=== PATIENT | male | born 1935 | race Caucasian/White ===

== ENCOUNTER → 2016-05-18 | Outpatient (CLI) | payer MEDICARE ==
[2016-05-18 14:07] LABS: Basophils % (A) 1 %; CH 31.9; Eosinophils # (A) 0.2 k/uL (0-0.7); Eosinophils % (A) 4 %; HCT 37.7 % (39.0-53.0); HDW 2.01; Luc # (Auto) 0.06; Luc % (Auto) 1; Lymphocytes # (A) 1.7 k/uL (1.0-4.8); Lymphocytes % (A) 30 %; MCH 31.9 pg (25.0-35.0); MCHC 31.9 g/dL (31.0-37.0); MCV 100.1 fL (80.0-100.0); Mean Platelet Volume 8.2; Monocytes # (A) 0.2 k/uL (0-1.0); Monocytes % (A) 4 %; Neutrophils # (A) 3.3 k/uL (1.3-7.7); Neutrophils % (A) 60 %; RBC 3.76 m/uL (4.30-5.90); RDW 12.3 % (11.5-15.5); WBC 5.4 k/uL (3.8-10.6); WBC (Perox) 5.92
[2016-05-18 14:25] LABS: Anion Gap 13 mmol/L; Blood Urea Nitrogen 35 mg/dL (9-20); Calcium 9.4 mg/dL (8.4-10.2); Carbon Dioxide 28 mmol/L (22-30); Chloride 102 mmol/L (98-107); Glucose 175 mg/dL (74-99); Iron 125 ug/dL (49-181); Magnesium 1.8 mg/dL (1.6-2.3); Non-African American GFR(MDRD) 53 (>60 ml/min/1.73 sqM); Phosphorous 3.5 mg/dL (2.5-4.5); Potassium 3.9 mmol/L (3.5-5.1); Sodium 143 mmol/L (137-145); Uric Acid 5.8 mg/dL (3.5-8.5)
[2016-05-18 14:33] LABS: % Iron Saturation 41.5 % (20-50); Total Iron Binding Capacity 301 ug/dL (261-462)
== END | disposition home or self-care (01) ==
LOC: LABWHC1 13:16
PROVIDERS: ATTEND Nurse Practitioner Family
DX: N18.3 Chronic kidney disease, stage 3 (moderate) (principal); D64.9 Anemia, unspecified; E21.3 Hyperparathyroidism, unspecified; E55.9 Vitamin D deficiency, unspecified; M10.9 Gout, unspecified; N39.0 Urinary tract infection, site not specified; R80.9 Proteinuria, unspecified
CPT/HCPCS: 36415; 80048; 82306; 82728; 83540; 83550; 83735; 83970; 84100; 84550; 85025

== ENCOUNTER → 2016-06-28 | Outpatient (CLI) | payer MEDICARE ==
[2016-06-28 16:56] LABS: Non-African American GFR(MDRD) 59 (>60 ml/min/1.73 sqM)
--- NOTE | 2016-06-28 19:28 | MR ---
EXAMINATION TYPE: MR lumbar spine wo/w con DATE OF EXAM: 06/28/2016 6:26 PM COMPARISON: NONE HISTORY: Left leg weakness TECHNIQUE: Multiplanar, multisequence images of the lumbar spine were acquired utilizing 18 mL intravenous Multi Alesha gadolinium contrast. T12-L1: Marked compression fracture of T12 with loss of height of the greater than 95%. There is exag gerated kyphosis at this level. There is bony retropulsion noted measuring approximately 8 mm. There is distortion of the ventral thecal sac however no definite cord contact or central stenosis at this level. L1-L2: Mild disc desiccation. Mild circumferential disc bulge. Mild effacement ventral thecal sac. No evidence of herniation or protrusion. No central stenosis. Facet joint arthropathy resulting in bila teral foraminal encroachment. L2-L3: Mild disc desiccation. Mild circumferential disc bulge. Mild effacement ventral thecal sac. No evidence of herniation or protrusion. No central stenosis. Facet joint arthropathy resulting in bila teral foraminal encroachment. L3-L4: Moderate to severe disc desiccation. Circumferential disc bulge with effacement of the ventral thecal sac. No evidence for disc herniation. Hypertrophy of the ligamentum flavum and facet joint ar thropathy resulting in constriction of the thecal sac without overt stenosis. Bilateral foraminal enc roachment seen. L4-L5: Severe disc desiccation identified. Mild posterior disc bulge. Hypertrophy of the ligamentum f lavum as well as facet joint arthropathy contribute to mild central stenosis. Grade 1 anterolisthesis L4 and L5 of 2 mm related to severe facet joint arthropathy. Bilateral foraminal encroachment. L5-S1: Normal disc appearance without desiccation. No herniation, protrusion or disc bulging. No ca nal stenosis is present. Foramina are patent bilaterally. Lumbar segments are intact. No paraspinal masses are identified. Conus medullaris has a normal appe arance. No pathologic enhancement identified. IMPRESSION: 1. Marked chronic compression fracture with bony retropulsion at T12 as discussed above. 2. Multilevel degenerative disc disease. 3. 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
== END ==
LOC: RADMRIMAIN 16:06
PROVIDERS: ATTEND Psychiatry & Neurology Neurology
DX: M48.54XA Collapsed vertebra, not elsewhere classified, thoracic region, initial encounter for fracture (principal); M51.36 Other intervertebral disc degeneration, lumbar region; M48.06 Spinal stenosis, lumbar region; Z13.89 Encounter for screening for other disorder
CPT/HCPCS: 82565; 72158; A9577

== ENCOUNTER → 2016-07-15 | Outpatient (CLI) | payer MEDICARE ==
[2016-07-15 16:38] LABS: CH 32.5; CHCM 31.6; HCT 38.3 % (39.0-53.0); HDW 2.03; HGB 12.2 gm/dL (13.0-17.5); MCH 32.9 pg (25.0-35.0); MCHC 31.9 g/dL (31.0-37.0); MCV 103.2 fL (80.0-100.0); Macrocytosis Slight; Mean Platelet Volume 9.2; RBC 3.71 m/uL (4.30-5.90); RDW 12.7 % (11.5-15.5); WBC 6.4 k/uL (3.8-10.6)
[2016-07-15 16:50] LABS: ALT 18 U/L (21-72); AST 32 U/L (17-59); Alkaline Phosphatase 38 U/L (38-126); Anion Gap 17 mmol/L; Blood Urea Nitrogen 32 mg/dL (9-20); Calcium 9.7 mg/dL (8.4-10.2); Carbon Dioxide 22 mmol/L (22-30); Chloride 100 mmol/L (98-107); Glucose 266 mg/dL (74-99); Non-African American GFR(MDRD) >60 (>60 ml/min/1.73 sqM); Potassium 4.5 mmol/L (3.5-5.1); Sodium 139 mmol/L (137-145); Total Bilirubin 0.7 mg/dL (0.2-1.3); Total Protein 7.7 g/dL (6.3-8.2)
[2016-07-15 17:03] LABS: C Reactive Protein 8.6 mg/L (<10.0)
[2016-07-15 17:06] LABS: Prealbumin 16 mg/dL (18-36)
[2016-07-15 17:50] LABS: Erythrocyte Sedimentation Rate 60 mm/hr (0-15)
[2016-07-15 19:45] LABS: Hemoglobin A1C 5.7 % (4.2-6.1)
== END | disposition home or self-care (01) ==
LOC: LABWHC1 15:45
PROVIDERS: ATTEND Family Medicine
DX: E11.622 Type 2 diabetes mellitus with other skin ulcer (principal)
CPT/HCPCS: 36415; 80053; 83036; 84134; 85027; 85652; 86140

== ENCOUNTER → 2016-08-03 | Outpatient (CLI) | payer MEDICARE ==
--- NOTE | 2016-08-03 15:32 | XR ---
EXAMINATION TYPE: XR tibia fibula bilateral DATE OF EXAM: 08/03/2016 12:28 PM COMPARISON: NONE HISTORY: Type 2 diabetes mellitus-Evaluate calcium deposits TECHNIQUE: AP and lateral views of the bilateral tibia and fibula are submitted. COMPARISON: 03/08/2014 FINDINGS: There is no fracture or dislocation. Again noted are diffuse calcifications identified of t he soft tissues of the bilateral legs possibly related to chronic venous stasis. Vascular calcificati ons are also noted. IMPRESSION: Stable chronic venous stasis disease.
== END ==
LOC: RADXRMAIN 12:01
PROVIDERS: ATTEND Surgery
DX: E11.628 Type 2 diabetes mellitus with other skin complications (principal); I87.8 Other specified disorders of veins

== ENCOUNTER → 2016-11-15 | Outpatient (CLI) | payer MEDICARE ==
[2016-11-15 16:43] LABS: CH 32.3; CHCM 31.9; HCT 33.8 % (39.0-53.0); HDW 1.93; HGB 10.9 gm/dL (13.0-17.5); MCH 32.8 pg (25.0-35.0); MCHC 32.3 g/dL (31.0-37.0); MCV 101.5 fL (80.0-100.0); Mean Platelet Volume 9.2; RBC 3.33 m/uL (4.30-5.90); RDW 12.9 % (11.5-15.5); WBC 5.9 k/uL (3.8-10.6)
[2016-11-15 16:48] LABS: Anion Gap 9 mmol/L; Blood Urea Nitrogen 32 mg/dL (9-20); Calcium 9.2 mg/dL (8.4-10.2); Carbon Dioxide 27 mmol/L (22-30); Chloride 103 mmol/L (98-107); Glucose 132 mg/dL (74-99); Iron 90 ug/dL (49-181); Non-African American GFR(MDRD) >60 (>60 ml/min/1.73 sqM); Phosphorous 3.1 mg/dL (2.5-4.5); Sodium 139 mmol/L (137-145); Uric Acid 4.5 mg/dL (3.5-8.5)
[2016-11-15 16:57] LABS: % Iron Saturation 33.8 % (20-50); Total Iron Binding Capacity 266 ug/dL (261-462)
== END | disposition home or self-care (01) ==
LOC: LABWHC1 16:06
PROVIDERS: ATTEND Nurse Practitioner Family
DX: E55.9 Vitamin D deficiency, unspecified (principal); N18.3 Chronic kidney disease, stage 3 (moderate); D63.1 Anemia in chronic kidney disease; N39.0 Urinary tract infection, site not specified; M10.9 Gout, unspecified; N25.81 Secondary hyperparathyroidism of renal origin
CPT/HCPCS: 36415; 80048; 82306; 82728; 83540; 83550; 83735; 83970; 84100; 84550; 85027

== ENCOUNTER → 2017-01-04 | Outpatient (CLI) | payer MEDICARE ==
--- NOTE | 2017-01-04 15:04 | US ---
EXAMINATION TYPE: US kidneys/renal and bladder DATE OF EXAM: 01/04/2017 COMPARISON: CT November 26, 2015 CLINICAL HISTORY: C64.9 KIDNEY CANCER. Pt states history of renal CA on right/ Pt had mass removed ro botically EXAM MEASUREMENTS: Right Kidney: 9.4 x 4.2 x 4.8 cm Left Kidney: 10.3 x 4.9 x 4.7 cm Difficult pt scan due to large body habitus Right Kidney: Cortical thinning, otherwise appeared wnl Left Kidney: Appeared wnl Bladder: Irregular posterior wall Bilateral Jets seen: Yes Exam suboptimal due to patient's large body habitus per technologist. Some cortical thinning in right kidney is present. Bilateral distal ureter jets are seen. Irregularity along the bladder wall is fel t to reflect debris and/or mild wall thickening which correlates with prior CT. IMPRESSION: No suspicious recurrent solid or cystic renal mass identified on ultrasound images saved.
== END | disposition home or self-care (01) ==
LOC: RADUSWWP 13:52
PROVIDERS: ATTEND Urology
DX: C64.9 Malignant neoplasm of unspecified kidney, except renal pelvis (principal)
CPT/HCPCS: 76770

== ENCOUNTER → 2017-05-27 | Outpatient (CLI) | payer MEDICARE ==
[2017-05-27 15:03] LABS: Basophils % (A) 0 %; Eosinophils # (A) 0.1 k/uL (0-0.7); Eosinophils % (A) 2 %; HCT 39.7 % (39.0-53.0); HGB 12.1 gm/dL (13.0-17.5); Lymphocytes # (A) 1.3 k/uL (1.0-4.8); Lymphocytes % (A) 23 %; MCHC 30.4 g/dL (31.0-37.0); MCV 98.7 fL (80.0-100.0); Mean Platelet Volume 8.3; Monocytes # (A) 0.2 k/uL (0-1.0); Monocytes % (A) 4 %; Neutrophils # (A) 3.9 k/uL (1.3-7.7); Neutrophils % (A) 69 %; Platelet Count 327 k/uL (150-450); RBC 4.02 m/uL (4.30-5.90); RDW 12.6 % (11.5-15.5); WBC 5.6 k/uL (3.8-10.6)
[2017-05-27 15:12] LABS: Anion Gap 14 mmol/L; Blood Urea Nitrogen 29 mg/dL (9-20); Calcium 10.3 mg/dL (8.4-10.2); Carbon Dioxide 28 mmol/L (22-30); Chloride 100 mmol/L (98-107); Glucose 192 mg/dL (74-99); Magnesium 1.7 mg/dL (1.6-2.3); Phosphorus 3.6 mg/dL (2.5-4.5); Sodium 142 mmol/L (137-145)
[2017-05-27 18:40] LABS: Iron Saturation 25.35 (15.00-50.00)
[2017-05-27 18:48] LABS: Vitamin D 25 Hydroxy 56.6 ng/mL (30.0-100.0)
== END | disposition home or self-care (01) ==
LOC: LABWHC1 14:11
PROVIDERS: ATTEND Internal Medicine Nephrology
DX: R80.9 Proteinuria, unspecified (principal); E21.3 Hyperparathyroidism, unspecified; D63.1 Anemia in chronic kidney disease; N18.3 Chronic kidney disease, stage 3 (moderate)
CPT/HCPCS: 36415; 80048; 82306; 82728; 83540; 83550; 83735; 83970; 84100; 84550; 85025

== ENCOUNTER → 2017-06-16 | Outpatient (CLI) | payer MEDICARE ==
[2017-06-16 09:17] LABS: Anion Gap 15 mmol/L; Blood Urea Nitrogen 29 mg/dL (9-20); Calcium 9.8 mg/dL (8.4-10.2); Carbon Dioxide 29 mmol/L (22-30); Chloride 100 mmol/L (98-107); Glucose 145 mg/dL (74-99); Potassium 3.8 mmol/L (3.5-5.1); Sodium 144 mmol/L (137-145)
== END | disposition home or self-care (01) ==
LOC: LABWHC1 08:37
PROVIDERS: ATTEND Nurse Practitioner Family
DX: N18.3 Chronic kidney disease, stage 3 (moderate) (principal)
CPT/HCPCS: 36415; 80048

== ENCOUNTER 2017-07-10 15:38 | Inpatient (IN) | payer MEDICARE ==
[2017-07-10] MEDS ORDERED: SODIUM CHLORIDE 0.9% 1,000 ML IV STA ×2 (16:10)
[2017-07-10] MEDS ORDERED: ACETAMINOPHEN TAB 325 MG TAB PO STA (16:10)
[2017-07-10] MEDS ORDERED: PIPERACILLIN-TAZOBACTAM 3.375 GM in DEXTROSE/WATER 1 50ML.BAG IVPB STA (16:11)
[2017-07-10 16:25] LABS: HCT 33.3 % (39.0-53.0); HGB 11.4 gm/dL (13.0-17.5); MCH 32.2 pg (25.0-35.0); MCHC 34.2 g/dL (31.0-37.0); MCV 94.2 fL (80.0-100.0); Mean Platelet Volume 8.5; Platelet Count 303 k/uL (150-450); RBC 3.53 m/uL (4.30-5.90); RDW 12.6 % (11.5-15.5); WBC 12.3 k/uL (3.8-10.6)
[2017-07-10 16:33] LABS: INR 2.6 (<1.2); Prothrombin Time 23.1 sec (9.0-12.0)
[2017-07-10 16:40] LABS: Albumin 3.5 g/dL (3.5-5.0); Calcium 9.7 mg/dL (8.4-10.2); Potassium 3.6 mmol/L (3.5-5.1); Total Bilirubin 2.7 mg/dL (0.2-1.3); Total Protein 6.6 g/dL (6.3-8.2)
[2017-07-10 16:42] LABS: Nucleated Red Blood Cells 0 /100 WBC (0-0)
[2017-07-10 16:44] LABS: Band Neutrophils % 19 %; Lymphocytes # (M) 0.37 k/uL (1.0-4.8); Monocytes # (M) 0.25 k/uL (0-1.0); Neutrophils % (M) 76 %; Total Cells Counted 200
[2017-07-10 16:55] LABS: Creatine Kinase MB 0.2 ng/mL (0.0-2.4); Troponin I 0.017 ng/mL (0.000-0.034)
--- NOTE | 2017-07-10 16:55 | XR ---
EXAMINATION TYPE: XR chest 2V DATE OF EXAM: 07/10/2017 COMPARISON: 12/18/2014 HISTORY: Weakness. History of atrial fibrillation. TECHNIQUE: Frontal and lateral views of the chest are obtained. FINDINGS: There is no focal air space opacity, pleural effusion, or pneumothorax seen. The cardiac silhouette size is enlarged. Chronic fracture deformity of the eighth posterior right rib is present. Mild multilevel degenerative changes of the thoracic spine are noted. IMPRESSION: No acute cardiopulmonary process.
--- NOTE | 2017-07-10 19:11 | ED ---
General Adult HPI - General Chief complaint: Weakness Stated complaint: WEAKNESS Time Seen by Provider: 07/10/17 16:07 Source: patient Mode of arrival: wheelchair Limitations: no limitations - History of Present Illness Initial comments: 81Years old gentleman came in with a fever of 101.6 his blood pressure was low he said he been feeling quite weak for about a week now and today he slid down the chair he denies any injury from the fall but he was not able to able to get up. Then he was not able to get out of the chair EMS noticed that he was weak and they felt he was confused though on arrival to the ER he answered all the questions appropriately. He denies any headaches no chest pain or shortness of breath no abdominal pain no frequency urgency dysuria he just feels tired - Related Data Home Medications Medication Instructions Recorded Confirmed Ergocalciferol [Vitamin D2 50,000 unit PO WE 02/28/14 07/10/17 (DRISDOL)] Fenofibrate,Micronized 134 mg PO HS 02/28/14 07/10/17 [Fenofibrate] Furosemide [Lasix] 40 mg PO HS 02/28/14 07/10/17 metFORMIN HCL [Glucophage] 500 mg PO BID 02/28/14 07/10/17 ALPRAZolam [Xanax] 0.5 mg PO DAILY PRN 01/05/15 07/10/17 Meclizine [Antivert] 25 mg PO BID 01/05/15 07/10/17 glipiZIDE [Glucotrol] 2.5 mg PO DAILY PRN 06/30/16 07/10/17 Diltiazem HCl [Diltiazem 24Hr ER] 120 mg PO Q24HR 01/27/17 07/10/17 traMADol HCL/ACETAMINOPHEN 1 tab PO BID 05/26/17 07/10/17 [Ultracet 37.5-325] FLUoxetine HCL [PROzac] 40 mg PO DAILY 07/10/17 07/10/17 Warfarin Sodium [Coumadin] 5 mg PO MOTUWETHFRSA 07/10/17 07/10/17 Previous Rx's Medication Instructions Recorded Amoxicillin/Potassium Clav 1 tab PO Q12HR 14 Days #28 tab 07/07/17 [Augmentin 875-125 Tablet] Allergies Allergy/AdvReac Type Severity Reaction Status Date / Time oxycodone [Oxycodone] Allergy Hallucinati Verified 07/10/17 16:46 ons Review of Systems ROS Statement: Those systems with pertinent positive or pertinent negative responses have been documented in the HPI. ROS Other: All systems not noted in ROS Statement are negative. Past Medical History Past Medical History: Atrial Fibrillation, Diabetes Mellitus, Hypertension Additional Past Medical History / Comment(s): RLE VENOUS ULCERS. bilateral CACIUM DEPOSITS of legs: Ching disease. MAC. DEGENERATION. VERTIGO. STAGE 3 RENAL DISEASE History of Any Multi-Drug Resistant Organisms: None Reported Past Surgical History: Tonsillectomy Additional Past Surgical History / Comment(s): BILAT CATARACTS. 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 fluid from eyes r/t glaucoma Past Anesthesia/Blood Transfusion Reactions: Motion Sickness Past Psychological History: Anxiety Smoking Status: Former smoker Past Alcohol Use History: None Reported Past Drug Use History: None Reported - Past Family History Sister(s) Family Medical History: Cancer, Diabetes Mellitus Mother Family Medical History: Myocardial Infarction ([place]), Renal Disease General Exam - General Exam Comments Initial Comments: General: The patient is awake and alert, GCS is 15 Skin: Skin is warm and dry and no rashes or lesions are noted. Noticed a chronic ulcers on the right lower extremity and the left lower extremity Eye: Pupils are equal, round and reactive to light, extra-ocular movements are intact; there is normal conjunctiva bilaterally. Ears, nose, mouth and throat: There are moist mucous membranes and no oral lesions. Neck: The neck is supple, there is no tenderness or JVD. Cardiovascular: There is irregularly irregular Respiratory: To auscultation bilateral, noticed irregularly irregular heartbeat Gastrointestinal: Soft, non-distended, non-tender abdomen without masses or organomegaly noted. There is no rebound or guarding present. Bowel sounds are unremarkable. Back: There is no tenderness to palpation in the midline. There is no obvious deformity. Musculoskeletal: Both legs have a fiance are very chronic LEG seems like they' ve wounds or infected cultures were done, no obvious neurovascular compromise noticed Neurological: CN II-XII intact, Cranial nerves III through XII are intact. There are no obvious motor or sensory deficits. Coordination appears grossly intact. Speech is normal. Psychiatric: Cooperative, appropriate mood & affect, normal judgment. Limitations: no limitations Course Vital Signs 07/10/17 07/10/17 07/10/17 15:40 17:34 18:33 Temperature 101.6 F H 100.6 F H Pulse Rate 81 89 92 Respiratory 18 18 18 Rate Blood Pressure 94/52 118/66 122/66 O2 Sat by Pulse 96 97 95 Oximetry EKG Findings - EKG Comments: EKG Findings:: EKG is atrial fibrillation ventricular rate is 85 QRS duration is 82 QT/QTc is 446/5:30 review of this EKG does not reveal any ST elevation or ST depression Medical Decision Making - Lab Data Result diagrams: 07/10/17 16:05 07/10/17 16:05 Lab Results 07/10/17 07/10/17 07/10/17 Range/Units 16:05 16:05 16:05 WBC 12.3 H (3.8-10.6) k/uL RBC 3.53 L (4.30-5.90) m/uL Hgb 11.4 L (13.0-17.5) gm/dL Hct 33.3 L (39.0-53.0) % MCV 94.2 (80.0-100.0) fL MCH 32.2 (25.0-35.0) pg MCHC 34.2 (31.0-37.0) g/dL RDW 12.6 (11.5-15.5) % Plt Count 303 (150-450) k/uL Neutrophils % (Manual) 76 % Band Neutrophils % 19 % Lymphocytes % (Manual) 3 % Monocytes % (Manual) 2 % Neutrophils # (Manual) 11.60 H (1.3-7.7) k/uL Lymphocytes # (Manual) 0.37 L (1.0-4.8) k/uL Monocytes # (Manual) 0.25 (0-1.0) k/uL Nucleated RBCs 0 (0-0) /100 WBC Manual Slide Review Performed RBC Morphology Normal PT (9.0-12.0) sec INR (<1.2) APTT (22.0-30.0) sec Sodium 139 (137-145) mmol/L Potassium 3.6 (3.5-5.1) mmol/L Chloride 102 (98-107) mmol/L Carbon Dioxide 23 (22-30) mmol/L Anion Gap 14 mmol/L BUN 27 H (9-20) mg/dL Creatinine 1.10 (0.66-1.25) mg/dL Est GFR (CKD-EPI)AfAm 74 (>60 ml/min/1.73 sqM) Est GFR (CKD-EPI)NonAf 64 (>60 ml/min/1.73 sqM) Glucose 169 H (74-99) mg/dL Plasma Lactic Acid Carlos Eduardo (0.7-2.0) mmol/L Calcium 9.7 (8.4-10.2) mg/dL Total Bilirubin 2.7 H (0.2-1.3) mg/dL AST 416 H (17-59) U/L ALT 164 H (21-72) U/L Alkaline Phosphatase 56 (38-126) U/L Total Creatine Kinase 31 L (55-170) U/L CK-MB (CK-2) 0.2 (0.0-2.4) ng/mL CK-MB (CK-2) Rel Index 0.6 Troponin I 0.017 (0.000-0.034) ng/mL Total Protein 6.6 (6.3-8.2) g/dL Albumin 3.5 (3.5-5.0) g/dL Influenza Type A RNA (Not Detectd) Influenza Type B (PCR) (Not Detectd) 07/10/17 07/10/17 07/10/17 Range/Units 16:05 16:05 16:05 WBC (3.8-10.6) k/uL RBC (4.30-5.90) m/uL Hgb (13.0-17.5) gm/dL Hct (39.0-53.0) % MCV (80.0-100.0) fL MCH (25.0-35.0) pg MCHC (31.0-37.0) g/dL RDW (11.5-15.5) % Plt Count (150-450) k/uL Neutrophils % (Manual) % Band Neutrophils % % Lymphocytes % (Manual) % Monocytes % (Manual) % Neutrophils # (Manual) (1.3-7.7) k/uL Lymphocytes # (Manual) (1.0-4.8) k/uL Monocytes # (Manual) (0-1.0) k/uL Nucleated RBCs (0-0) /100 WBC Manual Slide Review RBC Morphology PT 23.1 H (9.0-12.0) sec INR 2.6 H (<1.2) APTT 32.0 H (22.0-30.0) sec Sodium (137-145) mmol/L Potassium (3.5-5.1) mmol/L Chloride (98-107) mmol/L Carbon Dioxide (22-30) mmol/L Anion Gap mmol/L BUN (9-20) mg/dL Creatinine (0.66-1.25) mg/dL Est GFR (CKD-EPI)AfAm (>60 ml/min/1.73 sqM) Est GFR (CKD-EPI)NonAf (>60 ml/min/1.73 sqM) Glucose (74-99) mg/dL Plasma Lactic Acid Carlos Eduardo 3.7 H* (0.7-2.0) mmol/L Calcium (8.4-10.2) mg/dL Total Bilirubin (0.2-1.3) mg/dL AST (17-59) U/L ALT (21-72) U/L Alkaline Phosphatase (38-126) U/L Total Creatine Kinase (55-170) U/L CK-MB (CK-2) (0.0-2.4) ng/mL CK-MB (CK-2) Rel Index Troponin I (0.000-0.034) ng/mL Total Protein (6.3-8.2) g/dL Albumin (3.5-5.0) g/dL Influenza Type A RNA Not Detected (Not Detectd) Influenza Type B (PCR) Not Detected (Not Detectd) Critical Care Time Total Critical Care Time: 30 Critical Care Time: 81 years old gentleman came in with her blood pressure and high fever suspected early sepsis patient was given fluids I, tamsulosin was started then noticed that his lactate is 3.7 white count is 12.3 AST and ALTare elevated though he has no abdominal pain Is negative flu a and B both are negative we can admit him under Dr. Hinton and will consult Dr. George Disposition Clinical Impression: Sepsis Disposition: ADMITTED IP TO THIS HOSP Condition: Good Referrals: Brandie Hinton MD [Primary Care Provider] - 1-2 days
[2017-07-10] MEDS ORDERED: NALOXONE 0.4 MG/ML 1 ML VIAL IV PRN (19:13)
[2017-07-10] MEDS ORDERED: VANCOMYCIN 1,000 MG in SODIUM CHLORIDE 0.9% 250 ML IVPB STA (19:18)
[2017-07-10 19:50] LABS: Appearance,Urine Cloudy (Clear); Bacteria,Urine Rare /hpf; Bilirubin,Urine 1+ (Negative); Blood,Urine Trace (Negative); Color,Urine Yellow; Glucose,Urine (UA) 1+ (Negative); Hyaline Casts,Urine 8 /lpf (0-2); Ketones,Urine Trace (Negative); Leukocyte Esterase,Urine Negative (Negative); Mucus,Urine Occasional /hpf; Nitrite,Urine Negative (Negative); Protein,Urine 1+ (Negative); RBC,Urine 5 /hpf (0-5); Specific Gravity,Urine 1.023 (1.001-1.035); Squamous Epithelial Cell,Urine 1 /hpf (0-4); WBC,Urine 5 /hpf (0-5)
[2017-07-10] MEDS ORDERED: VANCOMYCIN IV PER PHARMACY 1 EACH MISC MISCELLANE ONE (20:00)
[2017-07-10] MEDS ORDERED: VANCOMYCIN 1,750 MG in SODIUM CHLORIDE 0.9% 250 ML IVPB ONE (20:15)
--- NOTE | 2017-07-10 20:22 | XR ---
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 TECHNIQUE: Two views of the bilateral tibia and fibula are obtained. COMPARISON: 08/03/2016 FINDINGS: There is no evidence of acute fracture or dislocation of either tibia or fibula. Mild media l compartment arthropathy is seen of the right knee and moderate to severe the left knee within the m edial and lateral femoral tibial compartment. Extensive skin calcifications of the bilateral lower ex tremities partially obscure visualization and obscure bony detail. Atherosclerosis is also seen of th e small vessels of the lower extremities. Moderate plantar enthesophytes are noted bilaterally. Patch y lucency within the left calcaneus could relate to osteopenia. Ankle joints appear intact without di slocation. Moderate midfoot arthropathy is noted as dorsal midfoot osseous irregularity. Patellar ost eophytes are also noted bilaterally. IMPRESSION: 1. There is no acute fracture or dislocation seen in the either tibia or fibula. 2. Diffuse patchy lucency within the left calcaneus could relate to osteopenia. MR could be performed if there is concern for bone marrow replacing process. 3. Extensive skin calcifications of bilateral lower extremities related to the patient's known diagno sis of calcinosis cutis. 4. Extensive small vessel calcifications which may relate to peripheral arterial disease. 5. Moderate midfoot arthropathy bilaterally and moderate plantar enthesophyte/heel spurs. 6. Mild right and moderate left tricompartmental arthropathy of the knees.
[2017-07-10] MEDS ORDERED: ALPRAZolam 0.5 MG TAB PO PRN (20:50)
[2017-07-10] MEDS: AMOXIC-POT CLAV 875-125MG 1 EACH TAB PO SCH (22:12)
[2017-07-10] MEDS: FUROSEMIDE 40 MG TAB PO SCH (23:27)
[2017-07-10] MEDS: metFORMIN 500 MG TAB PO SCH (23:28)
[2017-07-10] MEDS: FENOFIBRATE 160 MG TAB PO SCH (23:28)
[2017-07-10] MEDS: traMADol-ACETAMINOP 37.5-325MG 1 EACH TAB PO SCH (23:28)
[2017-07-10] MEDS: MECLIZINE 25 MG TAB PO SCH (23:28)
[2017-07-11] MEDS: ACETAMINOPHEN TAB 325 MG TAB PO PRN ×2 (00:12→17:09)
[2017-07-11] MEDS: FENOFIBRATE 160 MG TAB PO SCH (00:12)
[2017-07-11] MEDS: metFORMIN 500 MG TAB PO SCH ×2 (08:03→19:48)
[2017-07-11] MEDS: FLUoxetine HCL 20 MG CAP PO SCH (08:04)
[2017-07-11] MEDS: MECLIZINE 25 MG TAB PO SCH ×2 (08:04→19:57)
[2017-07-11] MEDS: SODIUM CHLORIDE 0.9% 1,000 ML IV SCH ×2 (10:23→20:02)
[2017-07-11 11:17] LABS: Glucose,Whole Blood 180 mg/dL (75-99)
[2017-07-11] MEDS: traMADol-ACETAMINOP 37.5-325MG 1 EACH TAB PO SCH (11:57)
[2017-07-11] MEDS: INSULIN ASPART 100 UNIT/ML 1 ML 10 ML VIAL SQ SCH ×3 (12:00→21:24)
[2017-07-11] MEDS: DILTIAZEM CD 120 MG CAP.ER.24H PO SCH (12:05)
[2017-07-11] MEDS: AMOXIC-POT CLAV 875-125MG 1 EACH TAB PO SCH (12:05)
--- NOTE | 2017-07-11 12:34 | CONS ---
CONSULTATION CHIEF COMPLAINT: Atrial fibrillation. Isidro is a 81-year-old gentleman with history of chronic atrial fibrillation, hypertension, [id number] diabetes, and dyslipidemia who presented to the hospital having slipped and falling from his chair. He did not have chest pain, difficulty in breathing, palpitations, focal neurological deficits, nor did he have loss of consciousness. He had mild temperature and blood pressures were somewhat low, so he was brought in and workup in the ER showed elevated lactic acid due to which he is admitted to hospital. Cardiology had been consulted because of his atrial fibrillation. At the time of my evaluation, patient appears comfortable at rest and is free of significant symptoms. PAST MEDICAL HISTORY: Past medical history is significant for atrial fibrillation, [id number] diabetes, hypertension, dyslipidemia. MEDICATIONS: Medications include Prozac, Drisdol, diltiazem, Augmentin, Xanax. Coumadin Antivert, Lasix, fenofibrate, Glucotrol, Ultracet and Glucophage. ALLERGIES: The patient is allergic to OXYCODONE. FAMILY HISTORY: Family history is negative for premature coronary artery disease. SOCIAL HISTORY: Negative for current smoking, EtOH abuse or drug abuse. REVIEW OF SYSTEMS: HEENT is unremarkable. CARDIAC: As described above. RESPIRATORY: Negative. GI: Negative. GENITOURINARY: Negative. ALLERGY/IMMUNOLOGY: Negative. SKIN: Negative. MUSCULOSKELETAL: Significant for fall. PSYCHOSOCIAL: DERM: Negative. CONSTITUTIONAL: Negative. ONCOLOGICAL: Negative. Rest of the system review is not relevant. PHYSICAL EXAMINATION: On exam, patient is comfortable at rest. Heart rate is 68 beats per minute, irregular. Blood pressure is 116/56, respiratory rate is 18. There is no jugular venous distention. Carotid upstroke is normal. There is no bruit. Chest exam reveals good air entry bilaterally. Heart exam reveals first and second heart sounds. Irregular rhythm. No murmur. Abdomen is soft. Examination of extremities did not reveal any edema. Peripheral pulses are felt. LABS: Labs show an INR of 2.6, hemoglobin is 11.4, platelet count is 303. Lactic acid is 3.7. Creatinine is 1.1. ASSESSMENT: Chronic atrial fibrillation with controlled ventricular rate. PLAN: Patient is doing well from cardiac standpoint. I will obtain a 2D echo on him. The patient will continue on the current medical therapy for possible sepsis. Thank you for allowing us to participate in the care of this pleasant gentleman. MMODL / IJN: [id number] /
[2017-07-11] MEDS: VANCOMYCIN 1,750 MG in SODIUM CHLORIDE 0.9% 250 ML IVPB SCH (14:38)
[2017-07-11] MEDS ORDERED: traMADol 50 MG TAB PO PRN (15:44)
--- NOTE | 2017-07-11 15:59 | P.HPIM ---
History of Present Illness H&P Date: 07/11/17 Chief Complaint: Weakness This is a 81-year-old male with a known history of chronic atrial fibrillation, diabetes mellitus, chronic lower extremity ulcers, chronic kidney disease, hypertension. Patient presents anemia emergency room with complaints of feeling very weak and with evidence of a fever of 101.6. He reports that he went to stand up from his chair and felt very weak and dizzy fluid down the chair onto the floor. He reports that he did not pass out or injure himself. EMS was called and patient was brought into the emergency room. He was slightly confused at that time. However now he is alert and orientated to 3. Patient was found have evidence of sepsis with a temp of 101.6 and lactic acid of 3.7 white count 12.3. Patient has evidence of lower extremity cellulitis around his leg ulcers. He reports that he follows with Dr. Adame at the wound care center for his leg wounds. 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 Patient was started on Augmentin the outpatient setting. However he is still having evidence of cellulitis. Vancomycin has been started and he was also given a dose of IV Zosyn. Infectious disease consulted. Cardiology is also following regards to patient's history of atrial fibrillation. Patient was also found have elevated LFTs and total bilirubin. Denies any abdominal pain. Abdominal ultrasound and hepatic panel has been ordered. Patient denies any chest pain or shortness of breath. Does admit to having some dizziness. Denies any vomiting. The does admit to some nausea intermittently. Denies any bowel movement changes or urinary symptoms. Influenza screen was negative and urinalysis negative. Lactic acid elevated at 3.7 improved with IV fluids down to 1.3 Review of Systems Please refer to HPI otherwise unremarkable Past Medical History Past Medical History: Atrial Fibrillation, Diabetes Mellitus, Hypertension Additional Past Medical History / Comment(s): BLE VENOUS ULCERS, calcenosis of BLE. MAC. DEGENERATION. VERTIGO. 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 History of Any Multi-Drug Resistant Organisms: None Reported Past Surgical History: Tonsillectomy Additional Past Surgical History / Comment(s): BILAT CATARACTS. 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 fluid from eyes r/t glaucoma Past Anesthesia/Blood Transfusion Reactions: Motion Sickness Past Psychological History: Anxiety Smoking Status: Former smoker Past Alcohol Use History: None Reported Additional Past Alcohol Use History / Comment(s): smoked 20 years <1ppd quit 1973 Past Drug Use History: None Reported - Past Family History Sister(s) Family Medical History: Cancer, Diabetes Mellitus Mother Family Medical History: Myocardial Infarction ([place]), Renal Disease Medications and Allergies Home Medications Medication Instructions Recorded Confirmed Type Ergocalciferol [Vitamin D2 50,000 unit PO WE 02/28/14 07/10/17 History (DRISDOL)] Fenofibrate,Micronized 134 mg PO HS 02/28/14 07/10/17 History [Fenofibrate] Furosemide [Lasix] 40 mg PO HS 02/28/14 07/10/17 History metFORMIN HCL [Glucophage] 500 mg PO BID 02/28/14 07/10/17 History ALPRAZolam [Xanax] 0.5 mg PO DAILY PRN 01/05/15 07/10/17 History Meclizine [Antivert] 25 mg PO BID 01/05/15 07/10/17 History glipiZIDE [Glucotrol] 2.5 mg PO DAILY PRN 06/30/16 07/10/17 History Diltiazem HCl [Diltiazem 24Hr ER] 120 mg PO Q24HR 01/27/17 07/10/17 History traMADol HCL/ACETAMINOPHEN 1 tab PO BID 05/26/17 07/10/17 History [Ultracet 37.5-325] Amoxicillin/Potassium Clav 1 tab PO Q12HR 14 Days #28 tab 07/07/17 07/10/17 Rx [Augmentin 875-125 Tablet] FLUoxetine HCL [PROzac] 40 mg PO DAILY 07/10/17 07/10/17 History Warfarin Sodium [Coumadin] 5 mg PO MOTUWETHFRSA 07/10/17 07/10/17 History Allergies Allergy/AdvReac Type Severity Reaction Status Date / Time oxycodone [Oxycodone] Allergy Hallucinati Verified 07/10/17 16:46 ons Physical Exam Vitals: Vital Signs Temp Pulse Pulse Resp BP BP BP 07/11/17 15:12 97.9 F 77 20 134/55 07/11/17 11:54 97.8 F 78 16 135/60 07/11/17 08:00 97.9 F 8 L 20 101/50 07/11/17 04:00 68 16 116/56 07/11/17 00:00 97.9 F 89 16 107/82 07/10/17 21:27 84 18 07/10/17 20:08 99.1 F 89 18 109/78 07/10/17 19:58 99.1 F 84 18 112/59 07/10/17 18:33 100.6 F H 92 18 122/66 07/10/17 17:34 89 18 118/66 Pulse Ox 07/11/17 15:12 97 07/11/17 11:54 98 07/11/17 08:00 99 07/11/17 04:00 95 07/11/17 00:00 96 07/10/17 21:27 07/10/17 20:08 97 07/10/17 19:58 95 07/10/17 18:33 95 07/10/17 17:34 97 Intake and Output 07/11/17 07/11/17 07/11/17 06:59 14:59 22:59 Intake Total 240 Output Total 400 100 Balance -400 140 Intake: Oral 240 Output: Urine 400 100 Other: Voiding Method Urinal Urinal # Voids 1 Weight 89 kg Head normocephalic Neck supple Lungs clear to auscultation bilaterally no wheezing or crackles Heart regular rate and rhythm S1-S2, no rub or gallop Abdomen is soft nontender nondistended positive bowel sounds no hepatosplenomegaly Extremities bilateral tibia calcium calcifications noted along the legs. There are leg ulcers noted along the tibia with drainage and it is bloody. Evidence of cellulitis with erythema along around the leg wounds Neuro alert and orientated 3 Results CBC & Chem 7: 07/10/17 16:05 07/10/17 16:05 Labs: Abnormal Lab Results - Last 24 Hours (Table) 07/10/17 07/10/17 07/10/17 Range/Units 16:05 16:05 16:05 WBC 12.3 H (3.8-10.6) k/uL RBC 3.53 L (4.30-5.90) m/uL Hgb 11.4 L (13.0-17.5) gm/dL Hct 33.3 L (39.0-53.0) % Neutrophils # (Manual) 11.60 H (1.3-7.7) k/uL Lymphocytes # (Manual) 0.37 L (1.0-4.8) k/uL PT (9.0-12.0) sec INR (<1.2) APTT (22.0-30.0) sec BUN 27 H (9-20) mg/dL Glucose 169 H (74-99) mg/dL POC Glucose (mg/dL) (75-99) mg/dL Plasma Lactic Acid Carlos Eduardo (0.7-2.0) mmol/L Total Bilirubin 2.7 H (0.2-1.3) mg/dL AST 416 H (17-59) U/L ALT 164 H (21-72) U/L Total Creatine Kinase 31 L (55-170) U/L Urine Protein (Negative) Urine Glucose (UA) (Negative) Urine Ketones (Negative) Urine Blood (Negative) Urine Bilirubin (Negative) Urine Bacteria (None) /hpf Hyaline Casts (0-2) /lpf Urine Mucus (None) /hpf 07/10/17 07/10/17 07/10/17 Range/Units 16:05 16:05 18:50 WBC (3.8-10.6) k/uL RBC (4.30-5.90) m/uL Hgb (13.0-17.5) gm/dL Hct (39.0-53.0) % Neutrophils # (Manual) (1.3-7.7) k/uL Lymphocytes # (Manual) (1.0-4.8) k/uL PT 23.1 H (9.0-12.0) sec INR 2.6 H (<1.2) APTT 32.0 H (22.0-30.0) sec BUN (9-20) mg/dL Glucose (74-99) mg/dL POC Glucose (mg/dL) (75-99) mg/dL Plasma Lactic Acid Carlos Eduardo 3.7 H* (0.7-2.0) mmol/L Total Bilirubin (0.2-1.3) mg/dL AST (17-59) U/L ALT (21-72) U/L Total Creatine Kinase (55-170) U/L Urine Protein 1+ H (Negative) Urine Glucose (UA) 1+ H (Negative) Urine Ketones Trace H (Negative) Urine Blood Trace H (Negative) Urine Bilirubin 1+ H (Negative) Urine Bacteria Rare H (None) /hpf Hyaline Casts 8 H (0-2) /lpf Urine Mucus Occasional H (None) /hpf 07/11/17 Range/Units 11:15 WBC (3.8-10.6) k/uL RBC (4.30-5.90) m/uL Hgb (13.0-17.5) gm/dL Hct (39.0-53.0) % Neutrophils # (Manual) (1.3-7.7) k/uL Lymphocytes # (Manual) (1.0-4.8) k/uL PT (9.0-12.0) sec INR (<1.2) APTT (22.0-30.0) sec BUN (9-20) mg/dL Glucose (74-99) mg/dL POC Glucose (mg/dL) 180 H (75-99) mg/dL Plasma Lactic Acid Carlos Eduardo (0.7-2.0) mmol/L Total Bilirubin (0.2-1.3) mg/dL AST (17-59) U/L ALT (21-72) U/L Total Creatine Kinase (55-170) U/L Urine Protein (Negative) Urine Glucose (UA) (Negative) Urine Ketones (Negative) Urine Blood (Negative) Urine Bilirubin (Negative) Urine Bacteria (None) /hpf Hyaline Casts (0-2) /lpf Urine Mucus (None) /hpf Microbiology - Last 24 Hours (Table) 07/10/17 17:02 Gram Stain - Preliminary Leg - Right Wound Culture - Preliminary 07/10/17 17:02 Gram Stain - Preliminary Leg - Left Wound Culture - Preliminary 07/10/17 18:50 Urine Culture - Preliminary Urine,Voided Thrombosis Risk Factor Assmnt - Choose All That Apply Each Risk Factor Represents 3 Points: Age 75 years or older Thrombosis Risk Factor Assessment Total Risk Factor Score: 3 Thrombosis Risk Factor Assessment Level: Moderate Risk Assessment and Plan Assessment: 1. Sepsis present on admission possibly related to patient's cellulitis and leg wounds. Cultures have been obtained the leg. Blood cultures pending. Infectious disease consulted. Patient is currently on IV vancomycin. He had been on Augmentin in the outpatient setting. This will be discontinued 2. 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 Continue with current antibiotics. Await infectious disease evaluation 3. History of Kyrle's disease 4. Elevated LFTs and total bilirubin. Check abdominal ultrasound. Check acute hepatitis panel. Discontinue Ultracet due to the Tylenol component. Discontinue fenofibrate 5. History of chronic atrial fibrillation evaluated by cardiology. Continue Coumadin for anticoagulation EKG had shown atrial fibrillation with a heart rate of 85 6. Diabetes mellitus type II. Continue sliding scale coverage 7. Essential hypertension: Lower blood pressures at present on admission now improved 8. Confusion prior to admission likely metabolic encephalopathy due to patient' s sepsis and cellulitis of the lower extremities GI prophylaxis Pepcid and DVT prophylaxis Coumadin Time with Patient: Greater than 30 (Greater than 50% of the total time spent in counseling and coordination of care.I performed an examination of the patient and discussed their management with the physician Irrigator Head. I have reviewed the Physician Irrigator Head's notes and agree with the documented findings and plan of care)
[2017-07-11 16:41] LABS: Glucose,Whole Blood 158 mg/dL (75-99)
[2017-07-11] MEDS ORDERED: WARFARIN 5 MG TAB PO SCH (18:00)
--- NOTE | 2017-07-11 19:41 | ECHOF ---
Referral Reason:afib MEASUREMENTS -------- HEIGHT: 180.3 cm WEIGHT: 88.9 kg BP: 136/86 RVIDd: 3.8 cm (< 3.3) IVSd: 1.2 cm (0.6 - 1.1) LVIDd: 5.8 cm (3.9 - 5.3) LVPWd: 1.3 cm (0.6 - 1.1) IVSs: 1.3 cm LVIDs: 3.9 cm LVPWs: 1.8 cm LA Diam: 5.3 cm (2.7 - 3.8) LAESV Index (A-L): 53.93 ml/m Ao Diam: 3.2 cm (2.0 - 3.7) AV Cusp: 1.4 cm (1.5 - 2.6) MV EXCURSION: 21.020 mm (> 18.000) MV EF SLOPE: 134 mm/s (70 - 150) EPSS: 0.4 cm AV maxP.18 mmHg AV meanP.09 mmHg RAP: 5.00 mmHg RVSP: 37.00 mmHg FINDINGS -------- Atrial fibrillation. This was a technically adequate study. The left ventricular size is normal. There is mild concentric left ventricular hypertrophy. Overa ll left ventricular systolic function is normal with, an EF between 55 - 60 %. The right ventricle is mild to moderately enlarged. LA is severely dilated >40 ml/m2 The right atrium is normal in size. There is mild aortic valve sclerosis. There is mild aortic stenosis present. Peak/mean gradient a cross the Aortic Valve is 15.18mmHg / 8.09mmHg. The mitral valve leaflets are mildly thickened. Mild mitral annular calcification present. Mild m itral regurgitation is present. Mild tricuspid regurgitation present. There is mild pulmonary hypertension. The right ventricular systolic pressure, as measured by Doppler, is 37.00mmHg. The pulmonic valve was not well visualized. The aortic root size is normal. IVC Not well visulized. There is no pericardial effusion. CONCLUSIONS -------- 1. Atrial fibrillation. 2. This was a technically adequate study. 3. The left ventricular size is normal. 4. There is mild concentric left ventricular hypertrophy. 5. The right ventricle is mild to moderately enlarged. 6. LA is severely dilated >40 ml/m2 7. The right atrium is normal in size. 8. There is mild aortic valve sclerosis. 9. There is mild aortic stenosis present. 10. Peak/mean gradient across the Aortic Valve is 15.18mmHg / 8.09mmHg. 11. The mitral valve leaflets are mildly thickened. 12. Mild mitral annular calcification present. 13. Mild mitral regurgitation is present. 14. Mild tricuspid regurgitation present. 15. There is mild pulmonary hypertension. 16. The right ventricular systolic pressure, as measured by Doppler, is 37.00mmHg. 17. The pulmonic valve was not well visualized. 18. The aortic root size is normal. 19. IVC Not well visulized. 20. There is no pericardial effusion. CHRONOMETER REPAIRER: Acacia Presley RDCS
[2017-07-11] MEDS: FUROSEMIDE 40 MG TAB PO SCH (19:57)
[2017-07-11 20:38] LABS: Glucose,Whole Blood 210 mg/dL (75-99)
[2017-07-11 20:42] LABS: Hemoglobin A1C 5.7 % (4.0-6.0)
--- NOTE | 2017-07-11 22:56 | P.CONS ---
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 The patient has had local wound care was recently with medical honey with some improvement of his status. He has had difficulty with localized renal cell carcinoma that has been resected. With gentle relatively well until he suddenly became weak today. He relates that suddenly his legs became weak he couldn't navigate any further he fell into his chair and then slowly ended up on the ground. Was able to bring himself up and consequently EMS was called and he was transported to hospital. He has been found evidence of a fever over 101 as well as significant weakness and leukocytosis. There was also evidence of an elevated lactic acid. Because of sepsis the infectious diseases consultation is been requested. Patient is feeling slightly better today after fluid resuscitation and antibiotic therapy. Review of Systems HEENT:Denies headache or acute visual change. Denies sinus or mouth discomforts. Denies neck stiffness or pain. Denies significant oral cavity pain. Denies difficulty on swallowing. Lungs: Denies significant shortness of breath, cough, sputum production, or hemoptysis. Cardiovascular: Denies significant shortness of breath, chest pain, chest wall pain, orthopnea, dyspnea on exertion, syncope Gastrointestinal:Denies nausea, vomiting, diarrhea, constipation, hematemesis, melena, hematochezia. No no significant change of bowel habit noticed. Musculoskeletal: denies significant myalgias or arthralgias. No new joint swelling. Denies new back pain. Skin: Chronic lower extremity lesions Neuro: Denies headache or visual change. Denies any new onset weakness or difficulty with ambulation. Denies falls or seizures. Psychiatric:Denies anxiety or depression. Endocrine: Significant fatigue but no weight change long-standing history of diabetes Past Medical History Past Medical History: Atrial Fibrillation, Diabetes Mellitus, Hypertension Additional Past Medical History / Comment(s): BLE VENOUS ULCERS, calcenosis of BLE. MAC. DEGENERATION. VERTIGO. 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 fluid from eyes r/t glaucoma Past Anesthesia/Blood Transfusion Reactions: Motion Sickness Past Psychological History: Anxiety Additional Psychological History / Comment(s): . Retired. experience. No international travel. No animal exposures Smoking Status: Former smoker Past Alcohol Use History: None Reported Additional Past Alcohol Use History / Comment(s): smoked 20 years <1ppd quit 1974 Past Drug Use History: None Reported - Past Family History Sister(s) Family Medical History: Cancer, Diabetes Mellitus Mother Family Medical History: Myocardial Infarction ([place]), Renal Disease Medications and Allergies Home Medications and Allergies Comment(s): Current Medications Acetaminophen (Tylenol Tab) 650 mg PO Q6HR PRN PRN Reason: Mild Pain or Fever > 100.5 Last Admin: 07/11/17 17:09 Dose: 650 mg Alprazolam (Xanax) 0.5 mg PO DAILY PRN PRN Reason: Anxiety Last Admin: 07/11/17 00:12 Dose: 0.5 mg Diltiazem HCl (Cardizem Cd) 120 mg PO Q24HR [facility] Last Admin: 07/11/17 12:05 Dose: 120 mg Ergocalciferol (Vitamin D2) 50,000 unit PO WE [facility] Fluoxetine HCl (Prozac) 40 mg PO DAILY [facility] Last Admin: 07/11/17 08:04 Dose: 40 mg Furosemide (Lasix) 40 mg PO HS [facility] Last Admin: 07/11/17 19:57 Dose: 40 mg Vancomycin HCl 1,750 mg/ (Sodium Chloride) 250 mls @ 125 mls/hr IVPB Q16H [facility] Last Admin: 07/11/17 14:38 Dose: 125 mls/hr Sodium Chloride (Saline 0.9%) 1,000 mls @ 100 mls/hr IV .Q10H [facility] Last Admin: 07/11/17 20:02 Dose: 100 mls/hr Insulin Aspart (Novolog) 0 unit SQ ACHS QUOC PRN Reason: Protocol Last Admin: 07/11/17 21:24 Dose: 2 unit Meclizine HCl (Antivert) 25 mg PO BID [facility] Last Admin: 07/11/17 19:57 Dose: 25 mg Naloxone HCl (Narcan) 0.2 mg IV Q2M PRN PRN Reason: Opioid Reversal Tramadol HCl (Ultram) 50 mg PO TID PRN PRN Reason: Pain Warfarin Sodium (Coumadin) 5 mg PO MOTUWETHFRSA [facility] Last Admin: 07/11/17 17:49 Dose: 5 mg Home Medications Medication Instructions Recorded Confirmed Type Ergocalciferol [Vitamin D2 50,000 unit PO WE 02/28/14 07/10/17 History (DRISDOL)] Fenofibrate,Micronized 134 mg PO HS 02/28/14 07/10/17 History [Fenofibrate] Furosemide [Lasix] 40 mg PO HS 02/28/14 07/10/17 History metFORMIN HCL [Glucophage] 500 mg PO BID 02/28/14 07/10/17 History ALPRAZolam [Xanax] 0.5 mg PO DAILY PRN 01/05/15 07/10/17 History Meclizine [Antivert] 25 mg PO BID 01/05/15 07/10/17 History glipiZIDE [Glucotrol] 2.5 mg PO DAILY PRN 06/30/16 07/10/17 History Diltiazem HCl [Diltiazem 24Hr ER] 120 mg PO Q24HR 01/27/17 07/10/17 History traMADol HCL/ACETAMINOPHEN 1 tab PO BID 05/26/17 07/10/17 History [Ultracet 37.5-325] Amoxicillin/Potassium Clav 1 tab PO Q12HR 14 Days #28 tab 07/07/17 07/10/17 Rx [Augmentin 875-125 Tablet] FLUoxetine HCL [PROzac] 40 mg PO DAILY 07/10/17 07/10/17 History Warfarin Sodium [Coumadin] 5 mg PO MOTUWETHFRSA 07/10/17 07/10/17 History Allergies Allergy/AdvReac Type Severity Reaction Status Date / Time oxycodone [Oxycodone] Allergy Hallucinati Verified 07/10/17 16:46 ons Physical Exam Vitals: Vital Signs Temp Pulse Resp BP BP Pulse Ox 07/11/17 20:00 97.7 F 71 17 134/63 98 07/11/17 15:12 97.9 F 77 20 134/55 97 07/11/17 11:54 97.8 F 78 16 135/60 98 07/11/17 08:00 97.9 F 8 L 20 101/50 99 07/11/17 04:00 68 16 116/56 95 07/11/17 00:00 97.9 F 89 16 107/82 96 Intake and Output 07/11/17 07/11/17 07/11/17 06:59 14:59 22:59 Intake Total 480 1230 Output Total 400 100 250 Balance -400 380 980 Intake: IV 1050 Sodium Chloride 0.9% 1, 800 000 ml @ 100 mls/hr IV . Q10H [facility] Rx#:[id number] Vancomycin 1,750 mg In 250 Sodium Chloride 0.9% 250 ml @ 125 mls/hr IVPB ONCE ONE Rx#:[id number] Oral 480 180 Output: Urine 400 100 250 Other: Voiding Method Urinal Urinal Urinal # Voids 1 Weight 89 kg Pleasant 81-year-old gentleman in no acute distress HEENT: Anicteric conjunctiva are pink and moist nasal mucosa grossly intact without significant lesions, there is no thrush. Neck: The neck is supple without significant lymphadenopathy or thyromegaly. Lungs: Good bilateral air entry without significant crackles or wheezing. There is no significant bronchial sounds. There is no egophony or dullness. Heart: Regular rate and rhythm with an audible S1-S2, no S3 no S4. There is no significant murmur click or rub, PMI was nondisplaced. Abdomen: Positive bowel sounds soft and nontender without palpable masses or organomegaly. There was no guarding or rebound. Extremities: The upper extremities have excellent pulses they are symmetric, no significant petechiae or telangiectasia. The lower extremities evidence of the chronic edema which is quite symmetric. The anterior tibial surface bilaterally has evidence of the varicosities, and the chronic ulcerations that are full-thickness with significant calcification of the tissue. The level of tenderness is without change. There is evidence of erythema over the bilateral pretibial areas. There is no expressible purulence. They are tender as usual. Neuro: Awake alert oriented to person place and time. There are no acute new gross focal sensory motor deficits. Results CBC & Chem 7: 07/10/17 16:05 07/10/17 16:05 Labs: Abnormal Lab Results - Last 24 Hours (Table) 03/19/18 03/19/18 03/19/18 Range/Units 11:15 16:39 20:36 POC Glucose (mg/dL) 180 H 158 H 210 H (75-99) mg/dL Microbiology - Last 24 Hours (Table) 07/10/17 17:02 Gram Stain - Preliminary Leg - Right Wound Culture - Preliminary Presumptive Staph aureus 07/10/17 17:02 Gram Stain - Preliminary Leg - Left Wound Culture - Preliminary Presumptive Staph aureus 07/10/17 18:50 Urine Culture - Final Urine,Voided 07/10/17 16:05 Blood Culture - Preliminary Blood No Growth after 24 hours Laboratory Results WBC 12.3 k/uL (3.8-10.6) H 07/10/17 16:05 RBC 3.53 m/uL (4.30-5.90) L 07/10/17 16:05 Hgb 11.4 gm/dL (13.0-17.5) L 07/10/17 16:05 Hct 33.3 % (39.0-53.0) L 07/10/17 16:05 MCV 94.2 fL (80.0-100.0) 07/10/17 16:05 MCH 32.2 pg (25.0-35.0) 07/10/17 16:05 MCHC 34.2 g/dL (31.0-37.0) 07/10/17 16:05 RDW 12.6 % (11.5-15.5) 07/10/17 16:05 Plt Count 303 k/uL (150-450) 07/10/17 16:05 Neutrophils % (Manual) 76 % 07/10/17 16:05 Band Neutrophils % 19 % 07/10/17 16:05 Lymphocytes % (Manual) 3 % 07/10/17 16:05 Monocytes % (Manual) 2 % 07/10/17 16:05 Neutrophils # (Manual) 11.60 k/uL (1.3-7.7) H 07/10/17 16:05 Lymphocytes # (Manual) 0.37 k/uL (1.0-4.8) L 07/10/17 16:05 Monocytes # (Manual) 0.25 k/uL (0-1.0) 07/10/17 16:05 Nucleated RBCs 0 /100 WBC (0-0) 07/10/17 16:05 Manual Slide Review Performed 07/10/17 16:05 RBC Morphology Normal 07/10/17 16:05 PT 23.1 sec (9.0-12.0) H 07/10/17 16:05 INR 2.6 (<1.2) H 07/10/17 16:05 APTT 32.0 sec (22.0-30.0) H 07/10/17 16:05 Sodium 139 mmol/L (137-145) 07/10/17 16:05 Potassium 3.6 mmol/L (3.5-5.1) 07/10/17 16:05 Chloride 102 mmol/L (98-107) 07/10/17 16:05 Carbon Dioxide 23 mmol/L (22-30) 07/10/17 16:05 Anion Gap 14 mmol/L 07/10/17 16:05 BUN 27 mg/dL (9-20) H 07/10/17 16:05 Creatinine 1.10 mg/dL (0.66-1.25) 07/10/17 16:05 Est GFR (CKD-EPI)AfAm 74 (>60 ml/min/1.73 sqM) 07/10/17 16:05 Est GFR (CKD-EPI)NonAf 64 (>60 ml/min/1.73 sqM) 07/10/17 16:05 Glucose 169 mg/dL (74-99) H 07/10/17 16:05 POC Glucose (mg/dL) 210 mg/dL (75-99) H 07/11/17 20:36 POC Glu Director Of Staff Development ID Corrina, Whitney, Radha 07/11/17 20:36 Lactic Ac Sepsis Rflx Y 07/10/17 16:42 Plasma Lactic Acid Carlos Eduardo 1.3 mmol/L (0.7-2.0) 07/10/17 20:27 Calcium 9.7 mg/dL (8.4-10.2) 07/10/17 16:05 Total Bilirubin 2.7 mg/dL (0.2-1.3) H 07/10/17 16:05 AST 416 U/L (17-59) H 07/10/17 16:05 ALT 164 U/L (21-72) H 07/10/17 16:05 Alkaline Phosphatase 56 U/L (38-126) 07/10/17 16:05 Total Creatine Kinase 31 U/L (55-170) L 07/10/17 16:05 CK-MB (CK-2) 0.2 ng/mL (0.0-2.4) 07/10/17 16:05 CK-MB (CK-2) Rel Index 0.6 07/10/17 16:05 Troponin I 0.017 ng/mL (0.000-0.034) 07/10/17 16:05 Total Protein 6.6 g/dL (6.3-8.2) 07/10/17 16:05 Albumin 3.5 g/dL (3.5-5.0) 07/10/17 16:05 Urine Color Yellow 07/10/17 18:50 Urine Appearance Cloudy (Clear) 07/10/17 18:50 Urine pH 6.0 (5.0-8.0) 07/10/17 18:50 Ur Specific [place] 1.023 (1.001-1.035) 07/10/17 18:50 Urine Protein 1+ (Negative) H 07/10/17 18:50 Urine Glucose (UA) 1+ (Negative) H 07/10/17 18:50 Urine Ketones Trace (Negative) H 07/10/17 18:50 Urine Blood Trace (Negative) H 07/10/17 18:50 Urine Nitrite Negative (Negative) 07/10/17 18:50 Urine Bilirubin 1+ (Negative) H 07/10/17 18:50 Urine Urobilinogen 3.0 mg/dL (<2.0) 07/10/17 18:50 Ur Leukocyte Esterase Negative (Negative) 07/10/17 18:50 Urine RBC 5 /hpf (0-5) 07/10/17 18:50 Urine WBC 5 /hpf (0-5) 07/10/17 18:50 Ur Squamous Epith Cells 1 /hpf (0-4) 07/10/17 18:50 Urine Bacteria Rare /hpf (None) H 07/10/17 18:50 Hyaline Casts 8 /lpf (0-2) H 07/10/17 18:50 Urine Mucus Occasional /hpf (None) H 07/10/17 18:50 Influenza Type A RNA Not Detected (Not Detectd) 07/10/17 16:05 Influenza Type B (PCR) Not Detected (Not Detectd) 07/10/17 16:05 Microbiology 07/10/17 17:02 Leg - Right Gram Stain - Preliminary 07/10/17 17:02 Leg - Right Wound Culture - Preliminary Presumptive Staph aureus 07/10/17 17:02 Leg - Left Gram Stain - Preliminary 07/10/17 17:02 Leg - Left Wound Culture - Preliminary Presumptive Staph aureus 07/10/17 18:50 Urine,Voided Urine Culture - Final 07/10/17 16:05 Blood Blood Culture - Preliminary No Growth after 24 hours Assessment and Plan (1) Sepsis Current Visit: Yes Status: Acute Code(s): A41.9 - SEPSIS, UNSPECIFIED ORGANISM SNOMED Code(s): 33121392 (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 There is also elevated lactic acid. Fortunately with fluid resuscitation he has done well and has had a good resolution of the sepsis. Appears to have a significant cellulitis of the bilateral lower extremities as etiology of the sepsis and there some pulmonary data show evidence of staphylococcal infection at this site. Continue vancomycin therapy at this time until we have further culture data. Blood cultures negative so far. Given the patient's very poor tissue quality may require a course of outpatient intravenous antibiotic therapy for the completion of treatment of this extensive infection it is resulted in sepsis. Leukocytosis is record related to the sepsis. In fortunately does not have any evidence of acute renal failure given his history of a partial nephrectomy for his renal cell carcinoma. Local wound care as directed with the therahoney the bilateral lower extremities it is changed every other day. Pain control appears to be adequate. Elevate the limbs as he tolerates. Current Visit: Yes Status: Acute Code(s): E83.59 - OTHER DISORDERS OF CALCIUM METABOLISM; L97.922 - NON-PRS CHR ULC UNSP PRT OF L LOW LEG W FAT LAYER EXPOSED SNOMED Code(s): 99730768 (3) Diabetes mellitus type 2 with complications Current Visit: Yes Status: Acute Code(s): E11.8 - TYPE 2 DIABETES MELLITUS WITH UNSPECIFIED COMPLICATIONS SNOMED Code(s): 82076786
[2017-07-12 02:15] LABS: Hepatitis A Antibody IgM Non-Reactive (Non-Reactive); Hepatitis B Core IgM Non-Reactive (Non-Reactive)
[2017-07-12] MEDS: VANCOMYCIN 1,750 MG in SODIUM CHLORIDE 0.9% 250 ML IVPB SCH ×2 (05:43→17:06)
[2017-07-12] MEDS: SODIUM CHLORIDE 0.9% 1,000 ML IV SCH ×2 (05:44→17:07)
[2017-07-12] MEDS: ACETAMINOPHEN TAB 325 MG TAB PO PRN (06:11)
[2017-07-12 06:22] LABS: Basophils % (A) 0 %; Eosinophils # (A) 0.3 k/uL (0-0.7); Eosinophils % (A) 4 %; HCT 31.4 % (39.0-53.0); HGB 10.3 gm/dL (13.0-17.5); Lymphocytes # (A) 0.5 k/uL (1.0-4.8); Lymphocytes % (A) 6 %; MCH 31.6 pg (25.0-35.0); MCV 95.9 fL (80.0-100.0); Mean Platelet Volume 8.9; Monocytes # (A) 0.2 k/uL (0-1.0); Monocytes % (A) 3 %; Neutrophils # (A) 6.9 k/uL (1.3-7.7); Neutrophils % (A) 86 %; Platelet Count 186 k/uL (150-450); RBC 3.27 m/uL (4.30-5.90); RDW 12.8 % (11.5-15.5)
[2017-07-12 06:29] LABS: Glucose,Whole Blood 110 mg/dL (75-99)
[2017-07-12 06:30] LABS: INR 3.7 (<1.2); Prothrombin Time 33.4 sec (9.0-12.0)
[2017-07-12 06:39] LABS: ALT 92 U/L (21-72); AST 91 U/L (17-59); Albumin 2.8 g/dL (3.5-5.0); Alkaline Phosphatase 70 U/L (38-126); Anion Gap 10 mmol/L; Blood Urea Nitrogen 20 mg/dL (9-20); Calcium 8.9 mg/dL (8.4-10.2); Carbon Dioxide 23 mmol/L (22-30); Chloride 103 mmol/L (98-107); Glucose 116 mg/dL (74-99); Sodium 136 mmol/L (137-145); Total Bilirubin 3.4 mg/dL (0.2-1.3); Total Protein 5.7 g/dL (6.3-8.2)
[2017-07-12 06:40] LABS: Potassium 3.1 mmol/L (3.5-5.1)
[2017-07-12] MEDS: INSULIN ASPART 100 UNIT/ML 1 ML 10 ML VIAL SQ SCH ×4 (06:53→21:34)
[2017-07-12] MEDS ORDERED: POTASSIUM CHLORIDE ER 20 MEQ TAB.ER PO STA (08:16)
--- NOTE | 2017-07-12 08:51 | US ---
EXAMINATION TYPE: US abdomen complete DATE OF EXAM: 07/12/2017 COMPARISON: CT CLINICAL HISTORY: elevated LFTs. Poor historian, elevated LFT's EXAM MEASUREMENTS: Liver Length: 18.5 cm Gallbladder Wall: 0.8 cm CBD: 0.8 cm Right Kidney: 9.7 x 4.6 x 4.5 cm Elderly pt with large body habitus, unable to ambulate Pancreas: Obscured by bowel gas Liver: Difficult to visualize, somewhat heterogenous with poor visualization of the portal triads an d this most commonly relates to hepatic steatosis and limits evaluation for underlying hepatic masses . Gallbladder: Could only visualize supine/ Appeared hydropic with sludge, small gallstones and thicke raul wall Evidence for sonographic Hong's sign: No CBD: wnl for the patient's age Spleen: Unable to visualize due to overlying bowel gas, large pt body habitus and immobile Right Kidney: Hyperechoic scarring with cortical thinning at the mid pole, previous surgery of mass removal Left Kidney: Unable to visualize due to overlying bowel gas, large pt body habitus and immobile Upper IVC: wnl Abd Aorta: Ectatic, no evidence of AAA IMPRESSION: 1. Enlarged hydropic gallbladder containing biliary sludge and small gallstones with gallbladder wall thickening. Common bile duct is within normal limits for the patient's age and there is no sonograph ic Hong sign. Therefore chronic cholecystitis or biliary dyskinesia are suspected and further evalu ation with HIDA scan and CCK is recommended. 2. Slightly hyperechoic hepatic echotexture, most commonly related to hepatic steatosis overall mild in degree. 3. Scarring and cortical thinning of the right renal midpole corresponding the patient's prior partia l nephrectomy. 4. Nonvisualization of the left kidney due to overlying bowel gas. 5. Abdominal aortic ectasia.
[2017-07-12] MEDS: FLUoxetine HCL 20 MG CAP PO SCH (08:54)
[2017-07-12] MEDS: DILTIAZEM CD 120 MG CAP.ER.24H PO SCH (08:54)
[2017-07-12] MEDS: MECLIZINE 25 MG TAB PO SCH ×2 (08:54→20:27)
[2017-07-12 12:19] LABS: Glucose,Whole Blood 149 mg/dL (75-99)
--- NOTE | 2017-07-12 13:37 | P.PN ---
Subjective Progress Note Date: 07/12/17 Principal diagnosis: Atrial fibrillation This is a 81-year-old gentleman with history of chronic persistent atrial fibrillation, hypertension, diabetes, hyperlipidemia, who presented to the hospital after having a fall from his chair. Patient apparently slipped and fell to the ground. He did not have a syncopal episode, denied any chest pain, shortness of breath, or palpitations. Patient was noted to have a mild temperature and his blood pressures on admission were low. Cardiology consultation was requested because of atrial fibrillation. Patient was seen in consultation yesterday by Dr. Reese. An echocardiogram with Doppler study was performed which revealed a normal left ventricular systolic function. Patient did undergo an abdominal ultrasound which is yet pending. Let pressure 132/60, heart rate in the 80s. Objective - Vital Signs Vital signs: Vital Signs Temp 97.4 F L 07/12/17 08:00 Pulse 88 07/12/17 11:18 Resp 16 07/12/17 11:18 BP 133/58 07/12/17 11:18 Pulse Ox 95 07/12/17 11:18 Intake & Output 07/11/17 07/12/17 07/12/17 18:59 06:59 18:59 Intake Total 1710 800 Output Total 350 1175 400 Balance 1360 -375 -400 Weight 87.5 kg Intake: IV 1050 800 Sodium Chloride 0.9% 1, 800 800 000 ml @ 100 mls/hr IV . Q10H [facility] Rx#:[id number] Vancomycin 1,750 mg In 250 Sodium Chloride 0.9% 250 ml @ 125 mls/hr IVPB ONCE ONE Rx#:[id number] Oral 660 Output: Urine 350 1175 400 Other: Voiding Method Urinal Urinal Urinal # Voids 2 # Bowel Movements 0 - Exam PHYSICAL EXAMINATION: HEENT: Head is atraumatic, normocephalic. Pupils equal, round. Neck is supple. There is no elevated jugular venous pressure. HEART EXAMINATION: Heart S1 and S2 irregularly irregular CHEST EXAMINATION: Lungs are clear to auscultation and precussion. No chest wall tenderness is noted on palpation or with deep breathing. ABDOMEN: Soft, nontender. Bowel sounds are heard. No organomegaly noted. EXTREMITIES: 1+ bilateral ulcerations noted on the lower extremities, evidence of cellulitis. NEUROLOGIC patient is awake, alert and oriented -3. . - Labs CBC & Chem 7: 07/12/17 05:50 07/12/17 05:50 Labs: Abnormal Lab Results - Last 24 Hours (Table) 07/11/17 07/11/17 07/12/17 Range/Units 16:39 20:36 05:50 RBC 3.27 L (4.30-5.90) m/uL Hgb 10.3 L (13.0-17.5) gm/dL Hct 31.4 L (39.0-53.0) % Lymphocytes # 0.5 L (1.0-4.8) k/uL PT (9.0-12.0) sec INR (<1.2) Sodium (137-145) mmol/L Potassium (3.5-5.1) mmol/L Glucose (74-99) mg/dL POC Glucose (mg/dL) 158 H 210 H (75-99) mg/dL Total Bilirubin (0.2-1.3) mg/dL AST (17-59) U/L ALT (21-72) U/L Total Protein (6.3-8.2) g/dL Albumin (3.5-5.0) g/dL 07/12/17 07/12/17 07/12/17 Range/Units 05:50 05:50 06:27 RBC (4.30-5.90) m/uL Hgb (13.0-17.5) gm/dL Hct (39.0-53.0) % Lymphocytes # (1.0-4.8) k/uL PT 33.4 H (9.0-12.0) sec INR 3.7 H (<1.2) Sodium 136 L (137-145) mmol/L Potassium 3.1 L (3.5-5.1) mmol/L Glucose 116 H (74-99) mg/dL POC Glucose (mg/dL) 110 H (75-99) mg/dL Total Bilirubin 3.4 H (0.2-1.3) mg/dL AST 91 H (17-59) U/L ALT 92 H (21-72) U/L Total Protein 5.7 L (6.3-8.2) g/dL Albumin 2.8 L (3.5-5.0) g/dL 03/20/18 Range/Units 11:43 RBC (4.30-5.90) m/uL Hgb (13.0-17.5) gm/dL Hct (39.0-53.0) % Lymphocytes # (1.0-4.8) k/uL PT (9.0-12.0) sec INR (<1.2) Sodium (137-145) mmol/L Potassium (3.5-5.1) mmol/L Glucose (74-99) mg/dL POC Glucose (mg/dL) 149 H (75-99) mg/dL Total Bilirubin (0.2-1.3) mg/dL AST (17-59) U/L ALT (21-72) U/L Total Protein (6.3-8.2) g/dL Albumin (3.5-5.0) g/dL Microbiology - Last 24 Hours (Table) 07/10/17 17:02 Gram Stain - Preliminary Leg - Right Wound Culture - Preliminary Presumptive Staph aureus 07/10/17 17:02 Gram Stain - Preliminary Leg - Left Wound Culture - Preliminary Presumptive Staph aureus 07/10/17 18:50 Urine Culture - Final Urine,Voided 07/10/17 16:05 Blood Culture - Preliminary Blood No Growth after 24 hours Assessment and Plan Plan: Assessment and plan #1 fall no clear-cut evidence of syncope. #2 chronic persistent atrial fibrillation, echo with Doppler study was performed which revealed normal left ventricular systolic function. #3 diabetes #4 hypertension #5 sepsis, could be secondary to patient's cellulitis and bilateral leg wounds. Blood cultures negative so far. Plan From cardiology's perspective, we'll recommend to continue the patient on his current medications. We will follow him along with you now on an as-needed basis only, please don't hesitate to call with any questions. DNP note has been reviewed, I agree with a documented findings and plan of care. Patient was seen and examined.
--- NOTE | 2017-07-12 14:57 | P.PN ---
Subjective Progress Note Date: 07/12/17 This is a 81-year-old male with a known history of chronic atrial fibrillation, diabetes mellitus, chronic lower extremity ulcers, chronic kidney disease, hypertension. Patient presents anemia emergency room with complaints of feeling very weak and with evidence of a fever of 101.6. He reports that he went to stand up from his chair and felt very weak and dizzy fluid down the chair onto the floor. He reports that he did not pass out or injure himself. EMS was called and patient was brought into the emergency room. He was slightly confused at that time. However now he is alert and orientated to 3. Patient was found have evidence of sepsis with a temp of 101.6 and lactic acid of 3.7 white count 12.3. Patient has evidence of lower extremity cellulitis around his leg ulcers. He reports that he follows with Dr. Adame at the wound care center for his leg wounds. 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 Patient was started on Augmentin the outpatient setting. However he is still having evidence of cellulitis. Vancomycin has been started and he was also given a dose of IV Zosyn. Infectious disease consulted. Cardiology is also following regards to patient's history of atrial fibrillation. Patient was also found have elevated LFTs and total bilirubin. Denies any abdominal pain. Abdominal ultrasound and hepatic panel has been ordered. Patient denies any chest pain or shortness of breath. Does admit to having some dizziness. Denies any vomiting. The does admit to some nausea intermittently. Denies any bowel movement changes or urinary symptoms. Influenza screen was negative and urinalysis negative. Lactic acid elevated at 3.7 improved with IV fluids down to 1.3 07/12/2017 patient seen by infectious disease. Currently on IV vancomycin. Wound culture growing presumptive staph aureus. Patient denies any nausea or vomiting. Denies any abdominal pain. Denies any chest pain or shortness of breath. Denies any urinary symptoms Objective - Vital Signs Vital signs: Vital Signs Temp 97.4 F L 07/12/17 08:00 Pulse 88 07/12/17 11:18 Resp 16 07/12/17 11:18 BP 133/58 07/12/17 11:18 Pulse Ox 95 07/12/17 11:18 Intake & Output 07/11/17 07/12/17 07/12/17 18:59 06:59 18:59 Intake Total 1710 800 Output Total 350 1175 400 Balance 1360 -375 -400 Weight 87.5 kg Intake: IV 1050 800 Sodium Chloride 0.9% 1, 800 800 000 ml @ 100 mls/hr IV . Q10H [facility] Rx#:[id number] Vancomycin 1,750 mg In 250 Sodium Chloride 0.9% 250 ml @ 125 mls/hr IVPB ONCE ONE Rx#:[id number] Oral 660 Output: Urine 350 1175 400 Other: Voiding Method Urinal Urinal Urinal # Voids 2 # Bowel Movements 0 - Exam Head normocephalic Neck supple Lungs clear to auscultation bilaterally no wheezing or crackles Heart regular rate and rhythm S1-S2, no rub or gallop Abdomen is soft nontender nondistended positive bowel sounds no hepatosplenomegaly Extremities no edema. Legs are wrapped dressing is clean dry and intact Neuro alert and orientated to 3 - Labs CBC & Chem 7: 07/12/17 05:50 07/12/17 05:50 Labs: Abnormal Lab Results - Last 24 Hours (Table) 07/11/17 07/11/17 07/12/17 Range/Units 16:39 20:36 05:50 RBC 3.27 L (4.30-5.90) m/uL Hgb 10.3 L (13.0-17.5) gm/dL Hct 31.4 L (39.0-53.0) % Lymphocytes # 0.5 L (1.0-4.8) k/uL PT (9.0-12.0) sec INR (<1.2) Sodium (137-145) mmol/L Potassium (3.5-5.1) mmol/L Glucose (74-99) mg/dL POC Glucose (mg/dL) 158 H 210 H (75-99) mg/dL Total Bilirubin (0.2-1.3) mg/dL AST (17-59) U/L ALT (21-72) U/L Total Protein (6.3-8.2) g/dL Albumin (3.5-5.0) g/dL 07/12/17 07/12/17 07/12/17 Range/Units 05:50 05:50 06:27 RBC (4.30-5.90) m/uL Hgb (13.0-17.5) gm/dL Hct (39.0-53.0) % Lymphocytes # (1.0-4.8) k/uL PT 33.4 H (9.0-12.0) sec INR 3.7 H (<1.2) Sodium 136 L (137-145) mmol/L Potassium 3.1 L (3.5-5.1) mmol/L Glucose 116 H (74-99) mg/dL POC Glucose (mg/dL) 110 H (75-99) mg/dL Total Bilirubin 3.4 H (0.2-1.3) mg/dL AST 91 H (17-59) U/L ALT 92 H (21-72) U/L Total Protein 5.7 L (6.3-8.2) g/dL Albumin 2.8 L (3.5-5.0) g/dL 07/12/17 Range/Units 11:43 RBC (4.30-5.90) m/uL Hgb (13.0-17.5) gm/dL Hct (39.0-53.0) % Lymphocytes # (1.0-4.8) k/uL PT (9.0-12.0) sec INR (<1.2) Sodium (137-145) mmol/L Potassium (3.5-5.1) mmol/L Glucose (74-99) mg/dL POC Glucose (mg/dL) 149 H (75-99) mg/dL Total Bilirubin (0.2-1.3) mg/dL AST (17-59) U/L ALT (21-72) U/L Total Protein (6.3-8.2) g/dL Albumin (3.5-5.0) g/dL Microbiology - Last 24 Hours (Table) 07/10/17 17:02 Gram Stain - Preliminary Leg - Right Wound Culture - Preliminary Presumptive Staph aureus 07/10/17 17:02 Gram Stain - Preliminary Leg - Left Wound Culture - Preliminary Presumptive Staph aureus 07/10/17 18:50 Urine Culture - Final Urine,Voided 07/10/17 16:05 Blood Culture - Preliminary Blood No Growth after 24 hours Assessment and Plan Assessment: 1. Sepsis present on admission possibly related to patient's cellulitis and leg wounds. Wound cultures growing presumptive staph aureus continue vancomycin. Blood culture negative 2. 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 Continue with current antibiotics. 3. History of Kyrle's disease 4. Elevated LFTs and total bilirubin with abdominal ultrasound revealing enlarged hydropic gallbladder containing biliary sludge and small gallstones with gallbladder wall thickening. With concerns of chronic cholecystitis or biliary dyskinesia. Consults surgical service. Acute hepatitis panel negative. Discontinue Ultracet due to the Tylenol component. Discontinue fenofibrate 5. History of chronic atrial fibrillation evaluated by cardiology. Continue Coumadin for anticoagulation EKG had shown atrial fibrillation with a heart rate of 85. INR 3.7. Hold Coumadin tonight. Repeat PT/INR in a.m. 6. Diabetes mellitus type II. Continue sliding scale coverage 7. Essential hypertension: Lower blood pressures at present on admission now improved 8. Confusion prior to admission likely metabolic encephalopathy due to patient' s sepsis and cellulitis of the lower extremities 9. Hypokalemia: Patient receiving potassium supplement 10. History of renal cancer status post right nephrectomy GI prophylaxis Pepcid and DVT prophylaxis Coumadin I performed an examination of the patient and discussed their management with the physician Hemodialysis Technician. I have reviewed the Physician Hemodialysis Technician's notes and agree with the documented findings and plan of care
[2017-07-12 16:49] LABS: Glucose,Whole Blood 181 mg/dL (75-99)
[2017-07-12] MEDS: FUROSEMIDE 40 MG TAB PO SCH (20:27)
[2017-07-12 21:00] LABS: Glucose,Whole Blood 175 mg/dL (75-99)
--- NOTE | 2017-07-12 21:28 | P.PN ---
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 The patient has had local wound care was recently with medical honey with some improvement of his status. He has had difficulty with localized renal cell carcinoma that has been resected. With gentle relatively well until he suddenly became weak today. He relates that suddenly his legs became weak he couldn't navigate any further he fell into his chair and then slowly ended up on the ground. Was able to bring himself up and consequently EMS was called and he was transported to hospital. He has been found evidence of a fever over 101 as well as significant weakness and leukocytosis. There was also evidence of an elevated lactic acid. Because of sepsis the infectious diseases consultation is been requested. Patient is feeling slightly better today after fluid resuscitation and antibiotic therapy. 07/12/2017 patient relates that he is feeling somewhat better today. He is able to eat a bit of food. He's been having some minimal abdominal pain. He is denying nausea or emesis. His legs feel slightly better since the medical honey dressings were applied. His weakness is improved. He believes his fever has also improved. No chills or rigors. Objective - Vital Signs Vital signs: Vital Signs Temp 97 F L 07/12/17 15:35 Pulse 84 07/12/17 20:00 Resp 16 07/12/17 20:00 BP 154/71 07/12/17 20:00 Pulse Ox 96 07/12/17 20:00 Intake & Output 07/12/17 07/12/17 07/13/17 06:59 18:59 06:59 Intake Total 800 238 Output Total 1175 1100 Balance -375 -862 Weight 87.5 kg Intake: IV 800 Sodium Chloride 0.9% 1, 800 000 ml @ 100 mls/hr IV . Q10H [facility] Rx#:[id number] Oral 238 Output: Urine 1175 1100 Other: Voiding Method Urinal Urinal # Voids 2 # Bowel Movements 1 - Exam Pleasant 81-year-old gentleman in no acute distress, has mild jaundice today HEENT: Mildly icteric, conjunctiva are pink and moist nasal mucosa grossly intact without significant lesions, there is no thrush. Neck: The neck is supple without significant lymphadenopathy or thyromegaly. Lungs: Good bilateral air entry without significant crackles or wheezing. There is no significant bronchial sounds. There is no egophony or dullness. Heart: Regular rate and rhythm with an audible S1-S2, no S3 no S4. There is no significant murmur click or rub, PMI was nondisplaced. Abdomen: Positive bowel sounds soft and nontender without palpable masses or organomegaly. There was no guarding or rebound. Extremities: The upper extremities have excellent pulses they are symmetric, no significant petechiae or telangiectasia. The lower extremities evidence of the chronic edema which is quite symmetric. The anterior tibial surface bilaterally has evidence of the varicosities, and the chronic ulcerations that are full-thickness with significant calcification of the tissue. The level of tenderness is without change. There is evidence of erythema over the bilateral pretibial areas. There is no expressible purulence. They are tender as usual. Neuro: Awake alert oriented to person place and time. There are no acute new gross focal sensory motor deficits. - Labs CBC & Chem 7: 07/12/17 05:50 07/12/17 05:50 Labs: Abnormal Lab Results - Last 24 Hours (Table) 07/12/17 07/12/17 07/12/17 Range/Units 05:50 05:50 05:50 RBC 3.27 L (4.30-5.90) m/uL Hgb 10.3 L (13.0-17.5) gm/dL Hct 31.4 L (39.0-53.0) % Lymphocytes # 0.5 L (1.0-4.8) k/uL PT 33.4 H (9.0-12.0) sec INR 3.7 H (<1.2) Sodium 136 L (137-145) mmol/L Potassium 3.1 L (3.5-5.1) mmol/L Glucose 116 H (74-99) mg/dL POC Glucose (mg/dL) (75-99) mg/dL Total Bilirubin 3.4 H (0.2-1.3) mg/dL AST 91 H (17-59) U/L ALT 92 H (21-72) U/L Total Protein 5.7 L (6.3-8.2) g/dL Albumin 2.8 L (3.5-5.0) g/dL 07/12/17 07/12/17 07/12/17 Range/Units 06:27 11:43 16:39 RBC (4.30-5.90) m/uL Hgb (13.0-17.5) gm/dL Hct (39.0-53.0) % Lymphocytes # (1.0-4.8) k/uL PT (9.0-12.0) sec INR (<1.2) Sodium (137-145) mmol/L Potassium (3.5-5.1) mmol/L Glucose (74-99) mg/dL POC Glucose (mg/dL) 110 H 149 H 181 H (75-99) mg/dL Total Bilirubin (0.2-1.3) mg/dL AST (17-59) U/L ALT (21-72) U/L Total Protein (6.3-8.2) g/dL Albumin (3.5-5.0) g/dL 07/12/17 Range/Units 20:57 RBC (4.30-5.90) m/uL Hgb (13.0-17.5) gm/dL Hct (39.0-53.0) % Lymphocytes # (1.0-4.8) k/uL PT (9.0-12.0) sec INR (<1.2) Sodium (137-145) mmol/L Potassium (3.5-5.1) mmol/L Glucose (74-99) mg/dL POC Glucose (mg/dL) 175 H (75-99) mg/dL Total Bilirubin (0.2-1.3) mg/dL AST (17-59) U/L ALT (21-72) U/L Total Protein (6.3-8.2) g/dL Albumin (3.5-5.0) g/dL Microbiology - Last 24 Hours (Table) 07/10/17 17:02 Gram Stain - Final Leg - Right Wound Culture - Final Staphylococcus aureus 07/10/17 17:02 Gram Stain - Final Leg - Left Wound Culture - Final Staphylococcus aureus 07/10/17 16:05 Blood Culture - Preliminary Blood No Growth after 48 hours 07/10/17 18:50 Urine Culture - Final Urine,Voided Laboratory Results WBC 8.0 k/uL (3.8-10.6) 07/12/17 05:50 RBC 3.27 m/uL (4.30-5.90) L 07/12/17 05:50 Hgb 10.3 gm/dL (13.0-17.5) L 07/12/17 05:50 Hct 31.4 % (39.0-53.0) L 07/12/17 05:50 MCV 95.9 fL (80.0-100.0) 07/12/17 05:50 MCH 31.6 pg (25.0-35.0) 07/12/17 05:50 MCHC 33.0 g/dL (31.0-37.0) 07/12/17 05:50 RDW 12.8 % (11.5-15.5) 07/12/17 05:50 Plt Count 186 k/uL (150-450) 07/12/17 05:50 Neutrophils % 86 % 07/12/17 05:50 Neutrophils % (Manual) 76 % 07/10/17 16:05 Band Neutrophils % 19 % 07/10/17 16:05 Lymphocytes % 6 % 07/12/17 05:50 Lymphocytes % (Manual) 3 % 07/10/17 16:05 Monocytes % 3 % 07/12/17 05:50 Monocytes % (Manual) 2 % 07/10/17 16:05 Eosinophils % 4 % 07/12/17 05:50 Basophils % 0 % 07/12/17 05:50 Neutrophils # 6.9 k/uL (1.3-7.7) 07/12/17 05:50 Neutrophils # (Manual) 11.60 k/uL (1.3-7.7) H 07/10/17 16:05 Lymphocytes # 0.5 k/uL (1.0-4.8) L 07/12/17 05:50 Lymphocytes # (Manual) 0.37 k/uL (1.0-4.8) L 07/10/17 16:05 Monocytes # 0.2 k/uL (0-1.0) 07/12/17 05:50 Monocytes # (Manual) 0.25 k/uL (0-1.0) 07/10/17 16:05 Eosinophils # 0.3 k/uL (0-0.7) 07/12/17 05:50 Basophils # 0.0 k/uL (0-0.2) 07/12/17 05:50 Nucleated RBCs 0 /100 WBC (0-0) 07/10/17 16:05 Manual Slide Review Performed 07/10/17 16:05 RBC Morphology Normal 07/10/17 16:05 PT 33.4 sec (9.0-12.0) H 07/12/17 05:50 INR 3.7 (<1.2) H 07/12/17 05:50 APTT 32.0 sec (22.0-30.0) H 07/10/17 16:05 Sodium 136 mmol/L (137-145) L 07/12/17 05:50 Potassium 3.1 mmol/L (3.5-5.1) L 07/12/17 05:50 Chloride 103 mmol/L (98-107) 07/12/17 05:50 Carbon Dioxide 23 mmol/L (22-30) 07/12/17 05:50 Anion Gap 10 mmol/L 07/12/17 05:50 BUN 20 mg/dL (9-20) 07/12/17 05:50 Creatinine 0.80 mg/dL (0.66-1.25) 07/12/17 05:50 Est GFR (CKD-EPI)AfAm >90 (>60 ml/min/1.73 sqM) 07/12/17 05:50 Est GFR (CKD-EPI)NonAf 85 (>60 ml/min/1.73 sqM) 07/12/17 05:50 Glucose 116 mg/dL (74-99) H 07/12/17 05:50 POC Glucose (mg/dL) 175 mg/dL (75-99) H 07/12/17 20:57 POC Glu Rnp ID Nilda Chung 07/12/17 20:[address] Glu mg/dL 117 07/10/17 16:05 Hemoglobin A1c 5.7 % (4.0-6.0) 07/10/17 16:05 Lactic Ac Sepsis Rflx Y 07/10/17 16:42 Plasma Lactic Acid Carlos Eduardo 1.3 mmol/L (0.7-2.0) 07/10/17 20:27 Calcium 8.9 mg/dL (8.4-10.2) 07/12/17 05:50 Total Bilirubin 3.4 mg/dL (0.2-1.3) H 07/12/17 05:50 AST 91 U/L (17-59) H 07/12/17 05:50 ALT 92 U/L (21-72) H 07/12/17 05:50 Alkaline Phosphatase 70 U/L (38-126) 07/12/17 05:50 Total Creatine Kinase 31 U/L (55-170) L 07/10/17 16:05 CK-MB (CK-2) 0.2 ng/mL (0.0-2.4) 07/10/17 16:05 CK-MB (CK-2) Rel Index 0.6 07/10/17 16:05 Troponin I 0.017 ng/mL (0.000-0.034) 07/10/17 16:05 Total Protein 5.7 g/dL (6.3-8.2) L 07/12/17 05:50 Albumin 2.8 g/dL (3.5-5.0) L 07/12/17 05:50 Urine Color Yellow 07/10/17 18:50 Urine Appearance Cloudy (Clear) 07/10/17 18:50 Urine pH 6.0 (5.0-8.0) 07/10/17 18:50 Ur Specific [place] 1.023 (1.001-1.035) 07/10/17 18:50 Urine Protein 1+ (Negative) H 07/10/17 18:50 Urine Glucose (UA) 1+ (Negative) H 07/10/17 18:50 Urine Ketones Trace (Negative) H 07/10/17 18:50 Urine Blood Trace (Negative) H 07/10/17 18:50 Urine Nitrite Negative (Negative) 07/10/17 18:50 Urine Bilirubin 1+ (Negative) H 07/10/17 18:50 Urine Urobilinogen 3.0 mg/dL (<2.0) 07/10/17 18:50 Ur Leukocyte Esterase Negative (Negative) 07/10/17 18:50 Urine RBC 5 /hpf (0-5) 07/10/17 18:50 Urine WBC 5 /hpf (0-5) 07/10/17 18:50 Ur Squamous Epith Cells 1 /hpf (0-4) 07/10/17 18:50 Urine Bacteria Rare /hpf (None) H 07/10/17 18:50 Hyaline Casts 8 /lpf (0-2) H 07/10/17 18:50 Urine Mucus Occasional /hpf (None) H 07/10/17 18:50 Hepatitis A IgM Ab Non-Reactive (Non-Reactive) 07/10/17 16:05 Hep Bs Antigen Non-Reactive (Non-Reactive) 07/10/17 16:05 Hep B Core IgM Ab Non-Reactive (Non-Reactive) 07/10/17 16:05 Hep C IgG Ab Non-Reactive (Non-Reactive) 07/10/17 16:05 Influenza Type A RNA Not Detected (Not Detectd) 07/10/17 16:05 Influenza Type B (PCR) Not Detected (Not Detectd) 07/10/17 16:05 Microbiology 07/10/17 17:02 Leg - Right Gram Stain - Final 07/10/17 17:02 Leg - Right Wound Culture - Final Staphylococcus aureus 07/10/17 17:02 Leg - Left Gram Stain - Final 07/10/17 17:02 Leg - Left Wound Culture - Final Staphylococcus aureus 07/10/17 16:05 Blood Blood Culture - Preliminary No Growth after 48 hours 07/10/17 18:50 Urine,Voided Urine Culture - Final - Imaging and Cardiology US - abdomen: report reviewed (concers to chronic cholecystitis, hepatic steatosis) Assessment and Plan (1) Sepsis Current Visit: Yes Status: Acute Code(s): A41.9 - SEPSIS, UNSPECIFIED ORGANISM SNOMED Code(s): 46272923 (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 There is also elevated lactic acid. Fortunately with fluid resuscitation he has done well and has had a good resolution of the sepsis. Appears to have a significant cellulitis of the bilateral lower extremities as etiology of the sepsis and there some pulmonary data show evidence of staphylococcal infection at this site. Continue vancomycin therapy at this time until we have further culture data. Blood cultures negative so far. Given the patient's very poor tissue quality may require a course of outpatient intravenous antibiotic therapy for the completion of treatment of this extensive infection it is resulted in sepsis. Leukocytosis is record related to the sepsis. In fortunately does not have any evidence of acute renal failure given his history of a partial nephrectomy for his renal cell carcinoma. Local wound care as directed with the therahoney the bilateral lower extremities it is changed every other day. Pain control appears to be adequate. Elevate the limbs as he tolerates. 07/12/2017 reveals the patient to feel slightly better. His fever has improved. However he is now slightly jaundice. His appetite is poor she's trying to eat some protein in the day. Ultrasounds been performed and there is a concern to chronic cholecystitis. Surgical consult is in process. With the wound culture showing evidence of MSSA antibiotic therapy will be transitioned from vancomycin to Unasyn which will provide coverage for the MSSA isolated from the legs, and provide therapy for cholecystitis. The AST and ALT have improved, total bilirubin has increased, acute hepatitis panel is negative for any evidence of acute infectious colitis. Continue supportive care. The lower extremities without acute change for this chronic condition continue the therahoney as before does believe he feels better. Culture of the wounds from the legs with MSSA blood cultures negative so far. Current Visit: Yes Status: Acute Code(s): E83.59 - OTHER DISORDERS OF CALCIUM METABOLISM; L97.922 - NON-PRS CHR ULC UNSP PRT OF L LOW LEG W FAT LAYER EXPOSED SNOMED Code(s): 18370158 (3) Diabetes mellitus type 2 with complications Current Visit: Yes Status: Acute Code(s): E11.8 - TYPE 2 DIABETES MELLITUS WITH UNSPECIFIED COMPLICATIONS SNOMED Code(s): 90233722
[2017-07-13] MEDS: SODIUM CHLORIDE 0.9% 1,000 ML IV SCH ×2 (04:45→13:51)
[2017-07-13 06:44] LABS: Glucose,Whole Blood 128 mg/dL (75-99)
[2017-07-13 06:45] LABS: Basophils % (A) 0 %; Eosinophils # (A) 0.3 k/uL (0-0.7); Eosinophils % (A) 5 %; HCT 30.4 % (39.0-53.0); HGB 10.2 gm/dL (13.0-17.5); Lymphocytes # (A) 0.5 k/uL (1.0-4.8); Lymphocytes % (A) 7 %; MCHC 33.5 g/dL (31.0-37.0); MCV 95.7 fL (80.0-100.0); Mean Platelet Volume 8.9; Monocytes # (A) 0.3 k/uL (0-1.0); Monocytes % (A) 5 %; Neutrophils # (A) 5.6 k/uL (1.3-7.7); Neutrophils % (A) 81 %; Platelet Count 177 k/uL (150-450); RBC 3.17 m/uL (4.30-5.90); RDW 12.7 % (11.5-15.5); WBC 6.9 k/uL (3.8-10.6)
[2017-07-13] MEDS: VANCOMYCIN 1,750 MG in SODIUM CHLORIDE 0.9% 250 ML IVPB SCH (06:54)
[2017-07-13] MEDS: INSULIN ASPART 100 UNIT/ML 1 ML 10 ML VIAL SQ SCH ×4 (06:54→21:05)
[2017-07-13 06:55] LABS: ALT 66 U/L (21-72); AST 64 U/L (17-59); Albumin 2.6 g/dL (3.5-5.0); Alkaline Phosphatase 111 U/L (38-126); Anion Gap 9 mmol/L; Blood Urea Nitrogen 18 mg/dL (9-20); Calcium 8.5 mg/dL (8.4-10.2); Carbon Dioxide 22 mmol/L (22-30); Chloride 107 mmol/L (98-107); Glucose 134 mg/dL (74-99); Potassium 3.2 mmol/L (3.5-5.1); Sodium 138 mmol/L (137-145); Total Bilirubin 2.9 mg/dL (0.2-1.3); Total Protein 5.5 g/dL (6.3-8.2)
[2017-07-13 06:58] LABS: Prothrombin Time 48.1 sec (9.0-12.0)
[2017-07-13 07:30] LABS: INR 5.3 (<1.2)
[2017-07-13] MEDS ORDERED: Potassium Replacement Protocol 1 EACH MISC MISCELLANE PRN (11:44)
--- NOTE | 2017-07-13 11:44 | NM ---
"EXAMINATION TYPE: NM hepatobiliary wo EF DATE OF EXAM: 07/13/2017 COMPARISON: Complete abdominal ultrasound from yesterday HISTORY: Chronic cholecystitis per order. Symptoms of abdominal pain, heartburn, and reflux as well a s constipation, diarrhea, and elevated liver enzymes. TECHNIQUE: After the intravenous administration of 5.5 mCi Tc 99m Mebrofenin hepatobiliary scintigrap hy is performed. Immediate images post injection. FINDINGS: There is heterogeneous delayed accumulation of tracer by the liver with progressive accumul ation on more delayed images. The gallbladder is not visualized within 60 minutes. The small bowel activity is not noted within 60 minutes. Exam is extended up to 4 hours without definitive visualization of gallbladder or bowel. Radiotracer remains within liver. IMPRESSION: Markedly abnormal study without definitive visualization of bowel or gallbladder. Acute c holecystitis needs to BE considered. Also obstruction of common bile duct near vinh hepatis needs to BE considered. Consider CT correlation to assess the latter. A [place] level critical message alert has been initiated for Frank Huddleston via the [employer] | Critical Results System on 07/13/2017 11:42 AM. This message alert has been sent to Frank cheney the preferences provided by the clinician for the receipt of Radiology Critical Findings. Message I D [id number]."
[2017-07-13 11:51] LABS: Glucose,Whole Blood 117 mg/dL (75-99)
[2017-07-13] MEDS: ERGOCALCIFEROL 50,000 UNIT CAP PO SCH (11:53)
[2017-07-13] MEDS: DILTIAZEM CD 120 MG CAP.ER.24H PO SCH (11:53)
[2017-07-13] MEDS: FLUoxetine HCL 20 MG CAP PO SCH (11:53)
[2017-07-13] MEDS: MECLIZINE 25 MG TAB PO SCH ×2 (11:53→20:10)
[2017-07-13] MEDS: POTASSIUM CHLORIDE ER 20 MEQ TAB.ER PO SCH ×2 (11:57→13:51)
[2017-07-13] MEDS ORDERED: PHYTONADIONE ORAL 5 MG/5 ML ORAL.SYRG PO STA (12:20)
--- NOTE | 2017-07-13 12:46 | CDI ---
Last Revision, March 2017 Documentation Clarification Form Date: 07/13/17 1231 From: Samantha Isaac RN, CCDS Admit Date: 07/10/2017 7:13:00 PM Patient Name: Isidro Recio Visit Number: [id number] ATTENTION: The Clinical Documentation Specialists (CDI) and [facility] Coding Staff appreciate your assistance in clarifying documentation. Please respond to the clarification below the line at the bottom and electronically sign. The CDI & [facility] Coding staff will review the response and follow-up if needed. Please note: Queries are made part of the Legal Health Record. If you have any questions, please contact the author of this message via ITS. Dr. Brandie Hinton History/Risk Factors: Chronic Atrial Fib, DM, chronic lower extremity e ulcers, CKD, HTN Clinical Indicators: H&P and 07/12 Progress Note: "chronic kidney disease." Current BUN: CR: 1.1/.8/.7 GFR: 64/85/ >90 Patients Baseline: BUN/CR/GFR: 22/05. Treatment: IVF: 1L IVF Bolus followed by 100 cc/hr In order to capture the severity of condition, please clarify if the condition signifies: CKD Stage 1 (GFR > 90) CKD Stage 2 (GFR 60-89) CKD Stage 3 (GFR 30-59) CKD Stage 4 (GFR 15-29) CKD Stage 5 (GFR <15) ESRD Other, please specify Unable to determine Please continue to document in your progress notes and discharge summary in order to capture severity of illness and risk of mortality. Include clinical findings that support your diagnosis. History of chronic kidney disease, stage III MTDD
--- NOTE | 2017-07-13 15:06 | P.GSCN ---
History of Present Illness Consult date: 07/13/17 Reason for Consult: Right upper quadrant pain History of present illness: 81-year-old male seen and examined at bedside at the request of the attending for a surgical eval who has been intermittently experiencing right upper quadrant abdominal pain for the last 6 months. Patient relates that over the last several months he has been experiencing episodes of bothersome pain involving the right upper quadrant. States he has been experiencing reflux, heartburn constipation diarrhea "just do not feel well Patient stated that the pain did not seem to be aggravated by "anything. Patient states he has maintained a low fat diet. There is a concern to the patient this morning "I look jaundice". at the bedside states that this is a new finding. Patient did undergo a HIDA scan without EF this morning the ultrasound abdomen report reviewed sludge in the gallbladder noted enlarged hydropic gallbladder with biliary sludge and small gallstones with gallbladder wall thickening common bile duct within normal limits for age on admission the total bilirubin 2.7 this morning 3.9 noted the INR is elevated 5 which is being corrected with vitamin K per cardiology patient has a history of atrial fibrillation on long- term anticoagulation Coumadin Does have a history of renal cancer status post right nephrectomy Patient has been followed at the wound care center by infectious disease. Patient has had local wound care to the bilateral lower extremities with recent medical honey with a noted improvement per infectious disease patient has chronic calcification of the tissue the lower extremities. Initial presentation sepsis with fever generalized weakness and leukocytosis. 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 Currently bilateral wraps to the lower extremities are in place wound culture the bilateral lower extremities positive for MSSA Review of Systems Unremarkable except as mentioned in the present illness Past Medical History Past Medical History: Atrial Fibrillation, Diabetes Mellitus, Hypertension Additional Past Medical History / Comment(s): BLE VENOUS ULCERS, calcenosis of BLE. MAC. DEGENERATION. VERTIGO. 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 fluid from eyes r/t glaucoma Past Anesthesia/Blood Transfusion Reactions: Motion Sickness Past Psychological History: Anxiety Additional Psychological History / Comment(s): . Retired. experience. No international travel. No animal exposures Smoking Status: Former smoker Past Alcohol Use History: None Reported Additional Past Alcohol Use History / Comment(s): smoked 20 years <1ppd quit 1973 Past Drug Use History: None Reported - Past Family History Sister(s) Family Medical History: Cancer, Diabetes Mellitus Mother Family Medical History: Myocardial Infarction ([place]), Renal Disease Medications and Allergies Home Medications Medication Instructions Recorded Confirmed Type Ergocalciferol [Vitamin D2 50,000 unit PO WE 02/28/14 07/10/17 History (DRISDOL)] Fenofibrate,Micronized 134 mg PO HS 02/28/14 07/10/17 History [Fenofibrate] Furosemide [Lasix] 40 mg PO HS 02/28/14 07/10/17 History metFORMIN HCL [Glucophage] 500 mg PO BID 02/28/14 07/10/17 History ALPRAZolam [Xanax] 0.5 mg PO DAILY PRN 01/05/15 07/10/17 History Meclizine [Antivert] 25 mg PO BID 01/05/15 07/10/17 History glipiZIDE [Glucotrol] 2.5 mg PO DAILY PRN 06/30/16 07/10/17 History Diltiazem HCl [Diltiazem 24Hr ER] 120 mg PO Q24HR 01/27/17 07/10/17 History traMADol HCL/ACETAMINOPHEN 1 tab PO BID 05/26/17 07/10/17 History [Ultracet 37.5-325] Amoxicillin/Potassium Clav 1 tab PO Q12HR 14 Days #28 tab 07/07/17 07/10/17 Rx [Augmentin 875-125 Tablet] FLUoxetine HCL [PROzac] 40 mg PO DAILY 07/10/17 07/10/17 History Warfarin Sodium [Coumadin] 5 mg PO MOTUWETHFRSA 07/10/17 07/10/17 History Allergies Allergy/AdvReac Type Severity Reaction Status Date / Time oxycodone [Oxycodone] Allergy Hallucinati Verified 07/10/17 16:46 ons Surgical - Exam Vital Signs Temp Pulse Resp BP Pulse Ox 101.6 F H 81 18 94/52 96 07/10/17 15:40 07/10/17 15:40 07/10/17 15:40 07/10/17 15:40 07/10/17 15:40 GENERAL APPEARANCE: 81-year-old jaundiced appearing male sitting up in bed pleasant talkative alert, oriented, in no acute distress. VITAL SIGNS: Reviewed HEENT: Head is normocephalic and atraumatic. Pupils are equal and reactive. The nares are patent. Oropharynx is clear without lesions. NECK: Supple without lymphadenopathy. Traches midline. HEART: S1, S2. Irregular denying chest pain LUNGS: No crackles or wheezes are heard. Adequate air movement ABDOMEN: Soft, nontender, nondistended with good bowel sounds. No peritoneal signs. No palpable organomegaly or masses. Reports no nausea no vomiting no stool EXTREMITIES: Bilateral lower extremities wrapped dressings dry NEUROLOGICAL: No focal deficits. Strength and sensation are grossly intact. Results - Labs 07/13/17 05:43 07/13/17 05:43 Abnormal Lab Results - Last 24 Hours (Table) 07/12/17 07/12/17 07/13/17 Range/Units 16:39 20:57 05:43 RBC 3.17 L (4.30-5.90) m/uL Hgb 10.2 L (13.0-17.5) gm/dL Hct 30.4 L (39.0-53.0) % Lymphocytes # 0.5 L (1.0-4.8) k/uL PT (9.0-12.0) sec INR (<1.2) Potassium (3.5-5.1) mmol/L Glucose (74-99) mg/dL POC Glucose (mg/dL) 181 H 175 H (75-99) mg/dL Total Bilirubin (0.2-1.3) mg/dL AST (17-59) U/L Total Protein (6.3-8.2) g/dL Albumin (3.5-5.0) g/dL 07/13/17 07/13/17 07/13/17 Range/Units 05:43 05:43 06:42 RBC (4.30-5.90) m/uL Hgb (13.0-17.5) gm/dL Hct (39.0-53.0) % Lymphocytes # (1.0-4.8) k/uL PT 48.1 H (9.0-12.0) sec INR 5.3 H* (<1.2) Potassium 3.2 L (3.5-5.1) mmol/L Glucose 134 H (74-99) mg/dL POC Glucose (mg/dL) 128 H (75-99) mg/dL Total Bilirubin 2.9 H (0.2-1.3) mg/dL AST 64 H (17-59) U/L Total Protein 5.5 L (6.3-8.2) g/dL Albumin 2.6 L (3.5-5.0) g/dL 07/13/17 Range/Units 11:48 RBC (4.30-5.90) m/uL Hgb (13.0-17.5) gm/dL Hct (39.0-53.0) % Lymphocytes # (1.0-4.8) k/uL PT (9.0-12.0) sec INR (<1.2) Potassium (3.5-5.1) mmol/L Glucose (74-99) mg/dL POC Glucose (mg/dL) 117 H (75-99) mg/dL Total Bilirubin (0.2-1.3) mg/dL AST (17-59) U/L Total Protein (6.3-8.2) g/dL Albumin (3.5-5.0) g/dL Microbiology - Last 24 Hours (Table) 07/10/17 17:02 Gram Stain - Final Leg - Right Wound Culture - Final Staphylococcus aureus 07/10/17 17:02 Gram Stain - Final Leg - Left Wound Culture - Final Staphylococcus aureus 07/10/17 16:05 Blood Culture - Preliminary Blood No Growth after 48 hours Diabetes panel 07/13/17 Range/Units 05:43 Sodium 138 (137-145) mmol/L Potassium 3.2 L (3.5-5.1) mmol/L Chloride 107 (98-107) mmol/L Carbon Dioxide 22 (22-30) mmol/L BUN 18 (9-20) mg/dL Creatinine 0.70 (0.66-1.25) mg/dL Glucose 134 H (74-99) mg/dL Calcium 8.5 (8.4-10.2) mg/dL AST 64 H (17-59) U/L ALT 66 (21-72) U/L Alkaline Phosphatase 111 (38-126) U/L Total Protein 5.5 L (6.3-8.2) g/dL Albumin 2.6 L (3.5-5.0) g/dL Calcium panel 07/13/17 Range/Units 05:43 Calcium 8.5 (8.4-10.2) mg/dL Albumin 2.6 L (3.5-5.0) g/dL Pituitary panel 07/13/17 Range/Units 05:43 Sodium 138 (137-145) mmol/L Potassium 3.2 L (3.5-5.1) mmol/L Chloride 107 (98-107) mmol/L Carbon Dioxide 22 (22-30) mmol/L BUN 18 (9-20) mg/dL Creatinine 0.70 (0.66-1.25) mg/dL Glucose 134 H (74-99) mg/dL Calcium 8.5 (8.4-10.2) mg/dL Adrenal panel 07/13/17 Range/Units 05:43 Sodium 138 (137-145) mmol/L Potassium 3.2 L (3.5-5.1) mmol/L Chloride 107 (98-107) mmol/L Carbon Dioxide 22 (22-30) mmol/L BUN 18 (9-20) mg/dL Creatinine 0.70 (0.66-1.25) mg/dL Glucose 134 H (74-99) mg/dL Calcium 8.5 (8.4-10.2) mg/dL Total Bilirubin 2.9 H (0.2-1.3) mg/dL AST 64 H (17-59) U/L ALT 66 (21-72) U/L Alkaline Phosphatase 111 (38-126) U/L Total Protein 5.5 L (6.3-8.2) g/dL Albumin 2.6 L (3.5-5.0) g/dL Assessment and Plan Assessment: Impression Present on admission sepsis suspect due to cellulitis with bilateral lower extremity wounds Wound cultures lower extremities MSSA Elevated liver function studies and total bilirubin with an ultrasound of the gallbladder revealing enlarged hydropic gallbladder with biliary sludge and small gallstones Chronic atrial fibrillation on anticoagulation Coumadin Present on admission hypercoagulopathy suspect Coumadin induced Abdominal pain right upper quadrant suspect due to chronic cholecystitis Plan Await recommendations infectious disease defer to Correct the INR with vitamin K now follow-up on repeat INR Would benefit from a lap cholecystectomy timing to be deferred await INR normalized to be corrected Wound care as ordered Further surgical recommendations pending okay from infectious disease and INR addressed Surgical consultation note dictated for dr mark The above impression and plan of care have been discussed and directed by signing physician. Rosemarie Rivero nurse practitioner acting as scribe for signing physician.
[2017-07-13 16:47] LABS: Glucose,Whole Blood 179 mg/dL (75-99)
--- NOTE | 2017-07-13 17:38 | P.PN ---
Subjective Progress Note Date: 07/13/17 This is a 81-year-old male with a known history of chronic atrial fibrillation, diabetes mellitus, chronic lower extremity ulcers, chronic kidney disease, hypertension. Patient presents anemia emergency room with complaints of feeling very weak and with evidence of a fever of 101.6. He reports that he went to stand up from his chair and felt very weak and dizzy fluid down the chair onto the floor. He reports that he did not pass out or injure himself. EMS was called and patient was brought into the emergency room. He was slightly confused at that time. However now he is alert and orientated to 3. Patient was found have evidence of sepsis with a temp of 101.6 and lactic acid of 3.7 white count 12.3. Patient has evidence of lower extremity cellulitis around his leg ulcers. He reports that he follows with Dr. Adame at the wound care center for his leg wounds. 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 Patient was started on Augmentin the outpatient setting. However he is still having evidence of cellulitis. Vancomycin has been started and he was also given a dose of IV Zosyn. Infectious disease consulted. Cardiology is also following regards to patient's history of atrial fibrillation. Patient was also found have elevated LFTs and total bilirubin. Denies any abdominal pain. Abdominal ultrasound and hepatic panel has been ordered. Patient denies any chest pain or shortness of breath. Does admit to having some dizziness. Denies any vomiting. The does admit to some nausea intermittently. Denies any bowel movement changes or urinary symptoms. Influenza screen was negative and urinalysis negative. Lactic acid elevated at 3.7 improved with IV fluids down to 1.3 07/12/2017 patient seen by infectious disease. Currently on IV vancomycin. Wound culture growing presumptive staph aureus. Patient denies any nausea or vomiting. Denies any abdominal pain. Denies any chest pain or shortness of breath. Denies any urinary symptoms On 07/13/2017 patient is alert and oriented 3 in no apparent distress results of hepatobiliary scan was reviewed in details, surgery following, INR is elevated patient was given vitamin K 2.5 mg by mouth today, patient otherwise is feeling well he denies any fever or chills no headache no dizziness no chest pain or shortness of breath no cough no nausea or vomiting no abdominal pain and no urinary symptoms. Objective - Vital Signs Vital signs: Vital Signs Temp 97.8 F 07/13/17 15:49 Pulse 81 07/13/17 16:00 Resp 16 07/13/17 15:49 BP 115/55 07/13/17 15:49 Pulse Ox 97 07/13/17 15:49 Intake & Output 07/12/17 07/13/17 07/13/17 18:59 06:59 18:59 Intake Total 238 120 Output Total 1100 Balance -862 120 Weight 93.5 kg Intake: Oral 238 120 Output: Urine 1100 Other: Voiding Method Urinal Urinal # Voids 1 1 # Bowel Movements 1 1 - Exam Head normocephalic and atraumatic there is a hint of mild jaundice Neck supple no JVD no goiter no lymphadenopathy Lungs clear to auscultation bilaterally no wheezing or crackles Heart regular rate and rhythm S1-S2, no rub or gallop Abdomen is soft nontender nondistended positive bowel sounds no hepatosplenomegaly Extremities no edema. Legs are wrapped dressing is clean dry and intact Neuro alert and orientated to 3 - Labs CBC & Chem 7: 07/13/17 05:43 07/13/17 05:43 Labs: Abnormal Lab Results - Last 24 Hours (Table) 07/12/17 07/13/17 07/13/17 Range/Units 20:57 05:43 05:43 RBC 3.17 L (4.30-5.90) m/uL Hgb 10.2 L (13.0-17.5) gm/dL Hct 30.4 L (39.0-53.0) % Lymphocytes # 0.5 L (1.0-4.8) k/uL PT (9.0-12.0) sec INR (<1.2) Potassium 3.2 L (3.5-5.1) mmol/L Glucose 134 H (74-99) mg/dL POC Glucose (mg/dL) 175 H (75-99) mg/dL Total Bilirubin 2.9 H (0.2-1.3) mg/dL AST 64 H (17-59) U/L Total Protein 5.5 L (6.3-8.2) g/dL Albumin 2.6 L (3.5-5.0) g/dL 07/13/17 07/13/17 07/13/17 Range/Units 05:43 06:42 11:48 RBC (4.30-5.90) m/uL Hgb (13.0-17.5) gm/dL Hct (39.0-53.0) % Lymphocytes # (1.0-4.8) k/uL PT 48.1 H (9.0-12.0) sec INR 5.3 H* (<1.2) Potassium (3.5-5.1) mmol/L Glucose (74-99) mg/dL POC Glucose (mg/dL) 128 H 117 H (75-99) mg/dL Total Bilirubin (0.2-1.3) mg/dL AST (17-59) U/L Total Protein (6.3-8.2) g/dL Albumin (3.5-5.0) g/dL 07/13/17 Range/Units 16:33 RBC (4.30-5.90) m/uL Hgb (13.0-17.5) gm/dL Hct (39.0-53.0) % Lymphocytes # (1.0-4.8) k/uL PT (9.0-12.0) sec INR (<1.2) Potassium (3.5-5.1) mmol/L Glucose (74-99) mg/dL POC Glucose (mg/dL) 179 H (75-99) mg/dL Total Bilirubin (0.2-1.3) mg/dL AST (17-59) U/L Total Protein (6.3-8.2) g/dL Albumin (3.5-5.0) g/dL Microbiology - Last 24 Hours (Table) 07/10/17 17:02 Gram Stain - Final Leg - Right Wound Culture - Final Staphylococcus aureus 07/10/17 17:02 Gram Stain - Final Leg - Left Wound Culture - Final Staphylococcus aureus 07/10/17 16:05 Blood Culture - Preliminary Blood No Growth after 48 hours Assessment and Plan Plan: 1. Sepsis present on admission possibly related to patient's cellulitis and leg wounds. Wound cultures growing presumptive staph aureus continue vancomycin. Blood culture negative 2. 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 Continue with current antibiotics. 3. History of Kyrle's disease 4. Elevated LFTs and total bilirubin with abdominal ultrasound revealing enlarged hydropic gallbladder containing biliary sludge and small gallstones with gallbladder wall thickening. With concerns of chronic cholecystitis or biliary dyskinesia. Consults surgical service. Acute hepatitis panel negative. Will consult gastroenterology 5. History of chronic atrial fibrillation evaluated by cardiology. Continue Coumadin for anticoagulation EKG had shown atrial fibrillation with a heart rate of 85. INR 5.1. Hold Coumadin tonight. Given vitamin K 2.5 mg by mouth today Repeat PT/INR in a.m. 6. Diabetes mellitus type II. Continue sliding scale coverage 7. Essential hypertension: Lower blood pressures at present on admission now improved 8. Confusion prior to admission likely metabolic encephalopathy due to patient' s sepsis and cellulitis of the lower extremities 9. Hypokalemia: Patient receiving potassium supplement 10. History of renal cancer status post right nephrectomy GI prophylaxis Pepcid and DVT prophylaxis Coumadin
[2017-07-13] MEDS: AMPICILLIN-SULBACTAM 3 GM in SODIUM CHLORIDE 0.9% 100 ML IVPB SCH (17:46)
[2017-07-13] MEDS: FUROSEMIDE 40 MG TAB PO SCH (20:10)
[2017-07-13 20:37] LABS: Glucose,Whole Blood 168 mg/dL (75-99)
[2017-07-14] MEDS: SODIUM CHLORIDE 0.9% 1,000 ML IV SCH ×3 (00:01→20:41)
[2017-07-14] MEDS: AMPICILLIN-SULBACTAM 3 GM in SODIUM CHLORIDE 0.9% 100 ML IVPB SCH ×4 (00:20→17:02)
[2017-07-14] MEDS ORDERED: VANCOMYCIN TROUGH DUE 1 EACH MISC MISCELLANE ONE (05:00)
[2017-07-14 05:50] LABS: Glucose,Whole Blood 145 mg/dL (75-99)
[2017-07-14] MEDS: INSULIN ASPART 100 UNIT/ML 1 ML 10 ML VIAL SQ SCH ×4 (05:53→21:27)
[2017-07-14 05:56] LABS: Basophils % (A) 0 %; Eosinophils # (A) 0.4 k/uL (0-0.7); Eosinophils % (A) 5 %; HCT 30.7 % (39.0-53.0); HGB 9.9 gm/dL (13.0-17.5); Lymphocytes # (A) 0.6 k/uL (1.0-4.8); Lymphocytes % (A) 10 %; MCH 31.3 pg (25.0-35.0); MCHC 32.1 g/dL (31.0-37.0); MCV 97.6 fL (80.0-100.0); Mean Platelet Volume 9.3; Monocytes # (A) 0.5 k/uL (0-1.0); Monocytes % (A) 7 %; Neutrophils # (A) 5.1 k/uL (1.3-7.7); Neutrophils % (A) 75 %; Platelet Count 216 k/uL (150-450); RBC 3.15 m/uL (4.30-5.90); WBC 6.7 k/uL (3.8-10.6)
[2017-07-14 06:23] LABS: ALT 66 U/L (21-72); AST 76 U/L (17-59); Albumin 2.7 g/dL (3.5-5.0); Alkaline Phosphatase 164 U/L (38-126); Anion Gap 9 mmol/L; Blood Urea Nitrogen 17 mg/dL (9-20); Calcium 8.6 mg/dL (8.4-10.2); Carbon Dioxide 25 mmol/L (22-30); Chloride 106 mmol/L (98-107); Glucose 154 mg/dL (74-99); Potassium 3.1 mmol/L (3.5-5.1); Sodium 140 mmol/L (137-145); Total Bilirubin 4.2 mg/dL (0.2-1.3); Total Protein 5.7 g/dL (6.3-8.2)
[2017-07-14 07:22] LABS: INR 1.8 (<1.2); Prothrombin Time 16.6 sec (9.0-12.0)
[2017-07-14] MEDS: POTASSIUM CHLORIDE ER 20 MEQ TAB.ER PO SCH ×2 (08:16→09:22)
[2017-07-14] MEDS: DILTIAZEM CD 120 MG CAP.ER.24H PO SCH (08:17)
[2017-07-14] MEDS: MECLIZINE 25 MG TAB PO SCH ×2 (08:17→20:41)
[2017-07-14] MEDS: FLUoxetine HCL 20 MG CAP PO SCH (08:17)
[2017-07-14] MEDS ORDERED: POTASSIUM CHLORIDE ER 20 MEQ TAB.ER PO STA (08:33)
--- NOTE | 2017-07-14 09:54 | P.CONS ---
History of Present Illness - Reason for Consult Consult date: 07/14/17 elevated liver enzymes Requesting physician: Brandie Hinton - History of Present Illness 81-year-old male with a history chronic atrial fibrillation maintained on warfarin, chronic lower extremity ulcers/Kerle's disease, chronic kidney disease , diabetes, morbid obesity, and hypertension. Patient admitted with 2 month history of progressive weakness and lethargy decreased appetite and unintentional 15-20 pound weight loss over the last 6 months. Patient used to weigh 500 pounds but has lost a fair amount of weight through diet over the last 4 years. Upon admission he was somewhat confused afebrile with a T-max of 101.6. Wound cultures Staphylococcus aureus. Blood culture no growth after 72 hours. No recurrent fevers. Consult requested for elevated liver enzymes. Hepatitis and influenza screen negative. White count 6.7-12.3. Hemoglobin 9.9-11.4. Platelet 216. INR 1.8. Total bilirubin 2.7-4.2. AST 64-416. ALT 66-164. Alkaline phosphatase 56-164. Patient denies upper abdominal pain. No history of hepatitis or known liver disorders. Denies changes in the color of his urine or stool. Abdominal ultrasound enlarged hydropic gallbladder containing biliary sludge and small stones with thickened wall. CBD 0.8 cm. Gallbladder wall 0.8 cm. HIDA scan markedly abnormal without definitive visualization of bowel or gallbladder. Obstruction of CBD near vinh hepatitis cannot be excluded. Acute cholecystitis considered. CT abdomen and pelvis November 2015 reported a normal appearing gallbladder liver spleen with atrophic pancreas. Review of Systems Constitutional: Denies fever, chills, sweats, weight gain, or loss. HEENT: Negative for migraines, blurred vision or loss, earaches, drainage, tinnitus, oral mucosal lesions, dysphagia, or odynophagia. Cardiac: Atrial fibrillation. Hypertension. Negative for chest pain, arrhythmias, or palpitation. Respiratory: Negative for shortness of breath, hemoptysis, cough, or sputum production. Gastrointestinal: See HPI for pertinent findings. Genitourinary: Negative for hematuria, urgency, frequency, polyuria, dysuria, or penile discharge. Musculoskeletal: Negative for muscle aches, swelling, arthritis, and arthralgias. Neurologic: Negative for stroke or TIA. Endocrine: Diabetes mellitus. Negative for thyroid problems. Nephrology: Chronic kidney disease. Skin: Chronic lower extremity wounds Kerle's disease. Negative for rash or itching. Psychiatric: Negative history for depression and anxiety Past Medical History Past Medical History: Atrial Fibrillation, Diabetes Mellitus, Hypertension Additional Past Medical History / Comment(s): BLE VENOUS ULCERS, calcenosis of BLE. MAC. DEGENERATION. VERTIGO. 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 fluid from eyes r/t glaucoma Past Anesthesia/Blood Transfusion Reactions: Motion Sickness Past Psychological History: Anxiety Additional Psychological History / Comment(s): . Retired. experience. No international travel. No animal exposures Smoking Status: Former smoker Past Alcohol Use History: None Reported Additional Past Alcohol Use History / Comment(s): smoked 20 years <1ppd quit 1973 Past Drug Use History: None Reported - Past Family History Sister(s) Family Medical History: Cancer, Diabetes Mellitus Mother Family Medical History: Myocardial Infarction (NM), Renal Disease Medications and Allergies Home Medications Medication Instructions Recorded Confirmed Type Ergocalciferol [Vitamin D2 50,000 unit PO WE 02/28/14 07/10/17 History (DRISDOL)] Fenofibrate,Micronized 134 mg PO HS 02/28/14 07/10/17 History [Fenofibrate] Furosemide [Lasix] 40 mg PO HS 02/28/14 07/10/17 History metFORMIN HCL [Glucophage] 500 mg PO BID 02/28/14 07/10/17 History ALPRAZolam [Xanax] 0.5 mg PO DAILY PRN 01/05/15 07/10/17 History Meclizine [Antivert] 25 mg PO BID 01/05/15 07/10/17 History glipiZIDE [Glucotrol] 2.5 mg PO DAILY PRN 06/30/16 07/10/17 History Diltiazem HCl [Diltiazem 24Hr ER] 120 mg PO Q24HR 01/27/17 07/10/17 History traMADol HCL/ACETAMINOPHEN 1 tab PO BID 05/26/17 07/10/17 History [Ultracet 37.5-325] Amoxicillin/Potassium Clav 1 tab PO Q12HR 14 Days #28 tab 07/07/17 07/10/17 Rx [Augmentin 875-125 Tablet] FLUoxetine HCL [PROzac] 40 mg PO DAILY 07/10/17 07/10/17 History Warfarin Sodium [Coumadin] 5 mg PO MOTUWETHFRSA 07/10/17 07/10/17 History Allergies Allergy/AdvReac Type Severity Reaction Status Date / Time oxycodone [Oxycodone] Allergy Hallucinati Verified 07/10/17 16:46 ons Physical Exam Vitals: Vital Signs Temp Pulse Resp BP BP Pulse Ox 07/14/17 07:41 82 14 07/14/17 07:32 98.1 F 82 14 139/63 98 07/14/17 04:00 98 F 73 16 158/72 98 07/14/17 00:00 16 07/13/17 23:59 97.6 F 80 16 147/71 96 07/13/17 20:00 98.2 F 73 16 134/65 98 07/13/17 16:00 81 07/13/17 15:49 97.8 F 81 16 115/55 97 07/13/17 11:59 64 07/13/17 11:50 97.8 F 64 16 152/76 98 Intake and Output 07/13/17 07/14/17 07/14/17 22:59 06:59 14:59 Intake Total 240 1100 Output Total 1150 200 Balance 240 -50 -200 Intake: Intake, IV Titration 900 Amount Ampicillin-Sulbactam 3 gm 100 In Sodium Chloride 0.9% 100 ml @ 100 mls/hr IVPB Q6HR [facility] Rx#:[id number] Sodium Chloride 0.9% 1, 800 000 ml @ 100 mls/hr IV . Q10H [facility] Rx#:[id number] Oral 240 200 Output: Urine 1150 200 Other: Voiding Method Urinal Urinal # Voids 1 # Bowel Movements 1 Weight 88.5 kg General appearance: The patient is alert, oriented, in no acute distress. HET: Head is normocephalic and atraumatic. Pupils are equal and reactive. Sclerae dull slightly icteric. Oropharynx is clear without lesions. Neck: Supple without lymphadenopathy. Trachea midline. Heart: S1 S2. Regular rate and rhythm. Lungs: No crackles or wheezes are heard. Abdomen: Soft, nontender, nondistended with bowel sounds. No peritoneal signs. No palpable organomegaly or masses. Extremities: Bilateral lower extremity edema with Phillip wraps. Neurological: No focal deficits. Strength and sensation are grossly intact. Results CBC & Chem 7: 07/14/17 04:55 07/14/17 04:55 Labs: Abnormal Lab Results - Last 24 Hours (Table) 07/13/17 07/13/17 07/13/17 Range/Units 11:48 16:33 20:35 RBC (4.30-5.90) m/uL Hgb (13.0-17.5) gm/dL Hct (39.0-53.0) % Lymphocytes # (1.0-4.8) k/uL PT (9.0-12.0) sec INR (<1.2) Potassium (3.5-5.1) mmol/L Glucose (74-99) mg/dL POC Glucose (mg/dL) 117 H 179 H 168 H (75-99) mg/dL Total Bilirubin (0.2-1.3) mg/dL AST (17-59) U/L Alkaline Phosphatase (38-126) U/L Total Protein (6.3-8.2) g/dL Albumin (3.5-5.0) g/dL 07/14/17 07/14/17 07/14/17 Range/Units 04:55 04:55 04:55 RBC 3.15 L (4.30-5.90) m/uL Hgb 9.9 L (13.0-17.5) gm/dL Hct 30.7 L (39.0-53.0) % Lymphocytes # 0.6 L (1.0-4.8) k/uL PT 16.6 H (9.0-12.0) sec INR 1.8 H (<1.2) Potassium 3.1 L (3.5-5.1) mmol/L Glucose 154 H (74-99) mg/dL POC Glucose (mg/dL) (75-99) mg/dL Total Bilirubin 4.2 H (0.2-1.3) mg/dL AST 76 H (17-59) U/L Alkaline Phosphatase 164 H (38-126) U/L Total Protein 5.7 L (6.3-8.2) g/dL Albumin 2.7 L (3.5-5.0) g/dL 07/14/17 Range/Units 05:47 RBC (4.30-5.90) m/uL Hgb (13.0-17.5) gm/dL Hct (39.0-53.0) % Lymphocytes # (1.0-4.8) k/uL PT (9.0-12.0) sec INR (<1.2) Potassium (3.5-5.1) mmol/L Glucose (74-99) mg/dL POC Glucose (mg/dL) 145 H (75-99) mg/dL Total Bilirubin (0.2-1.3) mg/dL AST (17-59) U/L Alkaline Phosphatase (38-126) U/L Total Protein (6.3-8.2) g/dL Albumin (3.5-5.0) g/dL Microbiology - Last 24 Hours (Table) 07/10/17 16:05 Blood Culture - Preliminary Blood No Growth after 72 hours Comments: HIDA scan report reviewed by Dr. Leiva US - abdomen: report reviewed (Dr. Leiva) Assessment and Plan (1) Elevated liver enzymes Narrative/Plan: 81-year-old male admitted with elevated liver enzymes fever or mental status changes possible sepsis with chronic lower extremity wounds atrial fibrillation maintained on Coumadin with radiographic imaging suggestive of cholelithiasis hydropic gallbladder and nonvisualization per HIDA scan possible acute cholecystitis possible common bile duct calculus obstruction. Current Visit: Yes Status: Acute Code(s): R74.8 - ABNORMAL LEVELS OF OTHER SERUM ENZYMES SNOMED Code(s): 007580518 (2) Warfarin-induced coagulopathy Current Visit: Yes Status: Acute Code(s): D68.32 - HEMORRHAGIC DISORD D/T EXTRINSIC CIRCULATING ANTICOAGULANTS; T45.515A - ADVERSE EFFECT OF ANTICOAGULANTS, INITIAL ENCOUNTER SNOMED Code(s): 84995742 Plan: 1. MRCP today; patient ate full breakfast possible ERCP pending MRI findings. NPO after midnight. 2. Daily CMP and INR. 3. Continue to hold Coumadin. Thank you for this kind referral and the opportunity to participate in the care of your patient. This consultation was discussed with Dr. Leiva. The impression and plan of care have been directed as dictated.
--- NOTE | 2017-07-14 11:08 | P.PN ---
Subjective Progress Note Date: 07/14/17 81-year-old male seen and examined sitting up in the bed patient's currently denying any dizziness lightheadedness or chest pain. more awake and alert jaundiced persist Patient has been seen by GI service this morning and currently is scheduled for an MRCP today. Coumadin is on hold. INR 1.8 today total bilirubin up to 4.2 this morning Imaging radiographic suggestive of cholelithiasis possible acute cholecystitis with common bile duct obstruction Objective - Vital Signs Vital signs: Vital Signs Temp 98.1 F 07/14/17 07:32 Pulse 82 07/14/17 07:41 Resp 14 07/14/17 07:41 BP 139/63 07/14/17 07:32 Pulse Ox 98 07/14/17 07:32 Intake & Output 07/13/17 07/14/17 07/14/17 18:59 06:59 18:59 Intake Total 360 1100 Output Total 1150 200 Balance 360 -50 -200 Weight 88.5 kg Intake: Intake, IV Titration 900 Amount Ampicillin-Sulbactam 3 gm 100 In Sodium Chloride 0.9% 100 ml @ 100 mls/hr IVPB Q6HR [facility] Rx#:[id number] Sodium Chloride 0.9% 1, 800 000 ml @ 100 mls/hr IV . Q10H [facility] Rx#:[id number] Oral 360 200 Output: Urine 1150 200 Other: Voiding Method Urinal # Voids 1 # Bowel Movements 1 - Exam Exam 81-year-old male sitting up in bed oriented to person and place and event remains jaundice currently denying dizziness lightheadedness chest pain or shortness of breath Lungs adequate air movement bilaterally no cough noted Heart S1-S2 audible irregular Abdomen no facial grimacing with palpitation to the abdominal wall nontender nondistended bowel tones active states no stooling Extremities currently has bilateral wraps to the lower extremities decrease edema - Labs CBC & Chem 7: 07/14/17 04:55 07/14/17 04:55 Labs: Abnormal Lab Results - Last 24 Hours (Table) 07/13/17 07/13/17 07/13/17 Range/Units 11:48 16:33 20:35 RBC (4.30-5.90) m/uL Hgb (13.0-17.5) gm/dL Hct (39.0-53.0) % Lymphocytes # (1.0-4.8) k/uL PT (9.0-12.0) sec INR (<1.2) Potassium (3.5-5.1) mmol/L Glucose (74-99) mg/dL POC Glucose (mg/dL) 117 H 179 H 168 H (75-99) mg/dL Total Bilirubin (0.2-1.3) mg/dL AST (17-59) U/L Alkaline Phosphatase (38-126) U/L Total Protein (6.3-8.2) g/dL Albumin (3.5-5.0) g/dL 07/14/17 07/14/17 07/14/17 Range/Units 04:55 04:55 04:55 RBC 3.15 L (4.30-5.90) m/uL Hgb 9.9 L (13.0-17.5) gm/dL Hct 30.7 L (39.0-53.0) % Lymphocytes # 0.6 L (1.0-4.8) k/uL PT 16.6 H (9.0-12.0) sec INR 1.8 H (<1.2) Potassium 3.1 L (3.5-5.1) mmol/L Glucose 154 H (74-99) mg/dL POC Glucose (mg/dL) (75-99) mg/dL Total Bilirubin 4.2 H (0.2-1.3) mg/dL AST 76 H (17-59) U/L Alkaline Phosphatase 164 H (38-126) U/L Total Protein 5.7 L (6.3-8.2) g/dL Albumin 2.7 L (3.5-5.0) g/dL 07/14/17 Range/Units 05:47 RBC (4.30-5.90) m/uL Hgb (13.0-17.5) gm/dL Hct (39.0-53.0) % Lymphocytes # (1.0-4.8) k/uL PT (9.0-12.0) sec INR (<1.2) Potassium (3.5-5.1) mmol/L Glucose (74-99) mg/dL POC Glucose (mg/dL) 145 H (75-99) mg/dL Total Bilirubin (0.2-1.3) mg/dL AST (17-59) U/L Alkaline Phosphatase (38-126) U/L Total Protein (6.3-8.2) g/dL Albumin (3.5-5.0) g/dL Microbiology - Last 24 Hours (Table) 07/10/17 16:05 Blood Culture - Preliminary Blood No Growth after 72 hours Assessment and Plan Assessment: Impression Present on admission sepsis suspect due to cellulitis with bilateral lower extremity wounds Wound cultures lower extremities MSSA Elevated liver function studies and total bilirubin with an ultrasound of the gallbladder revealing enlarged hydropic gallbladder with biliary sludge and small gallstones Chronic atrial fibrillation on anticoagulation Coumadin Present on admission hypercoagulopathy suspect Coumadin induced Abdominal pain right upper quadrant suspect due to chronic cholecystitis Plan await MRCP findings Await recommendations infectious disease defer to Would benefit from a lap cholecystectomy timing to be deferred await INR normalized to be corrected Wound care as ordered Further surgical recommendations pending note dictated for dr mark The above impression and plan of care have been discussed and directed by signing physician. Rosemarie Rivero nurse practitioner acting as scribe for signing physician.
--- NOTE | 2017-07-14 11:17 | P.PN ---
Subjective Progress Note Date: 07/14/17 This is a 81-year-old male with a known history of chronic atrial fibrillation, diabetes mellitus, chronic lower extremity ulcers, chronic kidney disease, hypertension. Patient presents anemia emergency room with complaints of feeling very weak and with evidence of a fever of 101.6. He reports that he went to stand up from his chair and felt very weak and dizzy fluid down the chair onto the floor. He reports that he did not pass out or injure himself. EMS was called and patient was brought into the emergency room. He was slightly confused at that time. However now he is alert and orientated to 3. Patient was found have evidence of sepsis with a temp of 101.6 and lactic acid of 3.7 white count 12.3. Patient has evidence of lower extremity cellulitis around his leg ulcers. He reports that he follows with Dr. Adame at the wound care center for his leg wounds. 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 Patient was started on Augmentin the outpatient setting. However he is still having evidence of cellulitis. Vancomycin has been started and he was also given a dose of IV Zosyn. Infectious disease consulted. Cardiology is also following regards to patient's history of atrial fibrillation. Patient was also found have elevated LFTs and total bilirubin. Denies any abdominal pain. Abdominal ultrasound and hepatic panel has been ordered. Patient denies any chest pain or shortness of breath. Does admit to having some dizziness. Denies any vomiting. The does admit to some nausea intermittently. Denies any bowel movement changes or urinary symptoms. Influenza screen was negative and urinalysis negative. Lactic acid elevated at 3.7 improved with IV fluids down to 1.3 07/12/2017 patient seen by infectious disease. Currently on IV vancomycin. Wound culture growing presumptive staph aureus. Patient denies any nausea or vomiting. Denies any abdominal pain. Denies any chest pain or shortness of breath. Denies any urinary symptoms 07/14/2017 patient lying in bed comfortably. No pain. No evidence of distress. Total bilirubin is up to 4.2. AST 76 ALT 66 and alk phos 164. Hemoglobin 9.9 and INR is 1.18.. Patient had HIDA scan completed yesterday which was markedly abnormal without definitive visualization of the bowel or gallbladder. Acute cholecystitis needs to be considered. Also obstruction of common bile duct reported. GI service consulted. They're planning to proceed with MRCP today. Patient's potassium is low at 3.1 and magnesium is 1.8. He is receiving supplement. He denies any nausea or vomiting. Denies any abdominal pain. Denies any chest pain or shortness breath. Denies any burning with urination. Objective - Vital Signs Vital signs: Vital Signs Temp 98.1 F 07/14/17 07:32 Pulse 82 07/14/17 07:41 Resp 14 07/14/17 07:41 BP 139/63 07/14/17 07:32 Pulse Ox 98 07/14/17 07:32 Intake & Output 07/13/17 07/14/17 07/14/17 18:59 06:59 18:59 Intake Total 360 1100 Output Total 1150 200 Balance 360 -50 -200 Weight 88.5 kg Intake: Intake, IV Titration 900 Amount Ampicillin-Sulbactam 3 gm 100 In Sodium Chloride 0.9% 100 ml @ 100 mls/hr IVPB Q6HR [facility] Rx#:[id number] Sodium Chloride 0.9% 1, 800 000 ml @ 100 mls/hr IV . Q10H [facility] Rx#:[id number] Oral 360 200 Output: Urine 1150 200 Other: Voiding Method Urinal # Voids 1 # Bowel Movements 1 - Exam Head normocephalic Neck supple Lungs clear to auscultation bilaterally no wheezing or crackles Heart regular rate and rhythm S1-S2, no rub or gallop Abdomen is soft nontender nondistended positive bowel sounds no hepatosplenomegaly Extremities no edema. Legs are wrapped dressing is clean dry and intact Neuro alert and orientated to 3 - Labs CBC & Chem 7: 07/14/17 04:55 07/14/17 04:55 Labs: Abnormal Lab Results - Last 24 Hours (Table) 07/13/17 07/13/17 07/13/17 Range/Units 11:48 16:33 20:35 RBC (4.30-5.90) m/uL Hgb (13.0-17.5) gm/dL Hct (39.0-53.0) % Lymphocytes # (1.0-4.8) k/uL PT (9.0-12.0) sec INR (<1.2) Potassium (3.5-5.1) mmol/L Glucose (74-99) mg/dL POC Glucose (mg/dL) 117 H 179 H 168 H (75-99) mg/dL Total Bilirubin (0.2-1.3) mg/dL AST (17-59) U/L Alkaline Phosphatase (38-126) U/L Total Protein (6.3-8.2) g/dL Albumin (3.5-5.0) g/dL 07/14/17 07/14/17 07/14/17 Range/Units 04:55 04:55 04:55 RBC 3.15 L (4.30-5.90) m/uL Hgb 9.9 L (13.0-17.5) gm/dL Hct 30.7 L (39.0-53.0) % Lymphocytes # 0.6 L (1.0-4.8) k/uL PT 16.6 H (9.0-12.0) sec INR 1.8 H (<1.2) Potassium 3.1 L (3.5-5.1) mmol/L Glucose 154 H (74-99) mg/dL POC Glucose (mg/dL) (75-99) mg/dL Total Bilirubin 4.2 H (0.2-1.3) mg/dL AST 76 H (17-59) U/L Alkaline Phosphatase 164 H (38-126) U/L Total Protein 5.7 L (6.3-8.2) g/dL Albumin 2.7 L (3.5-5.0) g/dL 07/14/17 Range/Units 05:47 RBC (4.30-5.90) m/uL Hgb (13.0-17.5) gm/dL Hct (39.0-53.0) % Lymphocytes # (1.0-4.8) k/uL PT (9.0-12.0) sec INR (<1.2) Potassium (3.5-5.1) mmol/L Glucose (74-99) mg/dL POC Glucose (mg/dL) 145 H (75-99) mg/dL Total Bilirubin (0.2-1.3) mg/dL AST (17-59) U/L Alkaline Phosphatase (38-126) U/L Total Protein (6.3-8.2) g/dL Albumin (3.5-5.0) g/dL Microbiology - Last 24 Hours (Table) 07/10/17 16:05 Blood Culture - Preliminary Blood No Growth after 72 hours Assessment and Plan Assessment: 1. Sepsis present on admission possibly related to patient's cellulitis and leg wounds. Wound culture growing MSSA. Infectious disease following antibiotics were adjusted. Patient started on Unasyn and vancomycin discontinued 2. 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 Continue with current antibiotics. 3. History of Kyrle's disease 4. Elevated LFTs and total bilirubin : With abnormal abdominal ultrasound and HIDA scan. Concerns for come bile duct obstruction. Patient scheduled for MRCP today. GI and surgical service following. 5. History of chronic atrial fibrillation evaluated by cardiology. Continue Coumadin for anticoagulation EKG had shown atrial fibrillation with a heart rate of 85. INR 1.8 after receiving vitamin K. Continue to hold Coumadin for procedure 6. Diabetes mellitus type II. Continue sliding scale coverage 7. Essential hypertension: Lower blood pressures at present on admission now improved 8. Confusion prior to admission likely metabolic encephalopathy due to patient' s sepsis and cellulitis of the lower extremities 9. Hypokalemia: Patient receiving potassium supplement. Potassium 3.1 10. History of renal cancer status post right nephrectomy 11. Hypomagnesemia: Magnesium 1.8 we'll give 1 g magnesium sulfate. Repeat magnesium level in a.m. GI prophylaxis Pepcid and DVT prophylaxis Coumadin on hold for procedure PT consulted I performed an examination of the patient and discussed their management with the physician Traffic Supervisor. I have reviewed the Physician Traffic Supervisor's notes and agree with the documented findings and plan of care
[2017-07-14 11:22] LABS: Glucose,Whole Blood 209 mg/dL (75-99)
[2017-07-14] MEDS ORDERED: MAGNESIUM SULFATE-D5W PMX 1 GM in DEXTROSE/WATER 1 100ML.BAG IVPB ONE (11:30)
--- NOTE | 2017-07-14 15:21 | MR ---
EXAMINATION TYPE: MR MRCP DATE OF EXAM: 07/14/2017 COMPARISON: Abdominal ultrasound dated 07/12/2017 and nuclear medicine hepatobiliary scan dated 018 HISTORY: Elevated liver enzymes, hx renal ca Standard multiplanar, multisequence MRI departmental protocol utilizing [id number] images for MRC P protocol without contrast. FINDINGS: Motion artifact slightly degrades the images. There is redemonstration of diffuse enlargement of the gallbladder as it measures up to 9.2 cm. Addit ionally there is circumferential gallbladder wall thickening/edema measuring up to 7 mm. Biliary slud ge and multiple calculi layering dependently within the gallbladder body and neck. On thin slab image s a partially obstructing calculus is seen in the distal common bile duct just proximal to the ampull a of Vater measuring 5 mm. The common bile duct just proximal to this measures 6 mm. This is present on image 42. This corresponds to a filling defect seen on T2 coronal nonfat sat on image 19 and on T2 fat sat axial image 21. Focal cortical defect within the right kidney was better visualized on renal ultrasound due to patien t motion but appears to be within the medial aspect of the mid pole. The left kidney is grossly unrem arkable. There is no bowel dilatation. Abdominal aorta cannot BE accurately measured in size within t he patient motion. There is mild intrahepatic biliary ductal dilatation and cystic duct prominence. C ommon hepatic duct is within normal limits measuring 4 mm. Pancreatic duct is also within normal limi ts. Evaluation for adenopathy is grossly limited given motion. Scoliotic curvature of the thoracolumb ar spine is dextroconvex of the upper lumbar spine. Possible trace right pleural effusion. IMPRESSION: Partially obstructing calculus within the distal common bile duct just proximal to the ampulla of Vat er with MR findings of acute cholecystitis including gallbladder enlargement and gallbladder wall thi ckening/edema. This corresponds with the positive nuclear medicine hepatobiliary scan dated 07/12/2017 . A [place] level critical message alert has been initiated for Brandie Hinton MD via the [employer] Critical Results System on 07/14/2017 3:18 PM. This message alert has been sent to Brandie Hinton MD via the preferences provided by the clinician for the receipt of Radiology Critical Findings. Message ID [id number].
[2017-07-14 15:32] LABS: Glucose,Whole Blood 134 mg/dL (75-99)
[2017-07-14] MEDS: FUROSEMIDE 40 MG TAB PO SCH (20:41)
[2017-07-14 21:16] LABS: Glucose,Whole Blood 180 mg/dL (75-99)
--- NOTE | 2017-07-14 23:00 | P.PN ---
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 The patient has had local wound care was recently with medical honey with some improvement of his status. He has had difficulty with localized renal cell carcinoma that has been resected. With gentle relatively well until he suddenly became weak today. He relates that suddenly his legs became weak he couldn't navigate any further he fell into his chair and then slowly ended up on the ground. Was able to bring himself up and consequently EMS was called and he was transported to hospital. He has been found evidence of a fever over 101 as well as significant weakness and leukocytosis. There was also evidence of an elevated lactic acid. Because of sepsis the infectious diseases consultation is been requested. Patient is feeling slightly better today after fluid resuscitation and antibiotic therapy. 07/12/2017 patient relates that he is feeling somewhat better today. He is able to eat a bit of food. He's been having some minimal abdominal pain. He is denying nausea or emesis. His legs feel slightly better since the medical honey dressings were applied. His weakness is improved. He believes his fever has also improved. No chills or rigors. 07/14/2017 the patient remains jaundiced feeling somewhat poorly, he is due for an ERCP and then likely a cholecystectomy. He is tolerating antibiotic therapy well for the MSSA that has been isolate up from his chronic leg ulcerations. Objective - Vital Signs Vital signs: Vital Signs Temp 97.6 F 07/14/17 20:00 Pulse 77 07/14/17 20:00 Resp 19 07/14/17 20:00 BP 139/86 07/14/17 20:00 Pulse Ox 99 07/14/17 20:00 Intake & Output 07/14/17 07/14/17 07/15/17 06:59 18:59 06:59 Intake Total 1100 120 Output Total 1150 1000 Balance -50 -880 Weight 88.5 kg Intake: Intake, IV Titration 900 Amount Ampicillin-Sulbactam 3 gm 100 In Sodium Chloride 0.9% 100 ml @ 100 mls/hr IVPB Q6HR [facility] Rx#:[id number] Sodium Chloride 0.9% 1, 800 000 ml @ 100 mls/hr IV . Q10H [facility] Rx#:[id number] Oral 200 120 Output: Urine 1150 1000 Other: Voiding Method Urinal Urinal - Exam Pleasant 81-year-old gentleman in no acute distress, has increased jaundice today HEENT: Obviously icteric, conjunctiva are pink and moist nasal mucosa grossly intact without significant lesions, there is no thrush. Neck: The neck is supple without significant lymphadenopathy or thyromegaly. Lungs: Good bilateral air entry without significant crackles or wheezing. There is no significant bronchial sounds. There is no egophony or dullness. Heart: Regular rate and rhythm with an audible S1-S2, no S3 no S4. There is no significant murmur click or rub, PMI was nondisplaced. Abdomen: Positive bowel sounds soft and nontender without palpable masses or organomegaly. There was no guarding or rebound. Extremities: The upper extremities have excellent pulses they are symmetric, no significant petechiae or telangiectasia. The lower extremities evidence of the chronic edema which is quite symmetric. The anterior tibial surface bilaterally has evidence of the varicosities, and the chronic ulcerations that are full-thickness with significant calcification of the tissue. The level of tenderness is without change. There is evidence of erythema over the bilateral pretibial areas. There is no expressible purulence. They are tender as usual. Neuro: Awake alert oriented to person place and time. There are no acute new gross focal sensory motor deficits. - Labs CBC & Chem 7: 07/14/17 04:55 07/14/17 04:55 Labs: Abnormal Lab Results - Last 24 Hours (Table) 07/14/17 07/14/17 07/14/17 Range/Units 04:55 04:55 04:55 RBC 3.15 L (4.30-5.90) m/uL Hgb 9.9 L (13.0-17.5) gm/dL Hct 30.7 L (39.0-53.0) % Lymphocytes # 0.6 L (1.0-4.8) k/uL PT 16.6 H (9.0-12.0) sec INR 1.8 H (<1.2) Potassium 3.1 L (3.5-5.1) mmol/L Glucose 154 H (74-99) mg/dL POC Glucose (mg/dL) (75-99) mg/dL Total Bilirubin 4.2 H (0.2-1.3) mg/dL AST 76 H (17-59) U/L Alkaline Phosphatase 164 H (38-126) U/L Total Protein 5.7 L (6.3-8.2) g/dL Albumin 2.7 L (3.5-5.0) g/dL 07/14/17 07/14/17 07/14/17 Range/Units 05:47 11:20 15:29 RBC (4.30-5.90) m/uL Hgb (13.0-17.5) gm/dL Hct (39.0-53.0) % Lymphocytes # (1.0-4.8) k/uL PT (9.0-12.0) sec INR (<1.2) Potassium (3.5-5.1) mmol/L Glucose (74-99) mg/dL POC Glucose (mg/dL) 145 H 209 H 134 H (75-99) mg/dL Total Bilirubin (0.2-1.3) mg/dL AST (17-59) U/L Alkaline Phosphatase (38-126) U/L Total Protein (6.3-8.2) g/dL Albumin (3.5-5.0) g/dL 07/14/17 Range/Units 21:15 RBC (4.30-5.90) m/uL Hgb (13.0-17.5) gm/dL Hct (39.0-53.0) % Lymphocytes # (1.0-4.8) k/uL PT (9.0-12.0) sec INR (<1.2) Potassium (3.5-5.1) mmol/L Glucose (74-99) mg/dL POC Glucose (mg/dL) 180 H (75-99) mg/dL Total Bilirubin (0.2-1.3) mg/dL AST (17-59) U/L Alkaline Phosphatase (38-126) U/L Total Protein (6.3-8.2) g/dL Albumin (3.5-5.0) g/dL Microbiology - Last 24 Hours (Table) 07/10/17 16:05 Blood Culture - Preliminary Blood No Growth after 96 hours Laboratory Results WBC 6.7 k/uL (3.8-10.6) 07/14/17 04:55 RBC 3.15 m/uL (4.30-5.90) L 07/14/17 04:55 Hgb 9.9 gm/dL (13.0-17.5) L 07/14/17 04:55 Hct 30.7 % (39.0-53.0) L 07/14/17 04:55 MCV 97.6 fL (80.0-100.0) 07/14/17 04:55 MCH 31.3 pg (25.0-35.0) 07/14/17 04:55 MCHC 32.1 g/dL (31.0-37.0) 07/14/17 04:55 RDW 13.0 % (11.5-15.5) 07/14/17 04:55 Plt Count 216 k/uL (150-450) 07/14/17 04:55 Neutrophils % 75 % 07/14/17 04:55 Neutrophils % (Manual) 76 % 07/10/17 16:05 Band Neutrophils % 19 % 07/10/17 16:05 Lymphocytes % 10 % 07/14/17 04:55 Lymphocytes % (Manual) 3 % 07/10/17 16:05 Monocytes % 7 % 07/14/17 04:55 Monocytes % (Manual) 2 % 07/10/17 16:05 Eosinophils % 5 % 07/14/17 04:55 Basophils % 0 % 07/14/17 04:55 Neutrophils # 5.1 k/uL (1.3-7.7) 07/14/17 04:55 Neutrophils # (Manual) 11.60 k/uL (1.3-7.7) H 07/10/17 16:05 Lymphocytes # 0.6 k/uL (1.0-4.8) L 07/14/17 04:55 Lymphocytes # (Manual) 0.37 k/uL (1.0-4.8) L 07/10/17 16:05 Monocytes # 0.5 k/uL (0-1.0) 07/14/17 04:55 Monocytes # (Manual) 0.25 k/uL (0-1.0) 07/10/17 16:05 Eosinophils # 0.4 k/uL (0-0.7) 07/14/17 04:55 Basophils # 0.0 k/uL (0-0.2) 07/14/17 04:55 Nucleated RBCs 0 /100 WBC (0-0) 07/10/17 16:05 Manual Slide Review Performed 07/10/17 16:05 RBC Morphology Normal 07/10/17 16:05 PT 16.6 sec (9.0-12.0) H 07/14/17 04:55 INR 1.8 (<1.2) H 07/14/17 04:55 APTT 32.0 sec (22.0-30.0) H 07/10/17 16:05 Sodium 140 mmol/L (137-145) 07/14/17 04:55 Potassium 3.1 mmol/L (3.5-5.1) L 07/14/17 04:55 Chloride 106 mmol/L (98-107) 07/14/17 04:55 Carbon Dioxide 25 mmol/L (22-30) 07/14/17 04:55 Anion Gap 9 mmol/L 07/14/17 04:55 BUN 17 mg/dL (9-20) 07/14/17 04:55 Creatinine 0.70 mg/dL (0.66-1.25) 07/14/17 04:55 Est GFR (CKD-EPI)AfAm >90 (>60 ml/min/1.73 sqM) 07/14/17 04:55 Est GFR (CKD-EPI)NonAf >90 (>60 ml/min/1.73 sqM) 07/14/17 04:55 Glucose 154 mg/dL (74-99) H 07/14/17 04:55 POC Glucose (mg/dL) 180 mg/dL (75-99) H 07/14/17 21:15 POC Glu Housekeeping Laundry Worker ID Yennifer Gambino 07/14/17 21:[address] Glu mg/dL 117 07/10/17 16:05 Hemoglobin A1c 5.7 % (4.0-6.0) 07/10/17 16:05 Lactic Ac Sepsis Rflx Y 07/10/17 16:42 Plasma Lactic Acid Carlos Eduardo 1.3 mmol/L (0.7-2.0) 07/10/17 20:27 Calcium 8.6 mg/dL (8.4-10.2) 07/14/17 04:55 Magnesium 1.8 mg/dL (1.6-2.3) 07/14/17 04:55 Total Bilirubin 4.2 mg/dL (0.2-1.3) H 07/14/17 04:55 AST 76 U/L (17-59) H 07/14/17 04:55 ALT 66 U/L (21-72) 07/14/17 04:55 Alkaline Phosphatase 164 U/L (38-126) H 07/14/17 04:55 Total Creatine Kinase 31 U/L (55-170) L 07/10/17 16:05 CK-MB (CK-2) 0.2 ng/mL (0.0-2.4) 07/10/17 16:05 CK-MB (CK-2) Rel Index 0.6 07/10/17 16:05 Troponin I 0.017 ng/mL (0.000-0.034) 07/10/17 16:05 Total Protein 5.7 g/dL (6.3-8.2) L 07/14/17 04:55 Albumin 2.7 g/dL (3.5-5.0) L 07/14/17 04:55 Urine Color Yellow 07/10/17 18:50 Urine Appearance Cloudy (Clear) 07/10/17 18:50 Urine pH 6.0 (5.0-8.0) 07/10/17 18:50 Ur Specific [place] 1.023 (1.001-1.035) 07/10/17 18:50 Urine Protein 1+ (Negative) H 07/10/17 18:50 Urine Glucose (UA) 1+ (Negative) H 07/10/17 18:50 Urine Ketones Trace (Negative) H 07/10/17 18:50 Urine Blood Trace (Negative) H 07/10/17 18:50 Urine Nitrite Negative (Negative) 07/10/17 18:50 Urine Bilirubin 1+ (Negative) H 07/10/17 18:50 Urine Urobilinogen 3.0 mg/dL (<2.0) 07/10/17 18:50 Ur Leukocyte Esterase Negative (Negative) 07/10/17 18:50 Urine RBC 5 /hpf (0-5) 07/10/17 18:50 Urine WBC 5 /hpf (0-5) 07/10/17 18:50 Ur Squamous Epith Cells 1 /hpf (0-4) 07/10/17 18:50 Urine Bacteria Rare /hpf (None) H 07/10/17 18:50 Hyaline Casts 8 /lpf (0-2) H 07/10/17 18:50 Urine Mucus Occasional /hpf (None) H 07/10/17 18:50 Vancomycin Trough 19.4 ug/mL 07/14/17 04:55 Hepatitis A IgM Ab Non-Reactive (Non-Reactive) 07/10/17 16:05 Hep Bs Antigen Non-Reactive (Non-Reactive) 07/10/17 16:05 Hep B Core IgM Ab Non-Reactive (Non-Reactive) 07/10/17 16:05 Hep C IgG Ab Non-Reactive (Non-Reactive) 07/10/17 16:05 Influenza Type A RNA Not Detected (Not Detectd) 07/10/17 16:05 Influenza Type B (PCR) Not Detected (Not Detectd) 07/10/17 16:05 Microbiology 07/10/17 16:05 Blood Blood Culture - Preliminary No Growth after 96 hours 07/10/17 17:02 Leg - Right Gram Stain - Final 07/10/17 17:02 Leg - Right Wound Culture - Final Staphylococcus aureus 07/10/17 17:02 Leg - Left Gram Stain - Final 07/10/17 17:02 Leg - Left Wound Culture - Final Staphylococcus aureus 07/10/17 18:50 Urine,Voided Urine Culture - Final Assessment and Plan (1) Sepsis Current Visit: Yes Status: Acute Code(s): A41.9 - SEPSIS, UNSPECIFIED ORGANISM SNOMED Code(s): 43632152 (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 There is also elevated lactic acid. Fortunately with fluid resuscitation he has done well and has had a good resolution of the sepsis. Appears to have a significant cellulitis of the bilateral lower extremities as etiology of the sepsis and there some pulmonary data show evidence of staphylococcal infection at this site. Continue vancomycin therapy at this time until we have further culture data. Blood cultures negative so far. Given the patient's very poor tissue quality may require a course of outpatient intravenous antibiotic therapy for the completion of treatment of this extensive infection it is resulted in sepsis. Leukocytosis is record related to the sepsis. In fortunately does not have any evidence of acute renal failure given his history of a partial nephrectomy for his renal cell carcinoma. Local wound care as directed with the therahoney the bilateral lower extremities it is changed every other day. Pain control appears to be adequate. Elevate the limbs as he tolerates. 07/12/2017 reveals the patient to feel slightly better. His fever has improved. However he is now slightly jaundice. His appetite is poor she's trying to eat some protein in the day. Ultrasounds been performed and there is a concern to chronic cholecystitis. Surgical consult is in process. With the wound culture showing evidence of MSSA antibiotic therapy will be transitioned from vancomycin to Unasyn which will provide coverage for the MSSA isolated from the legs, and provide therapy for cholecystitis. The AST and ALT have improved, total bilirubin has increased, acute hepatitis panel is negative for any evidence of acute infectious colitis. Continue supportive care. The lower extremities without acute change for this chronic condition continue the therahoney as before does believe he feels better. Culture of the wounds from the legs with MSSA blood cultures negative so far. 07/14/2017 reveals the patient to be more jaundiced. The MRI of the biliary tract reveals evidence of an obstructive stone. He has been evaluated by gastroenterology likely will have an ERCP and then subsequently a cholecystectomy will be performed. The patient does feel slightly poorly and that with the jaundice he has some nausea and malaise. He however is denying high-grade fevers. He is receiving Unasyn for the MSSA isolated from the legs would also give coverage for the biliary tract. Blood cultures remain negative. Continue the therahoney dressings to the legs. Bilirubin has increased to 4.2. Current Visit: Yes Status: Acute Code(s): E83.59 - OTHER DISORDERS OF CALCIUM METABOLISM; L97.922 - NON-PRS CHR ULC UNSP PRT OF L LOW LEG W FAT LAYER EXPOSED SNOMED Code(s): 65288174 (3) Diabetes mellitus type 2 with complications Current Visit: Yes Status: Acute Code(s): E11.8 - TYPE 2 DIABETES MELLITUS WITH UNSPECIFIED COMPLICATIONS SNOMED Code(s): 66706963
[2017-07-15] MEDS: AMPICILLIN-SULBACTAM 3 GM in SODIUM CHLORIDE 0.9% 100 ML IVPB SCH ×5 (00:06→23:12)
[2017-07-15] MEDS: SODIUM CHLORIDE 0.9% 1,000 ML IV SCH ×4 (05:07→17:30)
[2017-07-15 05:58] LABS: Glucose,Whole Blood 156 mg/dL (75-99)
--- NOTE | 2017-07-15 06:20 | P.PN ---
Subjective Progress Note Date: 07/15/17 Principal diagnosis: elevated liver enzymes Morning chemistries pending. Denies abdominal pain. Afebrile. MRCP reported partially obstructing calculus within the distal common bile duct just proximal to the ampulla of Vater. Objective - Vital Signs Vital signs: Vital Signs Temp 97.9 F 07/15/17 04:00 Pulse 79 07/15/17 04:00 Resp 18 07/15/17 04:00 BP 140/76 07/15/17 04:00 Pulse Ox 98 07/15/17 04:00 Intake & Output 07/14/17 07/14/17 07/15/17 06:59 18:59 06:59 Intake Total 1100 120 900 Output Total 1150 1000 Balance -50 -880 900 Weight 88.5 kg 95.5 kg Intake: Intake, IV Titration 900 900 Amount Ampicillin-Sulbactam 3 gm 100 100 In Sodium Chloride 0.9% 100 ml @ 100 mls/hr IVPB Q6HR [facility] Rx#:[id number] Sodium Chloride 0.9% 1, 800 800 000 ml @ 100 mls/hr IV . Q10H [facility] Rx#:[id number] Oral 200 120 Output: Urine 1150 1000 Other: Voiding Method Urinal Urinal - Exam General appearance: The patient is alert, oriented, in no acute distress. HET: Head is normocephalic and atraumatic. Pupils are equal and reactive. Oropharynx is clear without lesions. Neck: Supple without lymphadenopathy. Trachea midline. Heart: S1 S2. Regular rate and rhythm. Lungs: No crackles or wheezes are heard. Abdomen: Soft, nontender, nondistended with bowel sounds. No peritoneal signs. No palpable organomegaly or masses. Extremities: Lower extremity edema with bilateral Phillip wrap's. Neurological: No focal deficits. Strength and sensation are grossly intact. - Labs CBC & Chem 7: 07/15/17 05:46 07/15/17 05:46 Labs: Abnormal Lab Results - Last 24 Hours (Table) 07/14/17 07/14/17 07/14/17 Range/Units 04:55 04:55 04:55 RBC 3.15 L (4.30-5.90) m/uL Hgb 9.9 L (13.0-17.5) gm/dL Hct 30.7 L (39.0-53.0) % Lymphocytes # 0.6 L (1.0-4.8) k/uL PT 16.6 H (9.0-12.0) sec INR 1.8 H (<1.2) Potassium 3.1 L (3.5-5.1) mmol/L Glucose 154 H (74-99) mg/dL POC Glucose (mg/dL) (75-99) mg/dL Total Bilirubin 4.2 H (0.2-1.3) mg/dL AST 76 H (17-59) U/L Alkaline Phosphatase 164 H (38-126) U/L Total Protein 5.7 L (6.3-8.2) g/dL Albumin 2.7 L (3.5-5.0) g/dL 07/14/17 07/14/17 07/14/17 Range/Units 11:20 15:29 21:15 RBC (4.30-5.90) m/uL Hgb (13.0-17.5) gm/dL Hct (39.0-53.0) % Lymphocytes # (1.0-4.8) k/uL PT (9.0-12.0) sec INR (<1.2) Potassium (3.5-5.1) mmol/L Glucose (74-99) mg/dL POC Glucose (mg/dL) 209 H 134 H 180 H (75-99) mg/dL Total Bilirubin (0.2-1.3) mg/dL AST (17-59) U/L Alkaline Phosphatase (38-126) U/L Total Protein (6.3-8.2) g/dL Albumin (3.5-5.0) g/dL 07/15/17 Range/Units 05:56 RBC (4.30-5.90) m/uL Hgb (13.0-17.5) gm/dL Hct (39.0-53.0) % Lymphocytes # (1.0-4.8) k/uL PT (9.0-12.0) sec INR (<1.2) Potassium (3.5-5.1) mmol/L Glucose (74-99) mg/dL POC Glucose (mg/dL) 156 H (75-99) mg/dL Total Bilirubin (0.2-1.3) mg/dL AST (17-59) U/L Alkaline Phosphatase (38-126) U/L Total Protein (6.3-8.2) g/dL Albumin (3.5-5.0) g/dL Microbiology - Last 24 Hours (Table) 07/10/17 16:05 Blood Culture - Preliminary Blood No Growth after 96 hours Assessment and Plan (1) Elevated liver enzymes Narrative/Plan: MRCP reported partially obstructing calculus within the distal common bile duct Current Visit: Yes Status: Acute Code(s): R74.8 - ABNORMAL LEVELS OF OTHER SERUM ENZYMES SNOMED Code(s): 468129403 (2) Warfarin-induced coagulopathy Current Visit: Yes Status: Acute Code(s): D68.32 - HEMORRHAGIC DISORD D/T EXTRINSIC CIRCULATING ANTICOAGULANTS; T45.515A - ADVERSE EFFECT OF ANTICOAGULANTS, INITIAL ENCOUNTER SNOMED Code(s): 49417917 Plan: 1. ERCP. Assessment and plan a care discussed with Dr. Reese
[2017-07-15 06:23] LABS: Basophils % (A) 0 %; Eosinophils # (A) 0.3 k/uL (0-0.7); Eosinophils % (A) 6 %; HCT 29.5 % (39.0-53.0); HGB 9.2 gm/dL (13.0-17.5); Lymphocytes # (A) 0.9 k/uL (1.0-4.8); Lymphocytes % (A) 16 %; MCH 30.1 pg (25.0-35.0); MCHC 31.2 g/dL (31.0-37.0); MCV 96.5 fL (80.0-100.0); Mean Platelet Volume 9.5; Monocytes # (A) 0.4 k/uL (0-1.0); Monocytes % (A) 7 %; Neutrophils # (A) 3.6 k/uL (1.3-7.7); Neutrophils % (A) 68 %; Platelet Count 220 k/uL (150-450); RBC 3.06 m/uL (4.30-5.90); RDW 13.2 % (11.5-15.5); WBC 5.3 k/uL (3.8-10.6)
[2017-07-15 06:25] LABS: INR 1.3 (<1.2); Prothrombin Time 12.2 sec (9.0-12.0)
[2017-07-15] MEDS: INSULIN ASPART 100 UNIT/ML 1 ML 10 ML VIAL SQ SCH ×4 (06:25→20:57)
[2017-07-15 06:36] LABS: ALT 76 U/L (21-72); AST 105 U/L (17-59); Albumin 2.6 g/dL (3.5-5.0); Alkaline Phosphatase 164 U/L (38-126); Anion Gap 9 mmol/L; Blood Urea Nitrogen 13 mg/dL (9-20); Calcium 8.4 mg/dL (8.4-10.2); Carbon Dioxide 26 mmol/L (22-30); Chloride 105 mmol/L (98-107); Glucose 166 mg/dL (74-99); Magnesium 1.9 mg/dL (1.6-2.3); Potassium 3.2 mmol/L (3.5-5.1); Sodium 140 mmol/L (137-145); Total Bilirubin 4.1 mg/dL (0.2-1.3); Total Protein 5.4 g/dL (6.3-8.2)
[2017-07-15] MEDS: FLUoxetine HCL 20 MG CAP PO SCH (08:06)
[2017-07-15] MEDS: MECLIZINE 25 MG TAB PO SCH ×2 (08:06→21:16)
[2017-07-15] MEDS: DILTIAZEM CD 120 MG CAP.ER.24H PO SCH (08:07)
[2017-07-15] MEDS ORDERED: INDOMETHACIN 50MG SUPPOSITORY RECTAL ONE (12:00)
[2017-07-15 12:35] LABS: Glucose,Whole Blood 168 mg/dL (75-99)
[2017-07-15 13:35] VITALS: BMI 29.3
--- NOTE | 2017-07-15 14:05 | P.PN ---
Subjective Progress Note Date: 07/15/17 This is a 81-year-old male with a known history of chronic atrial fibrillation, diabetes mellitus, chronic lower extremity ulcers, chronic kidney disease, hypertension. Patient presents anemia emergency room with complaints of feeling very weak and with evidence of a fever of 101.6. He reports that he went to stand up from his chair and felt very weak and dizzy fluid down the chair onto the floor. He reports that he did not pass out or injure himself. EMS was called and patient was brought into the emergency room. He was slightly confused at that time. However now he is alert and orientated to 3. Patient was found have evidence of sepsis with a temp of 101.6 and lactic acid of 3.7 white count 12.3. Patient has evidence of lower extremity cellulitis around his leg ulcers. He reports that he follows with Dr. Adame at the wound care center for his leg wounds. 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 Patient was started on Augmentin the outpatient setting. However he is still having evidence of cellulitis. Vancomycin has been started and he was also given a dose of IV Zosyn. Infectious disease consulted. Cardiology is also following regards to patient's history of atrial fibrillation. Patient was also found have elevated LFTs and total bilirubin. Denies any abdominal pain. Abdominal ultrasound and hepatic panel has been ordered. Patient denies any chest pain or shortness of breath. Does admit to having some dizziness. Denies any vomiting. The does admit to some nausea intermittently. Denies any bowel movement changes or urinary symptoms. Influenza screen was negative and urinalysis negative. Lactic acid elevated at 3.7 improved with IV fluids down to 1.3 07/12/2017 patient seen by infectious disease. Currently on IV vancomycin. Wound culture growing presumptive staph aureus. Patient denies any nausea or vomiting. Denies any abdominal pain. Denies any chest pain or shortness of breath. Denies any urinary symptoms On 07/13/2017 patient is alert and oriented 3 in no apparent distress results of hepatobiliary scan was reviewed in details, surgery following, INR is elevated patient was given vitamin K 2.5 mg by mouth today, patient otherwise is feeling well he denies any fever or chills no headache no dizziness no chest pain or shortness of breath no cough no nausea or vomiting no abdominal pain and no urinary symptoms. 07/14/2017 patient lying in bed comfortably. No pain. No evidence of distress. Total bilirubin is up to 4.2. AST 76 ALT 66 and alk phos 164. Hemoglobin 9.9 and INR is 1.18.. Patient had HIDA scan completed yesterday which was markedly abnormal without definitive visualization of the bowel or gallbladder. Acute cholecystitis needs to be considered. Also obstruction of common bile duct reported. GI service consulted. Patient had MRCP yesterday. Plan for ERCP today, Possible chlecystectomy on tuesday. He denies any nausea or vomiting. Denies any abdominal pain. Denies any chest pain or shortness breath. Denies any burning with urination. Objective - Vital Signs Vital signs: Vital Signs Temp 97.9 F 07/15/17 12:04 Pulse 67 07/15/17 12:04 Resp 18 07/15/17 12:04 BP 166/77 07/15/17 12:04 Pulse Ox 96 07/15/17 12:04 Intake & Output 07/14/17 07/15/17 07/15/17 18:59 06:59 18:59 Intake Total 120 900 0 Output Total 1000 400 975 Balance -880 500 -975 Weight 95.5 kg 95.5 kg Intake: Intake, IV Titration 900 Amount Ampicillin-Sulbactam 3 gm 100 In Sodium Chloride 0.9% 100 ml @ 100 mls/hr IVPB Q6HR [facility] Rx#:[id number] Sodium Chloride 0.9% 1, 800 000 ml @ 100 mls/hr IV . Q10H [facility] Rx#:[id number] Oral 120 0 Output: Urine 1000 400 975 Other: Voiding Method Urinal # Voids 1 - Exam Head normocephalic and atraumatic there is a hint of mild jaundice Neck supple no JVD no goiter no lymphadenopathy Lungs clear to auscultation bilaterally no wheezing or crackles Heart regular rate and rhythm S1-S2, no rub or gallop Abdomen is soft nontender nondistended positive bowel sounds no hepatosplenomegaly Extremities no edema. Legs are wrapped dressing is clean dry and intact Neuro alert and orientated to 3 - Labs CBC & Chem 7: 07/15/17 05:46 07/15/17 05:46 Labs: Abnormal Lab Results - Last 24 Hours (Table) 03/07/14/17 07/15/17 Range/Units 15:29 21:15 05:46 RBC 3.06 L (4.30-5.90) m/uL Hgb 9.2 L (13.0-17.5) gm/dL Hct 29.5 L (39.0-53.0) % Lymphocytes # 0.9 L (1.0-4.8) k/uL PT (9.0-12.0) sec INR (<1.2) Potassium (3.5-5.1) mmol/L Glucose (74-99) mg/dL POC Glucose (mg/dL) 134 H 180 H (75-99) mg/dL Total Bilirubin (0.2-1.3) mg/dL AST (17-59) U/L ALT (21-72) U/L Alkaline Phosphatase (38-126) U/L Total Protein (6.3-8.2) g/dL Albumin (3.5-5.0) g/dL 07/15/17 07/15/17 07/15/17 Range/Units 05:46 05:46 05:56 RBC (4.30-5.90) m/uL Hgb (13.0-17.5) gm/dL Hct (39.0-53.0) % Lymphocytes # (1.0-4.8) k/uL PT 12.2 H (9.0-12.0) sec INR 1.3 H (<1.2) Potassium 3.2 L (3.5-5.1) mmol/L Glucose 166 H (74-99) mg/dL POC Glucose (mg/dL) 156 H (75-99) mg/dL Total Bilirubin 4.1 H (0.2-1.3) mg/dL AST 105 H (17-59) U/L ALT 76 H (21-72) U/L Alkaline Phosphatase 164 H (38-126) U/L Total Protein 5.4 L (6.3-8.2) g/dL Albumin 2.6 L (3.5-5.0) g/dL 07/15/17 Range/Units 11:34 RBC (4.30-5.90) m/uL Hgb (13.0-17.5) gm/dL Hct (39.0-53.0) % Lymphocytes # (1.0-4.8) k/uL PT (9.0-12.0) sec INR (<1.2) Potassium (3.5-5.1) mmol/L Glucose (74-99) mg/dL POC Glucose (mg/dL) 168 H (75-99) mg/dL Total Bilirubin (0.2-1.3) mg/dL AST (17-59) U/L ALT (21-72) U/L Alkaline Phosphatase (38-126) U/L Total Protein (6.3-8.2) g/dL Albumin (3.5-5.0) g/dL Microbiology - Last 24 Hours (Table) 07/10/17 16:05 Blood Culture - Preliminary Blood No Growth after 96 hours Assessment and Plan Plan: 1. Sepsis present on admission possibly related to patient's cellulitis and leg wounds. Wound cultures growing presumptive staph aureus continue vancomycin. Blood culture negative 2. 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 Continue with current antibiotics. 3. History of Kyrle's disease 4. Elevated LFTs and total bilirubin with abdominal ultrasound revealing enlarged hydropic gallbladder containing biliary sludge and small gallstones with gallbladder wall thickening. With concerns of chronic cholecystitis or biliary dyskinesia. Consults surgical service. Acute hepatitis panel negative. Will consult gastroenterology 5. History of chronic atrial fibrillation evaluated by cardiology. Continue Coumadin for anticoagulation EKG had shown atrial fibrillation with a heart rate of 85. INR 5.1. Hold Coumadin tonight. Given vitamin K 2.5 mg by mouth today Repeat PT/INR in a.m. INR 1.3 today 6. Diabetes mellitus type II. Continue sliding scale coverage 7. Essential hypertension: Lower blood pressures at present on admission now improved 8. Confusion prior to admission likely metabolic encephalopathy due to patient' s sepsis and cellulitis of the lower extremities 9. Hypokalemia: Patient receiving potassium supplement 10. History of renal cancer status post right nephrectomy GI prophylaxis Pepcid and DVT prophylaxis Coumadin
[2017-07-15] MEDS ORDERED: IV FLUID CONTINUATION 600 ML IV ONE (14:20)
--- NOTE | 2017-07-15 14:21 | P.PN ---
Subjective Progress Note Date: 07/15/17 81-year-old male seen and examined this morning bedside family at bedside patient is scheduled today to undergo an ERCP per GI service. Possible cholecystectomy on Tuesday pending ERCP studies. Patient continues to report having the same abdominal discomfort no change. States he does not feel nauseated no vomiting. Labs reviewed hemoglobin 9.9 INR 1.8. Patient did have a HIDA scan done on the abnormal without definitive visualization of the bowel or the gallbladder acute cholecystitis is being considered MRCP report reviewed partially obstructive calculus within the distal common bile duct just proximal to the ampulla. of vater Objective - Vital Signs Vital signs: Vital Signs Temp 97.9 F 07/15/17 12:04 Pulse 67 07/15/17 12:04 Resp 18 07/15/17 12:04 BP 166/77 07/15/17 12:04 Pulse Ox 96 07/15/17 12:04 Intake & Output 07/14/17 07/15/17 07/15/17 18:59 06:59 18:59 Intake Total 120 900 0 Output Total 1000 400 975 Balance -880 500 -975 Weight 95.5 kg 95.5 kg Intake: Intake, IV Titration 900 Amount Ampicillin-Sulbactam 3 gm 100 In Sodium Chloride 0.9% 100 ml @ 100 mls/hr IVPB Q6HR QUOC Rx#:[id number] Sodium Chloride 0.9% 1, 800 000 ml @ 100 mls/hr IV . Q10H QUOC Rx#:[id number] Oral 120 0 Output: Urine 1000 400 975 Other: Voiding Method Urinal # Voids 1 - Exam Exam 81-year-old male sitting up in bed remains jaundice appears in no acute distress Lungs adequate air movement bilaterally no cough noted Heart S1-S2 audible irregular Abdomen no facial grimacing with palpitation to the abdominal wall nontender nondistended bowel tones active states no stooling patient states that he has intermittent episodes of discomfort in the right upper quadrant comes in waves" Extremities currently has bilateral wraps to the lower extremities decrease edema - Labs CBC & Chem 7: 07/15/17 05:46 07/15/17 05:46 Labs: Abnormal Lab Results - Last 24 Hours (Table) 07/14/17 07/14/17 07/15/17 Range/Units 15:29 21:15 05:46 RBC 3.06 L (4.30-5.90) m/uL Hgb 9.2 L (13.0-17.5) gm/dL Hct 29.5 L (39.0-53.0) % Lymphocytes # 0.9 L (1.0-4.8) k/uL PT (9.0-12.0) sec INR (<1.2) Potassium (3.5-5.1) mmol/L Glucose (74-99) mg/dL POC Glucose (mg/dL) 134 H 180 H (75-99) mg/dL Total Bilirubin (0.2-1.3) mg/dL AST (17-59) U/L ALT (21-72) U/L Alkaline Phosphatase (38-126) U/L Total Protein (6.3-8.2) g/dL Albumin (3.5-5.0) g/dL 07/15/17 07/15/17 07/15/17 Range/Units 05:46 05:46 05:56 RBC (4.30-5.90) m/uL Hgb (13.0-17.5) gm/dL Hct (39.0-53.0) % Lymphocytes # (1.0-4.8) k/uL PT 12.2 H (9.0-12.0) sec INR 1.3 H (<1.2) Potassium 3.2 L (3.5-5.1) mmol/L Glucose 166 H (74-99) mg/dL POC Glucose (mg/dL) 156 H (75-99) mg/dL Total Bilirubin 4.1 H (0.2-1.3) mg/dL AST 105 H (17-59) U/L ALT 76 H (21-72) U/L Alkaline Phosphatase 164 H (38-126) U/L Total Protein 5.4 L (6.3-8.2) g/dL Albumin 2.6 L (3.5-5.0) g/dL 07/15/17 Range/Units 11:34 RBC (4.30-5.90) m/uL Hgb (13.0-17.5) gm/dL Hct (39.0-53.0) % Lymphocytes # (1.0-4.8) k/uL PT (9.0-12.0) sec INR (<1.2) Potassium (3.5-5.1) mmol/L Glucose (74-99) mg/dL POC Glucose (mg/dL) 168 H (75-99) mg/dL Total Bilirubin (0.2-1.3) mg/dL AST (17-59) U/L ALT (21-72) U/L Alkaline Phosphatase (38-126) U/L Total Protein (6.3-8.2) g/dL Albumin (3.5-5.0) g/dL Microbiology - Last 24 Hours (Table) 07/10/17 16:05 Blood Culture - Preliminary Blood No Growth after 96 hours Assessment and Plan Assessment: Impression Present on admission sepsis suspect due to cellulitis with bilateral lower extremity wounds Wound cultures lower extremities MSSA Elevated liver function studies and total bilirubin with an ultrasound of the gallbladder revealing enlarged hydropic gallbladder with biliary sludge and small gallstones Chronic atrial fibrillation on anticoagulation Coumadin Present on admission hypercoagulopathy suspect Coumadin induced Abdominal pain right upper quadrant suspect due to chronic cholecystitis MRCP done on the 22 shows partially obstructing calculus within the distal common bile duct Plan Await findings from ERCP Would benefit from a lap cholecystectomy timing to be deferred await INR normalized to be corrected Wound care as ordered Further surgical recommendations pending note dictated for dr mark The above impression and plan of care have been discussed and directed by signing physician. Rosemarie Rivero nurse practitioner acting as scribe for signing physician.
[2017-07-15] MEDS ORDERED: LIDOCAINE 1% INJ 10MG/ML (20 ML MDV) ONE (14:30)
[2017-07-15] MEDS ORDERED: PROPOFOL 10 MG/ML 20 ML VIAL IV ONE (14:30)
[2017-07-15] MEDS ORDERED: IOHEXOL 350 MG/ML 50ML BOTTLE MISCELLANE ONE (14:42)
--- NOTE | 2017-07-15 15:03 | P.PCN ---
Date of Procedure: 07/15/17 Procedure(s) Performed: Brief history: Patient is a 81 year-old pleasant white male, scheduled for an ERCP as part of evaluation of fever, nausea vomiting, abdominal pain and elevated serum transaminases, jaundice for the last 2 days' duration. He was noted to have mild elevation of serum transaminases and bilirubin up to 4.1 g/ dL. MRCP done yesterday showed evidence of CBD stone. Procedure performed: ERCP with biliary sphincterotomy and balloon stone extraction Preoperative diagnoses: Elevated LFTs, fever, MRCP showing CBD stone IV sedation per anesthesia: Procedure: After informed consent was obtained from the patient and after the risks benefits and complications including bleeding perforation and pancreatitis explained in detail the patient was brought into the endoscopy unit. The patient was placed in prone position and IV conscious sedation was administered by anesthesia under continuous monitoring. The Olympus side-viewing duodenoscope was then inserted into the mouth and esophagus intubated without any difficulty. The scope was gradually advanced into the stomach and duodenum. The major papilla was identified without any difficulty. There was a periampullary diverticulum noted. Initial cannulation resulted in opacification of the common bile duct that appeared slightly dilated measuring 7 mm in diameter with a small filling defect. There was no intrahepatic biliary ductal dilation seen. At this time the catheter was exchanged over a guidewire with a biliary sphincterotome and a biliary sphincterotomy was performed at 12 o'clock position and was extended to 1 cm. Following this a 9 mm balloon was passed over the guidewire into the proximal CBD and gently inflated and withdrawn and there was a 5 mm stone was seen exiting the ampulla. This maneuver was repeated 2 more times and no other stones were seen exiting the ampulla. Occlusion cholangiogram was performed which appeared normal and the patient tolerated the procedure well. The pancreatic duct was intentionally not cannulated during the entire procedure. Impression: 1. Slightly dilated common bile duct measuring with a 5 mm small filling defect status post biliary sphincterotomy and balloon stone extraction as described above 2. Pancreatic duct intentionally not cannulated. Recommendations: The findings of this examination were discussed with the patient as well as a family. He'll be continued on breast rectum and antibiotics. Clear liquid diet today. Labs will be repeated in the morning.
--- NOTE | 2017-07-15 15:15 | P.PN ---
Progress Note - Text Progress Note Date: 07/15/17 The patient underwent ERCP with stone extraction today. We will tentatively plan for laparoscopic cholecystectomy on Tuesday.
--- NOTE | 2017-07-15 15:34 | FL ---
Fluoroscopy History: ERCP ERCP. DR RYAN. 1 MIN 14 SEC FLUORO TIME. 3 OR FILMS.
[2017-07-15 17:04] LABS: Glucose,Whole Blood 175 mg/dL (75-99)
[2017-07-15 20:59] LABS: Glucose,Whole Blood 178 mg/dL (75-99)
[2017-07-15] MEDS: FUROSEMIDE 40 MG TAB PO SCH (21:16)
--- NOTE | 2017-07-15 22:49 | P.PN ---
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 The patient has had local wound care was recently with medical honey with some improvement of his status. He has had difficulty with localized renal cell carcinoma that has been resected. With gentle relatively well until he suddenly became weak today. He relates that suddenly his legs became weak he couldn't navigate any further he fell into his chair and then slowly ended up on the ground. Was able to bring himself up and consequently EMS was called and he was transported to hospital. He has been found evidence of a fever over 101 as well as significant weakness and leukocytosis. There was also evidence of an elevated lactic acid. Because of sepsis the infectious diseases consultation is been requested. Patient is feeling slightly better today after fluid resuscitation and antibiotic therapy. 07/12/2017 patient relates that he is feeling somewhat better today. He is able to eat a bit of food. He's been having some minimal abdominal pain. He is denying nausea or emesis. His legs feel slightly better since the medical honey dressings were applied. His weakness is improved. He believes his fever has also improved. No chills or rigors. 07/14/2017 the patient remains jaundiced feeling somewhat poorly, he is due for an ERCP and then likely a cholecystectomy. He is tolerating antibiotic therapy well for the MSSA that has been isolate up from his chronic leg ulcerations. 07/15/2017 patient feels better after the ERCP in that he is hungry and looks forward to increasing diet. The jaundice is slighlty better, abdominal pain improved, no new problems today. Objective - Vital Signs Vital signs: Vital Signs Temp 96.9 F L 07/15/17 16:49 Pulse 57 L 07/15/17 16:49 Resp 18 07/15/17 16:49 BP 189/77 07/15/17 16:49 Pulse Ox 98 07/15/17 16:49 Intake & Output 07/15/17 07/15/17 07/16/17 06:59 18:59 06:59 Intake Total 900 920 Output Total 400 975 Balance 500 -55 Weight 95.5 kg 95.5 kg Intake: IV 400 Intake, IV Titration 900 Amount Ampicillin-Sulbactam 3 gm 100 In Sodium Chloride 0.9% 100 ml @ 100 mls/hr IVPB Q6HR QUOC Rx#:[id number] Sodium Chloride 0.9% 1, 800 000 ml @ 100 mls/hr IV . Q10H [facility] Rx#:[id number] Oral 520 Output: Urine 400 975 Other: Voiding Method Urinal # Voids 1 - Exam Pleasant 81-year-old gentleman in no acute distress,remains jaundice today HEENT: Obviously icteric, conjunctiva are pink and moist nasal mucosa grossly intact without significant lesions, there is no thrush. Neck: The neck is supple without significant lymphadenopathy or thyromegaly. Lungs: Good bilateral air entry without significant crackles or wheezing. There is no significant bronchial sounds. There is no egophony or dullness. Heart: Regular rate and rhythm with an audible S1-S2, no S3 no S4. There is no significant murmur click or rub, PMI was nondisplaced. Abdomen: Positive bowel sounds soft and nontender without palpable masses or organomegaly. There was no guarding or rebound. Extremities: The upper extremities have excellent pulses they are symmetric, no significant petechiae or telangiectasia. The lower extremities evidence of the chronic edema which is quite symmetric. The anterior tibial surface bilaterally has evidence of the varicosities, and the chronic ulcerations that are full-thickness with significant calcification of the tissue. The level of tenderness is without change. There is evidence of erythema over the bilateral pretibial areas. There is no expressible purulence. They are tender as usual. Neuro: Awake alert oriented to person place and time. There are no acute new gross focal sensory motor deficits. - Labs CBC & Chem 7: 07/15/17 05:46 07/15/17 05:46 Labs: Abnormal Lab Results - Last 24 Hours (Table) 07/15/17 07/15/17 07/15/17 Range/Units 05:46 05:46 05:46 RBC 3.06 L (4.30-5.90) m/uL Hgb 9.2 L (13.0-17.5) gm/dL Hct 29.5 L (39.0-53.0) % Lymphocytes # 0.9 L (1.0-4.8) k/uL PT 12.2 H (9.0-12.0) sec INR 1.3 H (<1.2) Potassium 3.2 L (3.5-5.1) mmol/L Glucose 166 H (74-99) mg/dL POC Glucose (mg/dL) (75-99) mg/dL Total Bilirubin 4.1 H (0.2-1.3) mg/dL AST 105 H (17-59) U/L ALT 76 H (21-72) U/L Alkaline Phosphatase 164 H (38-126) U/L Total Protein 5.4 L (6.3-8.2) g/dL Albumin 2.6 L (3.5-5.0) g/dL 07/15/17 07/15/17 07/15/17 Range/Units 05:56 11:34 16:50 RBC (4.30-5.90) m/uL Hgb (13.0-17.5) gm/dL Hct (39.0-53.0) % Lymphocytes # (1.0-4.8) k/uL PT (9.0-12.0) sec INR (<1.2) Potassium (3.5-5.1) mmol/L Glucose (74-99) mg/dL POC Glucose (mg/dL) 156 H 168 H 175 H (75-99) mg/dL Total Bilirubin (0.2-1.3) mg/dL AST (17-59) U/L ALT (21-72) U/L Alkaline Phosphatase (38-126) U/L Total Protein (6.3-8.2) g/dL Albumin (3.5-5.0) g/dL 07/15/17 Range/Units 20:50 RBC (4.30-5.90) m/uL Hgb (13.0-17.5) gm/dL Hct (39.0-53.0) % Lymphocytes # (1.0-4.8) k/uL PT (9.0-12.0) sec INR (<1.2) Potassium (3.5-5.1) mmol/L Glucose (74-99) mg/dL POC Glucose (mg/dL) 178 H (75-99) mg/dL Total Bilirubin (0.2-1.3) mg/dL AST (17-59) U/L ALT (21-72) U/L Alkaline Phosphatase (38-126) U/L Total Protein (6.3-8.2) g/dL Albumin (3.5-5.0) g/dL Microbiology - Last 24 Hours (Table) 07/10/17 16:05 Blood Culture - Preliminary Blood No Growth after 120 hours Laboratory Results WBC 5.3 k/uL (3.8-10.6) 07/15/17 05:46 RBC 3.06 m/uL (4.30-5.90) L 07/15/17 05:46 Hgb 9.2 gm/dL (13.0-17.5) L 07/15/17 05:46 Hct 29.5 % (39.0-53.0) L 07/15/17 05:46 MCV 96.5 fL (80.0-100.0) 07/15/17 05:46 MCH 30.1 pg (25.0-35.0) 07/15/17 05:46 MCHC 31.2 g/dL (31.0-37.0) 07/15/17 05:46 RDW 13.2 % (11.5-15.5) 07/15/17 05:46 Plt Count 220 k/uL (150-450) 07/15/17 05:46 Neutrophils % 68 % 07/15/17 05:46 Neutrophils % (Manual) 76 % 07/10/17 16:05 Band Neutrophils % 19 % 07/10/17 16:05 Lymphocytes % 16 % 07/15/17 05:46 Lymphocytes % (Manual) 3 % 07/10/17 16:05 Monocytes % 7 % 07/15/17 05:46 Monocytes % (Manual) 2 % 07/10/17 16:05 Eosinophils % 6 % 07/15/17 05:46 Basophils % 0 % 07/15/17 05:46 Neutrophils # 3.6 k/uL (1.3-7.7) 07/15/17 05:46 Neutrophils # (Manual) 11.60 k/uL (1.3-7.7) H 07/10/17 16:05 Lymphocytes # 0.9 k/uL (1.0-4.8) L 07/15/17 05:46 Lymphocytes # (Manual) 0.37 k/uL (1.0-4.8) L 07/10/17 16:05 Monocytes # 0.4 k/uL (0-1.0) 07/15/17 05:46 Monocytes # (Manual) 0.25 k/uL (0-1.0) 07/10/17 16:05 Eosinophils # 0.3 k/uL (0-0.7) 07/15/17 05:46 Basophils # 0.0 k/uL (0-0.2) 07/15/17 05:46 Nucleated RBCs 0 /100 WBC (0-0) 07/10/17 16:05 Manual Slide Review Performed 07/10/17 16:05 RBC Morphology Normal 07/10/17 16:05 PT 12.2 sec (9.0-12.0) H 07/15/17 05:46 INR 1.3 (<1.2) H 07/15/17 05:46 APTT 32.0 sec (22.0-30.0) H 07/10/17 16:05 Sodium 140 mmol/L (137-145) 07/15/17 05:46 Potassium 3.2 mmol/L (3.5-5.1) L 07/15/17 05:46 Chloride 105 mmol/L (98-107) 07/15/17 05:46 Carbon Dioxide 26 mmol/L (22-30) 07/15/17 05:46 Anion Gap 9 mmol/L 07/15/17 05:46 BUN 13 mg/dL (9-20) 07/15/17 05:46 Creatinine 0.70 mg/dL (0.66-1.25) 07/15/17 05:46 Est GFR (CKD-EPI)AfAm >90 (>60 ml/min/1.73 sqM) 07/15/17 05:46 Est GFR (CKD-EPI)NonAf >90 (>60 ml/min/1.73 sqM) 07/15/17 05:46 Glucose 166 mg/dL (74-99) H 07/15/17 05:46 POC Glucose (mg/dL) 178 mg/dL (75-99) H 07/15/17 20:50 POC Glu Client Services Associate ID June Rosenberg 07/15/17 20:[address] Glu mg/dL 117 07/10/17 16:05 Hemoglobin A1c 5.7 % (4.0-6.0) 07/10/17 16:05 Lactic Ac Sepsis Rflx Y 07/10/17 16:42 Plasma Lactic Acid Carlos Eduardo 1.3 mmol/L (0.7-2.0) 07/10/17 20:27 Calcium 8.4 mg/dL (8.4-10.2) 07/15/17 05:46 Magnesium 1.9 mg/dL (1.6-2.3) 07/15/17 05:46 Total Bilirubin 4.1 mg/dL (0.2-1.3) H 07/15/17 05:46 AST 105 U/L (17-59) H 07/15/17 05:46 ALT 76 U/L (21-72) H 07/15/17 05:46 Alkaline Phosphatase 164 U/L (38-126) H 07/15/17 05:46 Total Creatine Kinase 31 U/L (55-170) L 07/10/17 16:05 CK-MB (CK-2) 0.2 ng/mL (0.0-2.4) 07/10/17 16:05 CK-MB (CK-2) Rel Index 0.6 07/10/17 16:05 Troponin I 0.017 ng/mL (0.000-0.034) 07/10/17 16:05 Total Protein 5.4 g/dL (6.3-8.2) L 07/15/17 05:46 Albumin 2.6 g/dL (3.5-5.0) L 07/15/17 05:46 Urine Color Yellow 07/10/17 18:50 Urine Appearance Cloudy (Clear) 07/10/17 18:50 Urine pH 6.0 (5.0-8.0) 07/10/17 18:50 Ur Specific [place] 1.023 (1.001-1.035) 07/10/17 18:50 Urine Protein 1+ (Negative) H 07/10/17 18:50 Urine Glucose (UA) 1+ (Negative) H 07/10/17 18:50 Urine Ketones Trace (Negative) H 07/10/17 18:50 Urine Blood Trace (Negative) H 07/10/17 18:50 Urine Nitrite Negative (Negative) 07/10/17 18:50 Urine Bilirubin 1+ (Negative) H 07/10/17 18:50 Urine Urobilinogen 3.0 mg/dL (<2.0) 07/10/17 18:50 Ur Leukocyte Esterase Negative (Negative) 07/10/17 18:50 Urine RBC 5 /hpf (0-5) 07/10/17 18:50 Urine WBC 5 /hpf (0-5) 07/10/17 18:50 Ur Squamous Epith Cells 1 /hpf (0-4) 07/10/17 18:50 Urine Bacteria Rare /hpf (None) H 07/10/17 18:50 Hyaline Casts 8 /lpf (0-2) H 07/10/17 18:50 Urine Mucus Occasional /hpf (None) H 07/10/17 18:50 Vancomycin Trough 19.4 ug/mL 07/14/17 04:55 Hepatitis A IgM Ab Non-Reactive (Non-Reactive) 07/10/17 16:05 Hep Bs Antigen Non-Reactive (Non-Reactive) 07/10/17 16:05 Hep B Core IgM Ab Non-Reactive (Non-Reactive) 07/10/17 16:05 Hep C IgG Ab Non-Reactive (Non-Reactive) 07/10/17 16:05 Influenza Type A RNA Not Detected (Not Detectd) 07/10/17 16:05 Influenza Type B (PCR) Not Detected (Not Detectd) 07/10/17 16:05 Microbiology 07/10/17 16:05 Blood Blood Culture - Preliminary No Growth after 120 hours 07/10/17 17:02 Leg - Right Gram Stain - Final 07/10/17 17:02 Leg - Right Wound Culture - Final Staphylococcus aureus 07/10/17 17:02 Leg - Left Gram Stain - Final 07/10/17 17:02 Leg - Left Wound Culture - Final Staphylococcus aureus 07/10/17 18:50 Urine,Voided Urine Culture - Final Assessment and Plan (1) Sepsis Current Visit: Yes Status: Acute Code(s): A41.9 - SEPSIS, UNSPECIFIED ORGANISM SNOMED Code(s): 38907727 (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 There is also elevated lactic acid. Fortunately with fluid resuscitation he has done well and has had a good resolution of the sepsis. Appears to have a significant cellulitis of the bilateral lower extremities as etiology of the sepsis and there some pulmonary data show evidence of staphylococcal infection at this site. Continue vancomycin therapy at this time until we have further culture data. Blood cultures negative so far. Given the patient's very poor tissue quality may require a course of outpatient intravenous antibiotic therapy for the completion of treatment of this extensive infection it is resulted in sepsis. Leukocytosis is record related to the sepsis. In fortunately does not have any evidence of acute renal failure given his history of a partial nephrectomy for his renal cell carcinoma. Local wound care as directed with the therahoney the bilateral lower extremities it is changed every other day. Pain control appears to be adequate. Elevate the limbs as he tolerates. 07/12/2017 reveals the patient to feel slightly better. His fever has improved. However he is now slightly jaundice. His appetite is poor she's trying to eat some protein in the day. Ultrasounds been performed and there is a concern to chronic cholecystitis. Surgical consult is in process. With the wound culture showing evidence of MSSA antibiotic therapy will be transitioned from vancomycin to Unasyn which will provide coverage for the MSSA isolated from the legs, and provide therapy for cholecystitis. The AST and ALT have improved, total bilirubin has increased, acute hepatitis panel is negative for any evidence of acute infectious colitis. Continue supportive care. The lower extremities without acute change for this chronic condition continue the therahoney as before does believe he feels better. Culture of the wounds from the legs with MSSA blood cultures negative so far. 07/14/2017 reveals the patient to be more jaundiced. The MRI of the biliary tract reveals evidence of an obstructive stone. He has been evaluated by gastroenterology likely will have an ERCP and then subsequently a cholecystectomy will be performed. The patient does feel slightly poorly and that with the jaundice he has some nausea and malaise. He however is denying high-grade fevers. He is receiving Unasyn for the MSSA isolated from the legs would also give coverage for the biliary tract. Blood cultures remain negative. Continue the therahoney dressings to the legs. Bilirubin has increased to 4.2. 07/15/2017 patient is improved after the ERCP, and is awaiting decision as to cholecystectomy. Continue current antibiotics of Unasyn given the significant clinical improvement and we'll also give ongoing treatment to the MSSA isolate her from the legs that had cellulitis component admission that improved at this time. Current Visit: Yes Status: Acute Code(s): E83.59 - OTHER DISORDERS OF CALCIUM METABOLISM; L97.922 - NON-PRS CHR ULC UNSP PRT OF L LOW LEG W FAT LAYER EXPOSED SNOMED Code(s): 74490631 (3) Diabetes mellitus type 2 with complications Current Visit: Yes Status: Acute Code(s): E11.8 - TYPE 2 DIABETES MELLITUS WITH UNSPECIFIED COMPLICATIONS SNOMED Code(s): 87189945
[2017-07-16] MEDS: AMPICILLIN-SULBACTAM 3 GM in SODIUM CHLORIDE 0.9% 100 ML IVPB SCH ×3 (05:22→17:54)
[2017-07-16] MEDS: INSULIN ASPART 100 UNIT/ML 1 ML 10 ML VIAL SQ SCH ×4 (07:42→21:28)
[2017-07-16] MEDS: MECLIZINE 25 MG TAB PO SCH ×2 (07:47→20:07)
[2017-07-16] MEDS: FLUoxetine HCL 20 MG CAP PO SCH (07:47)
[2017-07-16] MEDS: DILTIAZEM CD 120 MG CAP.ER.24H PO SCH (07:47)
[2017-07-16 07:49] LABS: Glucose,Whole Blood 129 mg/dL (75-99)
[2017-07-16 09:26] LABS: INR 1.3 (<1.2); Prothrombin Time 12.7 sec (9.0-12.0)
[2017-07-16 09:40] LABS: ALT 75 U/L (21-72); AST 84 U/L (17-59); Albumin 2.4 g/dL (3.5-5.0); Alkaline Phosphatase 152 U/L (38-126); Anion Gap 10 mmol/L; Basophils % (A) 0 %; Blood Urea Nitrogen 11 mg/dL (9-20); Calcium 8.1 mg/dL (8.4-10.2); Carbon Dioxide 27 mmol/L (22-30); Chloride 105 mmol/L (98-107); Eosinophils # (A) 0.4 k/uL (0-0.7); Eosinophils % (A) 6 %; Glucose 187 mg/dL (74-99); HCT 28.1 % (39.0-53.0); HGB 8.8 gm/dL (13.0-17.5); Lymphocytes # (A) 0.9 k/uL (1.0-4.8); Lymphocytes % (A) 15 %; MCH 30.4 pg (25.0-35.0); MCHC 31.3 g/dL (31.0-37.0); MCV 97.1 fL (80.0-100.0); Mean Platelet Volume 9.5; Monocytes # (A) 0.4 k/uL (0-1.0); Monocytes % (A) 6 %; Neutrophils # (A) 4.1 k/uL (1.3-7.7); Neutrophils % (A) 70 %; Platelet Count 234 k/uL (150-450); RBC 2.89 m/uL (4.30-5.90); RDW 13.4 % (11.5-15.5); Sodium 142 mmol/L (137-145); Total Bilirubin 3.8 mg/dL (0.2-1.3); Total Protein 5.1 g/dL (6.3-8.2); WBC 5.9 k/uL (3.8-10.6)
[2017-07-16 09:50] LABS: Potassium 2.8 mmol/L (3.5-5.1)
[2017-07-16] MEDS ORDERED: Potassium Replacement Protocol 1 EACH MISC MISCELLANE PRN (10:43)
--- NOTE | 2017-07-16 10:51 | PN ---
PROGRESS NOTE DATE OF SERVICE: 07/16/2017 Patient is a 81-year-old pleasant white male admitted to the hospital with abdominal pain, nausea, vomiting, not feeling well for the last few days. He was noted to have elevated LFTs. Further workup revealed CBD stone on an MRCP. He underwent an ERCP yesterday with CBD stone extraction. Patient this morning states he is feeling better. He denies any abdominal symptoms. No nausea, vomiting. No fever, chills, night sweats. PHYSICAL EXAMINATION: He appears comfortable, in no apparent distress. Vital signs are stable. Blood pressure is 189/77, pulse rate 57, temperature 96. HEENT examination unremarkable. Conjunctivae are pink, sclerae nonicteric, oral cavity no lesions. NECK: No JVD or lymph node enlargement. Chest was clear to auscultation. HEART: Regular rate and rhythm. ABDOMEN: Soft, nontender, nondistended. Liver and spleen are not palpable. Bowel sounds are positive. No organomegaly. EXTREMITIES: No pedal edema. SKIN: No rashes. NEURO: Alert and oriented x3. No focal deficits. LABS: T-bili is down to 3.8. AST is 84, ALT is 76, and alk phos is 152. WBC 5.9, hemoglobin 8.8. Potassium is 2.8. IMPRESSION: This is a patient who was admitted to hospital with nausea, vomiting,, not feeling well, elevated LFTs, status post ERCP with CBD stone extraction yesterday. Presently on broad-spectrum antibiotics, doing well. Serum transaminases have improved. RECOMMENDATIONS: 1. Advance diet as tolerated. 2. Continue with antibiotics. 3. Repeat labs in the morning and will follow him closely during his hospital stay. Thank you for this consultation. MMODL / IJN: [id number] /
--- NOTE | 2017-07-16 11:28 | P.PN ---
Subjective Progress Note Date: 07/16/17 Principal diagnosis: Choledocholithiasis Patient feels well today. Denies pain. Liver enzymes only slightly improved. He is tolerating his liquid diet. Objective - Vital Signs Vital signs: Vital Signs Temp 98.6 F 07/16/17 06:33 Pulse 76 07/16/17 06:33 Resp 18 07/16/17 06:33 BP 152/80 07/16/17 06:33 Pulse Ox 97 07/16/17 06:33 Intake & Output 07/15/17 07/16/17 07/16/17 18:59 06:59 18:59 Intake Total 920 600 Output Total 975 1500 Balance -55 -900 Weight 95.5 kg Intake: IV 400 Oral 520 600 Output: Urine 975 1500 - Exam Abdomen: Soft, nontender, nondistended - Labs CBC & Chem 7: 07/16/17 08:43 07/16/17 08:43 Labs: Abnormal Lab Results - Last 24 Hours (Table) 07/15/17 07/15/17 07/15/17 Range/Units 11:34 16:50 20:50 RBC (4.30-5.90) m/uL Hgb (13.0-17.5) gm/dL Hct (39.0-53.0) % Lymphocytes # (1.0-4.8) k/uL PT (9.0-12.0) sec INR (<1.2) Potassium (3.5-5.1) mmol/L Glucose (74-99) mg/dL POC Glucose (mg/dL) 168 H 175 H 178 H (75-99) mg/dL Calcium (8.4-10.2) mg/dL Total Bilirubin (0.2-1.3) mg/dL AST (17-59) U/L ALT (21-72) U/L Alkaline Phosphatase (38-126) U/L Total Protein (6.3-8.2) g/dL Albumin (3.5-5.0) g/dL 07/16/17 07/16/17 07/16/17 Range/Units 07:21 08:43 08:43 RBC 2.89 L (4.30-5.90) m/uL Hgb 8.8 L (13.0-17.5) gm/dL Hct 28.1 L (39.0-53.0) % Lymphocytes # 0.9 L (1.0-4.8) k/uL PT 12.7 H (9.0-12.0) sec INR 1.3 H (<1.2) Potassium (3.5-5.1) mmol/L Glucose (74-99) mg/dL POC Glucose (mg/dL) 129 H (75-99) mg/dL Calcium (8.4-10.2) mg/dL Total Bilirubin (0.2-1.3) mg/dL AST (17-59) U/L ALT (21-72) U/L Alkaline Phosphatase (38-126) U/L Total Protein (6.3-8.2) g/dL Albumin (3.5-5.0) g/dL 07/16/17 Range/Units 08:43 RBC (4.30-5.90) m/uL Hgb (13.0-17.5) gm/dL Hct (39.0-53.0) % Lymphocytes # (1.0-4.8) k/uL PT (9.0-12.0) sec INR (<1.2) Potassium 2.8 L* (3.5-5.1) mmol/L Glucose 187 H (74-99) mg/dL POC Glucose (mg/dL) (75-99) mg/dL Calcium 8.1 L (8.4-10.2) mg/dL Total Bilirubin 3.8 H (0.2-1.3) mg/dL AST 84 H (17-59) U/L ALT 75 H (21-72) U/L Alkaline Phosphatase 152 H (38-126) U/L Total Protein 5.1 L (6.3-8.2) g/dL Albumin 2.4 L (3.5-5.0) g/dL Microbiology - Last 24 Hours (Table) 07/10/17 16:05 Blood Culture - Preliminary Blood No Growth after 120 hours Assessment and Plan (1) Elevated liver enzymes Narrative/Plan: Will advance diet at this time. Repeat labs tomorrow. Lap odessa by Dr. Huddleston on Tuesday. Current Visit: Yes Status: Acute Code(s): R74.8 - ABNORMAL LEVELS OF OTHER SERUM ENZYMES SNOMED Code(s): 349324703
[2017-07-16 12:17] LABS: Glucose,Whole Blood 178 mg/dL (75-99)
[2017-07-16] MEDS: POTASSIUM CHLORIDE ER 20 MEQ TAB.ER PO SCH ×3 (12:57→17:16)
--- NOTE | 2017-07-16 16:24 | P.PN ---
Subjective Progress Note Date: 07/16/17 This is a 81-year-old male with a known history of chronic atrial fibrillation, diabetes mellitus, chronic lower extremity ulcers, chronic kidney disease, hypertension. Patient presents anemia emergency room with complaints of feeling very weak and with evidence of a fever of 101.6. He reports that he went to stand up from his chair and felt very weak and dizzy fluid down the chair onto the floor. He reports that he did not pass out or injure himself. EMS was called and patient was brought into the emergency room. He was slightly confused at that time. However now he is alert and orientated to 3. Patient was found have evidence of sepsis with a temp of 101.6 and lactic acid of 3.7 white count 12.3. Patient has evidence of lower extremity cellulitis around his leg ulcers. He reports that he follows with Dr. Adame at the wound care center for his leg wounds. 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 Patient was started on Augmentin the outpatient setting. However he is still having evidence of cellulitis. Vancomycin has been started and he was also given a dose of IV Zosyn. Infectious disease consulted. Cardiology is also following regards to patient's history of atrial fibrillation. Patient was also found have elevated LFTs and total bilirubin. Denies any abdominal pain. Abdominal ultrasound and hepatic panel has been ordered. Patient denies any chest pain or shortness of breath. Does admit to having some dizziness. Denies any vomiting. The does admit to some nausea intermittently. Denies any bowel movement changes or urinary symptoms. Influenza screen was negative and urinalysis negative. Lactic acid elevated at 3.7 improved with IV fluids down to 1.3 07/12/2017 patient seen by infectious disease. Currently on IV vancomycin. Wound culture growing presumptive staph aureus. Patient denies any nausea or vomiting. Denies any abdominal pain. Denies any chest pain or shortness of breath. Denies any urinary symptoms On 07/13/2017 patient is alert and oriented 3 in no apparent distress results of hepatobiliary scan was reviewed in details, surgery following, INR is elevated patient was given vitamin K 2.5 mg by mouth today, patient otherwise is feeling well he denies any fever or chills no headache no dizziness no chest pain or shortness of breath no cough no nausea or vomiting no abdominal pain and no urinary symptoms. 07/14/2017 patient lying in bed comfortably. No pain. No evidence of distress. Total bilirubin is up to 4.2. AST 76 ALT 66 and alk phos 164. Hemoglobin 9.9 and INR is 1.18.. Patient had HIDA scan completed yesterday which was markedly abnormal without definitive visualization of the bowel or gallbladder. Acute cholecystitis needs to be considered. Also obstruction of common bile duct reported. GI service consulted. Patient had MRCP yesterday. Plan for ERCP today, Possible chlecystectomy on tuesday. He denies any nausea or vomiting. Denies any abdominal pain. Denies any chest pain or shortness breath. Denies any burning with urination. Objective - Vital Signs Vital signs: Vital Signs Temp 98.7 F 07/16/17 15:00 Pulse 89 07/16/17 15:00 Resp 16 07/16/17 15:00 BP 116/46 07/16/17 15:00 Pulse Ox 95 07/16/17 15:00 Intake & Output 07/15/17 07/16/17 07/16/17 18:59 06:59 18:59 Intake Total 920 600 240 Output Total 975 1500 Balance -55 -900 240 Weight 95.5 kg Intake: IV 400 Oral 520 600 240 Output: Urine 975 1500 Other: # Voids 5 # Bowel Movements 0 - Exam Head normocephalic and atraumatic there is a hint of mild jaundice Neck supple no JVD no goiter no lymphadenopathy Lungs clear to auscultation bilaterally no wheezing or crackles Heart regular rate and rhythm S1-S2, no rub or gallop Abdomen is soft nontender nondistended positive bowel sounds no hepatosplenomegaly Extremities no edema. Legs are wrapped dressing is clean dry and intact Neuro alert and orientated to 3 - Labs CBC & Chem 7: 07/16/17 08:43 07/16/17 08:43 Labs: Abnormal Lab Results - Last 24 Hours (Table) 07/15/17 07/15/17 07/16/17 Range/Units 16:50 20:50 07:21 RBC (4.30-5.90) m/uL Hgb (13.0-17.5) gm/dL Hct (39.0-53.0) % Lymphocytes # (1.0-4.8) k/uL PT (9.0-12.0) sec INR (<1.2) Potassium (3.5-5.1) mmol/L Glucose (74-99) mg/dL POC Glucose (mg/dL) 175 H 178 H 129 H (75-99) mg/dL Calcium (8.4-10.2) mg/dL Total Bilirubin (0.2-1.3) mg/dL AST (17-59) U/L ALT (21-72) U/L Alkaline Phosphatase (38-126) U/L Total Protein (6.3-8.2) g/dL Albumin (3.5-5.0) g/dL 07/16/17 07/16/17 07/16/17 Range/Units 08:43 08:43 08:43 RBC 2.89 L (4.30-5.90) m/uL Hgb 8.8 L (13.0-17.5) gm/dL Hct 28.1 L (39.0-53.0) % Lymphocytes # 0.9 L (1.0-4.8) k/uL PT 12.7 H (9.0-12.0) sec INR 1.3 H (<1.2) Potassium 2.8 L* (3.5-5.1) mmol/L Glucose 187 H (74-99) mg/dL POC Glucose (mg/dL) (75-99) mg/dL Calcium 8.1 L (8.4-10.2) mg/dL Total Bilirubin 3.8 H (0.2-1.3) mg/dL AST 84 H (17-59) U/L ALT 75 H (21-72) U/L Alkaline Phosphatase 152 H (38-126) U/L Total Protein 5.1 L (6.3-8.2) g/dL Albumin 2.4 L (3.5-5.0) g/dL 07/16/17 Range/Units 12:02 RBC (4.30-5.90) m/uL Hgb (13.0-17.5) gm/dL Hct (39.0-53.0) % Lymphocytes # (1.0-4.8) k/uL PT (9.0-12.0) sec INR (<1.2) Potassium (3.5-5.1) mmol/L Glucose (74-99) mg/dL POC Glucose (mg/dL) 178 H (75-99) mg/dL Calcium (8.4-10.2) mg/dL Total Bilirubin (0.2-1.3) mg/dL AST (17-59) U/L ALT (21-72) U/L Alkaline Phosphatase (38-126) U/L Total Protein (6.3-8.2) g/dL Albumin (3.5-5.0) g/dL Microbiology - Last 24 Hours (Table) 07/10/17 16:05 Blood Culture - Preliminary Blood No Growth after 120 hours Assessment and Plan Plan: 1. Sepsis present on admission possibly related to patient's cellulitis and leg wounds. Wound cultures growing presumptive staph aureus continue vancomycin. Blood culture negative 2. 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 Continue with current antibiotics. 3. History of Kyrle's disease 4. Elevated LFTs and total bilirubin with abdominal ultrasound revealing enlarged hydropic gallbladder containing biliary sludge and small gallstones with gallbladder wall thickening. With concerns of chronic cholecystitis or biliary dyskinesia. Consults surgical service. Acute hepatitis panel negative. gastroenterology following ERCP done with extraction of stone from the common bile duct plan for cholecystectomy on Tuesday 5. History of chronic atrial fibrillation evaluated by cardiology. Continue Coumadin for anticoagulation EKG had shown atrial fibrillation with a heart rate of 85. INR 5.1. Hold Coumadin tonight. Given vitamin K 2.5 mg by mouth today Repeat PT/INR in a.m. INR 1.3 today 6. Diabetes mellitus type II. Continue sliding scale coverage 7. Essential hypertension: Lower blood pressures at present on admission now improved 8. Confusion prior to admission likely metabolic encephalopathy due to patient' s sepsis and cellulitis of the lower extremities 9. Hypokalemia: Patient receiving potassium supplement 10. History of renal cancer status post right nephrectomy GI prophylaxis Pepcid and DVT prophylaxis Coumadin
[2017-07-16 16:57] LABS: Glucose,Whole Blood 248 mg/dL (75-99)
[2017-07-16] MEDS: FUROSEMIDE 40 MG TAB PO SCH (20:07)
[2017-07-16] MEDS: ENOXAPARIN 60 MG/0.6 ML SYRINGE SQ SCH (20:08)
[2017-07-16] MEDS: SODIUM CHLORIDE 0.9% 1,000 ML IV SCH (20:13)
[2017-07-16 21:27] LABS: Glucose,Whole Blood 183 mg/dL (75-99)
--- NOTE | 2017-07-16 22:51 | P.PN ---
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 The patient has had local wound care was recently with medical honey with some improvement of his status. He has had difficulty with localized renal cell carcinoma that has been resected. With gentle relatively well until he suddenly became weak today. He relates that suddenly his legs became weak he couldn't navigate any further he fell into his chair and then slowly ended up on the ground. Was able to bring himself up and consequently EMS was called and he was transported to hospital. He has been found evidence of a fever over 101 as well as significant weakness and leukocytosis. There was also evidence of an elevated lactic acid. Because of sepsis the infectious diseases consultation is been requested. Patient is feeling slightly better today after fluid resuscitation and antibiotic therapy. 07/12/2017 patient relates that he is feeling somewhat better today. He is able to eat a bit of food. He's been having some minimal abdominal pain. He is denying nausea or emesis. His legs feel slightly better since the medical honey dressings were applied. His weakness is improved. He believes his fever has also improved. No chills or rigors. 07/14/2017 the patient remains jaundiced feeling somewhat poorly, he is due for an ERCP and then likely a cholecystectomy. He is tolerating antibiotic therapy well for the MSSA that has been isolate up from his chronic leg ulcerations. 07/15/2017 patient feels better after the ERCP in that he is hungry and looks forward to increasing diet. The jaundice is slightly better, abdominal pain improved, no new problems today. 07/16/2017 the patient has had further improvement status post ERCP and stone retrieval. Jaundice is further improved. He is feeling somewhat better today. Enjoying that he has some ability for dietary intake. Denies fevers or chills. Looks forward to his cholecystectomy on Tuesday. The legs are without acute change. Objective - Vital Signs Vital signs: Vital Signs Temp 98.7 F 07/16/17 15:00 Pulse 89 07/16/17 15:00 Resp 16 07/16/17 15:00 BP 116/46 07/16/17 15:00 Pulse Ox 95 07/16/17 15:00 Intake & Output 07/16/17 07/16/17 07/17/17 06:59 18:59 06:59 Intake Total 600 480 Output Total 1500 Balance -900 480 Intake: Oral 600 480 Output: Urine 1500 Other: # Voids 5 # Bowel Movements 0 - Exam Pleasant 81-year-old gentleman in no acute distress,remains jaundice today HEENT: Obviously icteric, conjunctiva are pink and moist nasal mucosa grossly intact without significant lesions, there is no thrush. Neck: The neck is supple without significant lymphadenopathy or thyromegaly. Lungs: Good bilateral air entry without significant crackles or wheezing. There is no significant bronchial sounds. There is no egophony or dullness. Heart: Regular rate and rhythm with an audible S1-S2, no S3 no S4. There is no significant murmur click or rub, PMI was nondisplaced. Abdomen: Positive bowel sounds soft and nontender without palpable masses or organomegaly. There was no guarding or rebound. Extremities: The upper extremities have excellent pulses they are symmetric, no significant petechiae or telangiectasia. The lower extremities evidence of the chronic edema which is quite symmetric. The anterior tibial surface bilaterally has evidence of the varicosities, and the chronic ulcerations that are full-thickness with significant calcification of the tissue. The level of tenderness is without change. There is evidence of erythema over the bilateral pretibial areas. There is no expressible purulence. They are tender as usual. Neuro: Awake alert oriented to person place and time. There are no acute new gross focal sensory motor deficits. - Labs CBC & Chem 7: 07/16/17 08:43 07/16/17 20:43 Labs: Abnormal Lab Results - Last 24 Hours (Table) 07/16/17 07/16/17 07/16/17 Range/Units 07:21 08:43 08:43 RBC 2.89 L (4.30-5.90) m/uL Hgb 8.8 L (13.0-17.5) gm/dL Hct 28.1 L (39.0-53.0) % Lymphocytes # 0.9 L (1.0-4.8) k/uL PT 12.7 H (9.0-12.0) sec INR 1.3 H (<1.2) Potassium (3.5-5.1) mmol/L Glucose (74-99) mg/dL POC Glucose (mg/dL) 129 H (75-99) mg/dL Calcium (8.4-10.2) mg/dL Total Bilirubin (0.2-1.3) mg/dL AST (17-59) U/L ALT (21-72) U/L Alkaline Phosphatase (38-126) U/L Total Protein (6.3-8.2) g/dL Albumin (3.5-5.0) g/dL 07/16/17 07/16/17 07/16/17 Range/Units 08:43 12:02 16:53 RBC (4.30-5.90) m/uL Hgb (13.0-17.5) gm/dL Hct (39.0-53.0) % Lymphocytes # (1.0-4.8) k/uL PT (9.0-12.0) sec INR (<1.2) Potassium 2.8 L* (3.5-5.1) mmol/L Glucose 187 H (74-99) mg/dL POC Glucose (mg/dL) 178 H 248 H (75-99) mg/dL Calcium 8.1 L (8.4-10.2) mg/dL Total Bilirubin 3.8 H (0.2-1.3) mg/dL AST 84 H (17-59) U/L ALT 75 H (21-72) U/L Alkaline Phosphatase 152 H (38-126) U/L Total Protein 5.1 L (6.3-8.2) g/dL Albumin 2.4 L (3.5-5.0) g/dL 07/16/17 Range/Units 21:25 RBC (4.30-5.90) m/uL Hgb (13.0-17.5) gm/dL Hct (39.0-53.0) % Lymphocytes # (1.0-4.8) k/uL PT (9.0-12.0) sec INR (<1.2) Potassium (3.5-5.1) mmol/L Glucose (74-99) mg/dL POC Glucose (mg/dL) 183 H (75-99) mg/dL Calcium (8.4-10.2) mg/dL Total Bilirubin (0.2-1.3) mg/dL AST (17-59) U/L ALT (21-72) U/L Alkaline Phosphatase (38-126) U/L Total Protein (6.3-8.2) g/dL Albumin (3.5-5.0) g/dL Microbiology - Last 24 Hours (Table) 07/10/17 16:05 Blood Culture - Final Blood No Growth after 144 hours Laboratory Results WBC 5.9 k/uL (3.8-10.6) 07/16/17 08:43 RBC 2.89 m/uL (4.30-5.90) L 07/16/17 08:43 Hgb 8.8 gm/dL (13.0-17.5) L 07/16/17 08:43 Hct 28.1 % (39.0-53.0) L 07/16/17 08:43 MCV 97.1 fL (80.0-100.0) 07/16/17 08:43 MCH 30.4 pg (25.0-35.0) 07/16/17 08:43 MCHC 31.3 g/dL (31.0-37.0) 07/16/17 08:43 RDW 13.4 % (11.5-15.5) 07/16/17 08:43 Plt Count 234 k/uL (150-450) 07/16/17 08:43 Neutrophils % 70 % 07/16/17 08:43 Neutrophils % (Manual) 76 % 07/10/17 16:05 Band Neutrophils % 19 % 07/10/17 16:05 Lymphocytes % 15 % 07/16/17 08:43 Lymphocytes % (Manual) 3 % 07/10/17 16:05 Monocytes % 6 % 07/16/17 08:43 Monocytes % (Manual) 2 % 07/10/17 16:05 Eosinophils % 6 % 07/16/17 08:43 Basophils % 0 % 07/16/17 08:43 Neutrophils # 4.1 k/uL (1.3-7.7) 07/16/17 08:43 Neutrophils # (Manual) 11.60 k/uL (1.3-7.7) H 07/10/17 16:05 Lymphocytes # 0.9 k/uL (1.0-4.8) L 07/16/17 08:43 Lymphocytes # (Manual) 0.37 k/uL (1.0-4.8) L 07/10/17 16:05 Monocytes # 0.4 k/uL (0-1.0) 07/16/17 08:43 Monocytes # (Manual) 0.25 k/uL (0-1.0) 07/10/17 16:05 Eosinophils # 0.4 k/uL (0-0.7) 07/16/17 08:43 Basophils # 0.0 k/uL (0-0.2) 07/16/17 08:43 Nucleated RBCs 0 /100 WBC (0-0) 07/10/17 16:05 Manual Slide Review Performed 07/10/17 16:05 RBC Morphology Normal 07/10/17 16:05 PT 12.7 sec (9.0-12.0) H 07/16/17 08:43 INR 1.3 (<1.2) H 07/16/17 08:43 APTT 32.0 sec (22.0-30.0) H 07/10/17 16:05 Sodium 142 mmol/L (137-145) 07/16/17 08:43 Potassium 3.6 mmol/L (3.5-5.1) 07/16/17 20:43 Chloride 105 mmol/L (98-107) 07/16/17 08:43 Carbon Dioxide 27 mmol/L (22-30) 07/16/17 08:43 Anion Gap 10 mmol/L 07/16/17 08:43 BUN 11 mg/dL (9-20) 07/16/17 08:43 Creatinine 0.75 mg/dL (0.66-1.25) 07/16/17 08:43 Est GFR (CKD-EPI)AfAm >90 (>60 ml/min/1.73 sqM) 07/16/17 08:43 Est GFR (CKD-EPI)NonAf 87 (>60 ml/min/1.73 sqM) 07/16/17 08:43 Glucose 187 mg/dL (74-99) H 07/16/17 08:43 POC Glucose (mg/dL) 183 mg/dL (75-99) H 07/16/17 21:25 POC Glu Min[employer] Economist EM Esther Galdamez 07/16/17 21:[address] Glu mg/dL 117 07/10/17 16:05 Hemoglobin A1c 5.7 % (4.0-6.0) 07/10/17 16:05 Lactic Ac Sepsis Rflx Y 07/10/17 16:42 Plasma Lactic Acid Carlos Eduardo 1.3 mmol/L (0.7-2.0) 07/10/17 20:27 Calcium 8.1 mg/dL (8.4-10.2) L 07/16/17 08:43 Magnesium 1.7 mg/dL (1.6-2.3) 07/16/17 08:43 Total Bilirubin 3.8 mg/dL (0.2-1.3) H 07/16/17 08:43 AST 84 U/L (17-59) H 07/16/17 08:43 ALT 75 U/L (21-72) H 07/16/17 08:43 Alkaline Phosphatase 152 U/L (38-126) H 07/16/17 08:43 Total Creatine Kinase 31 U/L (55-170) L 07/10/17 16:05 CK-MB (CK-2) 0.2 ng/mL (0.0-2.4) 07/10/17 16:05 CK-MB (CK-2) Rel Index 0.6 07/10/17 16:05 Troponin I 0.017 ng/mL (0.000-0.034) 07/10/17 16:05 Total Protein 5.1 g/dL (6.3-8.2) L 07/16/17 08:43 Albumin 2.4 g/dL (3.5-5.0) L 07/16/17 08:43 Urine Color Yellow 07/10/17 18:50 Urine Appearance Cloudy (Clear) 07/10/17 18:50 Urine pH 6.0 (5.0-8.0) 07/10/17 18:50 Ur Specific Jed[place] 1.023 (1.001-1.035) 07/10/17 18:50 Urine Protein 1+ (Negative) H 07/10/17 18:50 Urine Glucose (UA) 1+ (Negative) H 07/10/17 18:50 Urine Ketones Trace (Negative) H 07/10/17 18:50 Urine Blood Trace (Negative) H 07/10/17 18:50 Urine Nitrite Negative (Negative) 07/10/17 18:50 Urine Bilirubin 1+ (Negative) H 07/10/17 18:50 Urine Urobilinogen 3.0 mg/dL (<2.0) 03 18:50 Ur Leukocyte Esterase Negative (Negative) 07/10/17 18:50 Urine RBC 5 /hpf (0-5) 03 18:50 Urine WBC 5 /hpf (0-5) 07/10/17 18:50 Ur Squamous Epith Cells 1 /hpf (0-4) 07/10/17 18:50 Urine Bacteria Rare /hpf (None) H 07/10/17 18:50 Hyaline Casts 8 /lpf (0-2) H 07/10/17 18:50 Urine Mucus Occasional /hpf (None) H 07/10/17 18:50 Vancomycin Trough 19.4 ug/mL 07/14/17 04:55 Hepatitis A IgM Ab Non-Reactive (Non-Reactive) 07/10/17 16:05 Hep Bs Antigen Non-Reactive (Non-Reactive) 07/10/17 16:05 Hep B Core IgM Ab Non-Reactive (Non-Reactive) 07/10/17 16:05 Hep C IgG Ab Non-Reactive (Non-Reactive) 07/10/17 16:05 Influenza Type A RNA Not Detected (Not Detectd) 07/10/17 16:05 Influenza Type B (PCR) Not Detected (Not Detectd) 07/10/17 16:05 Microbiology 07/10/17 16:05 Blood Blood Culture - Final No Growth after 144 hours 07/10/17 17:02 Leg - Right Gram Stain - Final 07/10/17 17:02 Leg - Right Wound Culture - Final Staphylococcus aureus 07/10/17 17:02 Leg - Left Gram Stain - Final 07/10/17 17:02 Leg - Left Wound Culture - Final Staphylococcus aureus 07/10/17 18:50 Urine,Voided Urine Culture - Final Assessment and Plan (1) Sepsis Current Visit: Yes Status: Acute Code(s): A41.9 - SEPSIS, UNSPECIFIED ORGANISM SNOMED Code(s): 15375634 (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 There is also elevated lactic acid. Fortunately with fluid resuscitation he has done well and has had a good resolution of the sepsis. Appears to have a significant cellulitis of the bilateral lower extremities as etiology of the sepsis and there some pulmonary data show evidence of staphylococcal infection at this site. Continue vancomycin therapy at this time until we have further culture data. Blood cultures negative so far. Given the patient's very poor tissue quality may require a course of outpatient intravenous antibiotic therapy for the completion of treatment of this extensive infection it is resulted in sepsis. Leukocytosis is record related to the sepsis. In fortunately does not have any evidence of acute renal failure given his history of a partial nephrectomy for his renal cell carcinoma. Local wound care as directed with the therahoney the bilateral lower extremities it is changed every other day. Pain control appears to be adequate. Elevate the limbs as he tolerates. 07/12/2017 reveals the patient to feel slightly better. His fever has improved. However he is now slightly jaundice. His appetite is poor she's trying to eat some protein in the day. Ultrasounds been performed and there is a concern to chronic cholecystitis. Surgical consult is in process. With the wound culture showing evidence of MSSA antibiotic therapy will be transitioned from vancomycin to Unasyn which will provide coverage for the MSSA isolated from the legs, and provide therapy for cholecystitis. The AST and ALT have improved, total bilirubin has increased, acute hepatitis panel is negative for any evidence of acute infectious colitis. Continue supportive care. The lower extremities without acute change for this chronic condition continue the therahoney as before does believe he feels better. Culture of the wounds from the legs with MSSA blood cultures negative so far. 07/14/2017 reveals the patient to be more jaundiced. The MRI of the biliary tract reveals evidence of an obstructive stone. He has been evaluated by gastroenterology likely will have an ERCP and then subsequently a cholecystectomy will be performed. The patient does feel slightly poorly and that with the jaundice he has some nausea and malaise. He however is denying high-grade fevers. He is receiving Unasyn for the MSSA isolated from the legs would also give coverage for the biliary tract. Blood cultures remain negative. Continue the therahoney dressings to the legs. Bilirubin has increased to 4.2. 07/15/2017 patient is improved after the ERCP, and is awaiting decision as to cholecystectomy. Continue current antibiotics of Unasyn given the significant clinical improvement and we'll also give ongoing treatment to the MSSA isolate her from the legs that had cellulitis component admission that improved at this time. 07/16/2017 reveals the patient have further improvement status post ERCP. Likely will have his cholecystectomy on Tuesday which further improve his status. Continue Unasyn at this time for treatment of both the acute cholecystitis as well as MSSA of his bilateral legs with a bit of cellulitis that was present that is improving due to his chronic calciphylaxis of his limb. Elevate the limbs at rest. Pain control is adequate. Jaundice is improved after his stone retrieval at the time of the ERCP. Current Visit: Yes Status: Acute Code(s): E83.59 - OTHER DISORDERS OF CALCIUM METABOLISM; L97.922 - NON-PRS CHR ULC UNSP PRT OF L LOW LEG W FAT LAYER EXPOSED SNOMED Code(s): 77144530 (3) Diabetes mellitus type 2 with complications Current Visit: Yes Status: Acute Code(s): E11.8 - TYPE 2 DIABETES MELLITUS WITH UNSPECIFIED COMPLICATIONS SNOMED Code(s): 26917279
[2017-07-17] MEDS: AMPICILLIN-SULBACTAM 3 GM in SODIUM CHLORIDE 0.9% 100 ML IVPB SCH ×4 (00:43→18:07)
[2017-07-17] MEDS: SODIUM CHLORIDE 0.9% 1,000 ML IV SCH ×2 (05:41→16:16)
[2017-07-17 07:32] LABS: Glucose,Whole Blood 132 mg/dL (75-99)
[2017-07-17] MEDS: INSULIN ASPART 100 UNIT/ML 1 ML 10 ML VIAL SQ SCH ×4 (08:03→21:24)
[2017-07-17] MEDS: ENOXAPARIN 60 MG/0.6 ML SYRINGE SQ SCH (08:03)
[2017-07-17] MEDS: DILTIAZEM CD 120 MG CAP.ER.24H PO SCH (08:04)
[2017-07-17] MEDS: MECLIZINE 25 MG TAB PO SCH ×2 (08:04→20:31)
[2017-07-17] MEDS: FLUoxetine HCL 20 MG CAP PO SCH (08:04)
[2017-07-17 09:05] LABS: Basophils % (A) 0 %; Eosinophils # (A) 0.4 k/uL (0-0.7); Eosinophils % (A) 6 %; HCT 26.8 % (39.0-53.0); Lymphocytes # (A) 1.2 k/uL (1.0-4.8); Lymphocytes % (A) 17 %; MCH 32.1 pg (25.0-35.0); MCHC 33.7 g/dL (31.0-37.0); MCV 95.4 fL (80.0-100.0); Mean Platelet Volume 8.7; Monocytes # (A) 0.3 k/uL (0-1.0); Monocytes % (A) 4 %; Neutrophils % (A) 70 %; Platelet Count 264 k/uL (150-450); RBC 2.81 m/uL (4.30-5.90); RDW 13.6 % (11.5-15.5); WBC 7.1 k/uL (3.8-10.6)
[2017-07-17 09:09] LABS: INR 1.3 (<1.2); Prothrombin Time 12.3 sec (9.0-12.0)
[2017-07-17 09:19] LABS: ALT 76 U/L (21-72); AST 86 U/L (17-59); Albumin 2.5 g/dL (3.5-5.0); Alkaline Phosphatase 163 U/L (38-126); Anion Gap 10 mmol/L; Blood Urea Nitrogen 11 mg/dL (9-20); Calcium 8.3 mg/dL (8.4-10.2); Carbon Dioxide 25 mmol/L (22-30); Chloride 107 mmol/L (98-107); Glucose 169 mg/dL (74-99); Potassium 3.2 mmol/L (3.5-5.1); Sodium 142 mmol/L (137-145); Total Bilirubin 3.1 mg/dL (0.2-1.3); Total Protein 5.4 g/dL (6.3-8.2)
[2017-07-17] MEDS: POTASSIUM CHLORIDE ER 20 MEQ TAB.ER PO SCH ×2 (10:41→12:47)
--- NOTE | 2017-07-17 10:41 | P.PN ---
Subjective Progress Note Date: 07/17/17 This is a 81-year-old male with a known history of chronic atrial fibrillation, diabetes mellitus, chronic lower extremity ulcers, chronic kidney disease, hypertension. Patient presents [facility] emergency room with complaints of feeling very weak and with evidence of a fever of 101.6. He reports that he went to stand up from his chair and felt very weak and dizzy fluid down the chair onto the floor. He reports that he did not pass out or injure himself. EMS was called and patient was brought into the emergency room. He was slightly confused at that time. However now he is alert and orientated to 3. Patient was found have evidence of sepsis with a temp of 101.6 and lactic acid of 3.7 white count 12.3. Patient has evidence of lower extremity cellulitis around his leg ulcers. He reports that he follows with Dr. Adame at the wound care center for his leg wounds. 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 Patient was started on Augmentin the outpatient setting. However he is still having evidence of cellulitis. Vancomycin has been started and he was also given a dose of IV Zosyn. Infectious disease consulted. Cardiology is also following regards to patient's history of atrial fibrillation. Patient was also found have elevated LFTs and total bilirubin. Denies any abdominal pain. Abdominal ultrasound and hepatic panel has been ordered. Patient denies any chest pain or shortness of breath. Does admit to having some dizziness. Denies any vomiting. The does admit to some nausea intermittently. Denies any bowel movement changes or urinary symptoms. Influenza screen was negative and urinalysis negative. Lactic acid elevated at 3.7 improved with IV fluids down to 1.3 07/12/2017 patient seen by infectious disease. Currently on IV vancomycin. Wound culture growing presumptive staph aureus. Patient denies any nausea or vomiting. Denies any abdominal pain. Denies any chest pain or shortness of breath. Denies any urinary symptoms On 07/13/2017 patient is alert and oriented 3 in no apparent distress results of hepatobiliary scan was reviewed in details, surgery following, INR is elevated patient was given vitamin K 2.5 mg by mouth today, patient otherwise is feeling well he denies any fever or chills no headache no dizziness no chest pain or shortness of breath no cough no nausea or vomiting no abdominal pain and no urinary symptoms. 07/14/2017 patient lying in bed comfortably. No pain. No evidence of distress. Total bilirubin is up to 4.2. AST 76 ALT 66 and alk phos 164. Hemoglobin 9.9 and INR is 1.18.. Patient had HIDA scan completed yesterday which was markedly abnormal without definitive visualization of the bowel or gallbladder. Acute cholecystitis needs to be considered. Also obstruction of common bile duct reported. GI service consulted. Patient had MRCP yesterday. Plan for ERCP today, Possible chlecystectomy on tuesday. He denies any nausea or vomiting. Denies any abdominal pain. Denies any chest pain or shortness breath. Denies any burning with urination. Objective - Vital Signs Vital signs: Vital Signs Temp 97.2 F L 07/17/17 07:00 Pulse 96 07/17/17 07:00 Resp 20 07/17/17 07:00 BP 139/63 07/17/17 07:00 Pulse Ox 95 07/17/17 07:00 Intake & Output 07/16/17 07/17/17 07/17/17 18:59 06:59 18:59 Intake Total 480 500 Balance 480 500 Intake: Oral 480 500 Other: Voiding Method Urinal # Voids 5 2 1 # Bowel Movements 0 - Exam Head normocephalic and atraumatic there is a hint of mild jaundice Neck supple no JVD no goiter no lymphadenopathy Lungs clear to auscultation bilaterally no wheezing or crackles Heart regular rate and rhythm S1-S2, no rub or gallop Abdomen is soft nontender nondistended positive bowel sounds no hepatosplenomegaly Extremities no edema. Legs are wrapped dressing is clean dry and intact Neuro alert and orientated to 3 - Labs CBC & Chem 7: 07/17/17 08:24 07/17/17 08:24 Labs: Abnormal Lab Results - Last 24 Hours (Table) 07/16/17 07/16/17 07/16/17 Range/Units 12:02 16:53 21:25 RBC (4.30-5.90) m/uL Hgb (13.0-17.5) gm/dL Hct (39.0-53.0) % PT (9.0-12.0) sec INR (<1.2) Potassium (3.5-5.1) mmol/L Glucose (74-99) mg/dL POC Glucose (mg/dL) 178 H 248 H 183 H (75-99) mg/dL Calcium (8.4-10.2) mg/dL Total Bilirubin (0.2-1.3) mg/dL AST (17-59) U/L ALT (21-72) U/L Alkaline Phosphatase (38-126) U/L Total Protein (6.3-8.2) g/dL Albumin (3.5-5.0) g/dL 07/17/17 07/17/17 07/17/17 Range/Units 07:30 08:24 08:24 RBC 2.81 L (4.30-5.90) m/uL Hgb 9.0 L (13.0-17.5) gm/dL Hct 26.8 L (39.0-53.0) % PT 12.3 H (9.0-12.0) sec INR 1.3 H (<1.2) Potassium (3.5-5.1) mmol/L Glucose (74-99) mg/dL POC Glucose (mg/dL) 132 H (75-99) mg/dL Calcium (8.4-10.2) mg/dL Total Bilirubin (0.2-1.3) mg/dL AST (17-59) U/L ALT (21-72) U/L Alkaline Phosphatase (38-126) U/L Total Protein (6.3-8.2) g/dL Albumin (3.5-5.0) g/dL 07/17/17 Range/Units 08:24 RBC (4.30-5.90) m/uL Hgb (13.0-17.5) gm/dL Hct (39.0-53.0) % PT (9.0-12.0) sec INR (<1.2) Potassium 3.2 L (3.5-5.1) mmol/L Glucose 169 H (74-99) mg/dL POC Glucose (mg/dL) (75-99) mg/dL Calcium 8.3 L (8.4-10.2) mg/dL Total Bilirubin 3.1 H (0.2-1.3) mg/dL AST 86 H (17-59) U/L ALT 76 H (21-72) U/L Alkaline Phosphatase 163 H (38-126) U/L Total Protein 5.4 L (6.3-8.2) g/dL Albumin 2.5 L (3.5-5.0) g/dL Microbiology - Last 24 Hours (Table) 07/10/17 16:05 Blood Culture - Final Blood No Growth after 144 hours Assessment and Plan Plan: 1. Sepsis present on admission possibly related to patient's cellulitis and leg wounds. Wound cultures growing presumptive staph aureus continue vancomycin. Blood culture negative 2. 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 Continue with current antibiotics. 3. History of Kyrle's disease 4. Elevated LFTs and total bilirubin with abdominal ultrasound revealing enlarged hydropic gallbladder containing biliary sludge and small gallstones with gallbladder wall thickening. With concerns of chronic cholecystitis or biliary dyskinesia. Consults surgical service. Acute hepatitis panel negative. gastroenterology following ERCP done with extraction of stone from the common bile duct plan for cholecystectomy on Tuesday 5. History of chronic atrial fibrillation evaluated by cardiology. Continue Coumadin for anticoagulation EKG had shown atrial fibrillation with a heart rate of 85. INR 5.1. Hold Coumadin tonight. Given vitamin K 2.5 mg by mouth today Repeat PT/INR in a.m. INR 1.3 today 6. Diabetes mellitus type II. Continue sliding scale coverage 7. Essential hypertension: Lower blood pressures at present on admission now improved 8. Confusion prior to admission likely metabolic encephalopathy due to patient' s sepsis and cellulitis of the lower extremities 9. Hypokalemia: Patient receiving potassium supplement 10. History of renal cancer status post right nephrectomy GI prophylaxis Pepcid and DVT prophylaxis on Lovenox Will discontinue Lovenox at this time in anticipation of surgery tomorrow Patient will be restarted on Coumadin after surgery
[2017-07-17 12:19] LABS: Glucose,Whole Blood 185 mg/dL (75-99)
--- NOTE | 2017-07-17 12:45 | P.PN ---
Subjective Progress Note Date: 07/17/17 Principal diagnosis: Choledocholithiasis Patient denies pain. Bilirubin remains elevated. No nausea or vomiting. Objective - Vital Signs Vital signs: Vital Signs Temp 97.2 F L 07/17/17 07:00 Pulse 96 07/17/17 07:00 Resp 20 07/17/17 07:00 BP 139/63 07/17/17 07:00 Pulse Ox 95 07/17/17 07:00 Intake & Output 07/16/17 07/17/17 07/17/17 18:59 06:59 18:59 Intake Total 480 500 Balance 480 500 Intake: Oral 480 500 Other: Voiding Method Urinal # Voids 5 2 1 # Bowel Movements 0 - Exam Abdomen: Soft, nontender, nondistended - Labs CBC & Chem 7: 07/17/17 08:24 07/17/17 08:24 Labs: Abnormal Lab Results - Last 24 Hours (Table) 07/16/17 07/16/17 07/17/17 Range/Units 16:53 21:25 07:30 RBC (4.30-5.90) m/uL Hgb (13.0-17.5) gm/dL Hct (39.0-53.0) % PT (9.0-12.0) sec INR (<1.2) Potassium (3.5-5.1) mmol/L Glucose (74-99) mg/dL POC Glucose (mg/dL) 248 H 183 H 132 H (75-99) mg/dL Calcium (8.4-10.2) mg/dL Total Bilirubin (0.2-1.3) mg/dL AST (17-59) U/L ALT (21-72) U/L Alkaline Phosphatase (38-126) U/L Total Protein (6.3-8.2) g/dL Albumin (3.5-5.0) g/dL 07/17/17 07/17/17 07/17/17 Range/Units 08:24 08:24 08:24 RBC 2.81 L (4.30-5.90) m/uL Hgb 9.0 L (13.0-17.5) gm/dL Hct 26.8 L (39.0-53.0) % PT 12.3 H (9.0-12.0) sec INR 1.3 H (<1.2) Potassium 3.2 L (3.5-5.1) mmol/L Glucose 169 H (74-99) mg/dL POC Glucose (mg/dL) (75-99) mg/dL Calcium 8.3 L (8.4-10.2) mg/dL Total Bilirubin 3.1 H (0.2-1.3) mg/dL AST 86 H (17-59) U/L ALT 76 H (21-72) U/L Alkaline Phosphatase 163 H (38-126) U/L Total Protein 5.4 L (6.3-8.2) g/dL Albumin 2.5 L (3.5-5.0) g/dL 07/17/17 Range/Units 11:49 RBC (4.30-5.90) m/uL Hgb (13.0-17.5) gm/dL Hct (39.0-53.0) % PT (9.0-12.0) sec INR (<1.2) Potassium (3.5-5.1) mmol/L Glucose (74-99) mg/dL POC Glucose (mg/dL) 185 H (75-99) mg/dL Calcium (8.4-10.2) mg/dL Total Bilirubin (0.2-1.3) mg/dL AST (17-59) U/L ALT (21-72) U/L Alkaline Phosphatase (38-126) U/L Total Protein (6.3-8.2) g/dL Albumin (3.5-5.0) g/dL Microbiology - Last 24 Hours (Table) 07/10/17 16:05 Blood Culture - Final Blood No Growth after 144 hours Assessment and Plan (1) Elevated liver enzymes Narrative/Plan: Check labs again tomorrow morning but tentatively schedule laparoscopic cholecystectomy by Dr. Huddleston tomorrow. Current Visit: Yes Status: Acute Code(s): R74.8 - ABNORMAL LEVELS OF OTHER SERUM ENZYMES SNOMED Code(s): 335761445
[2017-07-17 17:28] LABS: Glucose,Whole Blood 202 mg/dL (75-99)
[2017-07-17] MEDS: FUROSEMIDE 40 MG TAB PO SCH (20:31)
[2017-07-17 21:01] LABS: Glucose,Whole Blood 199 mg/dL (75-99)
[2017-07-17] MEDS ORDERED: MORPHINE SULFATE 4 MG/ML SYRINGE IV PRN (22:28)
[2017-07-17] MEDS ORDERED: ONDANSETRON 4 MG/2 ML VIAL IVP PRN (22:28)
[2017-07-17] MEDS ORDERED: HYDROmorphone 0.5 MG/0.5 ML SYRINGE IVP PRN (22:28)
[2017-07-17] MEDS ORDERED: LACTATED RINGERS 1,000 ML IV SCH (22:30)
[2017-07-18] MEDS: AMPICILLIN-SULBACTAM 3 GM in SODIUM CHLORIDE 0.9% 100 ML IVPB SCH ×5 (00:08→23:05)
[2017-07-18] MEDS: SODIUM CHLORIDE 0.9% 1,000 ML IV SCH ×3 (06:14→23:06)
[2017-07-18 07:02] LABS: Glucose,Whole Blood 129 mg/dL (75-99)
[2017-07-18] MEDS: INSULIN ASPART 100 UNIT/ML 1 ML 10 ML VIAL SQ SCH ×4 (07:46→20:37)
[2017-07-18] MEDS: DILTIAZEM CD 120 MG CAP.ER.24H PO SCH (08:11)
[2017-07-18] MEDS: MECLIZINE 25 MG TAB PO SCH ×2 (08:21→20:28)
[2017-07-18] MEDS: FLUoxetine HCL 20 MG CAP PO SCH (08:21)
[2017-07-18 09:06] LABS: INR 1.2 (<1.2); Prothrombin Time 11.2 sec (9.0-12.0)
[2017-07-18 09:08] LABS: ALT 71 U/L (21-72); AST 81 U/L (17-59); Albumin 2.6 g/dL (3.5-5.0); Alkaline Phosphatase 175 U/L (38-126); Anion Gap 11 mmol/L; Blood Urea Nitrogen 9 mg/dL (9-20); Calcium 8.4 mg/dL (8.4-10.2); Carbon Dioxide 28 mmol/L (22-30); Chloride 103 mmol/L (98-107); Glucose 131 mg/dL (74-99); Potassium 3.5 mmol/L (3.5-5.1); Sodium 142 mmol/L (137-145); Total Bilirubin 2.9 mg/dL (0.2-1.3); Total Protein 5.4 g/dL (6.3-8.2)
[2017-07-18 09:32] LABS: Basophils % (A) 1 %; Eosinophils # (A) 0.4 k/uL (0-0.7); Eosinophils % (A) 5 %; HCT 27.4 % (39.0-53.0); HGB 9.1 gm/dL (13.0-17.5); Lymphocytes # (A) 1.4 k/uL (1.0-4.8); Lymphocytes % (A) 18 %; MCH 31.9 pg (25.0-35.0); MCHC 33.3 g/dL (31.0-37.0); MCV 95.7 fL (80.0-100.0); Mean Platelet Volume 8.9; Monocytes # (A) 0.4 k/uL (0-1.0); Monocytes % (A) 5 %; Neutrophils # (A) 5.4 k/uL (1.3-7.7); Neutrophils % (A) 69 %; Platelet Count 281 k/uL (150-450); RBC 2.86 m/uL (4.30-5.90); RDW 13.7 % (11.5-15.5); WBC 7.7 k/uL (3.8-10.6)
[2017-07-18] MEDS ORDERED: IV FLUID CONTINUATION 900 ML IV ONE (11:58)
[2017-07-18 12:17] LABS: Glucose,Whole Blood 119 mg/dL (75-99)
[2017-07-18] MEDS ORDERED: HEPARIN SODIUM,PORCINE 5,000 UNIT/ML 1 ML VIAL SQ ONE (12:42)
--- NOTE | 2017-07-18 12:43 | P.PN ---
Subjective Progress Note Date: 07/18/17 This is a 81-year-old male with a known history of chronic atrial fibrillation, diabetes mellitus, chronic lower extremity ulcers, chronic kidney disease, hypertension. Patient presents anemia emergency room with complaints of feeling very weak and with evidence of a fever of 101.6. He reports that he went to stand up from his chair and felt very weak and dizzy fluid down the chair onto the floor. He reports that he did not pass out or injure himself. EMS was called and patient was brought into the emergency room. He was slightly confused at that time. However now he is alert and orientated to 3. Patient was found have evidence of sepsis with a temp of 101.6 and lactic acid of 3.7 white count 12.3. Patient has evidence of lower extremity cellulitis around his leg ulcers. He reports that he follows with Dr. Adame at the wound care center for his leg wounds. 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 Patient was started on Augmentin the outpatient setting. However he is still having evidence of cellulitis. Vancomycin has been started and he was also given a dose of IV Zosyn. Infectious disease consulted. Cardiology is also following regards to patient's history of atrial fibrillation. Patient was also found have elevated LFTs and total bilirubin. Denies any abdominal pain. Abdominal ultrasound and hepatic panel has been ordered. Patient denies any chest pain or shortness of breath. Does admit to having some dizziness. Denies any vomiting. The does admit to some nausea intermittently. Denies any bowel movement changes or urinary symptoms. Influenza screen was negative and urinalysis negative. Lactic acid elevated at 3.7 improved with IV fluids down to 1.3 07/12/2017 patient seen by infectious disease. Currently on IV vancomycin. Wound culture growing presumptive staph aureus. Patient denies any nausea or vomiting. Denies any abdominal pain. Denies any chest pain or shortness of breath. Denies any urinary symptoms 07/14/2017 patient lying in bed comfortably. No pain. No evidence of distress. Total bilirubin is up to 4.2. AST 76 ALT 66 and alk phos 164. Hemoglobin 9.9 and INR is 1.18.. Patient had HIDA scan completed yesterday which was markedly abnormal without definitive visualization of the bowel or gallbladder. Acute cholecystitis needs to be considered. Also obstruction of common bile duct reported. GI service consulted. They're planning to proceed with MRCP today. Patient's potassium is low at 3.1 and magnesium is 1.8. He is receiving supplement. He denies any nausea or vomiting. Denies any abdominal pain. Denies any chest pain or shortness breath. Denies any burning with urination. 07/18/2017 patient is scheduled for laparoscopic cholecystectomy today. No abdominal discomfort. Total bilirubin has come down to 2.9. LFTs are trending down. Denies any chest pain or shortness breath. Denies any burning with urination. Denies any bowel movement changes. Objective - Vital Signs Vital signs: Vital Signs Temp 98.7 F 07/18/17 11:53 Pulse 78 07/18/17 11:53 Resp 16 07/18/17 11:53 BP 169/82 07/18/17 11:53 Pulse Ox 95 07/18/17 11:53 Intake & Output 07/17/17 07/18/17 07/18/17 18:59 06:59 18:59 Intake Total 400 Output Total 2100 450 Balance -2100 -50 Weight 95.5 kg Intake: IV 300 Sodium Chloride 0.9% 1, 300 000 ml @ 100 mls/hr IV . Q10H [facility] Rx#:[id number] Intake, IV Titration 100 Amount Ampicillin-Sulbactam 3 gm 100 In Sodium Chloride 0.9% 100 ml @ 100 mls/hr IVPB Q6HR [facility] Rx#:[id number] Output: Urine 2100 450 Other: Voiding Method Urinal # Voids 3 # Bowel Movements 0 - Exam Head normocephalic Neck supple Lungs clear to auscultation bilaterally no wheezing or crackles Heart regular rate and rhythm S1-S2, no rub or gallop Abdomen is soft nontender nondistended positive bowel sounds no hepatosplenomegaly Extremities no edema. Legs are wrapped dressing is clean dry and intact Neuro alert and orientated to 3 - Labs CBC & Chem 7: 07/18/17 08:37 07/18/17 08:37 Labs: Abnormal Lab Results - Last 24 Hours (Table) 07/17/17 07/17/17 07/18/17 Range/Units 17:26 20:59 07:01 RBC (4.30-5.90) m/uL Hgb (13.0-17.5) gm/dL Hct (39.0-53.0) % INR (<1.2) Glucose (74-99) mg/dL POC Glucose (mg/dL) 202 H 199 H 129 H (75-99) mg/dL Total Bilirubin (0.2-1.3) mg/dL AST (17-59) U/L Alkaline Phosphatase (38-126) U/L Total Protein (6.3-8.2) g/dL Albumin (3.5-5.0) g/dL 07/18/17 07/18/17 07/18/17 Range/Units 08:37 08:37 08:37 RBC 2.86 L (4.30-5.90) m/uL Hgb 9.1 L (13.0-17.5) gm/dL Hct 27.4 L (39.0-53.0) % INR 1.2 H (<1.2) Glucose 131 H (74-99) mg/dL POC Glucose (mg/dL) (75-99) mg/dL Total Bilirubin 2.9 H (0.2-1.3) mg/dL AST 81 H (17-59) U/L Alkaline Phosphatase 175 H (38-126) U/L Total Protein 5.4 L (6.3-8.2) g/dL Albumin 2.6 L (3.5-5.0) g/dL 07/18/17 Range/Units 12:09 RBC (4.30-5.90) m/uL Hgb (13.0-17.5) gm/dL Hct (39.0-53.0) % INR (<1.2) Glucose (74-99) mg/dL POC Glucose (mg/dL) 119 H (75-99) mg/dL Total Bilirubin (0.2-1.3) mg/dL AST (17-59) U/L Alkaline Phosphatase (38-126) U/L Total Protein (6.3-8.2) g/dL Albumin (3.5-5.0) g/dL Assessment and Plan Assessment: 1. Sepsis present on admission possibly related to patient's cellulitis and leg wounds. Wound culture growing MSSA. Infectious disease is following. Patient currently on Unasyn 2. 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 Continue with current antibiotics. 3. History of Kyrle's disease 4. Choledocholithiasis status post ERCP and stone extraction. Chronic cholecystitis or biliary dyskinesia patient scheduled for laparoscopic cholecystectomy today. LFTs and total bilirubin are trending down 5. History of chronic atrial fibrillation evaluated by cardiology. Continue Coumadin for anticoagulation EKG had shown atrial fibrillation with a heart rate of 85. INR 1.8 after receiving vitamin K. Continue to hold Coumadin for procedure 6. Diabetes mellitus type II. Continue sliding scale coverage 7. Essential hypertension: Lower blood pressures at present on admission now improved 8. Confusion prior to admission likely metabolic encephalopathy due to patient' s sepsis and cellulitis of the lower extremities 9. Hypokalemia: Resolved 10. History of renal cancer status post right nephrectomy 11. Hypomagnesemia: Repeat magnesium level in a.m. GI prophylaxis Pepcid and DVT prophylaxis Coumadin and Lovenox on hold for procedure I performed an examination of the patient and discussed their management with the physician Scaffold Worker. I have reviewed the Physician Scaffold Worker's notes and agree with the documented findings and plan of care
[2017-07-18] MEDS ORDERED: BUPIVACAINE (PF) 0.25% 30 ML VIAL SQ ONE ×2 (12:47→13:21)
[2017-07-18] MEDS ORDERED: ePHEDrine SULFATE/0.9% NACL/PF 50 MG/5 ML SYRINGE IV ONE (12:51)
[2017-07-18] MEDS ORDERED: NEOSTIGMINE 1 MG/ML 10 ML VIAL ONE (12:51)
[2017-07-18] MEDS ORDERED: SUCCINYLCHOLINE CHLORIDE 100 MG/5 ML SYR IV ONE (12:51)
[2017-07-18] MEDS ORDERED: PHENYLEPHRINE-0.9% NACL SYG 1 MG/10 ML SYRINGE ONE (12:51)
[2017-07-18] MEDS ORDERED: GLYCOPYRROLATE 0.2 MG/ML 2 ML VIAL ONE (12:51)
[2017-07-18] MEDS ORDERED: DEXAMETHASONE SOD PHOS (MDV) 100 MG/10 ML VIAL ONE (12:51)
[2017-07-18] MEDS ORDERED: ONDANSETRON 4 MG/2 ML VIAL ONE (12:51)
[2017-07-18] MEDS ORDERED: LIDOCAINE 1% INJ 10MG/ML (20 ML MDV) ONE (12:51)
[2017-07-18] MEDS ORDERED: ROCURONIUM BROMIDE 10 MG/ML 10 ML VIAL IV ONE (12:51)
[2017-07-18] MEDS ORDERED: MIDAZOLAM 2 MG/2 ML VIAL ONE (12:51)
[2017-07-18] MEDS ORDERED: fentaNYL (PF) 50 MCG/ML 2 ML AMP ONE (12:51)
[2017-07-18 14:22] LABS: Glucose,Whole Blood 152 mg/dL (75-99)
[2017-07-18] MEDS ORDERED: MORPHINE SULFATE/PF 10MG/10ML VL IVP PRN (16:05)
[2017-07-18] MEDS ORDERED: ONDANSETRON 4 MG/2 ML VIAL IVP PRN (16:06)
[2017-07-18 18:02] LABS: Glucose,Whole Blood 208 mg/dL (75-99)
[2017-07-18] MEDS: FUROSEMIDE 40 MG TAB PO SCH (20:28)
[2017-07-18 20:39] LABS: Glucose,Whole Blood 298 mg/dL (75-99)
--- NOTE | 2017-07-18 23:34 | P.PN ---
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 The patient has had local wound care was recently with medical honey with some improvement of his status. He has had difficulty with localized renal cell carcinoma that has been resected. With gentle relatively well until he suddenly became weak today. He relates that suddenly his legs became weak he couldn't navigate any further he fell into his chair and then slowly ended up on the ground. Was able to bring himself up and consequently EMS was called and he was transported to hospital. He has been found evidence of a fever over 101 as well as significant weakness and leukocytosis. There was also evidence of an elevated lactic acid. Because of sepsis the infectious diseases consultation is been requested. Patient is feeling slightly better today after fluid resuscitation and antibiotic therapy. 07/12/2017 patient relates that he is feeling somewhat better today. He is able to eat a bit of food. He's been having some minimal abdominal pain. He is denying nausea or emesis. His legs feel slightly better since the medical honey dressings were applied. His weakness is improved. He believes his fever has also improved. No chills or rigors. 07/14/2017 the patient remains jaundiced feeling somewhat poorly, he is due for an ERCP and then likely a cholecystectomy. He is tolerating antibiotic therapy well for the MSSA that has been isolate up from his chronic leg ulcerations. 07/15/2017 patient feels better after the ERCP in that he is hungry and looks forward to increasing diet. The jaundice is slightly better, abdominal pain improved, no new problems today. 07/16/2017 the patient has had further improvement status post ERCP and stone retrieval. Jaundice is further improved. He is feeling somewhat better today. Enjoying that he has some ability for dietary intake. Denies fevers or chills. Looks forward to his cholecystectomy on Tuesday. The legs are without acute change. 07/18/2017 further improvement is noted today. The patient had his cholecystectomy and he really is very comfortable after the procedure. Pain is minimal. Looks forward to increasing his diet. His jaundice is definitely improved. Objective - Vital Signs Vital signs: Vital Signs Temp 97.0 F L 07/18/17 23:00 Pulse 87 07/18/17 23:00 Resp 16 07/18/17 23:00 BP 144/69 07/18/17 23:00 Pulse Ox 93 L 07/18/17 16:30 Intake & Output 07/18/17 07/18/17 07/19/17 06:59 18:59 06:59 Intake Total 1150 Output Total 2100 1385 200 Balance -2100 -235 -200 Weight 95.5 kg Intake: IV 950 Sodium Chloride 0.9% 1, 300 000 ml @ 100 mls/hr IV . Q10H QUOC Rx#:[id number] Intake, IV Titration 200 Amount Ampicillin-Sulbactam 3 gm 200 In Sodium Chloride 0.9% 100 ml @ 100 mls/hr IVPB Q6HR QUOC Rx#:[id number] Output: Urine 2100 1370 200 Estimated Blood Loss 15 Other: Voiding Method Urinal # Voids 3 # Bowel Movements 0 0 - Exam Pleasant 81-year-old gentleman in no acute distress, improvement of jaundiced HEENT: Less icteric, conjunctiva are pink and moist nasal mucosa grossly intact without significant lesions, there is no thrush. Neck: The neck is supple without significant lymphadenopathy or thyromegaly. Lungs: Good bilateral air entry without significant crackles or wheezing. There is no significant bronchial sounds. There is no egophony or dullness. Heart: Regular rate and rhythm with an audible S1-S2, no S3 no S4. There is no significant murmur click or rub, PMI was nondisplaced. Abdomen: Positive bowel sounds soft and nontender without palpable masses or organomegaly. There was no guarding or rebound. Extremities: The upper extremities have excellent pulses they are symmetric, no significant petechiae or telangiectasia. The lower extremities evidence of the chronic edema which is quite symmetric. The anterior tibial surface bilaterally has evidence of the varicosities, and the chronic ulcerations that are full-thickness with significant calcification of the tissue. The level of tenderness is without change. There is evidence of erythema over the bilateral pretibial areas. There is no expressible purulence. They are tender as usual. Neuro: Awake alert oriented to person place and time. There are no acute new gross focal sensory motor deficits. - Labs CBC & Chem 7: 07/18/17 08:37 07/18/17 08:37 Labs: Abnormal Lab Results - Last 24 Hours (Table) 07/18/17 07/18/17 07/18/17 Range/Units 07:01 08:37 08:37 RBC 2.86 L (4.30-5.90) m/uL Hgb 9.1 L (13.0-17.5) gm/dL Hct 27.4 L (39.0-53.0) % INR 1.2 H (<1.2) Glucose (74-99) mg/dL POC Glucose (mg/dL) 129 H (75-99) mg/dL Total Bilirubin (0.2-1.3) mg/dL AST (17-59) U/L Alkaline Phosphatase (38-126) U/L Total Protein (6.3-8.2) g/dL Albumin (3.5-5.0) g/dL 07/18/17 07/18/17 07/18/17 Range/Units 08:37 12:09 14:20 RBC (4.30-5.90) m/uL Hgb (13.0-17.5) gm/dL Hct (39.0-53.0) % INR (<1.2) Glucose 131 H (74-99) mg/dL POC Glucose (mg/dL) 119 H 152 H (75-99) mg/dL Total Bilirubin 2.9 H (0.2-1.3) mg/dL AST 81 H (17-59) U/L Alkaline Phosphatase 175 H (38-126) U/L Total Protein 5.4 L (6.3-8.2) g/dL Albumin 2.6 L (3.5-5.0) g/dL 07/18/17 07/18/17 Range/Units 17:42 20:35 RBC (4.30-5.90) m/uL Hgb (13.0-17.5) gm/dL Hct (39.0-53.0) % INR (<1.2) Glucose (74-99) mg/dL POC Glucose (mg/dL) 208 H 298 H (75-99) mg/dL Total Bilirubin (0.2-1.3) mg/dL AST (17-59) U/L Alkaline Phosphatase (38-126) U/L Total Protein (6.3-8.2) g/dL Albumin (3.5-5.0) g/dL Laboratory Results WBC 7.7 k/uL (3.8-10.6) 07/18/17 08:37 RBC 2.86 m/uL (4.30-5.90) L 07/18/17 08:37 Hgb 9.1 gm/dL (13.0-17.5) L 07/18/17 08:37 Hct 27.4 % (39.0-53.0) L 07/18/17 08:37 MCV 95.7 fL (80.0-100.0) 07/18/17 08:37 MCH 31.9 pg (25.0-35.0) 07/18/17 08:37 MCHC 33.3 g/dL (31.0-37.0) 07/18/17 08:37 RDW 13.7 % (11.5-15.5) 07/18/17 08:37 Plt Count 281 k/uL (150-450) 07/18/17 08:37 Neutrophils % 69 % 07/18/17 08:37 Neutrophils % (Manual) 76 % 07/10/17 16:05 Band Neutrophils % 19 % 07/10/17 16:05 Lymphocytes % 18 % 07/18/17 08:37 Lymphocytes % (Manual) 3 % 07/10/17 16:05 Monocytes % 5 % 07/18/17 08:37 Monocytes % (Manual) 2 % 07/10/17 16:05 Eosinophils % 5 % 07/18/17 08:37 Basophils % 1 % 07/18/17 08:37 Neutrophils # 5.4 k/uL (1.3-7.7) 07/18/17 08:37 Neutrophils # (Manual) 11.60 k/uL (1.3-7.7) H 07/10/17 16:05 Lymphocytes # 1.4 k/uL (1.0-4.8) 07/18/17 08:37 Lymphocytes # (Manual) 0.37 k/uL (1.0-4.8) L 07/10/17 16:05 Monocytes # 0.4 k/uL (0-1.0) 07/18/17 08:37 Monocytes # (Manual) 0.25 k/uL (0-1.0) 07/10/17 16:05 Eosinophils # 0.4 k/uL (0-0.7) 07/18/17 08:37 Basophils # 0.0 k/uL (0-0.2) 07/18/17 08:37 Nucleated RBCs 0 /100 WBC (0-0) 07/10/17 16:05 Manual Slide Review Performed 07/10/17 16:05 RBC Morphology Normal 07/10/17 16:05 PT 11.2 sec (9.0-12.0) 07/18/17 08:37 INR 1.2 (<1.2) H 07/18/17 08:37 APTT 32.0 sec (22.0-30.0) H 07/10/17 16:05 Sodium 142 mmol/L (137-145) 07/18/17 08:37 Potassium 3.5 mmol/L (3.5-5.1) 07/18/17 08:37 Chloride 103 mmol/L (98-107) 07/18/17 08:37 Carbon Dioxide 28 mmol/L (22-30) 07/18/17 08:37 Anion Gap 11 mmol/L 07/18/17 08:37 BUN 9 mg/dL (9-20) 07/18/17 08:37 Creatinine 0.71 mg/dL (0.66-1.25) 07/18/17 08:37 Est GFR (CKD-EPI)AfAm >90 (>60 ml/min/1.73 sqM) 07/18/17 08:37 Est GFR (CKD-EPI)NonAf 90 (>60 ml/min/1.73 sqM) 07/18/17 08:37 Glucose 131 mg/dL (74-99) H 07/18/17 08:37 POC Glucose (mg/dL) 298 mg/dL (75-99) H 07/18/17 20:35 POC Glu Records Management Clerk Eva Albert 07/18/17 20:[address] Glu mg/dL 117 07/10/17 16:05 Hemoglobin A1c 5.7 % (4.0-6.0) 07/10/17 16:05 Lactic Ac Sepsis Rflx Y 07/10/17 16:42 Plasma Lactic Acid Carlos Eduardo 1.3 mmol/L (0.7-2.0) 07/10/17 20:27 Calcium 8.4 mg/dL (8.4-10.2) 07/18/17 08:37 Magnesium 1.7 mg/dL (1.6-2.3) 07/16/17 08:43 Total Bilirubin 2.9 mg/dL (0.2-1.3) H 07/18/17 08:37 AST 81 U/L (17-59) H 07/18/17 08:37 ALT 71 U/L (21-72) 07/18/17 08:37 Alkaline Phosphatase 175 U/L (38-126) H 07/18/17 08:37 Total Creatine Kinase 31 U/L (55-170) L 07/10/17 16:05 CK-MB (CK-2) 0.2 ng/mL (0.0-2.4) 07/10/17 16:05 CK-MB (CK-2) Rel Index 0.6 07/10/17 16:05 Troponin I 0.017 ng/mL (0.000-0.034) 07/10/17 16:05 Total Protein 5.4 g/dL (6.3-8.2) L 07/18/17 08:37 Albumin 2.6 g/dL (3.5-5.0) L 07/18/17 08:37 Urine Color Yellow 07/10/17 18:50 Urine Appearance Cloudy (Clear) 07/10/17 18:50 Urine pH 6.0 (5.0-8.0) 07/10/17 18:50 Ur Specific Muddy 1.023 (1.001-1.035) 07/10/17 18:50 Urine Protein 1+ (Negative) H 07/10/17 18:50 Urine Glucose (UA) 1+ (Negative) H 07/10/17 18:50 Urine Ketones Trace (Negative) H 07/10/17 18:50 Urine Blood Trace (Negative) H 07/10/17 18:50 Urine Nitrite Negative (Negative) 07/10/17 18:50 Urine Bilirubin 1+ (Negative) H 07/10/17 18:50 Urine Urobilinogen 3.0 mg/dL (<2.0) 07/10/17 18:50 Ur Leukocyte Esterase Negative (Negative) 07/10/17 18:50 Urine RBC 5 /hpf (0-5) 07/10/17 18:50 Urine WBC 5 /hpf (0-5) 07/10/17 18:50 Ur Squamous Epith Cells 1 /hpf (0-4) 07/10/17 18:50 Urine Bacteria Rare /hpf (None) H 07/10/17 18:50 Hyaline Casts 8 /lpf (0-2) H 07/10/17 18:50 Urine Mucus Occasional /hpf (None) H 07/10/17 18:50 Vancomycin Trough 19.4 ug/mL 07/14/17 04:55 Hepatitis A IgM Ab Non-Reactive (Non-Reactive) 07/10/17 16:05 Hep Bs Antigen Non-Reactive (Non-Reactive) 07/10/17 16:05 Hep B Core IgM Ab Non-Reactive (Non-Reactive) 07/10/17 16:05 Hep C IgG Ab Non-Reactive (Non-Reactive) 07/10/17 16:05 Influenza Type A RNA Not Detected (Not Detectd) 07/10/17 16:05 Influenza Type B (PCR) Not Detected (Not Detectd) 07/10/17 16:05 Assessment and Plan (1) Sepsis Current Visit: Yes Status: Acute Code(s): A41.9 - SEPSIS, UNSPECIFIED ORGANISM SNOMED Code(s): 88320525 (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 There is also elevated lactic acid. Fortunately with fluid resuscitation he has done well and has had a good resolution of the sepsis. Appears to have a significant cellulitis of the bilateral lower extremities as etiology of the sepsis and there some pulmonary data show evidence of staphylococcal infection at this site. Continue vancomycin therapy at this time until we have further culture data. Blood cultures negative so far. Given the patient's very poor tissue quality may require a course of outpatient intravenous antibiotic therapy for the completion of treatment of this extensive infection it is resulted in sepsis. Leukocytosis is record related to the sepsis. In fortunately does not have any evidence of acute renal failure given his history of a partial nephrectomy for his renal cell carcinoma. Local wound care as directed with the therahoney the bilateral lower extremities it is changed every other day. Pain control appears to be adequate. Elevate the limbs as he tolerates. 07/12/2017 reveals the patient to feel slightly better. His fever has improved. However he is now slightly jaundice. His appetite is poor she's trying to eat some protein in the day. Ultrasounds been performed and there is a concern to chronic cholecystitis. Surgical consult is in process. With the wound culture showing evidence of MSSA antibiotic therapy will be transitioned from vancomycin to Unasyn which will provide coverage for the MSSA isolated from the legs, and provide therapy for cholecystitis. The AST and ALT have improved, total bilirubin has increased, acute hepatitis panel is negative for any evidence of acute infectious colitis. Continue supportive care. The lower extremities without acute change for this chronic condition continue the therahoney as before does believe he feels better. Culture of the wounds from the legs with MSSA blood cultures negative so far. 07/14/2017 reveals the patient to be more jaundiced. The MRI of the biliary tract reveals evidence of an obstructive stone. He has been evaluated by gastroenterology likely will have an ERCP and then subsequently a cholecystectomy will be performed. The patient does feel slightly poorly and that with the jaundice he has some nausea and malaise. He however is denying high-grade fevers. He is receiving Unasyn for the MSSA isolated from the legs would also give coverage for the biliary tract. Blood cultures remain negative. Continue the therahoney dressings to the legs. Bilirubin has increased to 4.2. 07/15/2017 patient is improved after the ERCP, and is awaiting decision as to cholecystectomy. Continue current antibiotics of Unasyn given the significant clinical improvement and we'll also give ongoing treatment to the MSSA isolate her from the legs that had cellulitis component admission that improved at this time. 07/16/2017 reveals the patient have further improvement status post ERCP. Likely will have his cholecystectomy on Tuesday which further improve his status. Continue Unasyn at this time for treatment of both the acute cholecystitis as well as MSSA of his bilateral legs with a bit of cellulitis that was present that is improving due to his chronic calciphylaxis of his limb. Elevate the limbs at rest. Pain control is adequate. Jaundice is improved after his stone retrieval at the time of the ERCP. 07/18/2017 the patient is showing further improvement status post his cholecystectomy. He is having some advancing diet. His jaundice is further improved. Biochemically improving. No fevers or chills. We'll likely be ready to transition to oral antibiotic therapy in the next day or 2 if she continues recovering from his cholecystectomy. Continue local wound care which is medical any to the leg ulcerations that are chronic from the calciphylaxis. Current Visit: Yes Status: Acute Code(s): E83.59 - OTHER DISORDERS OF CALCIUM METABOLISM; L97.922 - NON-PRS CHR ULC UNSP PRT OF L LOW LEG W FAT LAYER EXPOSED SNOMED Code(s): 76080638 (3) Diabetes mellitus type 2 with complications Current Visit: Yes Status: Acute Code(s): E11.8 - TYPE 2 DIABETES MELLITUS WITH UNSPECIFIED COMPLICATIONS SNOMED Code(s): 74336538
[2017-07-19] MEDS: AMPICILLIN-SULBACTAM 3 GM in SODIUM CHLORIDE 0.9% 100 ML IVPB SCH ×3 (05:25→18:49)
[2017-07-19 07:44] LABS: Glucose,Whole Blood 243 mg/dL (75-99)
[2017-07-19] MEDS: INSULIN ASPART 100 UNIT/ML 1 ML 10 ML VIAL SQ SCH ×4 (08:09→22:25)
[2017-07-19] MEDS: SODIUM CHLORIDE 0.9% 1,000 ML IV SCH ×2 (08:10→17:59)
[2017-07-19] MEDS: FLUoxetine HCL 20 MG CAP PO SCH (08:10)
[2017-07-19] MEDS: DILTIAZEM CD 120 MG CAP.ER.24H PO SCH (08:10)
[2017-07-19] MEDS: MECLIZINE 25 MG TAB PO SCH ×2 (08:10→20:50)
[2017-07-19 09:25] LABS: ALT 68 U/L (21-72); AST 69 U/L (17-59); Albumin 2.5 g/dL (3.5-5.0); Alkaline Phosphatase 155 U/L (38-126); Anion Gap 10 mmol/L; Blood Urea Nitrogen 13 mg/dL (9-20); Calcium 8.4 mg/dL (8.4-10.2); Carbon Dioxide 25 mmol/L (22-30); Chloride 100 mmol/L (98-107); Glucose 260 mg/dL (74-99); Potassium 4.2 mmol/L (3.5-5.1); Sodium 135 mmol/L (137-145); Total Protein 5.5 g/dL (6.3-8.2)
[2017-07-19 10:29] LABS: Basophils % (A) 0 %; Eosinophils % (A) 0 %; HCT 28.2 % (39.0-53.0); Lymphocytes # (A) 0.9 k/uL (1.0-4.8); Lymphocytes % (A) 8 %; MCH 30.7 pg (25.0-35.0); MCV 95.9 fL (80.0-100.0); Mean Platelet Volume 10.2; Monocytes # (A) 0.5 k/uL (0-1.0); Monocytes % (A) 5 %; Neutrophils # (A) 9.7 k/uL (1.3-7.7); Neutrophils % (A) 86 %; Platelet Count 314 k/uL (150-450); RBC 2.94 m/uL (4.30-5.90); RDW 14.2 % (11.5-15.5); WBC 11.2 k/uL (3.8-10.6)
[2017-07-19 11:54] LABS: Glucose,Whole Blood 264 mg/dL (75-99)
--- NOTE | 2017-07-19 12:08 | P.PN ---
Subjective Progress Note Date: 07/19/17 81-year-old male seen at bedside patient is status post a 18 of July laparoscopic cholecystectomy. Surgical incision sites dry abdomen soft nondistended currently resting in bed reports tolerating a diet no nausea no vomiting and total bili are trending down Postop July 18 labs copy cholecystectomy Objective - Vital Signs Vital signs: Vital Signs Temp 98.3 F 07/19/17 07:00 Pulse 73 07/19/17 07:00 Resp 20 07/19/17 07:00 BP 148/66 07/19/17 07:00 Pulse Ox 95 07/19/17 07:00 Intake & Output 07/18/17 07/19/17 07/19/17 18:59 06:59 18:59 Intake Total 1150 Output Total 1385 200 Balance -235 -200 Weight 95.5 kg Intake: IV 950 Sodium Chloride 0.9% 1, 300 000 ml @ 100 mls/hr IV . Q10H QUOC Rx#:[id number] Intake, IV Titration 200 Amount Ampicillin-Sulbactam 3 gm 200 In Sodium Chloride 0.9% 100 ml @ 100 mls/hr IVPB Q6HR QUOC Rx#:[id number] Output: Urine 1370 200 Estimated Blood Loss 15 Other: Voiding Method Urinal Urinal Urinal # Voids 3 2 # Bowel Movements 0 - Exam Physical exam 81-year-old male sitting up in bed taking a diet no nausea no vomiting oriented 3 less jaundiced Lungs adequate air movement bilaterally no shortness of breath Heart S1-S2 audible irregular Abdomen obese soft surgical incision site dressings dry active bowel tones no difficulty in urinating reports passing gas no bowel movements Extremities no edema noted - Labs CBC & Chem 7: 07/19/17 08:27 07/19/17 08:27 Labs: Abnormal Lab Results - Last 24 Hours (Table) 07/18/17 07/18/17 07/18/17 Range/Units 12:09 14:20 17:42 WBC (3.8-10.6) k/uL RBC (4.30-5.90) m/uL Hgb (13.0-17.5) gm/dL Hct (39.0-53.0) % Neutrophils # (1.3-7.7) k/uL Lymphocytes # (1.0-4.8) k/uL Sodium (137-145) mmol/L Glucose (74-99) mg/dL POC Glucose (mg/dL) 119 H 152 H 208 H (75-99) mg/dL Total Bilirubin (0.2-1.3) mg/dL AST (17-59) U/L Alkaline Phosphatase (38-126) U/L Total Protein (6.3-8.2) g/dL Albumin (3.5-5.0) g/dL 07/18/17 07/19/17 07/19/17 Range/Units 20:35 07:36 08:27 WBC 11.2 H (3.8-10.6) k/uL RBC 2.94 L (4.30-5.90) m/uL Hgb 9.0 L (13.0-17.5) gm/dL Hct 28.2 L (39.0-53.0) % Neutrophils # 9.7 H (1.3-7.7) k/uL Lymphocytes # 0.9 L (1.0-4.8) k/uL Sodium (137-145) mmol/L Glucose (74-99) mg/dL POC Glucose (mg/dL) 298 H 243 H (75-99) mg/dL Total Bilirubin (0.2-1.3) mg/dL AST (17-59) U/L Alkaline Phosphatase (38-126) U/L Total Protein (6.3-8.2) g/dL Albumin (3.5-5.0) g/dL 07/19/17 07/19/17 Range/Units 08:27 11:46 WBC (3.8-10.6) k/uL RBC (4.30-5.90) m/uL Hgb (13.0-17.5) gm/dL Hct (39.0-53.0) % Neutrophils # (1.3-7.7) k/uL Lymphocytes # (1.0-4.8) k/uL Sodium 135 L (137-145) mmol/L Glucose 260 H (74-99) mg/dL POC Glucose (mg/dL) 264 H (75-99) mg/dL Total Bilirubin 2.0 H (0.2-1.3) mg/dL AST 69 H (17-59) U/L Alkaline Phosphatase 155 H (38-126) U/L Total Protein 5.5 L (6.3-8.2) g/dL Albumin 2.5 L (3.5-5.0) g/dL Assessment and Plan Assessment: Impression Present on admission sepsis suspect due to cellulitis with bilateral lower extremity wounds Wound cultures lower extremities MSSA Elevated liver function studies and total bilirubin with an ultrasound of the gallbladder revealing enlarged hydropic gallbladder with biliary sludge and small gallstones Chronic atrial fibrillation on anticoagulation Coumadin Present on admission hypercoagulopathy suspect Coumadin induced Abdominal pain right upper quadrant suspect due to chronic cholecystitis MRCP done on the shows partially obstructing calculus within the distal common bile duct Postop July 18 laparoscopic cholecystectomy Plan Continue postop surgical care From a surgical perspective patient is felt to be clinically stable appropriate to proceed with a discharge defer to the timing of the discharge to the attending Wound care as ordered Further surgical recommendations pending note dictated for dr mark The above impression and plan of care have been discussed and directed by signing physician. Rosemarie Rivero nurse practitioner acting as scribe for signing physician.
--- NOTE | 2017-07-19 15:05 | P.PN ---
Subjective Progress Note Date: 07/19/17 This is a 81-year-old male with a known history of chronic atrial fibrillation, diabetes mellitus, chronic lower extremity ulcers, chronic kidney disease, hypertension. Patient presents anemia emergency room with complaints of feeling very weak and with evidence of a fever of 101.6. He reports that he went to stand up from his chair and felt very weak and dizzy fluid down the chair onto the floor. He reports that he did not pass out or injure himself. EMS was called and patient was brought into the emergency room. He was slightly confused at that time. However now he is alert and orientated to 3. Patient was found have evidence of sepsis with a temp of 101.6 and lactic acid of 3.7 white count 12.3. Patient has evidence of lower extremity cellulitis around his leg ulcers. He reports that he follows with Dr. Adame at the wound care center for his leg wounds. 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 Patient was started on Augmentin the outpatient setting. However he is still having evidence of cellulitis. Vancomycin has been started and he was also given a dose of IV Zosyn. Infectious disease consulted. Cardiology is also following regards to patient's history of atrial fibrillation. Patient was also found have elevated LFTs and total bilirubin. Denies any abdominal pain. Abdominal ultrasound and hepatic panel has been ordered. Patient denies any chest pain or shortness of breath. Does admit to having some dizziness. Denies any vomiting. The does admit to some nausea intermittently. Denies any bowel movement changes or urinary symptoms. Influenza screen was negative and urinalysis negative. Lactic acid elevated at 3.7 improved with IV fluids down to 1.3 07/12/2017 patient seen by infectious disease. Currently on IV vancomycin. Wound culture growing presumptive staph aureus. Patient denies any nausea or vomiting. Denies any abdominal pain. Denies any chest pain or shortness of breath. Denies any urinary symptoms 07/14/2017 patient lying in bed comfortably. No pain. No evidence of distress. Total bilirubin is up to 4.2. AST 76 ALT 66 and alk phos 164. Hemoglobin 9.9 and INR is 1.18.. Patient had HIDA scan completed yesterday which was markedly abnormal without definitive visualization of the bowel or gallbladder. Acute cholecystitis needs to be considered. Also obstruction of common bile duct reported. GI service consulted. They're planning to proceed with MRCP today. Patient's potassium is low at 3.1 and magnesium is 1.8. He is receiving supplement. He denies any nausea or vomiting. Denies any abdominal pain. Denies any chest pain or shortness breath. Denies any burning with urination. 07/18/2017 patient is scheduled for laparoscopic cholecystectomy today. No abdominal discomfort. Total bilirubin has come down to 2.9. LFTs are trending down. Denies any chest pain or shortness breath. Denies any burning with urination. Denies any bowel movement changes. 07/19/2017 patient is status post laparoscopic cholecystectomy. He is tolerating diet. He has been cleared by surgical service for discharge. White count today has jumped up to 11.2. Blood sugars have also been elevated. Denies any abdominal pain or nausea or vomiting. Objective - Vital Signs Vital signs: Vital Signs Temp 98.3 F 07/19/17 07:00 Pulse 73 07/19/17 07:00 Resp 20 07/19/17 07:00 BP 148/66 07/19/17 07:00 Pulse Ox 95 07/19/17 07:00 Intake & Output 07/18/17 07/19/17 07/19/17 18:59 06:59 18:59 Intake Total 1150 Output Total 1385 200 320 Balance -235 -200 -320 Weight 95.5 kg Intake: IV 950 Sodium Chloride 0.9% 1, 300 000 ml @ 100 mls/hr IV . Q10H QUOC Rx#:[id number] Intake, IV Titration 200 Amount Ampicillin-Sulbactam 3 gm 200 In Sodium Chloride 0.9% 100 ml @ 100 mls/hr IVPB Q6HR QUOC Rx#:[id number] Output: Urine 1370 200 320 Estimated Blood Loss 15 Other: Voiding Method Urinal Urinal Urinal # Voids 3 2 # Bowel Movements 0 - Exam Head normocephalic Neck supple Lungs clear to auscultation bilaterally no wheezing or crackles Heart regular rate and rhythm S1-S2, no rub or gallop Abdomen is soft nontender nondistended positive bowel sounds no hepatosplenomegaly Extremities no edema. Legs are wrapped dressing is clean dry and intact Neuro alert and orientated to 3 - Labs CBC & Chem 7: 07/19/17 08:27 07/19/17 08:27 Labs: Abnormal Lab Results - Last 24 Hours (Table) 07/18/17 07/18/17 07/19/17 Range/Units 17:42 20:35 07:36 WBC (3.8-10.6) k/uL RBC (4.30-5.90) m/uL Hgb (13.0-17.5) gm/dL Hct (39.0-53.0) % Neutrophils # (1.3-7.7) k/uL Lymphocytes # (1.0-4.8) k/uL Sodium (137-145) mmol/L Glucose (74-99) mg/dL POC Glucose (mg/dL) 208 H 298 H 243 H (75-99) mg/dL Total Bilirubin (0.2-1.3) mg/dL AST (17-59) U/L Alkaline Phosphatase (38-126) U/L Total Protein (6.3-8.2) g/dL Albumin (3.5-5.0) g/dL 07/19/17 07/19/17 07/19/17 Range/Units 08:27 08:27 11:46 WBC 11.2 H (3.8-10.6) k/uL RBC 2.94 L (4.30-5.90) m/uL Hgb 9.0 L (13.0-17.5) gm/dL Hct 28.2 L (39.0-53.0) % Neutrophils # 9.7 H (1.3-7.7) k/uL Lymphocytes # 0.9 L (1.0-4.8) k/uL Sodium 135 L (137-145) mmol/L Glucose 260 H (74-99) mg/dL POC Glucose (mg/dL) 264 H (75-99) mg/dL Total Bilirubin 2.0 H (0.2-1.3) mg/dL AST 69 H (17-59) U/L Alkaline Phosphatase 155 H (38-126) U/L Total Protein 5.5 L (6.3-8.2) g/dL Albumin 2.5 L (3.5-5.0) g/dL Assessment and Plan Assessment: 1. Sepsis present on admission possibly related to patient's cellulitis and leg wounds. Wound culture growing MSSA. Infectious disease is following. Patient currently on Unasyn 2. 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 Continue with current antibiotics. 3. History of Kyrle's disease 4. Choledocholithiasis status post ERCP and stone extraction. LFTs continued to trend down 5. History of chronic atrial fibrillation evaluated by cardiology. Continue Coumadin for anticoagulation EKG had shown atrial fibrillation with a heart rate of 85. Resume patient's Coumadin 6. Diabetes mellitus type II. Continue sliding scale coverage. Blood sugars are elevated. Resume patient's metformin and monitor 7. Essential hypertension: Lower blood pressures at present on admission now improved 8. Confusion prior to admission likely metabolic encephalopathy due to patient' s sepsis and cellulitis of the lower extremities 9. Hypokalemia: Resolved 10. History of renal cancer status post right nephrectomy 11. Hypomagnesemia: Repeat magnesium level in a.m. 12. Chronic cholecystitis status post laparoscopic cholecystectomy GI prophylaxis Pepcid and DVT prophylaxis Coumadin and Lovenox until INR is therapeutic I performed an examination of the patient and discussed their management with the physician [employer]. I have reviewed the Physician [employer]ager's notes and agree with the documented findings and plan of care
[2017-07-19 17:50] LABS: Glucose,Whole Blood 223 mg/dL (75-99)
[2017-07-19] MEDS: metFORMIN 500 MG TAB PO SCH (17:59)
[2017-07-19] MEDS: FUROSEMIDE 40 MG TAB PO SCH (20:50)
[2017-07-19] MEDS: ENOXAPARIN 60 MG/0.6 ML SYRINGE SQ SCH (20:50)
[2017-07-19 20:56] LABS: Glucose,Whole Blood 195 mg/dL (75-99)
--- NOTE | 2017-07-20 00:34 | P.PN ---
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 The patient has had local wound care was recently with medical honey with some improvement of his status. He has had difficulty with localized renal cell carcinoma that has been resected. With gentle relatively well until he suddenly became weak today. He relates that suddenly his legs became weak he couldn't navigate any further he fell into his chair and then slowly ended up on the ground. Was able to bring himself up and consequently EMS was called and he was transported to hospital. He has been found evidence of a fever over 101 as well as significant weakness and leukocytosis. There was also evidence of an elevated lactic acid. Because of sepsis the infectious diseases consultation is been requested. Patient is feeling slightly better today after fluid resuscitation and antibiotic therapy. 07/12/2017 patient relates that he is feeling somewhat better today. He is able to eat a bit of food. He's been having some minimal abdominal pain. He is denying nausea or emesis. His legs feel slightly better since the medical honey dressings were applied. His weakness is improved. He believes his fever has also improved. No chills or rigors. 07/14/2017 the patient remains jaundiced feeling somewhat poorly, he is due for an ERCP and then likely a cholecystectomy. He is tolerating antibiotic therapy well for the MSSA that has been isolate up from his chronic leg ulcerations. 07/15/2017 patient feels better after the ERCP in that he is hungry and looks forward to increasing diet. The jaundice is slightly better, abdominal pain improved, no new problems today. 07/16/2017 the patient has had further improvement status post ERCP and stone retrieval. Jaundice is further improved. He is feeling somewhat better today. Enjoying that he has some ability for dietary intake. Denies fevers or chills. Looks forward to his cholecystectomy on Tuesday. The legs are without acute change. 07/18/2017 further improvement is noted today. The patient had his cholecystectomy and he really is very comfortable after the procedure. Pain is minimal. Looks forward to increasing his diet. His jaundice is definitely improved. 07/19/2017 reveals the patient to have further improvement status post his laparoscopic cholecystectomy. Pain is improving. In denying any acute no difficulties. Appetite is recovering but is still very weak. Objective - Vital Signs Vital signs: Vital Signs Temp 98.0 F 07/19/17 15:00 Pulse 69 07/19/17 19:28 Resp 18 07/19/17 19:28 BP 126/65 07/19/17 15:00 Pulse Ox 95 07/19/17 07:00 Intake & Output 07/19/17 07/19/17 07/20/17 06:59 18:59 06:59 Intake Total 400 Output Total 200 320 500 Balance -200 -320 -100 Intake: Intake, IV Titration 400 Amount Ampicillin-Sulbactam 3 gm 100 In Sodium Chloride 0.9% 100 ml @ 100 mls/hr IVPB Q6HR QUOC Rx#:[id number] Sodium Chloride 0.9% 1, 300 000 ml @ 100 mls/hr IV . Q10H QUOC Rx#:[id number] Output: Urine 200 320 500 Other: Voiding Method Urinal Urinal # Voids 2 2 - Exam Pleasant 81-year-old gentleman in no acute distress, improvement of jaundiced HEENT: Less icteric, conjunctiva are pink and moist nasal mucosa grossly intact without significant lesions, there is no thrush. Neck: The neck is supple without significant lymphadenopathy or thyromegaly. Lungs: Good bilateral air entry without significant crackles or wheezing. There is no significant bronchial sounds. There is no egophony or dullness. Heart: Regular rate and rhythm with an audible S1-S2, no S3 no S4. There is no significant murmur click or rub, PMI was nondisplaced. Abdomen: Positive bowel sounds soft and nontender without palpable masses or organomegaly. There was no guarding or rebound. Extremities: The upper extremities have excellent pulses they are symmetric, no significant petechiae or telangiectasia. The lower extremities evidence of the chronic edema which is quite symmetric. The anterior tibial surface bilaterally has evidence of the varicosities, and the chronic ulcerations that are full-thickness with significant calcification of the tissue. The level of tenderness is without change. There is evidence of erythema over the bilateral pretibial areas. There is no expressible purulence. They are tender as usual. Neuro: Awake alert oriented to person place and time. There are no acute new gross focal sensory motor deficits. - Labs CBC & Chem 7: 07/19/17 08:27 07/19/17 08:27 Labs: Abnormal Lab Results - Last 24 Hours (Table) 07/19/17 07/19/17 07/19/17 Range/Units 07:36 08:27 08:27 WBC 11.2 H (3.8-10.6) k/uL RBC 2.94 L (4.30-5.90) m/uL Hgb 9.0 L (13.0-17.5) gm/dL Hct 28.2 L (39.0-53.0) % Neutrophils # 9.7 H (1.3-7.7) k/uL Lymphocytes # 0.9 L (1.0-4.8) k/uL Sodium 135 L (137-145) mmol/L Glucose 260 H (74-99) mg/dL POC Glucose (mg/dL) 243 H (75-99) mg/dL Total Bilirubin 2.0 H (0.2-1.3) mg/dL AST 69 H (17-59) U/L Alkaline Phosphatase 155 H (38-126) U/L Total Protein 5.5 L (6.3-8.2) g/dL Albumin 2.5 L (3.5-5.0) g/dL 07/19/17 07/19/17 07/19/17 Range/Units 11:46 17:07 20:53 WBC (3.8-10.6) k/uL RBC (4.30-5.90) m/uL Hgb (13.0-17.5) gm/dL Hct (39.0-53.0) % Neutrophils # (1.3-7.7) k/uL Lymphocytes # (1.0-4.8) k/uL Sodium (137-145) mmol/L Glucose (74-99) mg/dL POC Glucose (mg/dL) 264 H 223 H 195 H (75-99) mg/dL Total Bilirubin (0.2-1.3) mg/dL AST (17-59) U/L Alkaline Phosphatase (38-126) U/L Total Protein (6.3-8.2) g/dL Albumin (3.5-5.0) g/dL Laboratory Results WBC 11.2 k/uL (3.8-10.6) H 07/19/17 08:27 RBC 2.94 m/uL (4.30-5.90) L 07/19/17 08:27 Hgb 9.0 gm/dL (13.0-17.5) L 07/19/17 08: Hct 28.2 % (39.0-53.0) L 07/19/17 08: MCV 95.9 fL (80.0-100.0) 07/19/17 08: MCH 30.7 pg (25.0-35.0) 07/19/17 08: MCHC 32.0 g/dL (31.0-37.0) 07/19/17 08: RDW 14.2 % (11.5-15.5) 07/19/17 08: Plt Count 314 k/uL (150-450) 07/19/17 08: Neutrophils % 86 % 07/19/17 08: Neutrophils % (Manual) 76 % 07/10/17 16:05 Band Neutrophils % 19 % 07/10/17 16:05 Lymphocytes % 8 % 07/19/17 08:27 Lymphocytes % (Manual) 3 % 07/10/17 16:05 Monocytes % 5 % 07/19/17 08: Monocytes % (Manual) 2 % 07/10/17 16:05 Eosinophils % 0 % 07/19/17 08: Basophils % 0 % 07/19/17 08:27 Neutrophils # 9.7 k/uL (1.3-7.7) H 07/19/17 08: Neutrophils # (Manual) 11.60 k/uL (1.3-7.7) H 07/10/17 16:05 Lymphocytes # 0.9 k/uL (1.0-4.8) L 07/19/17 08: Lymphocytes # (Manual) 0.37 k/uL (1.0-4.8) L 07/10/17 16:05 Monocytes # 0.5 k/uL (0-1.0) 07/19/17 08: Monocytes # (Manual) 0.25 k/uL (0-1.0) 07/10/17 16:05 Eosinophils # 0.0 k/uL (0-0.7) 07/19/17 08: Basophils # 0.0 k/uL (0-0.2) 07/19/17 08:27 Nucleated RBCs 0 /100 WBC (0-0) 07/10/17 16:05 Manual Slide Review Performed 07/10/17 16:05 RBC Morphology Normal 07/10/17 16:05 PT 11.2 sec (9.0-12.0) 07/18/17 08:37 INR 1.2 (<1.2) H 07/18/17 08:37 APTT 32.0 sec (22.0-30.0) H 07/10/17 16:05 Sodium 135 mmol/L (137-145) L 07/19/17 08:27 Potassium 4.2 mmol/L (3.5-5.1) 07/19/17 08:27 Chloride 100 mmol/L (98-107) 07/19/17 08:27 Carbon Dioxide 25 mmol/L (22-30) 07/19/17 08:27 Anion Gap 10 mmol/L 07/19/17 08:27 BUN 13 mg/dL (9-20) 07/19/17 08:27 Creatinine 0.74 mg/dL (0.66-1.25) 07/19/17 08:27 Est GFR (CKD-EPI)AfAm >90 (>60 ml/min/1.73 sqM) 07/19/17 08:27 Est GFR (CKD-EPI)NonAf 88 (>60 ml/min/1.73 sqM) 07/19/17 08:27 Glucose 260 mg/dL (74-99) H 07/19/17 08:27 POC Glucose (mg/dL) 195 mg/dL (75-99) H 07/19/17 20:53 POC Glu Project Inspector ID [email or web address] Lassiter 07/19/17 20:[address] Glu mg/dL 117 07/10/17 16:05 Hemoglobin A1c 5.7 % (4.0-6.0) 07/10/17 16:05 Lactic Ac Sepsis Rflx Y 07/10/17 16:42 Plasma Lactic Acid Carlos Eduardo 1.3 mmol/L (0.7-2.0) 07/10/17 20:27 Calcium 8.4 mg/dL (8.4-10.2) 07/19/17 08:27 Magnesium 1.7 mg/dL (1.6-2.3) 07/16/17 08:43 Total Bilirubin 2.0 mg/dL (0.2-1.3) H 07/19/17 08:27 AST 69 U/L (17-59) H 07/19/17 08:27 ALT 68 U/L (21-72) 07/19/17 08:27 Alkaline Phosphatase 155 U/L (38-126) H 07/19/17 08:27 Total Creatine Kinase 31 U/L (55-170) L 07/10/17 16:05 CK-MB (CK-2) 0.2 ng/mL (0.0-2.4) 07/10/17 16:05 CK-MB (CK-2) Rel Index 0.6 07/10/17 16:05 Troponin I 0.017 ng/mL (0.000-0.034) 07/10/17 16:05 Total Protein 5.5 g/dL (6.3-8.2) L 07/19/17 08:27 Albumin 2.5 g/dL (3.5-5.0) L 07/19/17 08:27 Urine Color Yellow 07/10/17 18:50 Urine Appearance Cloudy (Clear) 07/10/17 18:50 Urine pH 6.0 (5.0-8.0) 07/10/17 18:50 Ur Specific [place] 1.023 (1.001-1.035) 07/10/17 18:50 Urine Protein 1+ (Negative) H 07/10/17 18:50 Urine Glucose (UA) 1+ (Negative) H 07/10/17 18:50 Urine Ketones Trace (Negative) H 07/10/17 18:50 Urine Blood Trace (Negative) H 07/10/17 18:50 Urine Nitrite Negative (Negative) 07/10/17 18:50 Urine Bilirubin 1+ (Negative) H 07/10/17 18:50 Urine Urobilinogen 3.0 mg/dL (<2.0) 07/10/17 18:50 Ur Leukocyte Esterase Negative (Negative) 07/10/17 18:50 Urine RBC 5 /hpf (0-5) 07/10/17 18:50 Urine WBC 5 /hpf (0-5) 07/10/17 18:50 Ur Squamous Epith Cells 1 /hpf (0-4) 07/10/17 18:50 Urine Bacteria Rare /hpf (None) H 07/10/17 18:50 Hyaline Casts 8 /lpf (0-2) H 07/10/17 18:50 Urine Mucus Occasional /hpf (None) H 07/10/17 18:50 Vancomycin Trough 19.4 ug/mL 07/14/17 04:55 Hepatitis A IgM Ab Non-Reactive (Non-Reactive) 07/10/17 16:05 Hep Bs Antigen Non-Reactive (Non-Reactive) 07/10/17 16:05 Hep B Core IgM Ab Non-Reactive (Non-Reactive) 07/10/17 16:05 Hep C IgG Ab Non-Reactive (Non-Reactive) 07/10/17 16:05 Influenza Type A RNA Not Detected (Not Detectd) 07/10/17 16:05 Influenza Type B (PCR) Not Detected (Not Detectd) 07/10/17 16:05 Microbiology 07/10/17 16:05 Blood Blood Culture - Final No Growth after 144 hours 07/10/17 17:02 Leg - Right Gram Stain - Final 07/10/17 17:02 Leg - Right Wound Culture - Final Staphylococcus aureus 07/10/17 17:02 Leg - Left Gram Stain - Final 07/10/17 17:02 Leg - Left Wound Culture - Final Staphylococcus aureus 07/10/17 18:50 Urine,Voided Urine Culture - Final Assessment and Plan (1) Sepsis Current Visit: Yes Status: Acute Code(s): A41.9 - SEPSIS, UNSPECIFIED ORGANISM SNOMED Code(s): 45410694 (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 There is also elevated lactic acid. Fortunately with fluid resuscitation he has done well and has had a good resolution of the sepsis. Appears to have a significant cellulitis of the bilateral lower extremities as etiology of the sepsis and there some pulmonary data show evidence of staphylococcal infection at this site. Continue vancomycin therapy at this time until we have further culture data. Blood cultures negative so far. Given the patient's very poor tissue quality may require a course of outpatient intravenous antibiotic therapy for the completion of treatment of this extensive infection it is resulted in sepsis. Leukocytosis is record related to the sepsis. In fortunately does not have any evidence of acute renal failure given his history of a partial nephrectomy for his renal cell carcinoma. Local wound care as directed with the therahoney the bilateral lower extremities it is changed every other day. Pain control appears to be adequate. Elevate the limbs as he tolerates. 07/12/2017 reveals the patient to feel slightly better. His fever has improved. However he is now slightly jaundice. His appetite is poor she's trying to eat some protein in the day. Ultrasounds been performed and there is a concern to chronic cholecystitis. Surgical consult is in process. With the wound culture showing evidence of MSSA antibiotic therapy will be transitioned from vancomycin to Unasyn which will provide coverage for the MSSA isolated from the legs, and provide therapy for cholecystitis. The AST and ALT have improved, total bilirubin has increased, acute hepatitis panel is negative for any evidence of acute infectious colitis. Continue supportive care. The lower extremities without acute change for this chronic condition continue the therahoney as before does believe he feels better. Culture of the wounds from the legs with MSSA blood cultures negative so far. 07/14/2017 reveals the patient to be more jaundiced. The MRI of the biliary tract reveals evidence of an obstructive stone. He has been evaluated by gastroenterology likely will have an ERCP and then subsequently a cholecystectomy will be performed. The patient does feel slightly poorly and that with the jaundice he has some nausea and malaise. He however is denying high-grade fevers. He is receiving Unasyn for the MSSA isolated from the legs would also give coverage for the biliary tract. Blood cultures remain negative. Continue the therahoney dressings to the legs. Bilirubin has increased to 4.2. 07/15/2017 patient is improved after the ERCP, and is awaiting decision as to cholecystectomy. Continue current antibiotics of Unasyn given the significant clinical improvement and we'll also give ongoing treatment to the MSSA isolate her from the legs that had cellulitis component admission that improved at this time. 07/16/2017 reveals the patient have further improvement status post ERCP. Likely will have his cholecystectomy on Tuesday which further improve his status. Continue Unasyn at this time for treatment of both the acute cholecystitis as well as MSSA of his bilateral legs with a bit of cellulitis that was present that is improving due to his chronic calciphylaxis of his limb. Elevate the limbs at rest. Pain control is adequate. Jaundice is improved after his stone retrieval at the time of the ERCP. 07/18/2017 the patient is showing further improvement status post his cholecystectomy. He is having some advancing diet. His jaundice is further improved. Biochemically improving. No fevers or chills. We'll likely be ready to transition to oral antibiotic therapy in the next day or 2 if she continues recovering from his cholecystectomy. Continue local wound care which is medical any to the leg ulcerations that are chronic from the calciphylaxis. 07/19/2017 reveals a patient with further improvement after his cholecystectomy. Tolerating his diet. Jaundice is improving. The abnormal liver function tests continue to improve. He does have the calciphylaxis in the chronic changes to the lower extremities they're doing well with the local care with medical honey and local care with elevation. Transitioning to oral Augmentin can be advised to finish the course of therapy for the cholecystitis and staphylococcal infections of the lower extremities Current Visit: Yes Status: Acute Code(s): E83.59 - OTHER DISORDERS OF CALCIUM METABOLISM; L97.922 - NON-PRS CHR ULC UNSP PRT OF L LOW LEG W FAT LAYER EXPOSED SNOMED Code(s): 56668304 (3) Diabetes mellitus type 2 with complications Current Visit: Yes Status: Acute Code(s): E11.8 - TYPE 2 DIABETES MELLITUS WITH UNSPECIFIED COMPLICATIONS SNOMED Code(s): 93048324
[2017-07-20] MEDS: AMPICILLIN-SULBACTAM 3 GM in SODIUM CHLORIDE 0.9% 100 ML IVPB SCH ×4 (05:30→12:09)
[2017-07-20] MEDS: SODIUM CHLORIDE 0.9% 1,000 ML IV SCH (05:30)
[2017-07-20 07:44] LABS: Glucose,Whole Blood 126 mg/dL (75-99)
[2017-07-20] MEDS: INSULIN ASPART 100 UNIT/ML 1 ML 10 ML VIAL SQ SCH ×2 (07:48→13:31)
[2017-07-20 08:08] VITALS: BP 142/74; PULSE 86; RESP 18; TEMP 97.7
[2017-07-20] MEDS: ENOXAPARIN 60 MG/0.6 ML SYRINGE SQ SCH (10:11)
[2017-07-20 10:12] LABS: Basophils % (A) 0 %; Eosinophils # (A) 0.3 k/uL (0-0.7); Eosinophils % (A) 3 %; HGB 8.3 gm/dL (13.0-17.5); Lymphocytes # (A) 1.2 k/uL (1.0-4.8); Lymphocytes % (A) 13 %; MCHC 30.7 g/dL (31.0-37.0); MCV 97.9 fL (80.0-100.0); Mean Platelet Volume 9.4; Monocytes # (A) 0.4 k/uL (0-1.0); Monocytes % (A) 4 %; Neutrophils # (A) 7.5 k/uL (1.3-7.7); Neutrophils % (A) 79 %; Platelet Count 328 k/uL (150-450); RBC 2.76 m/uL (4.30-5.90); RDW 14.7 % (11.5-15.5); WBC 9.5 k/uL (3.8-10.6)
[2017-07-20] MEDS: metFORMIN 500 MG TAB PO SCH (10:12)
[2017-07-20] MEDS: DILTIAZEM CD 120 MG CAP.ER.24H PO SCH (10:12)
[2017-07-20] MEDS: MECLIZINE 25 MG TAB PO SCH (10:12)
[2017-07-20] MEDS: FLUoxetine HCL 20 MG CAP PO SCH (10:12)
[2017-07-20] MEDS: ERGOCALCIFEROL 50,000 UNIT CAP PO SCH (10:13)
[2017-07-20 10:17] LABS: ALT 66 U/L (21-72); AST 52 U/L (17-59); Albumin 2.5 g/dL (3.5-5.0); Alkaline Phosphatase 151 U/L (38-126); Anion Gap 11 mmol/L; Blood Urea Nitrogen 13 mg/dL (9-20); Calcium 8.4 mg/dL (8.4-10.2); Carbon Dioxide 28 mmol/L (22-30); Chloride 99 mmol/L (98-107); Glucose 161 mg/dL (74-99); Magnesium 1.7 mg/dL (1.6-2.3); Potassium 3.6 mmol/L (3.5-5.1); Sodium 138 mmol/L (137-145); Total Protein 5.5 g/dL (6.3-8.2)
[2017-07-20 10:20] LABS: INR 1.2 (<1.2); Prothrombin Time 11.5 sec (9.0-12.0)
--- NOTE | 2017-07-20 11:30 | P.DS ---
Providers Date of admission: 07/10/17 19:13 Expected date of discharge: 07/20/17 Attending physician: Brandie Hinton Consults: 07/10/17 19:13 Consult Physician Stat Consulting Provider: Nitesh George Consult Reason/Comments: sepsis, chronic leg wounds Do you want consulting provider notified?: Yes 07/12/17 14:54 Consult Physician Routine Consulting Provider: Frank Huddleston Consult Reason/Comments: Possible chronic cholecystitis or biliary dyskinesia Do you want consulting provider notified?: Yes Primary care physician: Brandie [facility] Course: Diagnoses on discharge: 1. Sepsis present on admission possibly related to patient's cellulitis and leg wounds. Wound culture growing MSSA. Infectious disease is following. Patient currently on Unasyn 2. 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 Continue with current antibiotics. 3. History of Kyrle's disease 4. Choledocholithiasis status post ERCP and stone extraction. LFTs continued to trend down 5. Chronic cholecystitis status post laparoscopic cholecystectomy during this admission 6. Diabetes mellitus type II. Continue sliding scale coverage. Blood sugars are elevated. Resume patient's metformin and monitor 7. Essential hypertension: Lower blood pressures at present on admission now improved 8. Confusion prior to admission likely metabolic encephalopathy due to patient' s sepsis and cellulitis of the lower extremities 9. Hypokalemia: Resolved 10. History of renal cancer status post right nephrectomy 11. Hypomagnesemia: Repeat magnesium level in a.m. 12. History of chronic atrial fibrillation evaluated by cardiology. Continue Coumadin for anticoagulation EKG had shown atrial fibrillation with a heart rate of 85. Resume patient's Coumadin Hospital course: This is a 81-year-old male with a known history of chronic atrial fibrillation, diabetes mellitus, chronic lower extremity ulcers, chronic kidney disease, hypertension. Patient presents anemia emergency room with complaints of feeling very weak and with evidence of a fever of 101.6. He reports that he went to stand up from his chair and felt very weak and dizzy fluid down the chair onto the floor. He reports that he did not pass out or injure himself. EMS was called and patient was brought into the emergency room. He was slightly confused at that time. However now he is alert and orientated to 3. Patient was found have evidence of sepsis with a temp of 101.6 and lactic acid of 3.7 white count 12.3. Patient has evidence of lower extremity cellulitis around his leg ulcers. He reports that he follows with Dr. Adame at the wound care center for his leg wounds. 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 Patient was started on Augmentin the outpatient setting. However he is still having evidence of cellulitis. Vancomycin has been started and he was also given a dose of IV Zosyn. Infectious disease consulted. Cardiology is also following regards to patient's history of atrial fibrillation. Patient was also found have elevated LFTs and total bilirubin. Denies any abdominal pain. Abdominal ultrasound and hepatic panel has been ordered. Patient denies any chest pain or shortness of breath. Does admit to having some dizziness. Denies any vomiting. The does admit to some nausea intermittently. Denies any bowel movement changes or urinary symptoms. Influenza screen was negative and urinalysis negative. Lactic acid elevated at 3.7 improved with IV fluids down to 1.3 07/12/2017 patient seen by infectious disease. Currently on IV vancomycin. Wound culture growing presumptive staph aureus. Patient denies any nausea or vomiting. Denies any abdominal pain. Denies any chest pain or shortness of breath. Denies any urinary symptoms 07/14/2017 patient lying in bed comfortably. No pain. No evidence of distress. Total bilirubin is up to 4.2. AST 76 ALT 66 and alk phos 164. Hemoglobin 9.9 and INR is 1.18.. Patient had HIDA scan completed yesterday which was markedly abnormal without definitive visualization of the bowel or gallbladder. Acute cholecystitis needs to be considered. Also obstruction of common bile duct reported. GI service consulted. They're planning to proceed with MRCP today. Patient's potassium is low at 3.1 and magnesium is 1.8. He is receiving supplement. He denies any nausea or vomiting. Denies any abdominal pain. Denies any chest pain or shortness breath. Denies any burning with urination. 07/18/2017 patient is scheduled for laparoscopic cholecystectomy today. No abdominal discomfort. Total bilirubin has come down to 2.9. LFTs are trending down. Denies any chest pain or shortness breath. Denies any burning with urination. Denies any bowel movement changes. 07/19/2017 patient is status post laparoscopic cholecystectomy. He is tolerating diet. He has been cleared by surgical service for discharge. White count today has jumped up to 11.2. Blood sugars have also been elevated. Denies any abdominal pain or nausea or vomiting. Patient Condition at Discharge: Good Plan - Discharge Summary Discharge Rx Participant: Yes New Discharge Prescriptions: New Amoxic-Pot Clav 875-125Mg [Augmentin 875-125] 1 tab PO Q12HR #20 tablet No Action Furosemide [Lasix] 40 mg PO HS metFORMIN HCL [Glucophage] 500 mg PO BID Fenofibrate,Micronized [Fenofibrate] 134 mg PO HS Ergocalciferol [Vitamin D2 (DRISDOL)] 50,000 unit PO WE ALPRAZolam [Xanax] 0.5 mg PO DAILY PRN PRN Reason: Anxiety Meclizine [Antivert] 25 mg PO BID glipiZIDE [Glucotrol] 2.5 mg PO DAILY PRN PRN Reason: Blood Sugar - High Diltiazem HCl [Diltiazem 24Hr ER] 120 mg PO Q24HR traMADol HCL/ACETAMINOPHEN [Ultracet 37.5-325] 1 tab PO BID Amoxicillin/Potassium Clav [Augmentin 875-125 Tablet] 1 tab PO Q12HR 14 Days #28 tab FLUoxetine HCL [PROzac] 40 mg PO DAILY Warfarin Sodium [Coumadin] 5 mg PO MOTUWETHFRSA Discharge Medication List Ergocalciferol [Vitamin D2 (DRISDOL)] 50,000 unit PO WE 02/28/14 [History] Fenofibrate,Micronized [Fenofibrate] 134 mg PO HS 02/28/14 [History] Furosemide [Lasix] 40 mg PO HS 02/28/14 [History] metFORMIN HCL [Glucophage] 500 mg PO BID 02/28/14 [History] ALPRAZolam [Xanax] 0.5 mg PO DAILY PRN 01/05/15 [History] Meclizine [Antivert] 25 mg PO BID 01/05/15 [History] glipiZIDE [Glucotrol] 2.5 mg PO DAILY PRN 06/30/16 [History] Diltiazem HCl [Diltiazem 24Hr ER] 120 mg PO Q24HR 01/27/17 [History] traMADol HCL/ACETAMINOPHEN [Ultracet 37.5-325] 1 tab PO BID 05/26/17 [History] Amoxicillin/Potassium Clav [Augmentin 875-125 Tablet] 1 tab PO Q12HR 14 Days # 28 tab 07/07/17 [Rx] FLUoxetine HCL [PROzac] 40 mg PO DAILY 07/10/17 [History] Warfarin Sodium [Coumadin] 5 mg PO MOTUWETHFRSA 07/10/17 [History] Amoxic-Pot Clav 875-125Mg [Augmentin 875-125] 1 tab PO Q12HR #20 tablet [Rx] Follow up Appointment(s)/Referral(s): Brandie Hinton MD [Primary Care Provider] - 1-2 days Frank Huddleston MD [STAFF PHYSICIAN] - 1 Week Patient Instructions/Handouts: Type 2 Diabetes in Adults (DC), ERCP ( Endoscopic Retrograde Cholangiopancreatography) (DC) Activity/Diet/Wound Care/Special Instructions: No tub bath for six weeks. Shower daily. No lifting over 10 pounds for the next 6 weeks.. May use ice packs to surgical site. No driving while taking narcotic for pain. Avoid constipation may use [id number] stool softeners if needed
[2017-07-20 12:09] LABS: Glucose,Whole Blood 176 mg/dL (75-99)
--- NOTE | 2017-08-05 08:04 | P.OP ---
Date of Procedure: 08/05/17 Preoperative Diagnosis: Cholecystitis Cholelithiasis Postoperative Diagnosis: Cholecystitis Cholelithiasis Procedure(s) Performed: laparoscopic cholecystectomy Anesthesia: GÉNESIS Surgeon: Frank Huddleston IV fluids (ml): 5 Pathology: other (Gallbladder) Condition: stable Disposition: PACU Description of Procedure: The patient was placed on the operating table. The patient received a general endotracheal tube anesthesia. The patients abdomen was prepped and draped in the usual sterile fashion. Through an infraumbilical stab incision, the fascia of the anterior abdominal wall was grasped with a pair of Kochers and then the Veress needle was placed in the peritoneal cavity. Position of the Veress needle was confirmed with positive drop test. The abdomen was then insufflated. After adequate insufflation, the 10 mm trocar was placed in the peritoneal cavity. Following this the laparoscope was placed in the peritoneal cavity. The patient was placed in the head-up, right side up position and then a 5 mm trocar was placed in the right lateral and right subcostal position under direct visualization. A 8 mm trocar was placed in the epigastric position. The gallbladder was grasped in the fundus and infundibulum. Traction on the gallbladder was placed in the lateral and the cephalad positions. The triangle of Calot was visualized.. The cystic duct was bluntly dissected until the union of the cystic duct and common bile duct was seen. The cystic duct was then divided and sealed with the Harmonic scissors. A PDS Endoloop was then placed throughout the cystic duct stump. The cystic artery divided and sealed with the Harmonic scissors. The gallbladder was then removed from the liver bed using Harmonic scissors. The gallbladder was then extracted through the epigastric port site. Operative field was checked for any bleeding spots and Harmonic scissors was used to coagulate the liver bed. The abdomen was irrigated. The trocars were removed. The skin was closed using interrupted 3-0 Vicryl suture. Dermabond dressing were applied. The patient tolerated the procedure well.
--- NOTE | 2017-08-09 11:46 | CDI ---
Last Revision, March 2017 Documentation Clarification Form Date: 08/09/17 From: Abbey Lott Phone: If you have a question regarding this query, please contact Coleen Hidalgo at [phone] between 8am and 5pm Admit Date: 07/10/2017 7:13:00 PM Patient Name: Isidro Recio Visit Number: [id number] Discharge Date: 07/20 ATTENTION: The Clinical Documentation Specialists (CDI) and [facility] Coding Staff appreciate your assistance in clarifying documentation. Please respond to the clarification below the line at the bottom and electronically sign. The CDI & [facility] Coding staff will review the response and follow-up if needed. Please note: Queries are made part of the Legal Health Record. If you have any questions, please contact the author of this message via ITS. Dr. Brandie Hinton The patient has diabetes, as indicated througout the chart. There is documentation of venous insufficiency and the bilateral tib/fib x-ray shows extensive small vessel calcifications which may relate to peripheral artery disease. Also the patient has ulcers of the legs with surrounding cellulitis. Clinical Indicators: Cellulitis and erythema around leg wounds Treatment: IV ampicillin, IV zosyn, IV vancomycin, medial honey to wounds and leg elevation Please document any body system complications or specific manifestations related to the diabetes: Diabetic Nephropathy Diabetic Autonomic Neuropathy Diabetic Peripheral Vascular Disease Diabetic ulcers, specify location Diabetes with cellulitis Other condition Unable to determine MTDD
--- NOTE | 2017-08-17 11:53 | CDI ---
Last Revision, March 2017 Documentation Clarification Form Date: 08/17/17 From: Abbey Lott Phone: If you have a question regarding this query, please contact Coleen Hidalgo at [phone] between 8am and 5pm Admit Date: 07/10/2017 7:13:00 PM Patient Name: Isidro Recio Visit Number: [id number] Discharge Date: 07/20/17 ATTENTION: The Clinical Documentation Specialists (CDI) and [facility] Coding Staff appreciate your assistance in clarifying documentation. Please respond to the clarification below the line at the bottom and electronically sign. The CDI & [facility] Coding staff will review the response and follow-up if needed. Please note: Queries are made part of the Legal Health Record. If you have any questions, please contact the author of this message via ITS. Dr. Brandie Hinton The patient has diabetes, as indicated througout the chart. There is documentation of venous insufficiency and the bilateral tib/fib x-ray shows extensive small vessel calcifications which may relate to peripheral artery disease. Also the patient has ulcers of the legs with surrounding cellulitis. Clinical Indicators: Cellulitis and erythema around leg wounds Treatment: IV ampicillin, IV zosyn, IV vancomycin, medial honey to wounds and leg elevation In your professional opinion, can you please clarify the significance of the small vessel calcifications? Atherosclerosis of extremities Thrombosis Embolism Other condition Unable to determine Atherosclerosis MTDD
--- NOTE | 2017-08-17 12:01 | CDI ---
Last Revision, March 2017 Documentation Clarification Form Date: 08/17/17 From: Abbey Lott Phone: If you have a question regarding this query, please contact Coleen Hidalgo at [phone] between 8am and 5pm Admit Date: 07/10/2017 7:13:00 PM Patient Name: Isidro Recio Visit Number: [id number] Discharge Date: 07/20/17 ATTENTION: The Clinical Documentation Specialists (CDI) and [facility] Coding Staff appreciate your assistance in clarifying documentation. Please respond to the clarification below the line at the bottom and electronically sign. The CDI & [facility] Coding staff will review the response and follow-up if needed. Please note: Queries are made part of the Legal Health Record. If you have any questions, please contact the author of this message via ITS. Dr. Brandie Hinton The patient has diabetes, as indicated througout the chart. There is documentation of venous insufficiency and the bilateral tib/fib x-ray shows extensive small vessel calcifications which may relate to peripheral artery disease. Also the patient has ulcers of the legs with surrounding cellulitis. Clinical Indicators: Cellulitis and erythema around leg wounds Treatment: IV ampicillin, IV zosyn, IV vancomycin, medial honey to wounds and leg elevation In your professional opinion, can you please clarify any linkage between the diabetes and the cellulitis? Cellulitis Cellulitis due to DM Other Unable to determine Cellulitis due to DM MTDD
== END 2017-07-20 14:05 | DRG 871 ==
LOC: EC 15:38 → 6SEL 19:13 → 4MS4W 07-15 18:09
PROVIDERS: ADMIT Internal Medicine; ATTEND Internal Medicine
PROC: 0F798ZZ Dilation of Common Bile Duct, Via Natural or Artificial Opening Endoscopic (ICD-10-PCS; principal; 2017-07-15 07:55)
PROC: 0FC98ZZ Extirpation of Matter from Common Bile Duct, Via Natural or Artificial Opening Endoscopic (ICD-10-PCS; 2017-07-15 07:55)
DX: A41.01 Sepsis due to Methicillin susceptible Staphylococcus aureus (principal); G93.41 Metabolic encephalopathy; K80.67 Calculus of gallbladder and bile duct with acute and chronic cholecystitis with obstruction; K82.1 Hydrops of gallbladder; I48.1 Persistent atrial fibrillation; L03.115 Cellulitis of right lower limb; L03.116 Cellulitis of left lower limb; E11.628 Type 2 diabetes mellitus with other skin complications; E11.22 Type 2 diabetes mellitus with diabetic chronic kidney disease; E11.51 Type 2 diabetes mellitus with diabetic peripheral angiopathy without gangrene; E66.01 Morbid (severe) obesity due to excess calories; E83.42 Hypomagnesemia; D63.1 Anemia in chronic kidney disease; N18.3 Chronic kidney disease, stage 3 (moderate); E78.5 Hyperlipidemia, unspecified; E87.6 Hypokalemia; F41.9 Anxiety disorder, unspecified; H40.9 Unspecified glaucoma; I12.9 Hypertensive chronic kidney disease with stage 1 through stage 4 chronic kidney disease, or unspecified chronic kidney disease; I48.2 Chronic atrial fibrillation; K21.9 Gastro-esophageal reflux disease without esophagitis; K59.00 Constipation, unspecified; R79.1 Abnormal coagulation profile; F32.9 Major depressive disorder, single episode, unspecified; I25.10 Atherosclerotic heart disease of native coronary artery without angina pectoris; H35.30 Unspecified macular degeneration; L87.0 Keratosis follicularis et parafollicularis in cutem penetrans; E83.59 Other disorders of calcium metabolism; I87.2 Venous insufficiency (chronic) (peripheral); Z79.01 Long term (current) use of anticoagulants; Z79.84 Long term (current) use of oral hypoglycemic drugs; Z79.899 Other long term (current) drug therapy; Z88.5 Allergy status to narcotic agent; Z90.5 Acquired absence of kidney; Z87.891 Personal history of nicotine dependence; Z98.42 Cataract extraction status, left eye; Z98.41 Cataract extraction status, right eye; Z89.412 Acquired absence of left great toe; Z89.422 Acquired absence of other left toe(s); Z85.528 Personal history of other malignant neoplasm of kidney; Z82.49 Family history of ischemic heart disease and other diseases of the circulatory system; W07.XXXA Fall from chair, initial encounter
CPT/HCPCS: 36415; 43262; 43264; 71046; 74181; 74328; 76700; 78226; 80053; 80074; 80202; 81001; 82550; 82553; 83036; 83605; 83735; 84132; 84484; 85025; 85610; 85730; 87040; 87070; 87077; 87086; 87186; 87205; 87502; 88304; 93005; 93306; 96365; 96366; 99291

== ENCOUNTER 2017-08-06 17:17 | Inpatient (IN) | payer MEDICARE ==
[2017-08-06] MEDS ORDERED: SODIUM CHLORIDE 0.9% 1,000 ML IV STA (17:21)
[2017-08-06] MEDS ORDERED: IBUPROFEN 800 MG TAB PO STA (17:31)
[2017-08-06] MEDS ORDERED: ACETAMINOPHEN TAB 500 MG TAB PO STA (17:31)
--- NOTE | 2017-08-06 17:51 | ED ---
General Adult HPI - General Chief complaint: Weakness Stated complaint: GENERAL WEAKNESS Time Seen by Provider: 08/06/17 17:21 Source: EMS, RN notes reviewed, old records reviewed Mode of arrival: EMS Limitations: physical limitation - History of Present Illness Initial comments: This is a 81-year-old male the ER for evaluation of weakness. Not feeling well. Patient is recent discharge in the hospital from diagnosis of sepsis. Patient has A. fib diabetes hypertension. No travel history no known sick contacts. Patient has no significant complaints. Known fever. No cough congestion no sore throat, no nausea vomiting or diarrhea. No abdominal pain. No chest pain. - Related Data Home Medications Medication Instructions Recorded Confirmed Ergocalciferol [Vitamin D2 50,000 unit PO WE 02/28/14 08/10/17 (DRISDOL)] Fenofibrate,Micronized 134 mg PO HS 02/28/14 08/10/17 [Fenofibrate] Furosemide [Lasix] 40 mg PO HS 02/28/14 08/10/17 metFORMIN HCL [Glucophage] 500 mg PO BID 02/28/14 08/10/17 Meclizine [Antivert] 25 mg PO BID 01/05/15 08/10/17 glipiZIDE [Glucotrol] 2.5 mg PO DAILY PRN 06/30/16 08/10/17 Diltiazem HCl [Diltiazem 24Hr ER] 120 mg PO Q24HR 01/27/17 08/10/17 FLUoxetine HCL [PROzac] 40 mg PO DAILY 07/10/17 08/10/17 Previous Rx's Medication Instructions Recorded Ferrous Sulfate [Iron (65 MG 325 mg PO BID #60 tab 08/09/17 Elemental)] ALPRAZolam [Xanax] 0.5 mg PO DAILY PRN #3 tab 08/12/17 Oseltamivir [Tamiflu] 75 mg PO Q12HR #2 cap 08/12/17 Potassium Chloride ER [K-Dur 10] 10 meq PO DAILY #30 tab 08/12/17 Warfarin Sodium [Coumadin] 2.5 mg PO DAILY #30 tablet 08/12/17 traMADol HCL/ACETAMINOPHEN 1 tab PO BID #6 tablet 08/12/17 [Ultracet 37.5-325] Allergies Allergy/AdvReac Type Severity Reaction Status Date / Time oxycodone [Oxycodone] Allergy Hallucinati Verified 08/10/17 21:35 ons Review of Systems ROS Statement: Those systems with pertinent positive or pertinent negative responses have been documented in the HPI. ROS Other: All systems not noted in ROS Statement are negative. Past Medical History Past Medical History: Atrial Fibrillation, Diabetes Mellitus, Hypertension Additional Past Medical History / Comment(s): BLE VENOUS ULCERS, calcenosis of BLE. MAC. DEGENERATION. VERTIGO. 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 fluid from eyes r/t glaucoma Past Anesthesia/Blood Transfusion Reactions: Motion Sickness Past Psychological History: Anxiety Smoking Status: Former smoker Past Alcohol Use History: None Reported Past Drug Use History: None Reported - Past Family History Sister(s) Family Medical History: Cancer, Diabetes Mellitus Mother Family Medical History: Myocardial Infarction (MS), Renal Disease General Exam Limitations: physical limitation General appearance: alert, in no apparent distress Head exam: Present: atraumatic, normocephalic, normal inspection Eye exam: Present: normal appearance, PERRL, EOMI. Absent: scleral icterus, conjunctival injection, periorbital swelling ENT exam: Present: normal exam, mucous membranes moist Neck exam: Present: normal inspection. Absent: tenderness, meningismus, lymphadenopathy Respiratory exam: Present: normal lung sounds bilaterally. Absent: respiratory distress, wheezes, rales, rhonchi, stridor Cardiovascular Exam: Present: regular rate, normal rhythm, normal heart sounds. Absent: systolic murmur, diastolic murmur, rubs, gallop, clicks GI/Abdominal exam: Present: soft, normal bowel sounds. Absent: distended, tenderness, guarding, rebound, rigid Extremities exam: Present: normal inspection, full ROM, normal capillary refill. Absent: tenderness, pedal edema, joint swelling, calf tenderness Back exam: Present: normal inspection Neurological exam: Present: alert, oriented X3, CN II-XII intact Psychiatric exam: Present: normal affect, normal mood Skin exam: Present: warm, dry, intact, normal color. Absent: rash Course Vital Signs 08/06/17 08/06/17 08/06/17 17:19 18:34 19:25 Temperature 101.3 F H 98.9 F Pulse Rate 86 79 79 Respiratory 16 17 17 Rate Blood Pressure 187/82 167/76 148/70 O2 Sat by Pulse 98 98 98 Oximetry EKG Findings - EKG Comments: EKG Findings:: EKG shows A. fib rate of 67, QRS 92, QTc 420 Medical Decision Making - Medical Decision Making 82-year-old male the ER with multiple recent hospital admissions coming of fever not feeling well sepsis. Patient positive influenza, will admit for IV hydration and controlling of cardiopulmonary state - Lab Data Result diagrams: 08/09/17 07:26 08/09/17 07:26 Lab Results 08/06/17 08/06/17 08/06/17 Range/Units 17:26 17:26 17:26 WBC 3.8 (3.8-10.6) k/uL RBC 3.63 L (4.30-5.90) m/uL Hgb 11.3 L D (13.0-17.5) gm/dL Hct 34.9 L (39.0-53.0) % MCV 96.2 (80.0-100.0) fL MCH 31.2 (25.0-35.0) pg MCHC 32.4 (31.0-37.0) g/dL RDW 13.7 (11.5-15.5) % Plt Count 171 (150-450) k/uL Neutrophils % 68 % Lymphocytes % 23 % Monocytes % 5 % Eosinophils % 2 % Basophils % 0 % Neutrophils # 2.6 (1.3-7.7) k/uL Lymphocytes # 0.9 L (1.0-4.8) k/uL Monocytes # 0.2 (0-1.0) k/uL Eosinophils # 0.1 (0-0.7) k/uL Basophils # 0.0 (0-0.2) k/uL PT (9.0-12.0) sec INR (<1.2) APTT (22.0-30.0) sec Sodium 142 (137-145) mmol/L Potassium 3.7 (3.5-5.1) mmol/L Chloride 105 (98-107) mmol/L Carbon Dioxide 27 (22-30) mmol/L Anion Gap 10 mmol/L BUN 20 (9-20) mg/dL Creatinine 0.70 (0.66-1.25) mg/dL Est GFR (CKD-EPI)AfAm >90 (>60 ml/min/1.73 sqM) Est GFR (CKD-EPI)NonAf >90 (>60 ml/min/1.73 sqM) Glucose 136 H (74-99) mg/dL Estimated Ave Glu mg/dL Hemoglobin A1c (4.0-6.0) % Calcium 8.7 (8.4-10.2) mg/dL Phosphorus 2.5 (2.5-4.5) mg/dL Magnesium 1.8 (1.6-2.3) mg/dL Total Bilirubin 0.7 (0.2-1.3) mg/dL AST 47 (17-59) U/L ALT 23 (21-72) U/L Alkaline Phosphatase 55 (38-126) U/L Total Creatine Kinase 36 L (55-170) U/L CK-MB (CK-2) 0.3 (0.0-2.4) ng/mL CK-MB (CK-2) Rel Index 0.8 Troponin I 0.027 (0.000-0.034) ng/mL Total Protein 6.6 (6.3-8.2) g/dL Albumin 3.2 L (3.5-5.0) g/dL TSH 2.290 (0.465-4.680) mIU/L Urine Color Urine Appearance (Clear) Urine pH (5.0-8.0) Ur Specific [place] (1.001-1.035) Urine Protein (Negative) Urine Glucose (UA) (Negative) Urine Ketones (Negative) Urine Blood (Negative) Urine Nitrite (Negative) Urine Bilirubin (Negative) Urine Urobilinogen (<2.0) mg/dL Ur Leukocyte Esterase (Negative) Influenza Type A RNA (Not Detectd) Influenza Type B (PCR) (Not Detectd) 08/06/17 08/06/17 08/06/17 Range/Units 17:26 17:26 17:27 WBC (3.8-10.6) k/uL RBC (4.30-5.90) m/uL Hgb (13.0-17.5) gm/dL Hct (39.0-53.0) % MCV (80.0-100.0) fL MCH (25.0-35.0) pg MCHC (31.0-37.0) g/dL RDW (11.5-15.5) % Plt Count (150-450) k/uL Neutrophils % % Lymphocytes % % Monocytes % % Eosinophils % % Basophils % % Neutrophils # (1.3-7.7) k/uL Lymphocytes # (1.0-4.8) k/uL Monocytes # (0-1.0) k/uL Eosinophils # (0-0.7) k/uL Basophils # (0-0.2) k/uL PT 22.2 H (9.0-12.0) sec INR 2.5 H (<1.2) APTT 32.0 H (22.0-30.0) sec Sodium (137-145) mmol/L Potassium (3.5-5.1) mmol/L Chloride (98-107) mmol/L Carbon Dioxide (22-30) mmol/L Anion Gap mmol/L BUN (9-20) mg/dL Creatinine (0.66-1.25) mg/dL Est GFR (CKD-EPI)AfAm (>60 ml/min/1.73 sqM) Est GFR (CKD-EPI)NonAf (>60 ml/min/1.73 sqM) Glucose (74-99) mg/dL Estimated Ave Glu mg/dL 108 Hemoglobin A1c 5.4 (4.0-6.0) % Calcium (8.4-10.2) mg/dL Phosphorus (2.5-4.5) mg/dL Magnesium (1.6-2.3) mg/dL Total Bilirubin (0.2-1.3) mg/dL AST (17-59) U/L ALT (21-72) U/L Alkaline Phosphatase (38-126) U/L Total Creatine Kinase (55-170) U/L CK-MB (CK-2) (0.0-2.4) ng/mL CK-MB (CK-2) Rel Index Troponin I (0.000-0.034) ng/mL Total Protein (6.3-8.2) g/dL Albumin (3.5-5.0) g/dL TSH (0.465-4.680) mIU/L Urine Color Urine Appearance (Clear) Urine pH (5.0-8.0) Ur Specific [place] (1.001-1.035) Urine Protein (Negative) Urine Glucose (UA) (Negative) Urine Ketones (Negative) Urine Blood (Negative) Urine Nitrite (Negative) Urine Bilirubin (Negative) Urine Urobilinogen (<2.0) mg/dL Ur Leukocyte Esterase (Negative) Influenza Type A RNA Not Detected (Not Detectd) Influenza Type B (PCR) Detected H (Not Detectd) 08/06/17 Range/Units 17:46 WBC (3.8-10.6) k/uL RBC (4.30-5.90) m/uL Hgb (13.0-17.5) gm/dL Hct (39.0-53.0) % MCV (80.0-100.0) fL MCH (25.0-35.0) pg MCHC (31.0-37.0) g/dL RDW (11.5-15.5) % Plt Count (150-450) k/uL Neutrophils % % Lymphocytes % % Monocytes % % Eosinophils % % Basophils % % Neutrophils # (1.3-7.7) k/uL Lymphocytes # (1.0-4.8) k/uL Monocytes # (0-1.0) k/uL Eosinophils # (0-0.7) k/uL Basophils # (0-0.2) k/uL PT (9.0-12.0) sec INR (<1.2) APTT (22.0-30.0) sec Sodium (137-145) mmol/L Potassium (3.5-5.1) mmol/L Chloride (98-107) mmol/L Carbon Dioxide (22-30) mmol/L Anion Gap mmol/L BUN (9-20) mg/dL Creatinine (0.66-1.25) mg/dL Est GFR (CKD-EPI)AfAm (>60 ml/min/1.73 sqM) Est GFR (CKD-EPI)NonAf (>60 ml/min/1.73 sqM) Glucose (74-99) mg/dL Estimated Ave Glu mg/dL Hemoglobin A1c (4.0-6.0) % Calcium (8.4-10.2) mg/dL Phosphorus (2.5-4.5) mg/dL Magnesium (1.6-2.3) mg/dL Total Bilirubin (0.2-1.3) mg/dL AST (17-59) U/L ALT (21-72) U/L Alkaline Phosphatase (38-126) U/L Total Creatine Kinase (55-170) U/L CK-MB (CK-2) (0.0-2.4) ng/mL CK-MB (CK-2) Rel Index Troponin I (0.000-0.034) ng/mL Total Protein (6.3-8.2) g/dL Albumin (3.5-5.0) g/dL TSH (0.465-4.680) mIU/L Urine Color Yellow Urine Appearance Clear (Clear) Urine pH 6.5 (5.0-8.0) Ur Specific [place] 1.020 (1.001-1.035) Urine Protein Negative (Negative) Urine Glucose (UA) Negative (Negative) Urine Ketones Negative (Negative) Urine Blood Negative (Negative) Urine Nitrite Negative (Negative) Urine Bilirubin Negative (Negative) Urine Urobilinogen <2.0 (<2.0) mg/dL Ur Leukocyte Esterase Negative (Negative) Influenza Type A RNA (Not Detectd) Influenza Type B (PCR) (Not Detectd) - Radiology Data Radiology results: report reviewed (X-ray abdominal series negative for acute disease), image reviewed Disposition Clinical Impression: Influenza B, Fever Disposition: ADMITTED IP TO THIS HOSP Condition: Stable Is patient prescribed a controlled substance at d/c from ED?: No
[2017-08-06 17:55] LABS: Basophils % (A) 0 %; Eosinophils # (A) 0.1 k/uL (0-0.7); Eosinophils % (A) 2 %; HCT 34.9 % (39.0-53.0); Lymphocytes # (A) 0.9 k/uL (1.0-4.8); Lymphocytes % (A) 23 %; MCH 31.2 pg (25.0-35.0); MCHC 32.4 g/dL (31.0-37.0); MCV 96.2 fL (80.0-100.0); Mean Platelet Volume 9.8; Monocytes # (A) 0.2 k/uL (0-1.0); Monocytes % (A) 5 %; Neutrophils # (A) 2.6 k/uL (1.3-7.7); Neutrophils % (A) 68 %; Platelet Count 171 k/uL (150-450); RBC 3.63 m/uL (4.30-5.90); RDW 13.7 % (11.5-15.5); WBC 3.8 k/uL (3.8-10.6)
[2017-08-06 17:59] LABS: HGB 11.3 gm/dL (13.0-17.5)
[2017-08-06 18:02] LABS: Appearance,Urine Clear (Clear); Bilirubin,Urine Negative (Negative); Blood,Urine Negative (Negative); Color,Urine Yellow; Glucose,Urine (UA) Negative (Negative); Ketones,Urine Negative (Negative); Leukocyte Esterase,Urine Negative (Negative); Nitrite,Urine Negative (Negative); PH, Urine 6.5 (5.0-8.0); Protein,Urine Negative (Negative); Urobilinogen,Urine <2.0 mg/dL (<2.0)
[2017-08-06 18:04] LABS: INR 2.5 (<1.2); Prothrombin Time 22.2 sec (9.0-12.0)
[2017-08-06 18:09] LABS: ALT 23 U/L (21-72); AST 47 U/L (17-59); Albumin 3.2 g/dL (3.5-5.0); Alkaline Phosphatase 55 U/L (38-126); Anion Gap 10 mmol/L; Blood Urea Nitrogen 20 mg/dL (9-20); Calcium 8.7 mg/dL (8.4-10.2); Carbon Dioxide 27 mmol/L (22-30); Chloride 105 mmol/L (98-107); Glucose 136 mg/dL (74-99); Magnesium 1.8 mg/dL (1.6-2.3); Phosphorus 2.5 mg/dL (2.5-4.5); Sodium 142 mmol/L (137-145); Total Bilirubin 0.7 mg/dL (0.2-1.3); Total Protein 6.6 g/dL (6.3-8.2)
[2017-08-06 18:11] LABS: Potassium 3.7 mmol/L (3.5-5.1)
[2017-08-06 18:33] LABS: Creatine Kinase MB 0.3 ng/mL (0.0-2.4); Troponin I 0.027 ng/mL (0.000-0.034)
[2017-08-06] MEDS ORDERED: OSELTAMIVIR 75 MG CAP PO STA (18:34)
[2017-08-06] MEDS ORDERED: SODIUM CHLORIDE 0.9% 1,000 ML IV ONE (18:35)
[2017-08-06] MEDS ORDERED: AMPICILLIN-SULBACTAM 3 GM in SODIUM CHLORIDE 0.9% 100 ML IVPB STA (18:38)
--- NOTE | 2017-08-06 18:51 | XR ---
EXAMINATION TYPE: XR abdomen acute w cxr DATE OF EXAM: 08/06/2017 COMPARISON: Prior chest x-ray 12/18/[address] abdomen pelvis 11/26/2015 HISTORY: Confusion and weakness, influenza B, pain TECHNIQUE: Supine, upright, and left side down lateral decubitus views of the abdomen are obtained w ith frontal chest on 4 images. FINDINGS: Chest is stable, heart size may be accentuated by rotation, there are overlying cardiac le ads There is no evidence for pneumoperitoneum. The bowel gas pattern is unremarkable as there is air throughout nondilated small and large bowel. No sizeable air fluid levels. No mass effects are seen. No unusual calcifications. There is an underlying scoliosis. Bone mineralization is reduced. Chronic fracture noted of the proximal left femur IMPRESSION: Unremarkable study
[2017-08-06 20:04] LABS: Glucose,Whole Blood 124 mg/dL (75-99)
[2017-08-06 21:04] VITALS: BMI 26.4
[2017-08-06] MEDS ORDERED: ALPRAZolam 0.5 MG TAB PO PRN (21:09)
[2017-08-06] MEDS ORDERED: ACETAMINOPHEN TAB 325 MG TAB PO PRN (21:14)
[2017-08-06] MEDS: WARFARIN 5 MG TAB PO SCH (22:36)
[2017-08-06] MEDS: OSELTAMIVIR 75 MG CAP PO SCH (22:37)
[2017-08-06] MEDS: FENOFIBRATE 160 MG TAB PO SCH (22:37)
[2017-08-06] MEDS: MECLIZINE 25 MG TAB PO SCH (22:37)
[2017-08-06] MEDS: traMADol-ACETAMINOP 37.5-325MG 1 EACH TAB PO SCH (23:09)
[2017-08-06] MEDS: AMPICILLIN-SULBACTAM 3 GM in SODIUM CHLORIDE 0.9% 100 ML IVPB SCH (23:09)
[2017-08-07] MEDS: AMPICILLIN-SULBACTAM 3 GM in SODIUM CHLORIDE 0.9% 100 ML IVPB SCH ×3 (05:53→16:46)
[2017-08-07] MEDS: FLUoxetine HCL 20 MG CAP PO SCH (08:16)
[2017-08-07] MEDS: DILTIAZEM CD 120 MG CAP.ER.24H PO SCH (08:16)
[2017-08-07] MEDS: MECLIZINE 25 MG TAB PO SCH ×2 (08:16→22:25)
[2017-08-07] MEDS: OSELTAMIVIR 75 MG CAP PO SCH ×2 (08:16→22:26)
[2017-08-07] MEDS: traMADol-ACETAMINOP 37.5-325MG 1 EACH TAB PO SCH ×2 (08:16→22:26)
[2017-08-07] MEDS: INSULIN ASPART 100 UNIT/ML 1 ML 10 ML VIAL SQ SCH ×4 (08:17→22:25)
[2017-08-07 08:18] LABS: Glucose,Whole Blood 98 mg/dL (75-99)
[2017-08-07 11:59] LABS: Glucose,Whole Blood 134 mg/dL (75-99)
--- NOTE | 2017-08-07 13:39 | P.HPIM ---
History of Present Illness H&P Date: 08/07/17 Chief Complaint: Generalized weakness This is a 81-year-old gentleman with very complex past medical history noted below who recently had a prolonged hospitalization and was discharged approximately 2 weeks ago. Patient said that for the past few days he has been getting progressively weak. He was having flulike symptoms with runny nose and cough that he describes as productive with yellowish sputum. Patient said that he is having chills but no documented fevers. He has chronic venous insufficiency in both legs with chronic ulcers for which she follow-up with the wound care clinic. He presented to the emergency room, was evaluated, and was found to have influenza the upper respiratory tract infection. He was started on Tamiflu and currently admitted to the hospital for further evaluation. Review of Systems Review of system: 14 points review of systems were obtained and were negative except to what were mentioned in the HPI. Past Medical History Past Medical History: Atrial Fibrillation, Diabetes Mellitus, Hypertension Additional Past Medical History / Comment(s): BLE VENOUS ULCERS, calcenosis of BLE. MAC. DEGENERATION. VERTIGO. 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 fluid from eyes r/t glaucoma Past Anesthesia/Blood Transfusion Reactions: Motion Sickness Past Psychological History: Anxiety Additional Psychological History / Comment(s): . Retired. experience. No international travel. No animal exposures Smoking Status: Former smoker Past Alcohol Use History: None Reported Additional Past Alcohol Use History / Comment(s): smoked 20 years <1ppd quit 1973 Past Drug Use History: None Reported - Past Family History Sister(s) Family Medical History: Cancer, Diabetes Mellitus Mother Family Medical History: Myocardial Infarction (CT), Renal Disease Medications and Allergies Home Medications Medication Instructions Recorded Confirmed Type Ergocalciferol [Vitamin D2 50,000 unit PO WE 02/28/14 08/07/17 History (DRISDOL)] Fenofibrate,Micronized 134 mg PO HS 02/28/14 08/07/17 History [Fenofibrate] Furosemide [Lasix] 40 mg PO HS 02/28/14 08/07/17 History metFORMIN HCL [Glucophage] 500 mg PO BID 02/28/14 08/07/17 History ALPRAZolam [Xanax] 0.5 mg PO DAILY PRN 01/05/15 08/07/17 History Meclizine [Antivert] 25 mg PO BID 01/05/15 08/07/17 History glipiZIDE [Glucotrol] 2.5 mg PO DAILY PRN 06/30/16 08/07/17 History Diltiazem HCl [Diltiazem 24Hr ER] 120 mg PO Q24HR 01/27/17 08/07/17 History traMADol HCL/ACETAMINOPHEN 1 tab PO BID 05/26/17 08/07/17 History [Ultracet 37.5-325] FLUoxetine HCL [PROzac] 40 mg PO DAILY 07/10/17 08/07/17 History Warfarin Sodium [Coumadin] 5 mg PO [id number] 07/10/17 08/07/17 History Allergies Allergy/AdvReac Type Severity Reaction Status Date / Time oxycodone [Oxycodone] Allergy Hallucinati Verified 08/07/17 12:57 ons Physical Exam Vitals: Vital Signs Temp Pulse Pulse Resp BP BP Pulse Ox 08/07/17 08:00 60 16 08/07/17 07:45 97.8 F 59 L 16 142/72 96 08/06/17 21:45 97.9 F 81 16 139/76 92 L 08/06/17 19:55 99.8 F H 80 16 161/95 99 08/06/17 19:25 98.9 F 79 17 148/70 98 08/06/17 18:34 79 17 167/76 98 08/06/17 17:19 101.3 F H 86 16 187/82 98 Intake and Output 08/06/17 08/07/17 08/07/17 22:59 06:59 14:59 Intake Total 1300 720 Balance 1300 720 Intake: Intake, IV Titration 900 Amount Ampicillin-Sulbactam 3 gm 100 In Sodium Chloride 0.9% 100 ml @ 100 mls/hr IVPB Q6HR [facility] Rx#:[id number] Sodium Chloride 0.9% 1, 800 000 ml @ 100 mls/hr IV . Q10H [facility] Rx#:[id number] Oral 400 720 Other: Voiding Method Urinal Urinal Diaper Diaper # Voids 1 1 # Bowel Movements 1 Weight 86.183 kg General: The patient is awake and alert, in no distress. He appears chronically ill. Eye: there is normal conjunctiva bilaterally. Neck: The neck is supple, there is no JVD. Cardiovascular: Normal S1-S2, no S3-S4, no murmurs. Respiratory: Lungs clear to auscultation bilaterally Gastrointestinal: Abdomen is soft, nontender Musculoskeletal: Both legs are wrapped with Hernandez/dry dressing . Please refer to nursing staff documentation for description of bilateral venous insufficiency ulcers on both legs. Neurological:. Speech is normal. Skin: Skin is warm and dry Results CBC & Chem 7: 08/06/17 17:26 08/06/17 17: Labs: Abnormal Lab Results - Last 24 Hours (Table) 08/06/17 08/06/17 08/06/17 Range/Units 17:26 17:26 17:26 RBC 3.63 L (4.30-5.90) m/uL Hgb 11.3 L D (13.0-17.5) gm/dL Hct 34.9 L (39.0-53.0) % Lymphocytes # 0.9 L (1.0-4.8) k/uL PT (9.0-12.0) sec INR (<1.2) APTT (22.0-30.0) sec Glucose 136 H (74-99) mg/dL POC Glucose (mg/dL) (75-99) mg/dL Total Creatine Kinase 36 L (55-170) U/L Albumin 3.2 L (3.5-5.0) g/dL Influenza Type B (PCR) (Not Detectd) 08/06/17 08/06/17 08/06/17 Range/Units 17:26 17:27 20:03 RBC (4.30-5.90) m/uL Hgb (13.0-17.5) gm/dL Hct (39.0-53.0) % Lymphocytes # (1.0-4.8) k/uL PT 22.2 H (9.0-12.0) sec INR 2.5 H (<1.2) APTT 32.0 H (22.0-30.0) sec Glucose (74-99) mg/dL POC Glucose (mg/dL) 124 H (75-99) mg/dL Total Creatine Kinase (55-170) U/L Albumin (3.5-5.0) g/dL Influenza Type B (PCR) Detected H (Not Detectd) 08/07/17 Range/Units 11:49 RBC (4.30-5.90) m/uL Hgb (13.0-17.5) gm/dL Hct (39.0-53.0) % Lymphocytes # (1.0-4.8) k/uL PT (9.0-12.0) sec INR (<1.2) APTT (22.0-30.0) sec Glucose (74-99) mg/dL POC Glucose (mg/dL) 134 H (75-99) mg/dL Total Creatine Kinase (55-170) U/L Albumin (3.5-5.0) g/dL Influenza Type B (PCR) (Not Detectd) Microbiology - Last 24 Hours (Table) 08/06/17 17:46 Urine Culture - Preliminary Urine,Voided Thrombosis Risk Factor Assmnt - Choose All That Apply Any of the Below Risk Factors Present?: Yes Each Factor Represents 1 point: Obesity (BMI >25) Other Risk Factors: Yes Each Risk Factor Represents 3 Points: Age 75 years or older Thrombosis Risk Factor Assessment Total Risk Factor Score: 4 Thrombosis Risk Factor Assessment Level: Moderate Risk Assessment and Plan Assessment: 1. Viral upper respiratory tract infection with influenza B 2. Bilateral chronic venous insufficiency with chronic ulcerations and surrounding cellulitis. Patient was on Augmentin at home. That was switched to Unasyn during this admission. Awaiting infectious disease evaluation. Continue dressing change. 3. Type 2 diabetes mellitus. hold metformin during this hospitalization. Continue sliding scale insulin. 4. Essential hypertension: Blood pressure well-controlled 5. Chronic physical and medical debility 6. History of renal cell carcinoma status post right nephrectomy 7. Chronic atrial fibrillation on anticoagulation with Coumadin
[2017-08-07] MEDS: LOPERAMIDE 2 MG CAP PO PRN (14:01)
[2017-08-07 17:16] LABS: Glucose,Whole Blood 154 mg/dL (75-99)
[2017-08-07 20:15] LABS: Glucose,Whole Blood 142 mg/dL (75-99)
[2017-08-07] MEDS: FENOFIBRATE 160 MG TAB PO SCH (22:26)
[2017-08-07 23:57] LABS: Hemoglobin A1C 5.4 % (4.0-6.0)
[2017-08-08] MEDS: AMPICILLIN-SULBACTAM 3 GM in SODIUM CHLORIDE 0.9% 100 ML IVPB SCH ×4 (00:24→17:30)
[2017-08-08 07:37] LABS: Glucose,Whole Blood 102 mg/dL (75-99)
[2017-08-08 07:58] LABS: INR 2.9 (<1.2); Prothrombin Time 25.7 sec (9.0-12.0)
[2017-08-08] MEDS: INSULIN ASPART 100 UNIT/ML 1 ML 10 ML VIAL SQ SCH ×4 (08:05→21:09)
[2017-08-08 08:15] LABS: Anion Gap 10 mmol/L; Blood Urea Nitrogen 13 mg/dL (9-20); Carbon Dioxide 25 mmol/L (22-30); Chloride 110 mmol/L (98-107); Glucose 97 mg/dL (74-99); Potassium 3.2 mmol/L (3.5-5.1); Sodium 145 mmol/L (137-145)
[2017-08-08 08:23] LABS: Basophils % (A) 0 %; Eosinophils # (A) 0.1 k/uL (0-0.7); Eosinophils % (A) 5 %; HCT 32.2 % (39.0-53.0); HGB 10.5 gm/dL (13.0-17.5); Lymphocytes # (A) 1.6 k/uL (1.0-4.8); Lymphocytes % (A) 52 %; MCH 31.1 pg (25.0-35.0); MCHC 32.6 g/dL (31.0-37.0); MCV 95.3 fL (80.0-100.0); Mean Platelet Volume 9.2; Monocytes # (A) 0.1 k/uL (0-1.0); Monocytes % (A) 4 %; Neutrophils # (A) 1.1 k/uL (1.3-7.7); Neutrophils % (A) 36 %; Platelet Count 147 k/uL (150-450); RBC 3.38 m/uL (4.30-5.90); RDW 13.7 % (11.5-15.5)
[2017-08-08] MEDS: traMADol-ACETAMINOP 37.5-325MG 1 EACH TAB PO SCH ×2 (08:31→21:04)
[2017-08-08] MEDS: FLUoxetine HCL 20 MG CAP PO SCH (08:31)
[2017-08-08] MEDS: DILTIAZEM CD 120 MG CAP.ER.24H PO SCH (08:32)
[2017-08-08] MEDS: OSELTAMIVIR 75 MG CAP PO SCH ×2 (08:32→21:04)
[2017-08-08] MEDS: MECLIZINE 25 MG TAB PO SCH ×2 (08:32→21:04)
[2017-08-08] MEDS ORDERED: POTASSIUM CHLORIDE ER 20 MEQ TAB.ER PO STA (08:38)
[2017-08-08 10:56] LABS: Anisocytosis (M) Present; Poikilocytosis (M) Present
[2017-08-08 11:25] LABS: Glucose,Whole Blood 110 mg/dL (75-99)
[2017-08-08] MEDS: LOPERAMIDE 2 MG CAP PO PRN ×2 (11:29→19:44)
--- NOTE | 2017-08-08 12:16 | P.PN ---
Subjective Progress Note Date: 08/08/17 This is a 81-year-old gentleman with very complex past medical history noted below who recently had a prolonged hospitalization and was discharged approximately 2 weeks ago. Patient said that for the past few days he has been getting progressively weak. He was having flulike symptoms with runny nose and cough that he describes as productive with yellowish sputum. Patient said that he is having chills but no documented fevers. He has chronic venous insufficiency in both legs with chronic ulcers for which she follow-up with the wound care clinic. He presented to the emergency room, was evaluated, and was found to have influenza the upper respiratory tract infection. He was started on Tamiflu and currently admitted to the hospital for further evaluation. 08/08/2017 patient remains on Tamiflu and Unasyn for his influenza and lower extremity cellulitis. Infectious disease consult pending. had low potassium of 3.2 this is being replaced. Patient reports improvement in his cough and shortness of breath. He denies any chest pain. Denies any nausea or vomiting. Reports improvement in his diarrhea. No bowel movement today. Urine culture showing gram-negative bacilli only 10,000-49,000 colonies. Low colony count. Patient has no urinary symptoms Objective - Vital Signs Vital signs: Vital Signs Temp 97.8 F 08/08/17 07:29 Pulse 65 08/08/17 08:00 Resp 16 08/08/17 08:00 BP 149/72 08/08/17 07:29 Pulse Ox 98 08/08/17 07:29 Intake & Output 08/07/17 08/08/17 08/08/17 18:59 06:59 18:59 Intake Total 2140 240 Output Total 200 Balance 1940 240 Intake: Intake, IV Titration 700 Amount Ampicillin-Sulbactam 3 gm 100 In Sodium Chloride 0.9% 100 ml @ 100 mls/hr IVPB Q6HR [facility] Rx#:[id number] Sodium Chloride 0.9% 1, 600 000 ml @ 100 mls/hr IV . Q10H [facility] Rx#:[id number] Oral 1440 240 Output: Urine 200 Other: Voiding Method Urinal Urinal Urinal Diaper Diaper Diaper # Voids 4 2 # Bowel Movements 3 - Exam Head normocephalic Neck supple Lungs clear to auscultation bilaterally no wheezing or crackles Heart regular rate and rhythm S1-S2, no rub or gallop Abdomen is soft nontender nondistended positive bowel sounds no hepatosplenomegaly Extremities no edema Neuro alert and orientated to 3 - Labs CBC & Chem 7: 08/08/17 06:59 08/08/17 06:59 Labs: Abnormal Lab Results - Last 24 Hours (Table) 08/07/17 08/07/17 08/08/17 Range/Units 17:01 20:14 06:59 WBC 3.0 L (3.8-10.6) k/uL RBC 3.38 L (4.30-5.90) m/uL Hgb 10.5 L (13.0-17.5) gm/dL Hct 32.2 L (39.0-53.0) % Plt Count 147 L (150-450) k/uL Neutrophils # 1.1 L (1.3-7.7) k/uL PT (9.0-12.0) sec INR (<1.2) Potassium (3.5-5.1) mmol/L Chloride (98-107) mmol/L Creatinine (0.66-1.25) mg/dL POC Glucose (mg/dL) 154 H 142 H (75-99) mg/dL Calcium (8.4-10.2) mg/dL 08/08/17 08/08/17 08/08/17 Range/Units 06:59 06:59 07:24 WBC (3.8-10.6) k/uL RBC (4.30-5.90) m/uL Hgb (13.0-17.5) gm/dL Hct (39.0-53.0) % Plt Count (150-450) k/uL Neutrophils # (1.3-7.7) k/uL PT 25.7 H (9.0-12.0) sec INR 2.9 H (<1.2) Potassium 3.2 L (3.5-5.1) mmol/L Chloride 110 H (98-107) mmol/L Creatinine 0.61 L (0.66-1.25) mg/dL POC Glucose (mg/dL) 102 H (75-99) mg/dL Calcium 8.0 L (8.4-10.2) mg/dL 08/08/17 Range/Units 11:21 WBC (3.8-10.6) k/uL RBC (4.30-5.90) m/uL Hgb (13.0-17.5) gm/dL Hct (39.0-53.0) % Plt Count (150-450) k/uL Neutrophils # (1.3-7.7) k/uL PT (9.0-12.0) sec INR (<1.2) Potassium (3.5-5.1) mmol/L Chloride (98-107) mmol/L Creatinine (0.66-1.25) mg/dL POC Glucose (mg/dL) 110 H (75-99) mg/dL Calcium (8.4-10.2) mg/dL Microbiology - Last 24 Hours (Table) 08/06/17 17:26 Blood Culture - Preliminary Blood No Growth after 24 hours 08/06/17 17:46 Urine Culture - Preliminary Urine,Voided Gram Neg Bacilli Assessment and Plan Assessment: 1. Viral upper respiratory tract infection with influenza B. Continue Tamiflu. 2. Bilateral chronic venous insufficiency with chronic ulcerations and surrounding cellulitis. Patient was on Augmentin at home. That was switched to Unasyn during this admission. Awaiting infectious disease evaluation. Continue dressing change. 3. Type 2 diabetes mellitus. hold metformin during this hospitalization. Continue sliding scale insulin. 4. Essential hypertension: Blood pressure well-controlled 5. Chronic physical and medical debility 6. History of renal cell carcinoma status post right nephrectomy 7. Chronic atrial fibrillation on anticoagulation with Coumadin 8. Hypokalemia patient receiving potassium supplement 9. Leukopenia: White count 3 likely secondary to his acute infection. Repeat labs in a.m. 10. Anemia with a known history of iron deficiency anemia. Check iron studies. Patient reports that he takes iron supplement only once a month
[2017-08-08 17:10] LABS: Glucose,Whole Blood 160 mg/dL (75-99)
[2017-08-08] MEDS: WARFARIN 5 MG TAB PO SCH (17:31)
[2017-08-08 20:10] LABS: Glucose,Whole Blood 148 mg/dL (75-99)
[2017-08-08 20:42] LABS: Iron Saturation 15.86 (15.00-50.00)
[2017-08-08] MEDS: FENOFIBRATE 160 MG TAB PO SCH (21:04)
[2017-08-08 22:25] VITALS: RESP 18
--- NOTE | 2017-08-08 22:33 | P.CONS ---
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 The patient has had local wound care was recently with medical honey with some improvement of his status. He has had difficulty with localized renal cell carcinoma that has been resected. Patient was recently hospitalized in which she had a bout of sepsis, found to have evidence of acute cholecystitis was taken to the operating room and his sepsis and jaundice have resolved. He went to extended care for rehab and is antibiotic therapy. Antibiotics have completed and he was discharged to home. However with pressure. Of time he became very weak and was having difficulty with moving and transferring and constantly was brought to hospital for further evaluation. The patient had developed a fever chills cough with minimal sputum production and has noted profound weakness. Upon arrival to the emergency center he had a fever over 102 and testing reveal evidence of influenza B. Patient is being treated with Tamiflu and the consultation was requested. The patient is somewhat miserable and that he is still in the hospital today is his 82th birthday was hoping to be home. Patient's is present and is very supportive. Review of Systems HEENT:Denies headache or acute visual change. Denies sinus or mouth discomforts. Denies neck stiffness or pain. Denies significant oral cavity pain. Denies difficulty on swallowing. Lungs: Denies significant shortness of breath, but has had cough and some sputum production from his influenza but no hemoptysis Cardiovascular: Denies significant shortness of breath, chest pain, chest wall pain, orthopnea, dyspnea on exertion, syncope Gastrointestinal:Denies nausea, vomiting, diarrhea, constipation, hematemesis, melena, hematochezia. No no significant change of bowel habit noticed. Musculoskeletal: denies significant myalgias or arthralgias. No new joint swelling. Denies new back pain. Skin: Chronic lower extremity lesions Neuro: Denies headache or visual change. Denies any new onset weakness or difficulty with ambulation. Denies falls or seizures. Psychiatric:Denies anxiety or depression. Endocrine: Significant fatigue but no weight change long-standing history of diabetes Past Medical History Past Medical History: Atrial Fibrillation, Diabetes Mellitus, Hypertension Additional Past Medical History / Comment(s): BLE VENOUS ULCERS, calcenosis of BLE. MAC. DEGENERATION. VERTIGO. 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 fluid from eyes r/t glaucoma Past Anesthesia/Blood Transfusion Reactions: Motion Sickness Past Psychological History: Anxiety Additional Psychological History / Comment(s): . Retired. experience. No international travel. No animal exposures Smoking Status: Former smoker Past Alcohol Use History: None Reported Additional Past Alcohol Use History / Comment(s): smoked 20 years <1ppd quit 1974 Past Drug Use History: None Reported - Past Family History Sister(s) Family Medical History: Cancer, Diabetes Mellitus Mother Family Medical History: Myocardial Infarction ([place]), Renal Disease Medications and Allergies Home Medications and Allergies Comment(s): Current Medications Acetaminophen (Tylenol Tab) 650 mg PO Q4HR PRN PRN Reason: Fever and/ or Pain Alprazolam (Xanax) 0.5 mg PO DAILY PRN PRN Reason: Anxiety Diltiazem HCl (Cardizem Cd) 120 mg PO Q24HR [facility] Last Admin: 08/08/17 08:32 Dose: 120 mg Ergocalciferol (Vitamin D2) 50,000 unit PO We@1200 QUOC Fenofibrate (Lofibra) 160 mg PO HS [facility] Last Admin: 08/08/17 21:04 Dose: 160 mg Fluoxetine HCl (Prozac) 40 mg PO DAILY [facility] Last Admin: 08/08/17 08:31 Dose: 40 mg Ampicillin Sodium/Sulbactam (Sodium 3 gm/ Sodium Chloride) 100 mls @ 100 mls/ hr IVPB Q6HR [facility] Last Admin: 08/08/17 17:30 Dose: 100 mls/hr Insulin Aspart (Novolog) 0 unit SQ ACHS [facility] PRN Reason: Protocol Last Admin: 08/08/17 21:09 Dose: 1 unit Loperamide HCl (Imodium) 2 mg PO QID PRN PRN Reason: Diarrhea Last Admin: 08/08/17 19:44 Dose: 2 mg Meclizine HCl (Antivert) 25 mg PO BID [facility] Last Admin: 08/08/17 21:04 Dose: 25 mg Oseltamivir Phosphate (Tamiflu) 75 mg PO Q12HR [facility] Stop: 08/11/17 09:01 Last Admin: 08/08/17 21:04 Dose: 75 mg Tramadol/Acetaminophen (Ultracet) 1 each PO BID [facility] Last Admin: 08/08/17 21:04 Dose: 1 each Warfarin Sodium (Coumadin) 5 mg PO [id number] [facility] Last Admin: 08/08/17 17:31 Dose: 5 mg Home Medications Medication Instructions Recorded Confirmed Type Ergocalciferol [Vitamin D2 50,000 unit PO WE 02/28/14 08/07/17 History (DRISDOL)] Fenofibrate,Micronized 134 mg PO HS 02/28/14 08/07/17 History [Fenofibrate] Furosemide [Lasix] 40 mg PO HS 02/28/14 08/07/17 History metFORMIN HCL [Glucophage] 500 mg PO BID 02/28/14 08/07/17 History ALPRAZolam [Xanax] 0.5 mg PO DAILY PRN 01/05/15 08/07/17 History Meclizine [Antivert] 25 mg PO BID 01/05/15 08/07/17 History glipiZIDE [Glucotrol] 2.5 mg PO DAILY PRN 06/30/16 08/07/17 History Diltiazem HCl [Diltiazem 24Hr ER] 120 mg PO Q24HR 01/27/17 08/07/17 History traMADol HCL/ACETAMINOPHEN 1 tab PO BID 05/26/17 08/07/17 History [Ultracet 37.5-325] FLUoxetine HCL [PROzac] 40 mg PO DAILY 07/10/17 08/07/17 History Warfarin Sodium [Coumadin] 5 mg PO MOTUWETHFRSA 07/10/17 08/07/17 History Allergies Allergy/AdvReac Type Severity Reaction Status Date / Time oxycodone [Oxycodone] Allergy Hallucinati Verified 08/07/17 12:57 ons Physical Exam Vitals: Vital Signs Temp Pulse Resp BP Pulse Ox 08/08/17 16:00 66 16 08/08/17 15:49 97.4 F L 66 16 156/72 97 08/08/17 08:00 65 16 08/08/17 07:29 97.8 F 65 16 149/72 98 Intake and Output 08/08/17 08/08/17 08/08/17 06:59 14:59 22:59 Intake Total 540 Output Total 550 Balance 540 -550 Intake: Intake, IV Titration 100 Amount Ampicillin-Sulbactam 3 gm 100 In Sodium Chloride 0.9% 100 ml @ 100 mls/hr IVPB Q6HR [facility] Rx#:[id number] Oral 440 Output: Urine 550 Other: Voiding Method Urinal Urinal Urinal Diaper Diaper Diaper # Voids 2 10-year-old male who is currently awake and alert interactive HEENT: Anicteric conjunctiva are pink and moist nasal mucosa grossly intact without significant lesions, there is no thrush. Neck: The neck is supple without significant lymphadenopathy or thyromegaly. Lungs: Good bilateral air entry without significant crackles or wheezing. There is no significant bronchial sounds. There is no egophony or dullness. Heart: Regular rate and rhythm with an audible S1-S2, no S3 no S4. There is no significant murmur click or rub, PMI was nondisplaced. Abdomen: Positive bowel sounds soft and nontender without palpable masses or organomegaly. There was no guarding or rebound. Extremities: The upper extremities have excellent pulses they are symmetric, no significant petechiae or telangiectasia. No splinter hemorrhages were noted. The lower extremities. The chronic changes of this calcinosis. The medical [address] into place. Neuro: Awake alert oriented to person place and time. No acute gross focal sensory motor deficits Results CBC & Chem 7: 08/08/17 06:59 08/08/17 06:59 Labs: Abnormal Lab Results - Last 24 Hours (Table) 08/08/17 08/08/17 08/08/17 Range/Units 06:59 06:59 06:59 WBC 3.0 L (3.8-10.6) k/uL RBC 3.38 L (4.30-5.90) m/uL Hgb 10.5 L (13.0-17.5) gm/dL Hct 32.2 L (39.0-53.0) % Plt Count 147 L (150-450) k/uL Neutrophils # 1.1 L (1.3-7.7) k/uL PT 25.7 H (9.0-12.0) sec INR 2.9 H (<1.2) Potassium 3.2 L (3.5-5.1) mmol/L Chloride 110 H (98-107) mmol/L Creatinine 0.61 L (0.66-1.25) mg/dL POC Glucose (mg/dL) (75-99) mg/dL Calcium 8.0 L (8.4-10.2) mg/dL 08/08/17 08/08/17 08/08/17 Range/Units 07:24 11:21 17:05 WBC (3.8-10.6) k/uL RBC (4.30-5.90) m/uL Hgb (13.0-17.5) gm/dL Hct (39.0-53.0) % Plt Count (150-450) k/uL Neutrophils # (1.3-7.7) k/uL PT (9.0-12.0) sec INR (<1.2) Potassium (3.5-5.1) mmol/L Chloride (98-107) mmol/L Creatinine (0.66-1.25) mg/dL POC Glucose (mg/dL) 102 H 110 H 160 H (75-99) mg/dL Calcium (8.4-10.2) mg/dL 08/08/17 Range/Units 20:08 WBC (3.8-10.6) k/uL RBC (4.30-5.90) m/uL Hgb (13.0-17.5) gm/dL Hct (39.0-53.0) % Plt Count (150-450) k/uL Neutrophils # (1.3-7.7) k/uL PT (9.0-12.0) sec INR (<1.2) Potassium (3.5-5.1) mmol/L Chloride (98-107) mmol/L Creatinine (0.66-1.25) mg/dL POC Glucose (mg/dL) 148 H (75-99) mg/dL Calcium (8.4-10.2) mg/dL Microbiology - Last 24 Hours (Table) 08/06/17 17:26 Blood Culture - Preliminary Blood No Growth after 48 hours 08/06/17 17:46 Urine Culture - Final Urine,Voided Citrobacter braakii Pseudomonas aeruginosa Laboratory Results WBC 3.0 k/uL (3.8-10.6) L 08/08/17 06:59 RBC 3.38 m/uL (4.30-5.90) L 08/08/17 06:59 Hgb 10.5 gm/dL (13.0-17.5) L 08/08/17 06:59 Hct 32.2 % (39.0-53.0) L 08/08/17 06:59 MCV 95.3 fL (80.0-100.0) 08/08/17 06:59 MCH 31.1 pg (25.0-35.0) 08/08/17 06:59 MCHC 32.6 g/dL (31.0-37.0) 08/08/17 06:59 RDW 13.7 % (11.5-15.5) 08/08/17 06:59 Plt Count 147 k/uL (150-450) L 08/08/17 06:59 Neutrophils % 36 % 08/08/17 06:59 Lymphocytes % 52 % 08/08/17 06:59 Monocytes % 4 % 08/08/17 06:59 Eosinophils % 5 % 08/08/17 06:59 Basophils % 0 % 08/08/17 06:59 Neutrophils # 1.1 k/uL (1.3-7.7) L 08/08/17 06:59 Lymphocytes # 1.6 k/uL (1.0-4.8) 08/08/17 06:59 Monocytes # 0.1 k/uL (0-1.0) 08/08/17 06:59 Eosinophils # 0.1 k/uL (0-0.7) 08/08/17 06:59 Basophils # 0.0 k/uL (0-0.2) 08/08/17 06:59 Poikilocytosis (manual Present 08/08/17 06:59 Anisocytosis (manual) Present 08/08/17 06:59 PT 25.7 sec (9.0-12.0) H 08/08/17 06:59 INR 2.9 (<1.2) H 08/08/17 06:59 APTT 32.0 sec (22.0-30.0) H 08/06/17 17:26 Sodium 145 mmol/L (137-145) 08/08/17 06:59 Potassium 3.2 mmol/L (3.5-5.1) L 08/08/17 06:59 Chloride 110 mmol/L (98-107) H 08/08/17 06:59 Carbon Dioxide 25 mmol/L (22-30) 08/08/17 06:59 Anion Gap 10 mmol/L 08/08/17 06:59 BUN 13 mg/dL (9-20) 08/08/17 06:59 Creatinine 0.61 mg/dL (0.66-1.25) L 08/08/17 06:59 Est GFR (CKD-EPI)AfAm >90 (>60 ml/min/1.73 sqM) 08/08/17 06:59 Est GFR (CKD-EPI)NonAf >90 (>60 ml/min/1.73 sqM) 08/08/17 06:59 Glucose 97 mg/dL (74-99) 08/08/17 06:59 POC Glucose (mg/dL) 148 mg/dL (75-99) H 08/08/17 20:08 POC Glu Activity Manager ID Savanna Kay 08/08/17 20:[address] Glu mg/dL 108 08/06/17 17:26 Hemoglobin A1c 5.4 % (4.0-6.0) 08/06/17 17:26 Calcium 8.0 mg/dL (8.4-10.2) L 08/08/17 06:59 Phosphorus 2.5 mg/dL (2.5-4.5) 08/06/17 17:26 Magnesium 1.8 mg/dL (1.6-2.3) 08/06/17 17:26 Total Bilirubin 0.7 mg/dL (0.2-1.3) 08/06/17 17:26 AST 47 U/L (17-59) 08/06/17 17:26 ALT 23 U/L (21-72) 08/06/17 17:26 Alkaline Phosphatase 55 U/L (38-126) 08/06/17 17:26 Total Creatine Kinase 36 U/L (55-170) L 08/06/17 17:26 CK-MB (CK-2) 0.3 ng/mL (0.0-2.4) 08/06/17 17:26 CK-MB (CK-2) Rel Index 0.8 08/06/17 17:26 Troponin I 0.027 ng/mL (0.000-0.034) 08/06/17 17:26 Total Protein 6.6 g/dL (6.3-8.2) 08/06/17 17:26 Albumin 3.2 g/dL (3.5-5.0) L 08/06/17 17:26 TSH 2.290 mIU/L (0.465-4.680) 08/06/17 17:26 Urine Color Yellow 08/06/17 17:46 Urine Appearance Clear (Clear) 08/06/17 17:46 Urine pH 6.5 (5.0-8.0) 08/06/17 17:46 Ur Specific Kipling 1.020 (1.001-1.035) 08/06/17 17:46 Urine Protein Negative (Negative) 08/06/17 17:46 Urine Glucose (UA) Negative (Negative) 08/06/17 17:46 Urine Ketones Negative (Negative) 08/06/17 17:46 Urine Blood Negative (Negative) 08/06/17 17:46 Urine Nitrite Negative (Negative) 08/06/17 17:46 Urine Bilirubin Negative (Negative) 08/06/17 17:46 Urine Urobilinogen <2.0 mg/dL (<2.0) 08/06/17 17:46 Ur Leukocyte Esterase Negative (Negative) 08/06/17 17:46 C. difficile (EIA) Intrp Negative (Negative) 08/07/17 13:08 Influenza Type A RNA Not Detected (Not Detectd) 08/06/17 17:27 Influenza Type B (PCR) Detected (Not Detectd) H 08/06/17 17:27 Microbiology 08/06/17 17:26 Blood Blood Culture - Preliminary No Growth after 48 hours 08/06/17 17:46 Urine,Voided Urine Culture - Final Citrobacter braakii Pseudomonas aeruginosa Assessment and Plan (1) Influenza B Narrative/Plan: 82-year-old male who has multiple medical troubles including the calciphylaxis of his lower extremities presents to Hospital after his recent hospitalization and stay at rehab facility. He does return to home when he became acutely ill with influenza B. Starting to show some improvement with the Tamiflu and supportive care. Was associated with Unasyn based on prior culture results with MSSA. Patient without evidence of sepsis this time and seems to be improving with local care. Will not plan on long-term outpatient intravenous antibiotic therapy. Complete his 5 day course of Tamiflu. Local wound care with medical clinic. Case is discussed with the PA, patient is weak was a 2 person assist and constantly is not ready for discharge to his home environment where he needs to be independent for transfer so that his significant other can care for him in the home setting. Current Visit: Yes Status: Acute Code(s): J10.1 - FLU DUE TO OTH IDENT INFLUENZA VIRUS W OTH RESP MANIFEST SNOMED Code(s): 07028037 (2) Diabetes mellitus type 2 with complications Current Visit: No Status: Acute Code(s): E11.8 - TYPE 2 DIABETES MELLITUS WITH UNSPECIFIED COMPLICATIONS SNOMED Code(s): 98512475
[2017-08-09] MEDS: AMPICILLIN-SULBACTAM 3 GM in SODIUM CHLORIDE 0.9% 100 ML IVPB SCH ×3 (00:40→12:23)
[2017-08-09 06:58] LABS: Glucose,Whole Blood 91 mg/dL (75-99)
[2017-08-09] MEDS: INSULIN ASPART 100 UNIT/ML 1 ML 10 ML VIAL SQ SCH ×2 (07:19→12:23)
[2017-08-09] MEDS: MECLIZINE 25 MG TAB PO SCH (07:27)
[2017-08-09] MEDS: FLUoxetine HCL 20 MG CAP PO SCH (07:27)
[2017-08-09] MEDS: OSELTAMIVIR 75 MG CAP PO SCH ×2 (07:27→15:49)
[2017-08-09] MEDS: DILTIAZEM CD 120 MG CAP.ER.24H PO SCH (07:27)
[2017-08-09] MEDS: traMADol-ACETAMINOP 37.5-325MG 1 EACH TAB PO SCH (07:29)
[2017-08-09 07:45] VITALS: BP 142/82; PULSE 70; TEMP 97
[2017-08-09] MEDS: LOPERAMIDE 2 MG CAP PO PRN (08:07)
[2017-08-09 08:15] LABS: INR 3.2 (<1.2); Prothrombin Time 28.8 sec (9.0-12.0)
[2017-08-09 08:20] LABS: Basophils % (A) 0 %; Eosinophils # (A) 0.1 k/uL (0-0.7); Eosinophils % (A) 3 %; HCT 33.3 % (39.0-53.0); HGB 10.4 gm/dL (13.0-17.5); Hypochromasia Slight; Lymphocytes # (A) 1.6 k/uL (1.0-4.8); Lymphocytes % (A) 48 %; MCH 30.2 pg (25.0-35.0); MCHC 31.3 g/dL (31.0-37.0); MCV 96.6 fL (80.0-100.0); Mean Platelet Volume 9.9; Monocytes # (A) 0.1 k/uL (0-1.0); Monocytes % (A) 4 %; Neutrophils # (A) 1.4 k/uL (1.3-7.7); Neutrophils % (A) 43 %; Platelet Count 157 k/uL (150-450); RBC 3.45 m/uL (4.30-5.90); RDW 13.8 % (11.5-15.5); WBC 3.4 k/uL (3.8-10.6)
[2017-08-09 08:27] LABS: Anion Gap 10 mmol/L; Blood Urea Nitrogen 13 mg/dL (9-20); Calcium 7.9 mg/dL (8.4-10.2); Carbon Dioxide 24 mmol/L (22-30); Chloride 111 mmol/L (98-107); Glucose 93 mg/dL (74-99); Potassium 3.7 mmol/L (3.5-5.1); Sodium 145 mmol/L (137-145)
[2017-08-09 11:23] LABS: Glucose,Whole Blood 115 mg/dL (75-99)
--- NOTE | 2017-08-09 14:36 | P.DS ---
Providers Date of admission: 08/06/17 18:35 Expected date of discharge: 08/09/17 Attending physician: Brandie Hinton Consults: 08/07/17 10:03 Consult Physician Urgent Consulting Provider: Nitesh George Consult Reason/Comments: Wounds B/L LE and buttocks. Patient is seen in the wound care center. Do you want consulting provider notified?: Yes Primary care physician: Brandie [facility] Course: Discharge diagnosis 1. Viral upper respiratory tract infection with influenza B. Continue Tamiflu for 6 more doses 2. Bilateral chronic venous insufficiency with chronic ulcerations and surrounding cellulitis. Patient seen by infectious disease no further antibiotics needed 3. Type 2 diabetes mellitus. hold metformin during this hospitalization. Continue sliding scale insulin. 4. Essential hypertension: Blood pressure well-controlled 5. Chronic physical and medical debility 6. History of renal cell carcinoma status post right nephrectomy 7. Chronic atrial fibrillation on anticoagulation with Coumadin 8. Hypokalemia patient receiving potassium supplement 9. Leukopenia: White count 3.4 likely secondary to his acute infection. Repeat labs in a.m. 10. Iron deficiency anemia. Total iron is low at 36. Continue ferrous sulfate 325 mg twice a day. Hemoglobin at discharge 10.4 Hospital course This is a 81-year-old gentleman with very complex past medical history noted below who recently had a prolonged hospitalization and was discharged approximately 2 weeks ago. Patient said that for the past few days he has been getting progressively weak. He was having flulike symptoms with runny nose and cough that he describes as productive with yellowish sputum. Patient said that he is having chills but no documented fevers. He has chronic venous insufficiency in both legs with chronic ulcers for which she follow-up with the wound care clinic. He presented to the emergency room, was evaluated, and was found to have influenza the upper respiratory tract infection. He was started on Tamiflu and currently admitted to the hospital for further evaluation. Patient seen by infectious disease. The recommending complete treatment of the Tamiflu for his influenza infection. Patient's symptoms have improved. Infectious disease also evaluated patient in regards to his chronic venous insufficiency and ulcerations of the legs. They felt that there was no further signs of cellulitis and no further antibiotics are needed. Patient's urine culture did grow Citrobacter and Pseudomonas but only 10,000-49,000 colonies and patient was asymptomatic for any urinary symptoms. Infectious disease is not recommending any antibiotics. Patient was seen by physical therapy and they did recommend rehabilitation. However patient is refusing this and would prefer to go home with home care. Patient is medically stable for discharge. Please refer to chart for any further details. I performed an examination of the patient and discussed their management with the physician Inspector And Sorter. I have reviewed the Physician Inspector And Sorter's notes and agree with the documented findings and plan of care Patient Condition at Discharge: Stable Plan - Discharge Summary Discharge Rx Participant: Yes New Discharge Prescriptions: New Oseltamivir [Tamiflu] 75 mg PO Q12HR #6 cap Continue Furosemide [Lasix] 40 mg PO HS metFORMIN HCL [Glucophage] 500 mg PO BID Fenofibrate,Micronized [Fenofibrate] 134 mg PO HS Ergocalciferol [Vitamin D2 (DRISDOL)] 50,000 unit PO WE ALPRAZolam [Xanax] 0.5 mg PO DAILY PRN PRN Reason: Anxiety Meclizine [Antivert] 25 mg PO BID glipiZIDE [Glucotrol] 2.5 mg PO DAILY PRN PRN Reason: Blood Sugar - High Diltiazem HCl [Diltiazem 24Hr ER] 120 mg PO Q24HR traMADol HCL/ACETAMINOPHEN [Ultracet 37.5-325] 1 tab PO BID FLUoxetine HCL [PROzac] 40 mg PO DAILY Warfarin Sodium [Coumadin] 5 mg PO MOTUWETHFRSA Discharge Medication List Ergocalciferol [Vitamin D2 (DRISDOL)] 50,000 unit PO WE 02/28/14 [History] Fenofibrate,Micronized [Fenofibrate] 134 mg PO HS 02/28/14 [History] Furosemide [Lasix] 40 mg PO HS 02/28/14 [History] metFORMIN HCL [Glucophage] 500 mg PO BID 02/28/14 [History] ALPRAZolam [Xanax] 0.5 mg PO DAILY PRN 01/05/15 [History] Meclizine [Antivert] 25 mg PO BID 01/05/15 [History] glipiZIDE [Glucotrol] 2.5 mg PO DAILY PRN 06/30/16 [History] Diltiazem HCl [Diltiazem 24Hr ER] 120 mg PO Q24HR 01/27/17 [History] traMADol HCL/ACETAMINOPHEN [Ultracet 37.5-325] 1 tab PO BID 05/26/17 [History] FLUoxetine HCL [PROzac] 40 mg PO DAILY 07/10/17 [History] Warfarin Sodium [Coumadin] 5 mg PO MOTUWETHFRSA 07/10/17 [History] Oseltamivir [Tamiflu] 75 mg PO Q12HR #6 cap 08/09/17 [Rx] Follow up Appointment(s)/Referral(s): Brandie Hinton MD [Primary Care Provider] - 1-2 days
[2017-08-10] MEDS ORDERED: ERGOCALCIFEROL 50,000 UNIT CAP PO SCH (12:00)
== END 2017-08-09 16:40 | disposition home health service (06) | DRG 194 ==
LOC: EC 17:17 → 5MS5E 18:35
PROVIDERS: ADMIT Internal Medicine; ATTEND Internal Medicine
DX: J10.1 Influenza due to other identified influenza virus with other respiratory manifestations (principal); L97.929 Non-pressure chronic ulcer of unspecified part of left lower leg with unspecified severity; L97.919 Non-pressure chronic ulcer of unspecified part of right lower leg with unspecified severity; L03.116 Cellulitis of left lower limb; L03.115 Cellulitis of right lower limb; L94.2 Calcinosis cutis; I87.2 Venous insufficiency (chronic) (peripheral); D50.9 Iron deficiency anemia, unspecified; D72.819 Decreased white blood cell count, unspecified; E11.8 Type 2 diabetes mellitus with unspecified complications; E87.6 Hypokalemia; F41.9 Anxiety disorder, unspecified; H40.9 Unspecified glaucoma; I10 Essential (primary) hypertension; I48.2 Chronic atrial fibrillation; Z79.01 Long term (current) use of anticoagulants; Z79.899 Other long term (current) drug therapy; Z82.49 Family history of ischemic heart disease and other diseases of the circulatory system; Z83.3 Family history of diabetes mellitus; Z85.528 Personal history of other malignant neoplasm of kidney; Z87.891 Personal history of nicotine dependence; Z89.412 Acquired absence of left great toe; Z89.422 Acquired absence of other left toe(s); Z90.5 Acquired absence of kidney; Z98.42 Cataract extraction status, left eye; Z98.41 Cataract extraction status, right eye; Z79.84 Long term (current) use of oral hypoglycemic drugs; R53.81 Other malaise
CPT/HCPCS: 36415; 74022; 80048; 80053; 81003; 82550; 82553; 82728; 83036; 83540; 83550; 83735; 84100; 84443; 84484; 85025; 85610; 85730; 87040; 87077; 87086; 87186; 87324; 87502; 93005; 96361; 96365; 99285

== ENCOUNTER 2017-08-10 20:32 | Observation (INO) | payer MEDICARE ==
[2017-08-10 22:14] LABS: Basophils % (A) 0 %; Eosinophils # (A) 0.1 k/uL (0-0.7); Eosinophils % (A) 2 %; HCT 33.3 % (39.0-53.0); HGB 10.8 gm/dL (13.0-17.5); Lymphocytes # (A) 1.4 k/uL (1.0-4.8); Lymphocytes % (A) 30 %; MCH 30.8 pg (25.0-35.0); MCHC 32.5 g/dL (31.0-37.0); MCV 94.9 fL (80.0-100.0); Mean Platelet Volume 9.8; Monocytes # (A) 0.2 k/uL (0-1.0); Monocytes % (A) 5 %; Neutrophils # (A) 2.7 k/uL (1.3-7.7); Neutrophils % (A) 60 %; Platelet Count 207 k/uL (150-450); RBC 3.51 m/uL (4.30-5.90); RDW 13.9 % (11.5-15.5); WBC 4.5 k/uL (3.8-10.6)
[2017-08-10 22:25] LABS: ALT 23 U/L (21-72); AST 29 U/L (17-59); Albumin 3.1 g/dL (3.5-5.0); Alkaline Phosphatase 55 U/L (38-126); Anion Gap 14 mmol/L; Blood Urea Nitrogen 15 mg/dL (9-20); Carbon Dioxide 24 mmol/L (22-30); Chloride 105 mmol/L (98-107); Glucose 168 mg/dL (74-99); Potassium 3.5 mmol/L (3.5-5.1); Sodium 143 mmol/L (137-145); Total Bilirubin 0.5 mg/dL (0.2-1.3); Total Protein 5.8 g/dL (6.3-8.2)
[2017-08-10 22:28] LABS: Appearance,Urine Clear (Clear); Bilirubin,Urine Negative (Negative); Blood,Urine Negative (Negative); Color,Urine Yellow; Glucose,Urine (UA) Negative (Negative); Ketones,Urine Negative (Negative); Leukocyte Esterase,Urine Negative (Negative); Nitrite,Urine Negative (Negative); PH, Urine 6.5 (5.0-8.0); Protein,Urine Negative (Negative); Urobilinogen,Urine <2.0 mg/dL (<2.0)
[2017-08-10 22:33] LABS: Partial Thromboplastin Time 36.6 sec (22.0-30.0); Prothrombin Time 49.1 sec (9.0-12.0)
[2017-08-10 22:39] LABS: INR 5.4 (<1.2)
[2017-08-10 22:51] LABS: Creatine Kinase MB 0.6 ng/mL (0.0-2.4); Troponin I 0.017 ng/mL (0.000-0.034)
[2017-08-10] MEDS ORDERED: NALOXONE 0.4 MG/ML 1 ML VIAL IV PRN (23:26)
[2017-08-10] MEDS ORDERED: ONDANSETRON 4 MG/2 ML VIAL IVP PRN (23:26)
[2017-08-10] MEDS ORDERED: ACETAMINOPHEN TAB 325 MG TAB PO PRN (23:26)
--- NOTE | 2017-08-10 23:26 | ED ---
Weakness HPI - General Chief complaint: Weakness Stated complaint: weakness Time Seen by Provider: 08/10/17 21:44 Source: patient Mode of arrival: ambulatory Limitations: no limitations - History of Present Illness Initial comments: This 82-year-old white male presents with son with the complaint of weakness. He apparently does have a moderately complicated recent medical history. He was hospitalized several weeks ago and had gallstones in his gallbladder duct and gallbladder. They apparently remove the stones and then had a cholecystectomy. He had to go to rehab for a week and apparently contracted influenza. He was back in the hospital recently with influenza. He is extremely weak in this regard and having upper respiratory symptoms. He was just discharged yesterday. They would not let him be discharged until he was able to show that he could transfer. He apparently was able to transfer once but once he got home he was unable to transfer at all. He apparently was unable to get to the bathroom and soiled himself today. He normally is not able to ambulate due to previous left lower extremity injury. He is only able to transfer from bed to wheelchair normally. He feels as though he pushed the physician to discharge him to early. He is unable to complete activities of daily living at home at this point in time and he does not have home care. The patient and family are hoping for admission with potential transfer to rehabilitation. He states that his upper respiratory symptoms have improved. He is denying any fevers or chills. There is no chest pain, shortness breath, or abdominal pain. He does have some chronic lower extremity wounds. No other complaints or modifying factors. - Related Data Home Medications Medication Instructions Recorded Confirmed Ergocalciferol [Vitamin D2 50,000 unit PO WE 02/28/14 08/10/17 (DRISDOL)] Fenofibrate,Micronized 134 mg PO HS 02/28/14 08/10/17 [Fenofibrate] Furosemide [Lasix] 40 mg PO HS 02/28/14 08/10/17 metFORMIN HCL [Glucophage] 500 mg PO BID 02/28/14 08/10/17 ALPRAZolam [Xanax] 0.5 mg PO DAILY PRN 01/05/15 08/10/17 Meclizine [Antivert] 25 mg PO BID 01/05/15 08/10/17 glipiZIDE [Glucotrol] 2.5 mg PO DAILY PRN 06/30/16 08/10/17 Diltiazem HCl [Diltiazem 24Hr ER] 120 mg PO Q24HR 01/27/17 08/10/17 traMADol HCL/ACETAMINOPHEN 1 tab PO BID 05/26/17 08/10/17 [Ultracet 37.5-325] FLUoxetine HCL [PROzac] 40 mg PO DAILY 07/10/17 08/10/17 Previous Rx's Medication Instructions Recorded Ferrous Sulfate [Iron (65 MG 325 mg PO BID #60 tab 08/09/17 Elemental)] Oseltamivir [Tamiflu] 75 mg PO Q12HR #6 cap 08/09/17 Warfarin Sodium [Coumadin] 5 mg PO MOWETHFRSA #0 08/09/17 Allergies Allergy/AdvReac Type Severity Reaction Status Date / Time oxycodone [Oxycodone] Allergy Hallucinati Verified 08/10/17 21:35 ons Review of Systems ROS Statement: Those systems with pertinent positive or pertinent negative responses have been documented in the HPI. ROS Other: All systems not noted in ROS Statement are negative. Past Medical History Past Medical History: Atrial Fibrillation, Diabetes Mellitus, Hypertension Additional Past Medical History / Comment(s): BLE VENOUS ULCERS, calcenosis of BLE. MAC. DEGENERATION. VERTIGO. 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 fluid from eyes r/t glaucoma Past Anesthesia/Blood Transfusion Reactions: Motion Sickness Past Psychological History: Anxiety Smoking Status: Former smoker Past Alcohol Use History: None Reported Past Drug Use History: None Reported - Past Family History Sister(s) Family Medical History: Cancer, Diabetes Mellitus Mother Family Medical History: Myocardial Infarction ([place]), Renal Disease General Exam - General Exam Comments Initial Comments: GENERAL: The patient is well nourished and well hydrated. VITAL SIGNS: Heart rate, blood pressure, respiratory rate reviewed as recorded in nurse's notes. EYES: Pupils are round and reactive. Extraocular movements are intact. No conjunctival / lid redness or swelling. ENT: No external evidence of injury, swelling, or ecchymosis. Airway is patent. Throat is clear. NECK: Nontender. No swelling or evidence of injury. No subcutaneous emphysema. Trachea is midline. No thyroid mass. HEART: Regular rate and rhythm. Good peripheral pulses. LUNGS/CHEST: Breath sounds clear and equal bilaterally. No rales, rhonchi, or wheezes. No ecchymosis, subcutaneous emphysema, or tenderness. ABDOMEN: Abdomen soft without tenderness. No palpable masses or organomegaly. No peritoneal signs. No abdominal wall swelling or ecchymosis. EXTREMITIES: No extremity tenderness. Normal muscle tone and function. No thoracolumbar tenderness. NEUROLOGIC: Sensation is grossly intact. Cranial nerve exam reveals face is symmetrical, tongue is midline, speech is clear. SKIN: There are chronic lower extremity wounds bilaterally but these are currently wrapped in a complex dressing and are not interrupted. PSYCHIATRIC: Alert and oriented. Appropriate behavior and judgment. Limitations: no limitations Course Vital Signs 08/10/17 08/10/17 20:37 22:30 Temperature 98.3 F 97.2 F L Pulse Rate 85 73 Respiratory 20 16 Rate Blood Pressure 168/81 167/73 O2 Sat by Pulse 99 97 Oximetry Medical Decision Making - Medical Decision Making The patient was seen and examined. All diagnostics are reviewed. The EKG shows atrial fibrillation at a rate of 63. There is some flattened T waves in the inferior leads. The QRS duration is 92 and the QTC intervals 478. Old records are reviewed. His current laboratory does show elevation of all of his INR and his Coumadin will be held. His hemoglobin is slightly low. His urinalysis is clear. It is not felt as though he is stable for discharge home as he is too weak and unable to complete activities of daily living. He will be admitted to the hospital for further treatment. Case will be discussed with internal medicine in the near future. - Lab Data Result diagrams: 08/10/17 21:33 08/10/17 21:33 Lab Results 08/10/17 08/10/17 08/10/17 Range/Units 21:33 21:33 21:33 WBC 4.5 (3.8-10.6) k/uL RBC 3.51 L (4.30-5.90) m/uL Hgb 10.8 L (13.0-17.5) gm/dL Hct 33.3 L (39.0-53.0) % MCV 94.9 (80.0-100.0) fL MCH 30.8 (25.0-35.0) pg MCHC 32.5 (31.0-37.0) g/dL RDW 13.9 (11.5-15.5) % Plt Count 207 (150-450) k/uL Neutrophils % 60 % Lymphocytes % 30 % Monocytes % 5 % Eosinophils % 2 % Basophils % 0 % Neutrophils # 2.7 (1.3-7.7) k/uL Lymphocytes # 1.4 (1.0-4.8) k/uL Monocytes # 0.2 (0-1.0) k/uL Eosinophils # 0.1 (0-0.7) k/uL Basophils # 0.0 (0-0.2) k/uL PT (9.0-12.0) sec INR (<1.2) APTT (22.0-30.0) sec Sodium 143 (137-145) mmol/L Potassium 3.5 (3.5-5.1) mmol/L Chloride 105 (98-107) mmol/L Carbon Dioxide 24 (22-30) mmol/L Anion Gap 14 mmol/L BUN 15 (9-20) mg/dL Creatinine 0.80 (0.66-1.25) mg/dL Est GFR (CKD-EPI)AfAm >90 (>60 ml/min/1.73 sqM) Est GFR (CKD-EPI)NonAf 85 (>60 ml/min/1.73 sqM) Glucose 168 H (74-99) mg/dL Calcium 9.0 (8.4-10.2) mg/dL Total Bilirubin 0.5 (0.2-1.3) mg/dL AST 29 (17-59) U/L ALT 23 (21-72) U/L Alkaline Phosphatase 55 (38-126) U/L Total Creatine Kinase 46 L (55-170) U/L CK-MB (CK-2) 0.6 (0.0-2.4) ng/mL CK-MB (CK-2) Rel Index 1.3 Troponin I 0.017 (0.000-0.034) ng/mL Total Protein 5.8 L (6.3-8.2) g/dL Albumin 3.1 L (3.5-5.0) g/dL Urine Color Urine Appearance (Clear) Urine pH (5.0-8.0) Ur Specific [place] (1.001-1.035) Urine Protein (Negative) Urine Glucose (UA) (Negative) Urine Ketones (Negative) Urine Blood (Negative) Urine Nitrite (Negative) Urine Bilirubin (Negative) Urine Urobilinogen (<2.0) mg/dL Ur Leukocyte Esterase (Negative) 08/10/17 08/10/17 Range/Units 21:33 22:15 WBC (3.8-10.6) k/uL RBC (4.30-5.90) m/uL Hgb (13.0-17.5) gm/dL Hct (39.0-53.0) % MCV (80.0-100.0) fL MCH (25.0-35.0) pg MCHC (31.0-37.0) g/dL RDW (11.5-15.5) % Plt Count (150-450) k/uL Neutrophils % % Lymphocytes % % Monocytes % % Eosinophils % % Basophils % % Neutrophils # (1.3-7.7) k/uL Lymphocytes # (1.0-4.8) k/uL Monocytes # (0-1.0) k/uL Eosinophils # (0-0.7) k/uL Basophils # (0-0.2) k/uL PT 49.1 H (9.0-12.0) sec INR 5.4 H* (<1.2) APTT 36.6 H (22.0-30.0) sec Sodium (137-145) mmol/L Potassium (3.5-5.1) mmol/L Chloride (98-107) mmol/L Carbon Dioxide (22-30) mmol/L Anion Gap mmol/L BUN (9-20) mg/dL Creatinine (0.66-1.25) mg/dL Est GFR (CKD-EPI)AfAm (>60 ml/min/1.73 sqM) Est GFR (CKD-EPI)NonAf (>60 ml/min/1.73 sqM) Glucose (74-99) mg/dL Calcium (8.4-10.2) mg/dL Total Bilirubin (0.2-1.3) mg/dL AST (17-59) U/L ALT (21-72) U/L Alkaline Phosphatase (38-126) U/L Total Creatine Kinase (55-170) U/L CK-MB (CK-2) (0.0-2.4) ng/mL CK-MB (CK-2) Rel Index Troponin I (0.000-0.034) ng/mL Total Protein (6.3-8.2) g/dL Albumin (3.5-5.0) g/dL Urine Color Yellow Urine Appearance Clear (Clear) Urine pH 6.5 (5.0-8.0) Ur Specific [place] 1.010 (1.001-1.035) Urine Protein Negative (Negative) Urine Glucose (UA) Negative (Negative) Urine Ketones Negative (Negative) Urine Blood Negative (Negative) Urine Nitrite Negative (Negative) Urine Bilirubin Negative (Negative) Urine Urobilinogen <2.0 (<2.0) mg/dL Ur Leukocyte Esterase Negative (Negative) Disposition Clinical Impression: Weakness, Inability to walk, Morbid obesity, Hypertension, Anemia, Supratherapeutic INR, Diabetes, Chronic wound of extremity Disposition: ADMITTED IP TO THIS [facility] Condition: Fair Is patient prescribed a controlled substance at discharge?: No Time of Disposition: 23:25 Decision Date: 08/10/17 Decision Time: 23:25
[2017-08-10] MEDS ORDERED: ALPRAZolam 0.5 MG TAB PO PRN (23:29)
[2017-08-11 00:58] VITALS: BMI 27.8
[2017-08-11] MEDS: INSULIN ASPART 100 UNIT/ML 1 ML 10 ML VIAL SQ SCH ×4 (07:29→21:29)
[2017-08-11] MEDS: metFORMIN 500 MG TAB PO SCH ×2 (07:34→17:49)
[2017-08-11 07:54] LABS: Glucose,Whole Blood 105 mg/dL (75-99)
[2017-08-11] MEDS: FLUoxetine HCL 20 MG CAP PO SCH (08:57)
[2017-08-11] MEDS: DILTIAZEM CD 120 MG CAP.ER.24H PO SCH (08:57)
[2017-08-11] MEDS: MECLIZINE 25 MG TAB PO SCH ×2 (08:57→19:42)
[2017-08-11] MEDS: FERROUS SULFATE 325 MG TAB PO SCH ×2 (08:57→19:42)
[2017-08-11] MEDS: OSELTAMIVIR 75 MG CAP PO SCH ×2 (08:57→19:42)
[2017-08-11] MEDS ORDERED: PANTOPRAZOLE 40 MG/10 ML VIAL IV SCH (09:00)
[2017-08-11] MEDS: traMADol-ACETAMINOP 37.5-325MG 1 EACH TAB PO SCH ×2 (09:02→21:30)
--- NOTE | 2017-08-11 10:58 | P.HPIM ---
History of Present Illness H&P Date: 08/11/17 Chief Complaint: Generalized weakness This is a 82-year-old male with a known history of atrial fibrillation, diabetes mellitus, hypertension, renal carcinoma status post right nephrectomy. Patient was just recently discharged from the hospital on August 09 for influenza B virus. Patient was seen by physical therapy at that time they had recommended ECF placement for rehabilitation. However, patient was able to transfer from bed to wheelchair at the time. And was very adamant about being discharged home instead of going to rehab. And was agreeable. Patient does feel that he may have pushed the doctor's to be discharged home instead of rehab. When he went home he was unable to transfer himself. He was unable to get to the bathroom and soiled himself. He is usually mostly wheelchair bound but is able to transfer to the toilet or bed. Therefore he came back into the emergency room for placement. Patient reports some improvement in his cough and shortness of breath. He remains on the Tamiflu. He denies any chest pain or shortness of breath. Denies any nausea or vomiting. Denies any bowel movement changes or urinary symptoms. And I was elevated at 5.4. Coumadin on hold. No active signs of bleeding. Review of Systems Please refer to HPI otherwise unremarkable Past Medical History Past Medical History: Atrial Fibrillation, Diabetes Mellitus, Hypertension Additional Past Medical History / Comment(s): BLE VENOUS ULCERS, calcenosis of BLE. MAC. DEGENERATION. VERTIGO. 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 fluid from eyes r/t glaucoma Past Anesthesia/Blood Transfusion Reactions: Motion Sickness Past Psychological History: Anxiety Additional Psychological History / Comment(s): . Retired. experience. No international travel. No animal exposures Smoking Status: Former smoker Past Alcohol Use History: None Reported Additional Past Alcohol Use History / Comment(s): smoked 20 years <1ppd quit 1973 Past Drug Use History: None Reported - Past Family History Sister(s) Family Medical History: Cancer, Diabetes Mellitus Mother Family Medical History: Myocardial Infarction ([place]), Renal Disease Medications and Allergies Home Medications Medication Instructions Recorded Confirmed Type Ergocalciferol [Vitamin D2 50,000 unit PO WE 02/28/14 08/10/17 History (DRISDOL)] Fenofibrate,Micronized 134 mg PO HS 02/28/14 08/10/17 History [Fenofibrate] Furosemide [Lasix] 40 mg PO HS 02/28/14 08/10/17 History metFORMIN HCL [Glucophage] 500 mg PO BID 02/28/14 08/10/17 History ALPRAZolam [Xanax] 0.5 mg PO DAILY PRN 01/05/15 08/10/17 History Meclizine [Antivert] 25 mg PO BID 01/05/15 08/10/17 History glipiZIDE [Glucotrol] 2.5 mg PO DAILY PRN 06/30/16 08/10/17 History Diltiazem HCl [Diltiazem 24Hr ER] 120 mg PO Q24HR 01/27/17 08/10/17 History traMADol HCL/ACETAMINOPHEN 1 tab PO BID 05/26/17 08/10/17 History [Ultracet 37.5-325] FLUoxetine HCL [PROzac] 40 mg PO DAILY 07/10/17 08/10/17 History Ferrous Sulfate [Iron (65 MG 325 mg PO BID #60 tab 08/09/17 08/10/17 Rx Elemental)] Oseltamivir [Tamiflu] 75 mg PO Q12HR #6 cap 08/09/17 08/10/17 Rx Warfarin Sodium [Coumadin] 5 mg PO MOWETHFRSA #0 08/09/17 08/10/17 Rx Allergies Allergy/AdvReac Type Severity Reaction Status Date / Time oxycodone [Oxycodone] Allergy Hallucinati Verified 08/10/17 21:35 ons Physical Exam Vitals: Vital Signs Temp Pulse Pulse Resp BP BP Pulse Ox 08/11/17 08:20 97.9 F 71 18 132/74 99 08/11/17 07:57 16 08/11/17 01:07 16 08/11/17 00:15 65 16 163/69 100 08/10/17 23:35 66 16 162/74 98 08/10/17 22:30 97.2 F L 73 16 167/73 97 04/18/18 20:37 98.3 F 85 20 168/81 99 Intake and Output 08/10/17 08/11/17 08/11/17 22:59 06:59 14:59 Intake Total 240 Balance 240 Intake: Oral 240 Other: Voiding Method Urinal Urinal Incontinent Incontinent # Voids 1 Weight 90.718 kg 90.718 kg 90.718 kg Head normocephalic Neck supple Lungs clear to auscultation bilaterally no wheezing or crackles Heart irregular Abdomen is soft nontender nondistended positive bowel sounds no hepatosplenomegaly Extremities no edema. Legs are wrapped bandage clean dry and intact Neuro alert and orientated to 3 Results CBC & Chem 7: 08/10/17 21:33 08/10/17 21:33 Labs: Abnormal Lab Results - Last 24 Hours (Table) 08/10/17 08/10/17 08/10/17 Range/Units 21:33 21:33 21:33 RBC 3.51 L (4.30-5.90) m/uL Hgb 10.8 L (13.0-17.5) gm/dL Hct 33.3 L (39.0-53.0) % PT (9.0-12.0) sec INR (<1.2) APTT (22.0-30.0) sec Glucose 168 H (74-99) mg/dL POC Glucose (mg/dL) (75-99) mg/dL Total Creatine Kinase 46 L (55-170) U/L Total Protein 5.8 L (6.3-8.2) g/dL Albumin 3.1 L (3.5-5.0) g/dL 08/10/17 08/11/17 Range/Units 21:33 07:25 RBC (4.30-5.90) m/uL Hgb (13.0-17.5) gm/dL Hct (39.0-53.0) % PT 49.1 H (9.0-12.0) sec INR 5.4 H* (<1.2) APTT 36.6 H (22.0-30.0) sec Glucose (74-99) mg/dL POC Glucose (mg/dL) 105 H (75-99) mg/dL Total Creatine Kinase (55-170) U/L Total Protein (6.3-8.2) g/dL Albumin (3.5-5.0) g/dL Thrombosis Risk Factor Assmnt - Choose All That Apply Any of the Below Risk Factors Present?: No Other Risk Factors: Yes Each Risk Factor Represents 3 Points: Age 75 years or older Thrombosis Risk Factor Assessment Total Risk Factor Score: 3 Thrombosis Risk Factor Assessment Level: Moderate Risk Assessment and Plan Assessment: 1. Generalized weakness, inability to walk, physical and medical debility: Patient is going to require ECF placement. Social work physical therapy and occupational therapy Consulted 2. Coagulopathy: INR 5.4. Coumadin remains on hold. 3. Influenza B positive on recent hospitalization. Still completing the Tamiflu treatment 4. Iron deficiency anemia: Continue ferrous sulfate 5. Diabetes mellitus type 2: Continue sliding scale coverage and metformin 6. Essential hypertension 7. Bilateral chronic venous insufficiency with chronic ulcerations and calcifications of the legs: Had recently been seen by infectious disease on last hospitalization did not require antibiotics 8. Chronic atrial fibrillation anticoagulated with Coumadin. Coumadin currently on hold 9. History of renal cell carcinoma status post right nephrectomy GI prophylaxis Protonix Time with Patient: Greater than 30 (Greater than 50% of the total time spent in counseling and coordination of care.I performed an examination of the patient and discussed their management with the physician Medical Billing Supervisor. I have reviewed the Physician Medical Billing Supervisor's notes and agree with the documented findings and plan of care)
[2017-08-11 11:46] LABS: Glucose,Whole Blood 125 mg/dL (75-99)
[2017-08-11 12:27] LABS: Prothrombin Time 71.3 sec (9.0-12.0)
[2017-08-11 12:28] LABS: INR 7.7 (<1.2)
[2017-08-11] MEDS ORDERED: PHYTONADIONE ORAL 5 MG/5 ML ORAL.SYRG PO STA (13:02)
[2017-08-11 20:21] LABS: Glucose,Whole Blood 135 mg/dL (75-99)
[2017-08-11] MEDS ORDERED: FENOFIBRATE 160 MG TAB PO SCH (21:00)
[2017-08-11] MEDS ORDERED: FUROSEMIDE 40 MG TAB PO SCH (21:00)
[2017-08-12 07:20] LABS: Glucose,Whole Blood 91 mg/dL (75-99)
[2017-08-12] MEDS ORDERED: PANTOPRAZOLE 40 MG TABLET PO SCH (07:30)
[2017-08-12] MEDS: INSULIN ASPART 100 UNIT/ML 1 ML 10 ML VIAL SQ SCH ×2 (07:37→11:27)
[2017-08-12] MEDS: metFORMIN 500 MG TAB PO SCH (07:45)
[2017-08-12] MEDS: traMADol-ACETAMINOP 37.5-325MG 1 EACH TAB PO SCH (07:47)
[2017-08-12 08:10] LABS: Basophils % (A) 0 %; Eosinophils # (A) 0.1 k/uL (0-0.7); Eosinophils % (A) 3 %; HCT 32.5 % (39.0-53.0); HGB 10.6 gm/dL (13.0-17.5); INR 2.3 (<1.2); Lymphocytes # (A) 1.5 k/uL (1.0-4.8); Lymphocytes % (A) 37 %; MCHC 32.5 g/dL (31.0-37.0); MCV 95.3 fL (80.0-100.0); Mean Platelet Volume 9.3; Monocytes # (A) 0.2 k/uL (0-1.0); Monocytes % (A) 5 %; Neutrophils # (A) 2.2 k/uL (1.3-7.7); Neutrophils % (A) 53 %; Platelet Count 248 k/uL (150-450); Prothrombin Time 20.5 sec (9.0-12.0); RBC 3.41 m/uL (4.30-5.90); RDW 13.6 % (11.5-15.5); WBC 4.1 k/uL (3.8-10.6)
[2017-08-12] MEDS: FLUoxetine HCL 20 MG CAP PO SCH (08:25)
[2017-08-12] MEDS: DILTIAZEM CD 120 MG CAP.ER.24H PO SCH (08:25)
[2017-08-12] MEDS: OSELTAMIVIR 75 MG CAP PO SCH (08:25)
[2017-08-12] MEDS: FERROUS SULFATE 325 MG TAB PO SCH (08:26)
[2017-08-12] MEDS: MECLIZINE 25 MG TAB PO SCH (08:26)
[2017-08-12 08:30] LABS: Anion Gap 11 mmol/L; Blood Urea Nitrogen 12 mg/dL (9-20); Calcium 8.8 mg/dL (8.4-10.2); Carbon Dioxide 28 mmol/L (22-30); Chloride 103 mmol/L (98-107); Glucose 98 mg/dL (74-99); Potassium 3.1 mmol/L (3.5-5.1); Sodium 142 mmol/L (137-145)
[2017-08-12 11:17] LABS: Glucose,Whole Blood 109 mg/dL (75-99)
[2017-08-12] MEDS ORDERED: POTASSIUM CHLORIDE ER 20 MEQ TAB.ER PO STA (11:23)
--- NOTE | 2017-08-12 12:52 | P.DS ---
Providers Date of admission: 08/10/17 23:27 Expected date of discharge: 08/12/17 Attending physician: Brandie Hinton Primary care physician: Brandie Hinton [facility] Course: Discharge diagnosis 1. Generalized weakness, inability to walk, physical and medical debility: Patient is going to require ECF placement. Social work physical therapy and occupational therapy Consulted 2. Coagulopathy: Resolved with vitamin K. Human dose adjusted to 2.5 mg daily. Check PT/INR on Tuesday 3. Influenza B positive on recent hospitalization. Patient has 2 more doses left of Tamiflu 4. Iron deficiency anemia: Continue ferrous sulfate 5. Diabetes mellitus type 2: Continue sliding scale coverage and metformin 6. Essential hypertension 7. Bilateral chronic venous insufficiency with chronic ulcerations and calcifications of the legs: Had recently been seen by infectious disease on last hospitalization did not require antibiotics 8. Chronic atrial fibrillation anticoagulated with Coumadin. Coumadin currently on hold 9. History of renal cell carcinoma status post right nephrectomy Hospital course This is a 82-year-old male with a known history of atrial fibrillation, diabetes mellitus, hypertension, renal carcinoma status post right nephrectomy. Patient was just recently discharged from the hospital on August 09 for influenza B virus. Patient was seen by physical therapy at that time they had recommended ECF placement for rehabilitation. However, patient was able to transfer from bed to wheelchair at the time. And was very adamant about being discharged home instead of going to rehab. And was agreeable. Patient does feel that he may have pushed the doctor's to be discharged home instead of rehab. When he went home he was unable to transfer himself. He was unable to get to the bathroom and soiled himself. He is usually mostly wheelchair bound but is able to transfer to the toilet or bed. Therefore he came back into the emergency room for placement. Patient reports some improvement in his cough and shortness of breath. He remains on the Tamiflu. He denies any chest pain or shortness of breath. Denies any nausea or vomiting. Denies any bowel movement changes or urinary symptoms. And I was elevated at 5.4. Coumadin on hold. No active signs of bleeding. Patient was seen evaluated by physical therapy and occupational therapy. He does meet the criteria for rehabilitation. Patient will be discharged to [facility]. Patient has 2 more doses of Tamiflu left. Also Coumadin dose has been adjusted during this admission to 2.5 mg daily. He presented with an INR of 7.7. No active signs or symptoms of bleeding. Patient is medically stable for discharge. Also report patient has had 2 soft bowel movements today with no evidence of diarrhea per nursing staff. I performed an examination of the patient and discussed their management with the physician Transit Mix Operator. I have reviewed the Physician Transit Mix Operator's notes and agree with the documented findings and plan of care Patient Condition at Discharge: Stable Plan - Discharge Summary Discharge Rx Participant: No New Discharge Prescriptions: New Warfarin Sodium [Coumadin] 2.5 mg PO DAILY #30 tablet Potassium Chloride ER [K-Dur 10] 10 meq PO DAILY #30 tab Continue Furosemide [Lasix] 40 mg PO HS metFORMIN HCL [Glucophage] 500 mg PO BID Fenofibrate,Micronized [Fenofibrate] 134 mg PO HS Ergocalciferol [Vitamin D2 (DRISDOL)] 50,000 unit PO WE Meclizine [Antivert] 25 mg PO BID glipiZIDE [Glucotrol] 2.5 mg PO DAILY PRN PRN Reason: Blood Sugar - High Diltiazem HCl [Diltiazem 24Hr ER] 120 mg PO Q24HR FLUoxetine HCL [PROzac] 40 mg PO DAILY Ferrous Sulfate [Iron (65 MG Elemental)] 325 mg PO BID #60 tab Oseltamivir [Tamiflu] 75 mg PO Q12HR #2 cap traMADol HCL/ACETAMINOPHEN [Ultracet 37.5-325] 1 tab PO BID #6 tablet ALPRAZolam [Xanax] 0.5 mg PO DAILY PRN #3 tab PRN Reason: Anxiety Discontinued Warfarin Sodium [Coumadin] 5 mg PO #0 Discharge Medication List Ergocalciferol [Vitamin D2 (DRISDOL)] 50,000 unit PO WE 02/28/14 [History] Fenofibrate,Micronized [Fenofibrate] 134 mg PO HS 02/28/14 [History] Furosemide [Lasix] 40 mg PO HS 02/28/14 [History] metFORMIN HCL [Glucophage] 500 mg PO BID 02/28/14 [History] Meclizine [Antivert] 25 mg PO BID 01/05/15 [History] glipiZIDE [Glucotrol] 2.5 mg PO DAILY PRN 03/08/17 [History] Diltiazem HCl [Diltiazem 24Hr ER] 120 mg PO Q24HR 01/27/17 [History] FLUoxetine HCL [PROzac] 40 mg PO DAILY 07/10/17 [History] Ferrous Sulfate [Iron (65 MG Elemental)] 325 mg PO BID #60 tab 08/09/17 [Rx] ALPRAZolam [Xanax] 0.5 mg PO DAILY PRN #3 tab 08/12/17 [Rx] Oseltamivir [Tamiflu] 75 mg PO Q12HR #2 cap 08/12/17 [Rx] Potassium Chloride ER [K-Dur 10] 10 meq PO DAILY #30 tab 08/12/17 [Rx] Warfarin Sodium [Coumadin] 2.5 mg PO DAILY #30 tablet 08/12/17 [Rx] traMADol HCL/ACETAMINOPHEN [Ultracet 37.5-325] 1 tab PO BID #6 tablet 08/12/17 [ Rx] Follow up Appointment(s)/Referral(s): Brandie Hinton MD [Primary Care Provider] - 08/19/17 11:30 am Patient Instructions/Handouts: Alprazolam (By mouth), Potassium Chloride (By mouth), Warfarin (By mouth), Tramadol/Acetaminophen (By mouth), Influenza (DC) Activity/Diet/Wound Care/Special Instructions: Diet: cardiac, diabetic Activity: as tolerated check PT/INR on Tuesday
[2017-08-12 16:07] VITALS: BP 146/74; PULSE 67; RESP 20; TEMP 97.7
[2017-08-13 04:55] LABS: Glucose,Whole Blood 109 mg/dL (75-99)
[2017-08-17] MEDS ORDERED: ERGOCALCIFEROL 50,000 UNIT CAP PO SCH (09:00)
== END 2017-08-12 16:45 ==
LOC: EC 20:32 → 5MS5E 23:27
PROVIDERS: ADMIT Internal Medicine; ATTEND Internal Medicine
DX: R53.1 Weakness (principal); R26.2 Difficulty in walking, not elsewhere classified; D68.9 Coagulation defect, unspecified; J10.1 Influenza due to other identified influenza virus with other respiratory manifestations; D50.9 Iron deficiency anemia, unspecified; I87.2 Venous insufficiency (chronic) (peripheral); I12.9 Hypertensive chronic kidney disease with stage 1 through stage 4 chronic kidney disease, or unspecified chronic kidney disease; E11.22 Type 2 diabetes mellitus with diabetic chronic kidney disease; N18.3 Chronic kidney disease, stage 3 (moderate); I48.2 Chronic atrial fibrillation; R42 Dizziness and giddiness; E83.59 Other disorders of calcium metabolism; F41.9 Anxiety disorder, unspecified; Z87.891 Personal history of nicotine dependence; Z85.528 Personal history of other malignant neoplasm of kidney; Z90.5 Acquired absence of kidney; Z89.429 Acquired absence of other toe(s), unspecified side; Z90.49 Acquired absence of other specified parts of digestive tract; Z82.49 Family history of ischemic heart disease and other diseases of the circulatory system; Z80.9 Family history of malignant neoplasm, unspecified; Z79.84 Long term (current) use of oral hypoglycemic drugs; Z79.01 Long term (current) use of anticoagulants; Z79.899 Other long term (current) drug therapy; Z88.5 Allergy status to narcotic agent; E66.01 Morbid (severe) obesity due to excess calories; Z68.27 Body mass index [BMI] 27.0-27.9, adult; L97.929 Non-pressure chronic ulcer of unspecified part of left lower leg with unspecified severity; L97.919 Non-pressure chronic ulcer of unspecified part of right lower leg with unspecified severity
CPT/HCPCS: 99285 ×2; 96374; 36415; 93005; 97162; 97535; 97166; 80053; 80048; 82550; 82553; 84484; 85025 ×2; 85610 ×3; 85730; 81003; 87324; G0378 ×3; C9113

== ENCOUNTER → 2017-11-25 | Outpatient (CLI) | payer MEDICARE ==
[2017-11-25 15:07] LABS: Basophils % (A) 0 %; Eosinophils # (A) 0.1 k/uL (0-0.7); Eosinophils % (A) 2 %; HCT 34.9 % (39.0-53.0); HGB 11.1 gm/dL (13.0-17.5); Lymphocytes # (A) 1.3 k/uL (1.0-4.8); Lymphocytes % (A) 24 %; MCH 30.3 pg (25.0-35.0); MCHC 31.7 g/dL (31.0-37.0); MCV 95.6 fL (80.0-100.0); Mean Platelet Volume 8.4; Monocytes # (A) 0.2 k/uL (0-1.0); Monocytes % (A) 4 %; Neutrophils # (A) 3.9 k/uL (1.3-7.7); Neutrophils % (A) 69 %; Platelet Count 286 k/uL (150-450); RBC 3.65 m/uL (4.30-5.90); RDW 13.8 % (11.5-15.5); WBC 5.6 k/uL (3.8-10.6)
[2017-11-25 15:20] LABS: Calcium 9.7 mg/dL (8.4-10.2); Phosphorus 4.1 mg/dL (2.5-4.5); Potassium 3.9 mmol/L (3.5-5.1); Uric Acid 4.9 mg/dL (3.5-8.5)
[2017-11-25 19:26] LABS: Parathyroid Hormone Intact 27.5 pg/mL (14.0-72.0)
[2017-11-25 19:37] LABS: Iron Saturation 16.98 (15.00-50.00)
[2017-11-25 19:48] LABS: Vitamin D 25 Hydroxy 61.8 ng/mL (30.0-100.0)
== END | disposition home or self-care (01) ==
LOC: LABWHC1 14:27
PROVIDERS: ATTEND Nurse Practitioner Family
DX: N18.3 Chronic kidney disease, stage 3 (moderate) (principal)
CPT/HCPCS: 36415; 80048; 82306; 82728; 83540; 83550; 83735; 83970; 84100; 84550; 85025

== ENCOUNTER 2018-01-23 07:44 | Day surgery (SDC) | payer MEDICARE ==
[2018-01-19 12:26] VITALS: BMI 24.3
[2018-01-23 08:14] VITALS: TEMP 98
[2018-01-23] MEDS: LACTATED RINGERS 1,000 ML IV SCH ×2 (08:41→08:58)
[2018-01-23 08:44] LABS: Glucose,Whole Blood 126 mg/dL (75-99)
[2018-01-23] MEDS ORDERED: LIDOCAINE 1% INJ 10MG/ML (20 ML MDV) ONE (09:01)
[2018-01-23] MEDS ORDERED: PROPOFOL 10 MG/ML 20 ML VIAL IV ONE (09:01)
--- NOTE | 2018-01-23 09:36 | P.PCN ---
Date of Procedure: 01/23/18 Procedure(s) Performed: Procedure: Esophagogastroduodenoscopy and biopsy. Preoperative diagnosis: Dysphagia. Postoperative diagnosis: 1. Small sliding hiatal hernia with no obvious esophagitis or complicated reflux disease. 2. Mild antral gastritis. 3. Biopsies obtained from the duodenum, antrum and esophagus. Preparation and sedation: Was provided by anesthesia. Brief clinical history: The patient is an 82-year-old male who is referred for this evaluation because of onset of solid food dysphagia over the last few weeks. He had to bring the food back up on a few occasions. He has no odynophagia or bleeding. He has taken Tums on and off over the last year but there is no significant history of reflux disease. Procedure: With the patient on his left lateral decubitus position and after informed consent and adequate sedation, I passed the Olympus-GIF 160 video upper endoscope through the cricopharyngeus down the esophagus. GE junction was around 40 cm from the incisors and there was a small sliding hiatal hernia around 1 cm in size. The esophagus did not show any erosions, ulcers, strictures or Gruber's esophagus. The endoscope was then passed into the stomach which was insufflated with air and inspected in detail including the retroflex view in the cardia. There was some mottling and erythema in the antrum but no ulcers or erosions. Pyloric channel, duodenal bulb, post bulbar area and descending duodenum appeared within normal limits. I obtained multiple biopsies from the duodenum, antrum and esophagus then the endoscope was withdrawn. The patient tolerated the procedure well. Plan: The patient was reassured. Will await biopsy results. Consideration will be given for a motility study based on his clinical course, especially if there is nutritional compromise. He will follow up with you as planned and I will be happy to see in the office of his symptoms persist.
[2018-01-23 09:43] VITALS: BP 137/83; PULSE 60; RESP 18
== END 2018-01-23 10:20 | disposition home or self-care (01) ==
LOC: ORWHC2ENDO 07:44
DX: K29.50 Unspecified chronic gastritis without bleeding (principal); K44.9 Diaphragmatic hernia without obstruction or gangrene; R13.10 Dysphagia, unspecified; E11.9 Type 2 diabetes mellitus without complications; Z79.84 Long term (current) use of oral hypoglycemic drugs; I48.91 Unspecified atrial fibrillation; Z79.01 Long term (current) use of anticoagulants; I10 Essential (primary) hypertension; Z85.528 Personal history of other malignant neoplasm of kidney; H35.30 Unspecified macular degeneration; I50.9 Heart failure, unspecified; Z79.899 Other long term (current) drug therapy; Z88.5 Allergy status to narcotic agent
CPT/HCPCS: 88305; 43239; J2001; J2704

== ENCOUNTER → 2018-01-27 | Outpatient (CLI) | payer MEDICARE ==
[2018-01-27 13:56] LABS: Basophils % (A) 0 %; Eosinophils # (A) 0.1 k/uL (0-0.7); Eosinophils % (A) 2 %; HCT 37.2 % (39.0-53.0); Lymphocytes # (A) 1.2 k/uL (1.0-4.8); Lymphocytes % (A) 18 %; MCH 32.6 pg (25.0-35.0); MCHC 32.2 g/dL (31.0-37.0); MCV 101.2 fL (80.0-100.0); Macrocytosis Slight; Mean Platelet Volume 10.1; Monocytes # (A) 0.2 k/uL (0-1.0); Monocytes % (A) 4 %; Neutrophils % (A) 75 %; Platelet Count 281 k/uL (150-450); RBC 3.67 m/uL (4.30-5.90); RDW 14.3 % (11.5-15.5); WBC 6.7 k/uL (3.8-10.6)
[2018-01-27 13:57] LABS: Calcium 9.4 mg/dL (8.4-10.2); Total Bilirubin 0.5 mg/dL (0.2-1.3); Total Protein 7.6 g/dL (6.3-8.2)
[2018-01-27 13:59] LABS: Potassium 4.1 mmol/L (3.5-5.1)
--- NOTE | 2018-01-27 15:22 | US ---
EXAMINATION TYPE: US kidneys/renal and bladder DATE OF EXAM: 01/27/2018 COMPARISON: 07/12/2017 CLINICAL HISTORY: C64.1 Malignant Neoplasm Of Right Kidney. Surgical resection of neoplasm right kidn ey; EXAM MEASUREMENTS: Right Kidney: 8.7 x 5.3 x 4.3 cm Left Kidney: 10.0 x 4.3 x 5.4 cm Post Void Residual Volume: not assessed as bladder not fully distended Right Kidney: small for size and cortical loss noted mid cortex as interruption of cortex is noted. N o hydronephrosis or nephrolithiasis. Left Kidney: No hydronephrosis or masses seen Bladder: not fully distended Bilateral Jets seen: not seen IMPRESSION: No hydronephrosis or nephrolithiasis. There is cortical loss involving the left kidney which may be i n the basis of the patient's reported history of previous surgery. No solid or cystic renal mass.
[2018-01-27 22:58] LABS: Hemoglobin A1C 5.8 % (4.0-6.0)
== END ==
LOC: RADUSWWP 12:28
PROVIDERS: ATTEND Urology
DX: C64.1 Malignant neoplasm of right kidney, except renal pelvis (principal); E13.621 Other specified diabetes mellitus with foot ulcer
CPT/HCPCS: 36415; 76770; 80053; 83036; 84134; 85025

== ENCOUNTER 2018-07-28 12:09 | Emergency (ER) | payer MEDICARE ==
[2018-07-28 12:22] VITALS: BP 90/50; PULSE 83; RESP 22; TEMP 98
--- NOTE | 2018-07-28 13:09 | XR ---
EXAMINATION TYPE: XR tibia fibula LT DATE OF EXAM: 07/28/2018 COMPARISON: None HISTORY: Pain following shower TECHNIQUE: 2 view left tibia and fibula FINDINGS: There is diffuse increased density over the mid to distal calf region. This could be cut press operator al to the patient. Consider traumatic myositis within the differential. Small focal increased density is at the inferior aspect. Vascular calcification is noted. No acute fractures are evident. IMPRESSION: 1. There appears to be skin calcifications to the mid to distal foreleg. Correlate for minimal myosi tis. This potentially could be artifact with a bandage around the foreleg.
--- NOTE | 2018-07-28 13:30 | ED ---
General Adult HPI - General Chief complaint: Fall Stated complaint: Fall-Leg Injury Time Seen by Provider: 07/28/18 12:20 Source: patient, RN notes reviewed Mode of arrival: ambulatory - History of Present Illness Initial comments: This is an 82-year-old male who presents emergency Department with complaint that he fell last evening. Patient states he has some leg pain in the mid left leg. Patient denies any foot or ankle pain. Patient denies any knee pain. Patient has a hip pain. Patient denies any injury to head or neck per patient denies any other complaints at this time. - Related Data Home Medications Medication Instructions Recorded Confirmed Ergocalciferol [Vitamin D2 50,000 unit PO WE 02/28/14 07/20/18 (DRISDOL)] Fenofibrate,Micronized 134 mg PO HS 02/28/14 07/20/18 [Fenofibrate] Furosemide [Lasix] 40 mg PO HS 02/28/14 07/20/18 metFORMIN HCL [Glucophage] 500 mg PO BID 02/28/14 07/20/18 Meclizine [Antivert] 25 mg PO BID 01/05/15 07/20/18 glipiZIDE [Glucotrol] 2.5 mg PO DAILY PRN 06/30/16 07/20/18 Diltiazem HCl [Diltiazem 24Hr ER] 120 mg PO DAILY 01/27/17 07/20/18 FLUoxetine HCL [PROzac] 40 mg PO DAILY 07/10/17 07/20/18 Warfarin Sodium [Coumadin] 4 mg PO SUMOWETHFRSA 09/29/17 07/20/18 ALPRAZolam [Xanax] 0.5 mg PO DAILY 01/19/18 07/20/18 ARIPiprazole [Abilify] 2 mg PO DAILY 01/19/18 07/20/18 Acetaminophen [Tylenol Extra 500 - 1,000 mg PO Q6H PRN 01/19/18 07/20/18 Strength] Ferrous Sulfate [Iron (65 MG 325 mg PO DAILY 01/19/18 07/20/18 Elemental)] Gentamicin 0.3% Ophth Soln 1 drops BOTH EYES QID 01/19/18 07/20/18 [Garamycin 0.3% Ophth Soln] traMADol HCL/ACETAMINOPHEN 1 tab PO TID 03/09/18 07/20/18 [Ultracet 37.5-325] Allergies Allergy/AdvReac Type Severity Reaction Status Date / Time oxycodone [Oxycodone] Allergy Hallucinati Verified 07/28/18 12:22 ons Review of Systems ROS Statement: Those systems with pertinent positive or pertinent negative responses have been documented in the HPI. ROS Other: All systems not noted in ROS Statement are negative. 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 PROBLEM SWALLOWING. HX VERTIGO, MENIERES. STAGE 3 RENAL DISEASE. MULT WOUNDS BETWEEN KNEES/ANKLES VASU; HAS HC. VERTIGO. 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 Amputated RT Great toe & 2ND toe. MULT WOUND DEBRIDEMENTS. PARTIAL RT Nephrectomy. 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 amputated toe lt great toe and next toe, rt nephrectomy, vasu eye surgery to drain fluid from eyes r/t glaucoma Past Anesthesia/Blood Transfusion Reactions: Family History of Problems w/ Anesthesia, Motion Sickness Additional Past Anesthesia/Blood Transfusion Reaction / Comment(s): FATHER HALLUCINATED W/ ANESTHESIA. Past Psychological History: Anxiety, Depression Smoking Status: Former smoker Past Alcohol Use History: None Reported Past Drug Use History: None Reported - Past Family History Sister(s) Family Medical History: Cancer, Diabetes Mellitus Mother Family Medical History: Myocardial Infarction ([place]), Renal Disease General Exam - General Exam Comments Initial Comments: GENERAL Patient is well-developed and well-nourished. Patient is in mild distress. EYES Patient's pupils are equal and round. Extraocular motion is intact SKIN Unremarkable NEURO The patient is alert and oriented 3 PYSCH Patient has normal interpersonal interactions. MUSCULOSKELETAL Patient has some tenderness over the mid shaft of the tibia. Course Vital Signs 07/28/18 12:18 Temperature 98 F Pulse Rate 83 Respiratory 22 Rate Blood Pressure 90/50 O2 Sat by Pulse 99 Oximetry Medical Decision Making - Medical Decision Making X-ray shows no acute fracture. Disposition Clinical Impression: Fall, Contusion of leg Disposition: HOME SELF-CARE Condition: Good Instructions (If sedation given, give patient instructions): Fall Prevention for Older Adults (ED) Is patient prescribed a controlled substance at d/c from ED?: No Referrals: Brandie Hinton MD [Primary Care Provider] - 1-2 days Time of Disposition: 13:30
== END 2018-07-28 13:42 | disposition home or self-care (01) ==
LOC: EC 12:09
DX: S80.12XA Contusion of left lower leg, initial encounter (principal); I48.91 Unspecified atrial fibrillation; E11.22 Type 2 diabetes mellitus with diabetic chronic kidney disease; I12.9 Hypertensive chronic kidney disease with stage 1 through stage 4 chronic kidney disease, or unspecified chronic kidney disease; N18.3 Chronic kidney disease, stage 3 (moderate); H40.9 Unspecified glaucoma; F41.9 Anxiety disorder, unspecified; F32.9 Major depressive disorder, single episode, unspecified; Z87.891 Personal history of nicotine dependence; Z85.528 Personal history of other malignant neoplasm of kidney; Z90.5 Acquired absence of kidney; Z79.84 Long term (current) use of oral hypoglycemic drugs; Z79.01 Long term (current) use of anticoagulants; Z79.891 Long term (current) use of opiate analgesic; Z79.899 Other long term (current) drug therapy; Z88.5 Allergy status to narcotic agent; W18.2XXA Fall in (into) shower or empty bathtub, initial encounter; Y92.009 Unspecified place in unspecified non-institutional (private) residence as the place of occurrence of the external cause
CPT/HCPCS: 99283

== ENCOUNTER 2018-08-13 19:02 | Inpatient (IN) | payer MEDICARE ==
[2018-08-13] MEDS ORDERED: ACETAMINOPHEN TAB 500 MG TAB PO STA (19:42)
[2018-08-13] MEDS ORDERED: SODIUM CHLORIDE 0.9% 1,000 ML IV ONE (19:42)
--- NOTE | 2018-08-13 19:48 | ED ---
General Adult HPI - General Chief complaint: Nausea/Vomiting/Diarrhea Stated complaint: Diarrhea Time Seen by Provider: 08/13/18 19:22 Source: patient, family Mode of arrival: wheelchair Limitations: no limitations - History of Present Illness Initial comments: 83-year-old male presenting with generalized weakness and 2 weeks of diarrhea. Her family the patient was on amoxicillin for a sinus infection. He has been having at least 2 loose stools daily. Tried modifying his diet without relief. Patient is on Coumadin for A. fib states his last INR was 2.51 week prior. Denies any chest pain but admits to worsening shortness of breath with exertion. Family states that the patient has a wound wounds on his buttock as well as his bilateral lower extremities that he is seeing wound care physician for. Admits to intermittent purulent drainage but stated overall they appear improved. They deny any fevers or chills. Denies any dysuria. He admits generalized abdominal cramping that occurs intermittently, isn't alleviated or exacerbated by any thing, and resolved spontaneously. Denies any history of inflammatory bowel disease or ever having a colonoscopy. Patient is also had a dry cough for the last 2 weeks as well. In the triage note it was stated the patient had suicidal ideations. When discussed this with the patient is at that he does not want to kill himself but he is becoming increasingly depressed with his worsening chronic illness and inability to care for himself. Denies suicidal plan. - Related Data Home Medications Medication Instructions Recorded Confirmed Ergocalciferol [Vitamin D2 50,000 unit PO WE 02/28/14 08/13/18 (DRISDOL)] Fenofibrate,Micronized 134 mg PO HS 02/28/14 08/13/18 [Fenofibrate] Furosemide [Lasix] 60 mg PO HS 02/28/14 08/13/18 metFORMIN HCL [Glucophage] 500 mg PO DAILY 02/28/14 08/13/18 Meclizine [Antivert] 25 mg PO TID PRN 01/05/15 08/13/18 glipiZIDE [Glucotrol] 2.5 mg PO DAILY PRN 06/30/16 08/13/18 Diltiazem HCl [Diltiazem 24Hr ER] 120 mg PO HS 01/27/17 08/13/18 FLUoxetine HCL [PROzac] 40 mg PO DAILY 07/10/17 08/13/18 ALPRAZolam [Xanax] 0.5 mg PO Q12H PRN 01/19/18 08/13/18 ARIPiprazole [Abilify] 2 mg PO DAILY 01/19/18 08/13/18 Acetaminophen [Tylenol Extra 500 - 1,000 mg PO Q6H PRN 01/19/18 08/13/18 Strength] Ferrous Sulfate [Iron (65 MG 325 mg PO DAILY 01/19/18 08/13/18 Elemental)] Warfarin Sodium [Coumadin] 4 mg PO SUMOTUTHFRSA 08/13/18 08/13/18 Allergies Allergy/AdvReac Type Severity Reaction Status Date / Time oxycodone [Oxycodone] AdvReac Hallucinati Verified 08/13/18 23:16 ons Review of Systems ROS Statement: Those systems with pertinent positive or pertinent negative responses have been documented in the HPI. Review of Systems Constitutional: Denies fever, chills. Positive generalized weakness Eyes: Denies change in vision, Denies pain Ears, nose, mouth, throat: Denies headaches, Denies sore throat Cardiovascular: Denies chest pain. Denies palpitations Respiratory: Positive shortness of breath, Positive cough Gastrointestinal: Positive abdominal pain. Positive nausea and, diarrhea. Genitourinary: Denies hematuria, Denies infections Musculoskeletal: Positive chronic lower extremity pain, Denies swelling Integumentary: Positive wounds Neurological: Denies headache, focal weakness, focal numbness Psychiatric: Denies anxiety. Positive depression Hematologic/Lymphatic: Denies easy bleeding or bruising ROS Other: All systems not noted in ROS Statement are negative. Past Medical History Past Medical History: Atrial Fibrillation, Cancer, Diabetes Mellitus, Eye Disorder, Hypertension, Renal Disease, Skin Disorder, Vascular Disorder Additional Past Medical History / Comment(s): BLE VENOUS ULCERS; MPH WNS PATIENT; HAS CALCINOSIS CUTIS of BLE; KYRLE'S DISEASE. RT KIDNEY CA 2014. MAC DEGENERATION; CURRENT EYE INFECTION. PROBLEM SWALLOWING. HX VERTIGO, MENIERES. STAGE 3 RENAL DISEASE. MULT WOUNDS BETWEEN KNEES/ANKLES VASU; HAS HC. VERTIGO. 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 Amputated RT Great toe & 2ND toe. MULT WOUND DEBRIDEMENTS. PARTIAL RT Nephrectomy. 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 amputated toe lt great toe and next toe, rt nephrectomy, vasu eye surgery to drain fluid from eyes r/t glaucoma, Past Anesthesia/Blood Transfusion Reactions: Family History of Problems w/ Anesthesia, Motion Sickness Additional Past Anesthesia/Blood Transfusion Reaction / Comment(s): FATHER HALLUCINATED W/ ANESTHESIA. Past Psychological History: Anxiety, Depression Smoking Status: Former smoker Past Alcohol Use History: None Reported Past Drug Use History: None Reported - Past Family History Sister(s) Family Medical History: Cancer, Diabetes Mellitus Mother Family Medical History: Myocardial Infarction ([place]), Renal Disease General Exam - General Exam Comments Initial Comments: General: Awake, alert, No acute Distress. Chronically ill appearing. HENT: Normocephalic. Atraumatic Eyes: PERRL. EOMI. No scleral icterus. No injected conjunctiva Neck: Full ROM Chest/Lungs: Clear to auscultation bilaterally. No wheezing, rhonchi, or rales Cardiac: Irregular irregular No murmurs or rubs Abdomen/GI: Soft, nontender, nondistended. No rebound, guarding, or rigidity. Musculoskeletal: Bilateral knee decreased ROM secondary to chronic pain. Skin: Bilateral lower extremity wounds. LLE without erythema or purulent drainage. RLE anterior wound has surrounding erythema, purulent drainage, and foul smell. No crepitus. Excoriations to the lateral aspect of the gluteal cleft. Left elbow skin tear with controlled bleeding Neurologic: A/Ox3, generalized weakness, no coordination deficit. Antalgic gait Limitations: no limitations Course Vital Signs 08/13/18 08/13/18 08/13/18 19:16 20:16 21:10 Temperature 98.3 F Pulse Rate 81 67 63 Respiratory 18 16 16 Rate Blood Pressure 88/55 103/91 107/76 O2 Sat by Pulse 95 99 100 Oximetry 08/13/18 23:03 Temperature Pulse Rate 54 L Respiratory 16 Rate Blood Pressure 123/60 O2 Sat by Pulse 100 Oximetry EKG Findings - EKG Comments: EKG Findings:: EKG shows atrial fibrillation at a rate of 61 bpm. Medical Decision Making - Medical Decision Making 83-year-old male presenting with generalized weakness and diarrhea. Initial exam the patient is awake, alert, no acute distress. He initially was borderline hypotensive in triage but on repeat measurement was hypertensive. His imaging was negative for acute process. Laboratory workup revealed hypokalemia. The patient has no white count, there is concern for C. diff with his recent antibiotic use has diarrhea. Patient contact precautions and a C. diff antigen was ordered. The patient has chronic wounds has bilateral lower extremity's. An area on the right lower extremity appear like drainage with a foul smell. Per the patient's and son this is a change from when seen [address] Adame. Started the patient on antibiotics for possible wound infection. In triage the patient stated that he had suicidal thoughts. When I discussed this with him further he denied any thoughts of suicide or an active plan but stated that he was frustrated with his chronic illnesses and inability take care of himself, and is constant pain. Do not feel the patient is a suicide risk at this time. I spoke with Dr. Kelsey who is agreeable to admission. Patient's INR came back supratherapeutic at 3.9. Will hold Coumadin in the am. - Lab Data Result diagrams: 08/13/18 20:08 08/13/18 20:08 Lab Results 08/13/18 08/13/18 08/13/18 Range/Units 20:08 20:08 20:08 WBC 7.2 (3.8-10.6) k/uL RBC 4.01 L (4.30-5.90) m/uL Hgb 12.4 L (13.0-17.5) gm/dL Hct 38.4 L (39.0-53.0) % MCV 95.6 (80.0-100.0) fL MCH 31.0 (25.0-35.0) pg MCHC 32.4 (31.0-37.0) g/dL RDW 13.9 (11.5-15.5) % Plt Count 346 (150-450) k/uL Neutrophils % 69 % Lymphocytes % 20 % Monocytes % 4 % Eosinophils % 4 % Basophils % 0 % Neutrophils # 5.0 (1.3-7.7) k/uL Lymphocytes # 1.5 (1.0-4.8) k/uL Monocytes # 0.3 (0-1.0) k/uL Eosinophils # 0.3 (0-0.7) k/uL Basophils # 0.0 (0-0.2) k/uL PT (9.0-12.0) sec INR (<1.2) Sodium 145 (137-145) mmol/L Potassium 3.2 L (3.5-5.1) mmol/L Chloride 103 (98-107) mmol/L Carbon Dioxide 31 H (22-30) mmol/L Anion Gap 11 mmol/L BUN 20 (9-20) mg/dL Creatinine 0.95 (0.66-1.25) mg/dL Est GFR (CKD-EPI)AfAm 87 (>60 ml/min/1.73 sqM) Est GFR (CKD-EPI)NonAf 75 (>60 ml/min/1.73 sqM) Glucose 150 H (74-99) mg/dL Plasma Lactic Acid Carlos Eduardo 1.5 (0.7-2.0) mmol/L Calcium 9.6 (8.4-10.2) mg/dL Total Bilirubin 0.5 (0.2-1.3) mg/dL Conjugated Bilirubin 0.0 (0.0-0.3) mg/dL Unconjugated Bilirubin 0.3 (0.0-1.1) mg/dL Delta Bilirubin 0.2 (0.0-0.2) mg/dL AST 28 (17-59) U/L ALT 16 L (21-72) U/L Alkaline Phosphatase 115 (38-126) U/L Troponin I (0.000-0.034) ng/mL NT-Pro-B Natriuret Pep pg/mL Total Protein 7.6 (6.3-8.2) g/dL Albumin 4.2 (3.5-5.0) g/dL Lipase 63 (23-300) U/L 08/13/18 08/13/18 08/13/18 Range/Units 20:08 20:08 20:08 WBC (3.8-10.6) k/uL RBC (4.30-5.90) m/uL Hgb (13.0-17.5) gm/dL Hct (39.0-53.0) % MCV (80.0-100.0) fL MCH (25.0-35.0) pg MCHC (31.0-37.0) g/dL RDW (11.5-15.5) % Plt Count (150-450) k/uL Neutrophils % % Lymphocytes % % Monocytes % % Eosinophils % % Basophils % % Neutrophils # (1.3-7.7) k/uL Lymphocytes # (1.0-4.8) k/uL Monocytes # (0-1.0) k/uL Eosinophils # (0-0.7) k/uL Basophils # (0-0.2) k/uL PT 37.6 H (9.0-12.0) sec INR 3.9 H (<1.2) Sodium (137-145) mmol/L Potassium (3.5-5.1) mmol/L Chloride (98-107) mmol/L Carbon Dioxide (22-30) mmol/L Anion Gap mmol/L BUN (9-20) mg/dL Creatinine (0.66-1.25) mg/dL Est GFR (CKD-EPI)AfAm (>60 ml/min/1.73 sqM) Est GFR (CKD-EPI)NonAf (>60 ml/min/1.73 sqM) Glucose (74-99) mg/dL Plasma Lactic Acid Carlos Eduardo (0.7-2.0) mmol/L Calcium (8.4-10.2) mg/dL Total Bilirubin (0.2-1.3) mg/dL Conjugated Bilirubin (0.0-0.3) mg/dL Unconjugated Bilirubin (0.0-1.1) mg/dL Delta Bilirubin (0.0-0.2) mg/dL AST (17-59) U/L ALT (21-72) U/L Alkaline Phosphatase (38-126) U/L Troponin I 0.019 (0.000-0.034) ng/mL NT-Pro-B Natriuret Pep 1380 pg/mL Total Protein (6.3-8.2) g/dL Albumin (3.5-5.0) g/dL Lipase (23-300) U/L Disposition Clinical Impression: Diarrhea, Generalized weakness, Cellulitis of right anterior lower leg, Supratherapeutic INR, Chronic wound of extremity, Warfarin-induced coagulopathy, Atrial fibrillation Clinical Impression: (Ruled Out): Cellulitis of left anterior lower leg Disposition: ADMITTED IP TO THIS HOSP Referrals: Brandie Hinton MD [Primary Care Provider] - 1-2 days Decision Date: 08/13/18 Decision Time: 23:03
[2018-08-13 20:17] LABS: Basophils % (A) 0 %; Eosinophils # (A) 0.3 k/uL (0-0.7); Eosinophils % (A) 4 %; HCT 38.4 % (39.0-53.0); HGB 12.4 gm/dL (13.0-17.5); Lymphocytes # (A) 1.5 k/uL (1.0-4.8); Lymphocytes % (A) 20 %; MCHC 32.4 g/dL (31.0-37.0); MCV 95.6 fL (80.0-100.0); Mean Platelet Volume 8.4; Monocytes # (A) 0.3 k/uL (0-1.0); Monocytes % (A) 4 %; Neutrophils % (A) 69 %; Platelet Count 346 k/uL (150-450); RBC 4.01 m/uL (4.30-5.90); RDW 13.9 % (11.5-15.5); WBC 7.2 k/uL (3.8-10.6)
[2018-08-13 20:43] LABS: Albumin 4.2 g/dL (3.5-5.0); Bilirubin, Delta 0.2 mg/dL (0.0-0.2); Bilirubin,Unconjugated 0.3 mg/dL (0.0-1.1); Calcium 9.6 mg/dL (8.4-10.2); Potassium 3.2 mmol/L (3.5-5.1); Total Bilirubin 0.5 mg/dL (0.2-1.3); Total Protein 7.6 g/dL (6.3-8.2)
[2018-08-13] MEDS ORDERED: POTASSIUM CHLORIDE ER 20 MEQ TAB.ER PO STA (20:47)
--- NOTE | 2018-08-13 21:19 | XR ---
EXAMINATION TYPE: XR chest 1V portable DATE OF EXAM: 08/13/2018 COMPARISON: 07/10/2017 HISTORY: Weakness TECHNIQUE: Single frontal view of the chest is obtained. FINDINGS: There is no heart failure nor confluent pneumonic infiltrate. Costophrenic angles are saundra r. Bony thorax appears intact. IMPRESSION: No active cardiopulmonary disease. No change.
--- NOTE | 2018-08-13 21:50 | CT ---
EXAMINATION TYPE: CT abdomen pelvis w con DATE OF EXAM: 08/13/2018 COMPARISON: 11/26/2015 HISTORY: Diarrhea. CT DLP: 1134.3 mGycm Automated exposure control for dose reduction was used. TECHNIQUE: Helical acquisition of images was performed from the lung bases through the pelvis. CONTRAST: Performed without Oral Contrast and with IV Contrast, patient injected with 100ml mL of Isovue 300. FINDINGS: Lung bases are clear of consolidation. Heart is slightly enlarged. Stomach appears normal. Liver show s no focal defect. Bile ducts are not dilated. There is cholecystectomy. Spleen is normal. There is n o sign of pancreatic mass. There is no adrenal mass. There is mild renal atrophy. There is no hydronephrosis. There is no retrop eritoneal adenopathy. Ureters are not dilated. Bladder distends smoothly. There is no free fluid in the pelvis. There is no inguinal hernia. There i s no mesenteric edema. There is no ascites. There is no free air. Appendix appears normal. There is 8 0% compression deformity of T12 vertebra. There is thoracolumbar kyphotic deformity. Fracture appears old. There is mild thoracolumbar dextroscoliosis. There is no evidence of a bowel obstruction. I see no intestinal wall thickening. IMPRESSION: NO SIGN OF ACUTE ABDOMEN AND PELVIS. NO ADVERSE CHANGE COMPARED TO OLD EXAM. OLD T12 COMPRESSION FRAC TURE.
[2018-08-13] MEDS ORDERED: SODIUM CHLORIDE 0.9% 1,000 ML IV STA (22:38)
[2018-08-13] MEDS ORDERED: NALOXONE 0.4 MG/ML 1 ML VIAL IV PRN (23:06)
[2018-08-13 23:28] LABS: INR 3.9 (<1.2); Prothrombin Time 37.6 sec (9.0-12.0)
[2018-08-14 02:22] LABS: Appearance,Urine Cloudy (Clear); Bacteria,Urine Moderate /hpf; Bilirubin,Urine Negative (Negative); Blood,Urine Small (Negative); Color,Urine Yellow; Glucose,Urine (UA) Negative (Negative); Hyaline Casts,Urine 39 /lpf (0-2); Ketones,Urine Negative (Negative); Leukocyte Esterase,Urine Large (Negative); Mucus,Urine Rare /hpf; Nitrite,Urine Positive (Negative); PH, Urine 6.5 (5.0-8.0); Protein,Urine 1+ (Negative); RBC,Urine 58 /hpf (0-5); Squamous Epithelial Cell,Urine 1 /hpf (0-4); Urobilinogen,Urine <2.0 mg/dL (<2.0)
[2018-08-14 02:23] LABS: Specific Gravity,Urine >1.050 (1.001-1.035)
[2018-08-14] MEDS ORDERED: ALPRAZolam 0.5 MG TAB PO PRN (04:00)
[2018-08-14 07:09] LABS: Basophils % (A) 0 %; Eosinophils # (A) 0.4 k/uL (0-0.7); Eosinophils % (A) 7 %; HCT 31.7 % (39.0-53.0); HGB 10.3 gm/dL (13.0-17.5); Lymphocytes % (A) 36 %; MCH 31.8 pg (25.0-35.0); MCHC 32.6 g/dL (31.0-37.0); MCV 97.6 fL (80.0-100.0); Monocytes # (A) 0.3 k/uL (0-1.0); Monocytes % (A) 5 %; Neutrophils # (A) 2.8 k/uL (1.3-7.7); Neutrophils % (A) 50 %; Platelet Count 270 k/uL (150-450); RBC 3.25 m/uL (4.30-5.90); RDW 13.6 % (11.5-15.5); WBC 5.5 k/uL (3.8-10.6)
[2018-08-14 07:21] LABS: Anion Gap 5 mmol/L; Blood Urea Nitrogen 18 mg/dL (9-20); Calcium 8.8 mg/dL (8.4-10.2); Carbon Dioxide 30 mmol/L (22-30); Chloride 106 mmol/L (98-107); Glucose 93 mg/dL (74-99); Sodium 141 mmol/L (137-145)
[2018-08-14 07:25] LABS: Potassium 2.7 mmol/L (3.5-5.1)
[2018-08-14 08:00] LABS: Glucose,Whole Blood 163 mg/dL (75-99)
[2018-08-14] MEDS ORDERED: POTASSIUM CHLORIDE ER 20 MEQ TAB.ER PO STA ×2 (08:18→21:41)
[2018-08-14] MEDS ORDERED: Potassium Replacement Protocol 1 EACH MISC MISCELLANE PRN ×2 (08:19→15:14)
[2018-08-14] MEDS ORDERED: metFORMIN 500 MG TAB PO SCH (09:00)
[2018-08-14] MEDS: INSULIN ASPART (NovoLOG) 100 UNIT/ML VIAL SQ SCH ×4 (09:01→21:38)
[2018-08-14] MEDS: ARIPiprazole 2 MG TAB PO SCH (09:02)
[2018-08-14] MEDS: FERROUS SULFATE 325 MG TAB PO SCH (09:02)
[2018-08-14 11:30] LABS: Magnesium 1.4 mg/dL (1.6-2.3); Potassium 3.1 mmol/L (3.5-5.1)
[2018-08-14] MEDS ORDERED: Magnesium Replacement Protocol 1 EACH MISC MISCELLANE PRN (11:37)
[2018-08-14 11:49] LABS: Glucose,Whole Blood 109 mg/dL (75-99)
[2018-08-14] MEDS: MAGNESIUM SULFATE-D5W PMX 1 GM in DEXTROSE/WATER 1 100ML.BAG IVPB SCH ×3 (12:29→15:12)
[2018-08-14] MEDS ORDERED: MECLIZINE 25 MG TAB PO PRN (12:53)
--- NOTE | 2018-08-14 13:10 | P.HPIM ---
History of Present Illness H&P Date: 08/14/18 Chief Complaint: Generalized weakness and diarrhea This is a 83-year-old male with a known history of chronic atrial fibrillation, diabetes mellitus, chronic venous ulcers of the lower extremities, hypertension, kidney cancer with nephrectomy in 2015. Patient presents to the emergency room with complaints of generalized weakness and diarrhea for about 2 weeks. Patient reports about 2 loose stools a day. Tried modifying diet without relief. He had recently been on amoxicillin for a sinus infection. Patient reports some abdominal discomfort. Denies any nausea or vomiting. Had a computed tomography scan of the abdomen and pelvis which was negative did reveal old T12 compression fracture. Chest x-ray negative. EKG showing atrial fibrillation with a heart rate of 61. Stool was ordered for C. diff. Patient possibly has a UTI. Currently started on Kefzol in the ER for lower extremity cellulitis. Patient reports that he is followed by Dr. George and Dr. Adame in the wound care center for his chronic wounds. According to patient his legs are showing improvement. Patient denies any fever or chills or sweats. Denies any chest pain or shortness of breath. Denies any nausea or vomiting. Denies any burning with urination. Patient was found to have a low potassium and low magnesium which are being replaced per protocol. Review of Systems Please refer to HPI otherwise unremarkable Past Medical History Past Medical History: Atrial Fibrillation, Cancer, Diabetes Mellitus, Eye D isorder, Hypertension, Renal Disease, Skin Disorder, Vascular Disorder Additional Past Medical History / Comment(s): BLE VENOUS ULCERS; MPH WNS PATIENT; HAS CALCINOSIS CUTIS of BLE; KYRLE'S DISEASE. RT KIDNEY CA 2014. MAC DEGENERATION; CURRENT EYE INFECTION. HX VERTIGO, MENIERES. STAGE 3 RENAL DISEASE. MULT WOUNDS BETWEEN KNEES/ANKLES ROGER; HAS HC. VERTIGO. 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 Amputated RT Great toe & 2ND toe. MULT WOUND DEBRIDEMENTS. PARTIAL RT Nephrectomy. Roger eye surgery, drain fluid from eyes r/t glaucoma/FLOATERS. amputated toe lt great toe and next toe, rt nephrectomy, roger eye surgery to drain fluid from eyes r/t glaucoma, Past Anesthesia/Blood Transfusion Reactions: Family History of Problems w/ Anesthesia, Motion Sickness Additional Past Anesthesia/Blood Transfusion Reaction / Comment(s): FATHER HALLUCINATED W/ ANESTHESIA. Past Psychological History: Anxiety, Depression Additional Psychological History / Comment(s): . Retired. experience. No international travel. No animal exposures Smoking Status: Former smoker Past Alcohol Use History: None Reported Additional Past Alcohol Use History / Comment(s): Smoked 30 years, <1ppd, quit 1978 Past Drug Use History: None Reported - Past Family History Sister(s) Family Medical History: Cancer, Diabetes Mellitus Mother Family Medical History: Myocardial Infarction ([place]), Renal Disease Medications and Allergies Home Medications Medication Instructions Recorded Confirmed Type Ergocalciferol [Vitamin D2 50,000 unit PO WE 02/28/14 08/13/18 History (DRISDOL)] Fenofibrate,Micronized 134 mg PO HS 02/28/14 08/13/18 History [Fenofibrate] Furosemide [Lasix] 60 mg PO HS 02/28/14 08/13/18 History metFORMIN HCL [Glucophage] 500 mg PO DAILY 02/28/14 08/13/18 History Meclizine [Antivert] 25 mg PO TID PRN 01/05/15 08/13/18 History glipiZIDE [Glucotrol] 2.5 mg PO DAILY PRN 06/30/16 08/13/18 History Diltiazem HCl [Diltiazem 24Hr ER] 120 mg PO HS 01/27/17 08/13/18 History FLUoxetine HCL [PROzac] 40 mg PO DAILY 07/10/17 08/13/18 History ALPRAZolam [Xanax] 0.5 mg PO Q12H PRN 01/19/18 08/13/18 History ARIPiprazole [Abilify] 2 mg PO DAILY 01/19/18 08/13/18 History Acetaminophen [Tylenol Extra 500 - 1,000 mg PO Q6H PRN 01/19/18 08/13/18 History Strength] Ferrous Sulfate [Iron (65 MG 325 mg PO DAILY 01/19/18 08/13/18 History Elemental)] Warfarin Sodium [Coumadin] 4 mg PO SUMOTUTHFRSA 08/13/18 08/13/18 History Allergies Allergy/AdvReac Type Severity Reaction Status Date / Time oxycodone [Oxycodone] AdvReac Hallucinati Verified 08/13/18 23:16 ons Physical Exam Vitals: Vital Signs Temp Pulse Pulse Resp BP BP BP 08/14/18 07:53 97.7 F 51 L 18 120/61 08/14/18 01:15 18 08/14/18 00:47 98.0 F 60 18 123/68 08/13/18 23:03 54 L 16 123/60 08/13/18 21:10 63 16 107/76 08/13/18 20:16 67 16 103/91 08/13/18 19:16 98.3 F 81 18 88/55 Pulse Ox 08/14/18 07:53 99 08/14/18 01:15 08/14/18 00:47 99 08/13/18 23:03 100 08/13/18 21:10 100 08/13/18 20:16 99 08/13/18 19:16 95 Intake and Output 08/13/18 08/14/18 08/14/18 22:59 06:59 14:59 Intake Total 600 240 Balance 600 240 Intake: Intake, IV Titration 600 Amount Sodium Chloride 0.9% 1, 600 000 ml @ 75 mls/hr IV . [id number] STA Rx#:[id number] Oral 240 Other: Voiding Method Urinal Urinal Weight 62.596 kg Head normocephalic Neck supple Lungs a few coarse breath sounds improved with cough Heart regular rate and rhythm S1-S2, no rub or gallop Abdomen is soft nontender nondistended positive bowel sounds no hepatosplenomegaly Extremities no edema. Legs are bandaged. Dressing clean dry and intact. Neuro alert and orientated to 3 Results CBC & Chem 7: 08/14/18 06:42 08/14/18 11:07 Labs: Abnormal Lab Results - Last 24 Hours (Table) 08/13/18 08/13/18 08/13/18 Range/Units 01:24 20:08 20:08 RBC 4.01 L (4.30-5.90) m/uL Hgb 12.4 L (13.0-17.5) gm/dL Hct 38.4 L (39.0-53.0) % PT (9.0-12.0) sec INR (<1.2) Potassium 3.2 L (3.5-5.1) mmol/L Carbon Dioxide 31 H (22-30) mmol/L Glucose 150 H (74-99) mg/dL POC Glucose (mg/dL) (75-99) mg/dL Magnesium (1.6-2.3) mg/dL ALT 16 L (21-72) U/L Ur Specific Roy >1.050 H (1.001-1.035) Urine Protein 1+ H (Negative) Urine Blood Small H (Negative) Ur Leukocyte Esterase Large H (Negative) Urine RBC 58 H (0-5) /hpf Urine WBC >182 H (0-5) /hpf Urine Bacteria Moderate H (None) /hpf Hyaline Casts 39 H (0-2) /lpf Urine Mucus Rare H (None) /hpf 08/13/18 08/14/18 08/14/18 Range/Units 20:08 06:42 06:42 RBC 3.25 L (4.30-5.90) m/uL Hgb 10.3 L (13.0-17.5) gm/dL Hct 31.7 L (39.0-53.0) % PT 37.6 H (9.0-12.0) sec INR 3.9 H (<1.2) Potassium 2.7 L* (3.5-5.1) mmol/L Carbon Dioxide (22-30) mmol/L Glucose (74-99) mg/dL POC Glucose (mg/dL) (75-99) mg/dL Magnesium (1.6-2.3) mg/dL ALT (21-72) U/L Ur Specific Roy (1.001-1.035) Urine Protein (Negative) Urine Blood (Negative) Ur Leukocyte Esterase (Negative) Urine RBC (0-5) /hpf Urine WBC (0-5) /hpf Urine Bacteria (None) /hpf Hyaline Casts (0-2) /lpf Urine Mucus (None) /hpf 08/14/18 08/14/18 08/14/18 Range/Units 07:58 11:07 11:49 RBC (4.30-5.90) m/uL Hgb (13.0-17.5) gm/dL Hct (39.0-53.0) % PT (9.0-12.0) sec INR (<1.2) Potassium 3.1 L (3.5-5.1) mmol/L Carbon Dioxide (22-30) mmol/L Glucose (74-99) mg/dL POC Glucose (mg/dL) 163 H 109 H (75-99) mg/dL Magnesium 1.4 L (1.6-2.3) mg/dL ALT (21-72) U/L Ur Specific Roy (1.001-1.035) Urine Protein (Negative) Urine Blood (Negative) Ur Leukocyte Esterase (Negative) Urine RBC (0-5) /hpf Urine WBC (0-5) /hpf Urine Bacteria (None) /hpf Hyaline Casts (0-2) /lpf Urine Mucus (None) /hpf Microbiology - Last 24 Hours (Table) 08/13/18 01:24 Urine Culture - Preliminary Urine,Voided Thrombosis Risk Factor Assmnt - Choose All That Apply Any of the Below Risk Factors Present?: Yes Each Factor Represents 1 point: Medical pt on bed rest Each Risk Factor Represents 3 Points: Age 75 years or older Thrombosis Risk Factor Assessment Total Risk Factor Score: 4 Thrombosis Risk Factor Assessment Level: Moderate Risk Assessment and Plan Assessment: 1. Diarrhea with recent antibiotic use: Check stool for C. diff. CTA of the abdomen and pelvis dated for any acute changes 2. Generalized weakness possibly secondary to infections and overall comorbidities 3. Possible right lower extremity cellulitis with known chronic venous ulcers. Consult Dr. George who follows patient at wound care center. Patient currently on IV kefzol 4. Possible UTI: Await urine culture. He was current antibiotics. We'll await further infectious disease recommendations 5. Hypokalemia: Possibly secondary to diarrhea and patient is on Lasix. Replace per protocol 6. Hypomagnesemia: Replaced per protocol and repeat labs in a.m. 7. Supratherapeutic INR due to warfarin-induced coagulopathy. Coumadin held last night. Checking PT/INR to help further with Coumadin dosing 8. Chronic persistent atrial fibrillation: EKG showing A. fib heart rate controlled and anticoagulated with Coumadin 9. Underlying depression due to patient's comorbidities. No evidence of suicidal ideation at this time 10. 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 Essential hypertension 12. History of renal cell carcinoma status post right nephrectomy 13. Diabetes mellitus type 2: Continue the glipizide
[2018-08-14 13:20] LABS: INR 4.5 (<1.2)
[2018-08-14] MEDS: ACETAMINOPHEN TAB 325 MG TAB PO PRN (13:59)
[2018-08-14] MEDS: POTASSIUM CHLORIDE ER 20 MEQ TAB.ER PO SCH ×2 (16:16→17:33)
[2018-08-14 17:01] LABS: Glucose,Whole Blood 219 mg/dL (75-99)
[2018-08-14 21:30] LABS: Glucose,Whole Blood 176 mg/dL (75-99)
[2018-08-14] MEDS: FUROSEMIDE 20 MG TAB PO SCH (21:37)
[2018-08-14] MEDS: FENOFIBRATE 160 MG TAB PO SCH (21:37)
[2018-08-14] MEDS: DILTIAZEM CD 120 MG CAP.ER.24H PO SCH (21:38)
[2018-08-14 21:39] LABS: Magnesium 2.2 mg/dL (1.6-2.3); Potassium 3.7 mmol/L (3.5-5.1)
[2018-08-15 07:31] LABS: Glucose,Whole Blood 108 mg/dL (75-99)
[2018-08-15] MEDS: INSULIN ASPART (NovoLOG) 100 UNIT/ML VIAL SQ SCH ×4 (08:20→21:39)
[2018-08-15] MEDS: FLUoxetine HCL 20 MG CAP PO SCH (08:24)
[2018-08-15] MEDS: FERROUS SULFATE 325 MG TAB PO SCH (08:24)
[2018-08-15] MEDS: ARIPiprazole 2 MG TAB PO SCH (08:24)
[2018-08-15 11:39] LABS: Glucose,Whole Blood 138 mg/dL (75-99)
[2018-08-15 12:06] LABS: Basophils % (A) 0 %; Eosinophils # (A) 0.3 k/uL (0-0.7); Eosinophils % (A) 5 %; HCT 33.5 % (39.0-53.0); HGB 10.9 gm/dL (13.0-17.5); Lymphocytes # (A) 1.3 k/uL (1.0-4.8); Lymphocytes % (A) 22 %; MCH 31.7 pg (25.0-35.0); MCHC 32.5 g/dL (31.0-37.0); MCV 97.7 fL (80.0-100.0); Mean Platelet Volume 8.4; Monocytes # (A) 0.3 k/uL (0-1.0); Monocytes % (A) 5 %; Neutrophils % (A) 66 %; Platelet Count 285 k/uL (150-450); RBC 3.43 m/uL (4.30-5.90); RDW 13.7 % (11.5-15.5); WBC 6.1 k/uL (3.8-10.6)
[2018-08-15 12:17] LABS: ALT 14 U/L (21-72); AST 21 U/L (17-59); Albumin 3.2 g/dL (3.5-5.0); Alkaline Phosphatase 92 U/L (38-126); Anion Gap 6 mmol/L; Blood Urea Nitrogen 14 mg/dL (9-20); Calcium 8.7 mg/dL (8.4-10.2); Carbon Dioxide 28 mmol/L (22-30); Chloride 108 mmol/L (98-107); Glucose 131 mg/dL (74-99); Magnesium 1.8 mg/dL (1.6-2.3); Potassium 4.1 mmol/L (3.5-5.1); Sodium 142 mmol/L (137-145); Total Bilirubin 0.3 mg/dL (0.2-1.3)
[2018-08-15 12:26] LABS: INR 3.5 (<1.2)
[2018-08-15] MEDS ORDERED: MAGNESIUM SULFATE-D5W PMX 1 GM in DEXTROSE/WATER 1 100ML.BAG IVPB ONE (13:00)
--- NOTE | 2018-08-15 13:57 | P.PN ---
Subjective Progress Note Date: 08/15/18 This is a 83-year-old male with a known history of chronic atrial fibrillation, diabetes mellitus, chronic venous ulcers of the lower extremities, hypertension, kidney cancer with nephrectomy in 2015. Patient presents to the emergency room with complaints of generalized weakness and diarrhea for about 2 weeks. Patient reports about 2 loose stools a day. Tried modifying diet without relief. He had recently been on amoxicillin for a sinus infection. Patient reports some abdominal discomfort. Denies any nausea or vomiting. Had a computed tomography scan of the abdomen and pelvis which was negative did reveal old T12 compression fracture. Chest x-ray negative. EKG showing atrial fibrillation with a heart rate of 61. Stool was ordered for C. diff. Patient possibly has a UTI. Currently started on Kefzol in the ER for lower extremity cellulitis. Patient reports that he is followed by Dr. George and Dr. Adame in the wound care center for his chronic wounds. According to patient his legs are showing improvement. Patient denies any fever or chills or sweats. Denies any chest pain or shortness of breath. Denies any nausea or vomiting. Denies any burning with urination. Patient was found to have a low potassium and low magnesium which are being replaced per protocol. 08/15/2018 patient's diarrhea has resolved. Unable to collect stool for C. diff. Magnesium 1.8 patient will receive another gram of magnesium sulfate. Potassium has normalized at 4.1. Urine culture growing quite dyspneic staff. Awaiting Dr. George evaluation of the patient's lower extremity ulcers. Patient denies any chest pain or shortness of breath. Denies any nausea or vomiting. Denies any burning with urination. Has not had a chance to work with physical therapy yet. Reports that his overall weakness is showing some improvement today. Objective - Vital Signs Vital signs: Vital Signs Temp 97.8 F 08/15/18 04:06 Pulse 62 08/15/18 04:06 Resp 20 08/15/18 04:06 BP 118/59 08/15/18 04:06 Pulse Ox 97 08/15/18 04:06 Intake & Output 08/14/18 08/15/18 08/15/18 18:59 06:59 18:59 Intake Total 680 Balance 680 Intake: Oral 680 Other: Voiding Method Urinal # Voids 1 4 # Bowel Movements 1 - Exam Head normocephalic Neck supple Lungs clear to auscultation bilaterally no wheezing or crackles Heart regular rate and rhythm S1-S2, no rub or gallop Abdomen is soft nontender nondistended positive bowel sounds no hepatosplenomegaly Extremities chronic ulcers right lower extremity. Left leg dressing dry and intact Neuro alert and orientated to 3 - Labs CBC & Chem 7: 08/15/18 11:27 08/15/18 11:27 Labs: Abnormal Lab Results - Last 24 Hours (Table) 08/14/18 08/14/18 08/14/18 Range/Units 06:42 16:58 21:28 RBC (4.30-5.90) m/uL Hgb (13.0-17.5) gm/dL Hct (39.0-53.0) % PT 43.0 H (9.0-12.0) sec INR 4.5 H (<1.2) Chloride (98-107) mmol/L Glucose (74-99) mg/dL POC Glucose (mg/dL) 219 H 176 H (75-99) mg/dL ALT (21-72) U/L Total Protein (6.3-8.2) g/dL Albumin (3.5-5.0) g/dL 08/15/18 08/15/18 08/15/18 Range/Units 07:25 11:27 11:27 RBC 3.43 L (4.30-5.90) m/uL Hgb 10.9 L (13.0-17.5) gm/dL Hct 33.5 L (39.0-53.0) % PT (9.0-12.0) sec INR (<1.2) Chloride 108 H (98-107) mmol/L Glucose 131 H (74-99) mg/dL POC Glucose (mg/dL) 108 H (75-99) mg/dL ALT 14 L (21-72) U/L Total Protein 6.0 L (6.3-8.2) g/dL Albumin 3.2 L (3.5-5.0) g/dL 08/15/18 Range/Units 11:27 RBC (4.30-5.90) m/uL Hgb (13.0-17.5) gm/dL Hct (39.0-53.0) % PT (9.0-12.0) sec INR (<1.2) Chloride (98-107) mmol/L Glucose (74-99) mg/dL POC Glucose (mg/dL) 138 H (75-99) mg/dL ALT (21-72) U/L Total Protein (6.3-8.2) g/dL Albumin (3.5-5.0) g/dL Microbiology - Last 24 Hours (Table) 08/13/18 01:24 Urine Culture - Preliminary Urine,Voided Coagulase Negative Staph Assessment and Plan Assessment: 1. Diarrhea with recent antibiotic use: diarrhea resolved. Possibly a gastroenteritis versus side effect from antibiotics. Unable to collect stool for C. diff. CT of the abdomen and pelvis dated for any acute changes 2. Generalized weakness possibly secondary to infections and overall comorbidities 3. Possible right lower extremity cellulitis with known chronic venous ulcers. Consult Dr. George who follows patient at wound care center. Patient currently on IV kefzol 4. UTI ruled out. Urine culture growing coagulase-negative staph. likely a co ntaminate. 5. Hypokalemia: Possibly secondary to diarrhea and patient is on Lasix. Potassium level has normalized at 4.1. Add K-Dur 20 milliequivalents daily since patient's is on a daily dose of Lasix 6. Hypomagnesemia: Patient receiving magnesium supplement for magnesium of 1.8. 7. Supratherapeutic INR due to warfarin-induced coagulopathy. Checking PT/INR to help further with Coumadin dosing. 8. Chronic persistent atrial fibrillation: EKG showing A. fib heart rate controlled and anticoagulated with Coumadin 9. Underlying depression due to patient's comorbidities. No evidence of suicidal ideation at this time 10. 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 Essential hypertension 12. History of renal cell carcinoma status post right nephrectomy 13. Diabetes mellitus type 2: Continue the glipizide Plan Awaiting infectious disease evaluation Awaiting physical therapy evaluation Hold coumadin tonight and check PT/INR Consult Dr. Bowens for possible inpatient rehab Anticipate discharge possibly tomorrow I performed an examination of the patient and discussed their management with estela physician Camp Nurse. I have reviewed the Physician Camp Nurse's notes and agree with the documented findings and plan of care
--- NOTE | 2018-08-15 16:01 | P.CONS ---
History of Present Illness - Chief Complaint Medical debility - History of Present Illness I had the opportunity to see patient for inpatient rehab consultation with regard to medical debility. He was admitted to [facility] August 13 with weakness and diarrhea. Don't lower extremity cellulitis. Chest x-ray done and demonstrates no active disease. Abdominal CT done and demonstrates lack disease but does demonstrate old T12 compression. OT reports two-person total assist for lower dressing, bathing. Total assistance for toileting and maximal assistance to person for bed mobility. Patient declined PT today. Previous functional history as elicited from patient corroborative by : 83-year-old right-handed white male who is lives in one floor home with . does cooking, laundry, driving. Patient retired. Patient reports medical problems for the last month with functional decline. He was receiving physical assistance for dressing and for a sponge bath outside of shower, as he had fallen in the shower as recently as 2 weeks ago. So he is mostly using a wheelchair for mobility. Family history of mother with cardiac disease. Review of Systems Review of systems: Skin: Multiple cellulitic areas including especially lowers. ENT: Denies sneezes or discharge. Eyes: Denies discharge or photophobia. Cardiac: Denies chest pain or palpitation. Pulmonary: Denies cough or shortness of breath. Gastrointestinal: diarrhea. Genitourinary: Denies discharge or frequency. Musculoskeletal: Denies muscle or bone aches. Neurologic: Generalized weakness, more so lowers. Endocrine: Denies shakes or sweats. Oncology: Denies cancers. Dermatologic: Denies rash, itching, pruritus. ALLERGY/immunology: Denies sneezes, rashes. 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 HX VERTIGO, MENIERES. STAGE 3 RENAL DISEASE. MULT WOUNDS BETWEEN KNEES/ANKLES ROGER; HAS HC. VERTIGO. 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 Amputated RT G reat toe & 2ND toe. MULT WOUND DEBRIDEMENTS. PARTIAL RT Nephrectomy. Roger eye surgery, drain fluid from eyes r/t glaucoma/FLOATERS. amputated toe lt great toe and next toe, rt nephrectomy, roger eye surgery to drain fluid from eyes r/t glaucoma, Past Anesthesia/Blood Transfusion Reactions: Family History of Problems w/ Anesthesia, Motion Sickness Additional Past Anesthesia/Blood Transfusion Reaction / Comm: FATHER HALLUCINATED W/ ANESTHESIA. Past Psychological History: Anxiety, Depression Additional Psychological History / Comment(s): . Retired. experience. No international travel. No animal exposures Smoking Status: Former smoker Past Alcohol Use History: None Reported Additional Past Alcohol Use History / Comment(s): Smoked 30 years, <1ppd, quit 1978 Past Drug Use History: None Reported - Past Family History Sister(s) Family Medical History: Cancer, Diabetes Mellitus Mother Family Medical History: Myocardial Infarction ([place]), Renal Disease Medications and Allergies Home Medications Medication Instructions Recorded Confirmed Type Ergocalciferol [Vitamin D2 50,000 unit PO WE 02/28/14 08/13/18 History (DRISDOL)] Fenofibrate,Micronized 134 mg PO HS 02/28/14 08/13/18 History [Fenofibrate] Furosemide [Lasix] 60 mg PO HS 02/28/14 08/13/18 History metFORMIN HCL [Glucophage] 500 mg PO DAILY 02/28/14 08/13/18 History Meclizine [Antivert] 25 mg PO TID PRN 01/05/15 08/13/18 History glipiZIDE [Glucotrol] 2.5 mg PO DAILY PRN 06/30/16 08/13/18 History Diltiazem HCl [Diltiazem 24Hr ER] 120 mg PO HS 01/27/17 08/13/18 History FLUoxetine HCL [PROzac] 40 mg PO DAILY 07/10/17 08/13/18 History ALPRAZolam [Xanax] 0.5 mg PO Q12H PRN 01/19/18 08/13/18 History ARIPiprazole [Abilify] 2 mg PO DAILY 01/19/18 08/13/18 History Acetaminophen [Tylenol Extra 500 - 1,000 mg PO Q6H PRN 01/19/18 08/13/18 History Strength] Ferrous Sulfate [Iron (65 MG 325 mg PO DAILY 01/19/18 08/13/18 History Elemental)] Warfarin Sodium [Coumadin] 4 mg PO SUMOTUTHFRSA 08/13/18 08/13/18 History Allergies Allergy/AdvReac Type Severity Reaction Status Date / Time oxycodone [Oxycodone] AdvReac Hallucinati Verified 08/13/18 23:16 ons Physical Exam Vitals: Vital Signs Temp Pulse Resp BP BP Pulse Ox 08/15/18 13:54 97.5 F L 64 18 92/60 97 08/15/18 04:06 97.8 F 62 20 118/59 97 08/14/18 21:30 97.3 F L 69 20 108/73 98 08/14/18 16:00 97.5 F L 68 14 105/72 98 Intake and Output 08/15/18 08/15/18 08/15/18 06:59 14:59 22:59 Intake Total 600 Balance 600 Intake: Oral 600 Other: # Voids 4 4 Skin: Atrophic and with multiple cellulitic areas that are clean and dressed including lowers. General: Medium build and comfortable appearance. Head: Normocephalic, atraumatic. Eyes: Symmetric. Pupils equal round. Ears: Symmetric. Hearing within normal limits. Mouth: Clear. Neck: Supple. Carotid without bruit. Cardiac: Regular rate and rhythm. Lungs: Clear anteriorly and posteriorly. Abdomen: Soft active nontender. Extremities: Normal tone. Cellulitic areas lowers entered clean and dressed with gauze. 2+ edema lowers. Old well-healed amputation toes right foot. Neurological: Mental status: Alert, cooperative, pleasant. Cranial nerves: Symmetric facial tone and trapezius. Motor: Can elevate arms off the bed but not legs. Sensation: Intact throughout. DTRs: Symmetric and equal throughout. Mobility: Requires two-person assist for bed mobility. Results CBC & Chem 7: 08/15/18 11:27 08/15/18 11:27 Labs: Abnormal Lab Results - Last 24 Hours (Table) 08/14/18 08/14/18 08/15/18 Range/Units 16:58 21:28 07:25 RBC (4.30-5.90) m/uL Hgb (13.0-17.5) gm/dL Hct (39.0-53.0) % PT (9.0-12.0) sec INR (<1.2) Chloride (98-107) mmol/L Glucose (74-99) mg/dL POC Glucose (mg/dL) 219 H 176 H 108 H (75-99) mg/dL ALT (21-72) U/L Total Protein (6.3-8.2) g/dL Albumin (3.5-5.0) g/dL 08/15/18 08/15/18 08/15/18 Range/Units 11:27 11:27 11:27 RBC 3.43 L (4.30-5.90) m/uL Hgb 10.9 L (13.0-17.5) gm/dL Hct 33.5 L (39.0-53.0) % PT 34.0 H (9.0-12.0) sec INR 3.5 H (<1.2) Chloride 108 H (98-107) mmol/L Glucose 131 H (74-99) mg/dL POC Glucose (mg/dL) (75-99) mg/dL ALT 14 L (21-72) U/L Total Protein 6.0 L (6.3-8.2) g/dL Albumin 3.2 L (3.5-5.0) g/dL 08/15/18 Range/Units 11:27 RBC (4.30-5.90) m/uL Hgb (13.0-17.5) gm/dL Hct (39.0-53.0) % PT (9.0-12.0) sec INR (<1.2) Chloride (98-107) mmol/L Glucose (74-99) mg/dL POC Glucose (mg/dL) 138 H (75-99) mg/dL ALT (21-72) U/L Total Protein (6.3-8.2) g/dL Albumin (3.5-5.0) g/dL Microbiology - Last 24 Hours (Table) 08/13/18 01:24 Urine Culture - Preliminary Urine,Voided Coagulase Negative Staph Assessment and Plan (1) Cellulitis of right anterior lower leg Current Visit: Yes Status: Acute Code(s): L03.115 - CELLULITIS OF RIGHT LOWER LIMB SNOMED Code(s): 288694274 Plan: Impression: 1. Medical debility. 2. Lower extremity cellulitis. 3. Diarrhea. 4. Generalized weakness. Comments and plan: At this time OT is ongoing in no patient really two-person assist. reports that in fact patient was in inpatient rehab and experienced poor benefit. For this reason she is anticipating subacute placement. Patient endurance does appear to be low and this appears to be best plan.
[2018-08-15 17:13] LABS: Glucose,Whole Blood 260 mg/dL (75-99)
[2018-08-15 21:35] LABS: Glucose,Whole Blood 201 mg/dL (75-99)
[2018-08-15] MEDS: FUROSEMIDE 20 MG TAB PO SCH (21:38)
[2018-08-15] MEDS: ACETAMINOPHEN TAB 325 MG TAB PO PRN (21:38)
[2018-08-15] MEDS: FENOFIBRATE 160 MG TAB PO SCH (21:38)
[2018-08-15] MEDS: DILTIAZEM CD 120 MG CAP.ER.24H PO SCH (21:41)
--- NOTE | 2018-08-16 00:10 | P.CONS ---
History of Present Illness - Reason for Consult Consult date: 08/15/18 - Chief Complaint Increasing weakness - History of Present Illness 83-year-old male who presents emergency center with at least a 2 week history of progressive weakness increasing malaise and bouts of diarrhea. The patient did have hypokalemia that is now being improved. Also some dehydration that has been treated. Patient is to feel poorly and has some mild confusion. He felt Dr. Adame in the wound healing Center for his chronic tissue calcification and chronic ulcerations. Interim the patient feels very poorly. With his declining status will likely go to rehab at the time of his discharge. He currently denies fevers or chills appetites poor but denies nausea or emesis. Review of Systems HEENT:Denies headache or acute visual change. Denies sinus or mouth discomforts. Denies neck stiffness or pain. Denies significant oral cavity pain. Denies difficulty on swallowing. Lungs: Some chronic shortness of breath but no new cough or sputum production or hemoptysis Cardiovascular: Chronic shortness of breath but no recent syncope chest pain or worsening dyspnea with exertion Gastrointestinal:Denies nausea, vomiting, diarrhea, constipation, hematemesis, melena, hematochezia. No no significant change of bowel habit noticed. Musculoskeletal: Chronic joint pain Skin: Chronic skin ulcerations bilateral lower extremities right greater than left Neuro: No headache but has had some progressive weakness and confusion Psychiatric:Denies anxiety or depression. 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 HX VERTIGO, MENIERES. STAGE 3 RENAL DISEASE. MULT WOUNDS BETWEEN KNEES/ANKLES VASU; HAS HC. VERTIGO. 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 Amputated RT Great toe & 2ND toe. MULT WOUND DEBRIDEMENTS. PARTIAL RT Nephrectomy. 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 amputated toe lt great toe and next toe, rt nephrectomy, vasu eye surgery to drain fluid from eyes r/t glaucoma, Past Anesthesia/Blood Transfusion Reactions: Family History of Problems w/ Anesthesia, Motion Sickness Additional Past Anesthesia/Blood Transfusion Reaction / Comm: FATHER HALLUCINATED W/ ANESTHESIA. Past Psychological History: Anxiety, Depression Additional Psychological History / Comment(s): . Retired. experience. No international travel. No animal exposures Smoking Status: Former smoker Past Alcohol Use History: None Reported Additional Past Alcohol Use History / Comment(s): Smoked 30 years, <1ppd, quit 1978 Past Drug Use History: None Reported - Past Family History Sister(s) Family Medical History: Cancer, Diabetes Mellitus Mother Family Medical History: Myocardial Infarction ([place]), Renal Disease Medications and Allergies Home Medications and Allergies Comment(s): Current Medications Acetaminophen (Tylenol Tab) 650 mg PO Q6HR PRN PRN Reason: Mild Pain or Fever > 100.5 Last Admin: 08/15/18 21:38 Dose: 650 mg Documented by: Alprazolam (Xanax) 0.5 mg PO Q12H PRN PRN Reason: Anxiety Aripiprazole (Abilify) 2 mg PO DAILY [facility] Last Admin: 08/15/18 08:24 Dose: 2 mg Documented by: Diltiazem HCl (Cardizem Cd) 120 mg PO [facility] Last Admin: 08/15/18 21:41 Dose: 120 mg Documented by: Ergocalciferol (Vitamin D2) 50,000 unit PO [facility] Fenofibrate (Lofibra) 160 mg PO [facility] Last Admin: 08/15/18 21:38 Dose: 160 mg Documented by: Ferrous Sulfate (Feosol) 325 mg PO DAILY [facility] Last Admin: 08/15/18 08:24 Dose: 325 mg Documented by: Fluoxetine HCl (Prozac) 40 mg PO DAILY [facility] Last Admin: 08/15/18 08:24 Dose: 40 mg Documented by: Furosemide (Lasix) 60 mg PO [facility] Last Admin: 08/15/18 21:38 Dose: 60 mg Documented by: Glipizide (Glucotrol) 2.5 mg PO DAILY PRN PRN Reason: Blood Sugar - High, >175 Cefazolin Sodium 1,000 mg/ (Sodium Chloride) 50 mls @ 100 mls/hr IVPB Q8HR [facility] Last Admin: 08/15/18 16:55 Dose: 100 mls/hr Documented by: Insulin Aspart (Novolog) 0 unit SQ ACHS QUOC; Protocol Last Admin: 08/15/18 21:39 Dose: 2 unit Documented by: Meclizine HCl (Antivert) 25 mg PO TID PRN PRN Reason: Vertigo Miscellaneous Information (Magnesium Per Protocol) 1 each MISCELLANE DAILY PRN; Protocol PRN Reason: Per Protocol Miscellaneous Information (Potassium Per Protocol) 1 each MISCELLANE DAILY PRN; Protocol PRN Reason: Per Protocol Naloxone HCl (Narcan) 0.2 mg IV Q2M PRN PRN Reason: Opioid Reversal Potassium Chloride (K-Dur 20) 20 meq PO DAILY [facility] Home Medications Medication Instructions Recorded Confirmed Type Ergocalciferol [Vitamin D2 50,000 unit PO WE 02/28/14 08/13/18 History (DRISDOL)] Fenofibrate,Micronized 134 mg PO HS 02/28/14 08/13/18 History [Fenofibrate] Furosemide [Lasix] 60 mg PO HS 02/28/14 08/13/18 History metFORMIN HCL [Glucophage] 500 mg PO DAILY 02/28/14 08/13/18 History Meclizine [Antivert] 25 mg PO TID PRN 01/05/15 08/13/18 History glipiZIDE [Glucotrol] 2.5 mg PO DAILY PRN 06/30/16 08/13/18 History Diltiazem HCl [Diltiazem 24Hr ER] 120 mg PO HS 01/27/17 08/13/18 History FLUoxetine HCL [PROzac] 40 mg PO DAILY 07/10/17 08/13/18 History ALPRAZolam [Xanax] 0.5 mg PO Q12H PRN 01/19/18 08/13/18 History ARIPiprazole [Abilify] 2 mg PO DAILY 01/19/18 08/13/18 History Acetaminophen [Tylenol Extra 500 - 1,000 mg PO Q6H PRN 01/19/18 08/13/18 History Strength] Ferrous Sulfate [Iron (65 MG 325 mg PO DAILY 01/19/18 08/13/18 History Elemental)] Warfarin Sodium [Coumadin] 4 mg PO SUMOTUTHFRSA 08/13/18 08/13/18 History Allergies Allergy/AdvReac Type Severity Reaction Status Date / Time oxycodone [Oxycodone] AdvReac Hallucinati Verified 08/13/18 23:16 ons Physical Exam Vitals: Vital Signs Temp Pulse Resp BP Pulse Ox 08/15/18 21:30 99 F 61 20 102/52 98 08/15/18 13:54 97.5 F L 64 18 92/60 97 08/15/18 04:06 97.8 F 62 20 118/59 97 Intake and Output 08/15/18 08/15/18 08/16/18 14:59 22:59 06:59 Intake Total 600 740 Output Total 200 Balance 600 540 Intake: Oral 600 740 Output: Urine 200 Other: # Voids 4 2 83-year-old male comfortable confusion HEENT: Anicteric conjunctiva are pink and moist nasal mucosa grossly intact w ithout significant lesions, there is no thrush. Neck: The neck is supple without significant lymphadenopathy or thyromegaly. Lungs: Good bilateral air entry without significant crackles or wheezing. There is no significant bronchial sounds. There is no egophony or dullness. Heart: Regular rate and rhythm with an audible S1-S2, no S3 no S4. There is no significant murmur click or rub, PMI was nondisplaced. Abdomen: Positive bowel sounds soft and nontender without palpable masses or organomegaly. There was no guarding or rebound. Extremities: The upper extremities that acute lesions. The bilateral lower extremities have evidence of the extensive tissue calcifications is resulted in the multiple extensive ulcerations and chronic skin changes. Not very tender at this time. No purulent discharge. Chronic erythema right much more than left Neuro: Patient is awake and alert seems to recognize me but does not really by name moves all extremities spontaneously Results CBC & Chem 7: 08/15/18 11:27 08/15/18 11:27 Labs: Abnormal Lab Results - Last 24 Hours (Table) 08/15/18 08/15/18 08/15/18 Range/Units 07:25 11:27 11:27 RBC 3.43 L (4.30-5.90) m/uL Hgb 10.9 L (13.0-17.5) gm/dL Hct 33.5 L (39.0-53.0) % PT (9.0-12.0) sec INR (<1.2) Chloride 108 H (98-107) mmol/L Glucose 131 H (74-99) mg/dL POC Glucose (mg/dL) 108 H (75-99) mg/dL ALT 14 L (21-72) U/L Total Protein 6.0 L (6.3-8.2) g/dL Albumin 3.2 L (3.5-5.0) g/dL 08/15/18 08/15/18 08/15/18 Range/Units 11:27 11:27 16:32 RBC (4.30-5.90) m/uL Hgb (13.0-17.5) gm/dL Hct (39.0-53.0) % PT 34.0 H (9.0-12.0) sec INR 3.5 H (<1.2) Chloride (98-107) mmol/L Glucose (74-99) mg/dL POC Glucose (mg/dL) 138 H 260 H (75-99) mg/dL ALT (21-72) U/L Total Protein (6.3-8.2) g/dL Albumin (3.5-5.0) g/dL 08/15/18 Range/Units 21:21 RBC (4.30-5.90) m/uL Hgb (13.0-17.5) gm/dL Hct (39.0-53.0) % PT (9.0-12.0) sec INR (<1.2) Chloride (98-107) mmol/L Glucose (74-99) mg/dL POC Glucose (mg/dL) 201 H (75-99) mg/dL ALT (21-72) U/L Total Protein (6.3-8.2) g/dL Albumin (3.5-5.0) g/dL Microbiology - Last 24 Hours (Table) 08/13/18 01:24 Urine Culture - Preliminary Urine,Voided Coagulase Negative Staph Laboratory Results WBC 6.1 k/uL (3.8-10.6) 08/15/18 11:27 RBC 3.43 m/uL (4.30-5.90) L 08/15/18 11:27 Hgb 10.9 gm/dL (13.0-17.5) L 08/15/18 11:27 Hct 33.5 % (39.0-53.0) L 08/15/18 11:27 MCV 97.7 fL (80.0-100.0) 08/15/18 11:27 MCH 31.7 pg (25.0-35.0) 08/15/18 11:27 MCHC 32.5 g/dL (31.0-37.0) 08/15/18 11:27 RDW 13.7 % (11.5-15.5) 08/15/18 11:27 Plt Count 285 k/uL (150-450) 08/15/18 11: Neutrophils % 66 % 08/15/18 11:27 Lymphocytes % 22 % 08/15/18 11:27 Monocytes % 5 % 08/15/18 11:27 Eosinophils % 5 % 08/15/18 11: Basophils % 0 % 08/15/18 11:27 Neutrophils # 4.0 k/uL (1.3-7.7) 08/15/18 11:27 Lymphocytes # 1.3 k/uL (1.0-4.8) 08/15/18 11: Monocytes # 0.3 k/uL (0-1.0) 08/15/18 11:27 Eosinophils # 0.3 k/uL (0-0.7) 08/15/18 11:27 Basophils # 0.0 k/uL (0-0.2) 08/15/18 11:27 PT 34.0 sec (9.0-12.0) H 08/15/18 11:27 INR 3.5 (<1.2) H 08/15/18 11:27 Sodium 142 mmol/L (137-145) 08/15/18 11:27 Potassium 4.1 mmol/L (3.5-5.1) 08/15/18 11:27 Chloride 108 mmol/L (98-107) H 08/15/18 11:27 Carbon Dioxide 28 mmol/L (22-30) 08/15/18 11:27 Anion Gap 6 mmol/L 08/15/18 11:27 BUN 14 mg/dL (9-20) 08/15/18 11:27 Creatinine 0.74 mg/dL (0.66-1.25) 08/15/18 11:27 Est GFR (CKD-EPI)AfAm >90 (>60 ml/min/1.73 sqM) 08/15/18 11:27 Est GFR (CKD-EPI)NonAf 87 (>60 ml/min/1.73 sqM) 08/15/18 11:27 Glucose 131 mg/dL (74-99) H 08/15/18 11:27 POC Glucose (mg/dL) 201 mg/dL (75-99) H 08/15/18 21:21 POC Glu Test Desk Operator ID Liza Do 08/15/18 21:21 Plasma Lactic Acid Carlos Eduardo 1.5 mmol/L (0.7-2.0) 08/13/18 20:08 Calcium 8.7 mg/dL (8.4-10.2) 08/15/18 11:27 Magnesium 1.8 mg/dL (1.6-2.3) 08/15/18 11:27 Total Bilirubin 0.3 mg/dL (0.2-1.3) 08/15/18 11:27 Conjugated Bilirubin 0.0 mg/dL (0.0-0.3) 08/13/18 20:08 Unconjugated Bilirubin 0.3 mg/dL (0.0-1.1) 08/13/18 20:08 Delta Bilirubin 0.2 mg/dL (0.0-0.2) 08/13/18 20:08 AST 21 U/L (17-59) 08/15/18 11:27 ALT 14 U/L (21-72) L 08/15/18 11:27 Alkaline Phosphatase 92 U/L (38-126) 08/15/18 11:27 Troponin I 0.019 ng/mL (0.000-0.034) 08/13/18 20:08 NT-Pro-B Natriuret Pep 1380 pg/mL 08/13/18 20:08 Total Protein 6.0 g/dL (6.3-8.2) L 08/15/18 11:27 Albumin 3.2 g/dL (3.5-5.0) L 08/15/18 11:27 Lipase 63 U/L (23-300) 08/13/18 20:08 Urine Color Yellow 08/13/18 01:24 Urine Appearance Cloudy (Clear) 08/13/18 01:24 Urine pH 6.5 (5.0-8.0) 08/13/18 01:24 Ur Specific [place] >1.050 (1.001-1.035) H 08/13/18 01:24 Urine Protein 1+ (Negative) H 08/13/18 01:24 Urine Glucose (UA) Negative (Negative) 08/13/18 01:24 Urine Ketones Negative (Negative) 08/13/18 01:24 Urine Blood Small (Negative) H 08/13/18 01:24 Urine Nitrite Positive (Negative) 08/13/18 01:24 Urine Bilirubin Negative (Negative) 08/13/18 01:24 Urine Urobilinogen <2.0 mg/dL (<2.0) 08/13/18 01:24 Ur Leukocyte Esterase Large (Negative) H 08/13/18 01:24 Urine RBC 58 /hpf (0-5) H 08/13/18 01:24 Urine WBC >182 /hpf (0-5) H 08/13/18 01:24 Ur Squamous Epith Cells 1 /hpf (0-4) 08/13/18 01:24 Urine Bacteria Moderate /hpf (None) H 08/13/18 01:24 Hyaline Casts 39 /lpf (0-2) H 08/13/18 01:24 Urine Mucus Rare /hpf (None) H 08/13/18 01:24 Microbiology 08/13/18 01:24 Urine,Voided Urine Culture - Preliminary Coagulase Negative Staph Assessment and Plan (1) Cellulitis of right anterior lower leg Narrative/Plan: 83-year-old male that has chronic skin calcification with chronic ulceration and skin changes. Has had some decline in his status over the last period of time is more confused which were week having greater difficulties with day-to-day activities. Has developed some increasing erythema to the right leg. Antibiotic therapy with Ancef has been started. Local wound care will be with therahoney to bilateral lower extremities covering with some nonstick ABDs and rolled gauze to keep into place. This can be changed daily. Urine culture has so quite was negative staph and would not need any further intervention. Blood cultures are negative so far mentation is poor and likely related to the underlying metabolic changes. Current Visit: Yes Status: Acute Code(s): L03.115 - CELLULITIS OF RIGHT LOWER LIMB SNOMED Code(s): 804412375
[2018-08-16 07:16] LABS: Glucose,Whole Blood 128 mg/dL (75-99)
[2018-08-16 08:17] LABS: Basophils % (A) 1 %; Eosinophils # (A) 0.3 k/uL (0-0.7); Eosinophils % (A) 6 %; HCT 33.3 % (39.0-53.0); HGB 10.6 gm/dL (13.0-17.5); Lymphocytes # (A) 1.5 k/uL (1.0-4.8); Lymphocytes % (A) 28 %; MCH 31.1 pg (25.0-35.0); MCHC 31.7 g/dL (31.0-37.0); MCV 98.1 fL (80.0-100.0); Mean Platelet Volume 8.5; Monocytes # (A) 0.3 k/uL (0-1.0); Monocytes % (A) 5 %; Neutrophils # (A) 3.1 k/uL (1.3-7.7); Neutrophils % (A) 58 %; Platelet Count 282 k/uL (150-450); RBC 3.39 m/uL (4.30-5.90); RDW 13.9 % (11.5-15.5); WBC 5.3 k/uL (3.8-10.6)
[2018-08-16 08:25] LABS: INR 2.3 (<1.2)
[2018-08-16 08:36] LABS: Calcium 8.8 mg/dL (8.4-10.2); Magnesium 1.8 mg/dL (1.6-2.3); Potassium 4.1 mmol/L (3.5-5.1); Total Bilirubin 0.4 mg/dL (0.2-1.3); Total Protein 5.9 g/dL (6.3-8.2)
[2018-08-16] MEDS: INSULIN ASPART (NovoLOG) 100 UNIT/ML VIAL SQ SCH ×4 (08:46→21:22)
[2018-08-16] MEDS ORDERED: ERGOCALCIFEROL 50,000 UNIT CAP PO SCH (09:00)
[2018-08-16] MEDS: POTASSIUM CHLORIDE ER 20 MEQ TAB.ER PO SCH (10:15)
[2018-08-16] MEDS: FLUoxetine HCL 20 MG CAP PO SCH (10:15)
[2018-08-16] MEDS: FERROUS SULFATE 325 MG TAB PO SCH (10:15)
[2018-08-16] MEDS: ARIPiprazole 2 MG TAB PO SCH (10:16)
[2018-08-16 11:57] LABS: Glucose,Whole Blood 158 mg/dL (75-99)
--- NOTE | 2018-08-16 14:10 | P.PN ---
Subjective Progress Note Date: 08/16/18 This is a 83-year-old male with a known history of chronic atrial fibrillation, diabetes mellitus, chronic venous ulcers of the lower extremities, hypertension, kidney cancer with nephrectomy in 2015. Patient presents to the emergency room with complaints of generalized weakness and diarrhea for about 2 weeks. Patient reports about 2 loose stools a day. Tried modifying diet without relief. He had recently been on amoxicillin for a sinus infection. Patient reports some abdominal discomfort. Denies any nausea or vomiting. Had a computed tomography scan of the abdomen and pelvis which was negative did reveal old T12 compression fracture. Chest x-ray negative. EKG showing atrial fibrillation with a heart rate of 61. Stool was ordered for C. diff. Patient possibly has a UTI. Currently started on Kefzol in the ER for lower extremity cellulitis. Patient reports that he is followed by Dr. George and Dr. Adame in the wound care center for his chronic wounds. According to patient his legs are showing improvement. Patient denies any fever or chills or sweats. Denies any chest pain or shortness of breath. Denies any nausea or vomiting. Denies any burning with urination. Patient was found to have a low potassium and low magnesium which are being replaced per protocol. 08/15/2018 patient's diarrhea has resolved. Unable to collect stool for C. diff. Magnesium 1.8 patient will receive another gram of magnesium sulfate. Potassium has normalized at 4.1. Urine culture growing quite dyspneic staff. Awaiting Dr. George evaluation of the patient's lower extremity ulcers. Patient denies any chest pain or shortness of breath. Denies any nausea or vomiting. Denies any burning with urination. Has not had a chance to work with physical therapy yet. Reports that his overall weakness is showing some improvement today. On 08/16/2018 patient's alert and oriented. Patient was evaluated by Dr. Melendez recommending ECF placement. Plans for discharge tomorrow 08/17/2018 to [facility]. Patient's INR today 2.3. We'll decrease Coumadin to 2.5 mg daily. At this time patient denies chest pain or shortness breath. Patient denies nausea vomiting or diarrhea. Patient denies any urinary burning or frequency. Objective - Vital Signs Vital signs: Vital Signs Temp 97.6 F 04/24/19 05:00 Pulse 63 08/16/18 05:00 Resp 20 08/16/18 05:00 BP 132/67 08/16/18 05:00 Pulse Ox 99 08/16/18 05:00 Intake & Output 08/15/18 08/16/18 08/16/18 18:59 06:59 18:59 Intake Total 1140 300 Output Total 200 Balance 1140 100 Intake: Oral 1140 300 Output: Urine 200 Other: # Voids 2 2 - Exam Head normocephalic Neck supple Lungs clear to auscultation bilaterally no wheezing or crackles Heart regular rate and rhythm S1-S2, no rub or gallop Abdomen is soft nontender nondistended positive bowel sounds no hepatosplenomegaly Extremities chronic ulcers right lower extremity. Left leg dressing dry and intact Neuro alert and orientated to 3 - Labs CBC & Chem 7: 08/16/18 08:00 08/16/18 08:00 Labs: Abnormal Lab Results - Last 24 Hours (Table) 08/15/18 08/15/18 08/16/18 Range/Units 16:32 21:21 06:52 RBC (4.30-5.90) m/uL Hgb (13.0-17.5) gm/dL Hct (39.0-53.0) % PT (9.0-12.0) sec INR (<1.2) Carbon Dioxide (22-30) mmol/L Glucose (74-99) mg/dL POC Glucose (mg/dL) 260 H 201 H 128 H (75-99) mg/dL ALT (21-72) U/L Total Protein (6.3-8.2) g/dL Albumin (3.5-5.0) g/dL 08/16/18 08/16/18 08/16/18 Range/Units 08:00 08:00 08:00 RBC 3.39 L (4.30-5.90) m/uL Hgb 10.6 L (13.0-17.5) gm/dL Hct 33.3 L (39.0-53.0) % PT 22.0 H (9.0-12.0) sec INR 2.3 H (<1.2) Carbon Dioxide 34 H (22-30) mmol/L Glucose 118 H (74-99) mg/dL POC Glucose (mg/dL) (75-99) mg/dL ALT 20 L (21-72) U/L Total Protein 5.9 L (6.3-8.2) g/dL Albumin 3.0 L (3.5-5.0) g/dL 08/16/18 Range/Units 11:26 RBC (4.30-5.90) m/uL Hgb (13.0-17.5) gm/dL Hct (39.0-53.0) % PT (9.0-12.0) sec INR (<1.2) Carbon Dioxide (22-30) mmol/L Glucose (74-99) mg/dL POC Glucose (mg/dL) 158 H (75-99) mg/dL ALT (21-72) U/L Total Protein (6.3-8.2) g/dL Albumin (3.5-5.0) g/dL Microbiology - Last 24 Hours (Table) 08/13/18 01:24 Urine Culture - Final Urine,Voided Staphylococcus aureus Assessment and Plan Assessment: 1. Diarrhea with recent antibiotic use: diarrhea resolved. Possibly a gastroenteritis versus side effect from antibiotics. Unable to collect stool for C. diff. CT of the abdomen and pelvis dated for any acute changes 2. Generalized weakness possibly secondary to infections and overall comorbidities 3. Possible right lower extremity cellulitis with known chronic venous ulcers. Consult Dr. George who follows patient at [facility]. Patient currently on IV kefzol. Antibiotics upon discharge per infectious disease 4. UTI ruled out. Urine culture growing coagulase-negative staph. likely a contaminate. 5. Hypokalemia: Possibly secondary to diarrhea and patient is on Lasix. Potassium level has normalized at 4.1. Add K-Dur 20 milliequivalents daily since patient's is on a daily dose of Lasix 6. Hypomagnesemia: Patient receiving magnesium supplement for magnesium of 1.8. 7. Supratherapeutic INR due to warfarin-induced coagulopathy. Checking PT/INR to help further with Coumadin dosing. INR 2.3. We'll decrease dose of Coumadin to 2.5 daily 8. Chronic persistent atrial fibrillation: EKG showing A. fib heart rate c ontrolled and anticoagulated with Coumadin 9. Underlying depression due to patient's comorbidities. No evidence of suicidal ideation at this time 10. 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 Essential hypertension 12. History of renal cell carcinoma status post right nephrectomy 13. Diabetes mellitus type 2: Continue the glipizide Plan No bed currently available at [facility]. Per case management bed likely available tomorrow 08/17/2018 anticipate discharge I performed an examination of the patient and discussed their management with the Nurse Practitioner. I have reviewed the Nurse Practitioner's notes and agr ee with the documented findings and plan of care
[2018-08-16 16:57] LABS: Glucose,Whole Blood 184 mg/dL (75-99)
[2018-08-16] MEDS ORDERED: WARFARIN 2.5 MG TAB PO SCH (18:00)
[2018-08-16 20:44] LABS: Glucose,Whole Blood 152 mg/dL (75-99)
[2018-08-16] MEDS: FUROSEMIDE 20 MG TAB PO SCH (21:21)
[2018-08-16] MEDS: FENOFIBRATE 160 MG TAB PO SCH (21:22)
[2018-08-16] MEDS: DILTIAZEM CD 120 MG CAP.ER.24H PO SCH (21:22)
[2018-08-17 06:02] VITALS: BP 135/75; PULSE 68; TEMP 97.5
[2018-08-17 07:12] LABS: Glucose,Whole Blood 119 mg/dL (75-99)
[2018-08-17] MEDS: FERROUS SULFATE 325 MG TAB PO SCH (07:26)
[2018-08-17] MEDS: ARIPiprazole 2 MG TAB PO SCH (07:26)
[2018-08-17] MEDS: FLUoxetine HCL 20 MG CAP PO SCH (07:26)
[2018-08-17] MEDS: POTASSIUM CHLORIDE ER 20 MEQ TAB.ER PO SCH (07:26)
[2018-08-17] MEDS: INSULIN ASPART (NovoLOG) 100 UNIT/ML VIAL SQ SCH ×2 (07:26→12:09)
[2018-08-17 08:51] LABS: Basophils % (A) 0 %; Eosinophils # (A) 0.4 k/uL (0-0.7); Eosinophils % (A) 6 %; HCT 35.6 % (39.0-53.0); HGB 11.3 gm/dL (13.0-17.5); Lymphocytes # (A) 1.8 k/uL (1.0-4.8); Lymphocytes % (A) 27 %; MCH 31.5 pg (25.0-35.0); MCHC 31.7 g/dL (31.0-37.0); MCV 99.3 fL (80.0-100.0); Mean Platelet Volume 8.2; Monocytes # (A) 0.3 k/uL (0-1.0); Monocytes % (A) 5 %; Neutrophils # (A) 3.8 k/uL (1.3-7.7); Neutrophils % (A) 59 %; Platelet Count 293 k/uL (150-450); RBC 3.58 m/uL (4.30-5.90); RDW 13.8 % (11.5-15.5); WBC 6.4 k/uL (3.8-10.6)
[2018-08-17 08:55] LABS: INR 1.7 (<1.2); Prothrombin Time 17.3 sec (9.0-12.0)
[2018-08-17 09:18] LABS: ALT 19 U/L (21-72); AST 20 U/L (17-59); Albumin 3.5 g/dL (3.5-5.0); Alkaline Phosphatase 96 U/L (38-126); Anion Gap 5 mmol/L; Blood Urea Nitrogen 18 mg/dL (9-20); Calcium 9.1 mg/dL (8.4-10.2); Carbon Dioxide 33 mmol/L (22-30); Chloride 103 mmol/L (98-107); Glucose 124 mg/dL (74-99); Sodium 141 mmol/L (137-145); Total Bilirubin 0.5 mg/dL (0.2-1.3); Total Protein 6.6 g/dL (6.3-8.2)
--- NOTE | 2018-08-17 11:47 | P.DS ---
Providers Date of admission: 08/15/18 16:38 Expected date of discharge: 08/17/18 Attending physician: Brandie Hinton Consults: 08/14/18 13:00 Consult Physician Routine Consulting Provider: Nitesh George Consult Reason/Comments: leg ulcers and cellulitis Do you want consulting provider notified?: Yes 08/15/18 13:50 Consult Physician Routine Consulting Provider: Dieudonne Bowens Consult Reason/Comments: inpatient rehab Do you want consulting provider notified?: Yes Primary care physician: Brandie Hinton [facility] Course: 1. Diarrhea with recent antibiotic use: diarrhea resolved. Possibly a gastroenteritis versus side effect from antibiotics. Unable to collect stool for C. diff. CT of the abdomen and pelvis no acute changes 2. Generalized weakness possibly secondary to infections and overall comorbidities 3. Possible right lower extremity cellulitis with known chronic venous ulcers. Consult Dr. George who follows patient at wound care center. Patient evaluated by infectious disease. They're recommending Keflex for 10 more days 4. UTI ruled out. Urine culture growing coagulase-negative staph. likely a contaminate. 5. Hypokalemia: Possibly secondary to diarrhea and patient is on Lasix. Potassium level has normalized at 4.1. Add K-Dur 20 milliequivalents daily since patient's is on a daily dose of Lasix 6. Hypomagnesemia: Patient receiving magnesium supplement for magnesium of 1.8. 7. Supratherapeutic INR due to warfarin-induced coagulopathy. Checking PT/INR to help further with Coumadin dosing. INR at discharge 1.7 give Coumadin 5 mg before discharge and then continue with 3 mg daily 8. Chronic persistent atrial fibrillation: EKG showing A. fib heart rate controlled and anticoagulated with Coumadin 9. Underlying depression due to patient's comorbidities. No evidence of suicidal ideation at this time 10. 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 Essential hypertension 12. History of renal cell carcinoma status post right nephrectomy 13. Diabetes mellitus type 2: Continue the glipizide and metformin Hospital course This is a 83-year-old male with a known history of chronic atrial fibrillation, diabetes mellitus, chronic venous ulcers of the lower extremities, hypertension, kidney cancer with nephrectomy in 2015. Patient presents to the emergency room with complaints of generalized weakness and diarrhea for about 2 weeks. Patient reports about 2 loose stools a day. Tried modifying diet without relief. He had recently been on amoxicillin for a sinus infection. Patient reports some abdominal discomfort. Denies any nausea or vomiting. Had a computed tomography scan of the abdomen and pelvis which was negative did reveal old T12 compression fracture. Chest x-ray negative. EKG showing atrial fibrillation with a heart rate of 61. Stool was ordered for C. diff. Patient possibly has a UTI. Currently started on Kefzol in the ER for lower extremity cellulitis. Patient reports that he is followed by Dr. George and Dr. Adame in the wound care center for his chronic wounds. According to patient his legs are showing improvement. Patient denies any fever or chills or sweats. Denies any chest pain or shortness of breath. Denies any nausea or vomiting. Denies any burning with urination. Patient was found to have a low potassium and low magnesium which are being replaced per protocol. 08/15/2018 patient's diarrhea has resolved. Unable to collect stool for C. diff. Magnesium 1.8 patient will receive another gram of magnesium sulfate. Potassium has normalized at 4.1. Urine culture growing quite dyspneic staff. Awaiting Dr. George evaluation of the patient's lower extremity ulcers. Patient denies any chest pain or shortness of breath. Denies any nausea or vomiting. Denies any burning with urination. Has not had a chance to work with physical therapy yet. Reports that his overall weakness is showing some improvement today. On 08/16/2018 patient's alert and oriented. Patient was evaluated by Dr. Melendez recommending ECF placement. Plans for discharge tomorrow 08/17/2018 to [facility]. Patient's INR today 2.3. We'll decrease Coumadin to 2.5 mg daily. At this time patient denies chest pain or shortness breath. Patient denies nausea vomiting or diarrhea. Patient denies any urinary burning or freq uency. 08/17/2018 patient is medically stable for discharge. Since admission diet diarrhea had resolved. He was treated for cellulitis of the right lower extremity with IV. Was seen by infectious disease the recommending Keflex for 10 more days. Patient now has a bed available at [facility]. He is medically stable for discharge. INR is 1.7. Will give Coumadin 3 mg daily. Recommend checking PT/INR, BMP and magnesium level in 3 days I performed an examination of the patient and discussed their management with the physician [place]. I have reviewed the Physician [place]'s notes and agree with the documented findings and plan of care Patient Condition at Discharge: Stable Plan - Discharge Summary Discharge Rx Participant: No New Discharge Prescriptions: New Warfarin Sodium [Coumadin] 2.5 mg PO DAILY #30 tablet Potassium Chloride ER [K-Dur 20] 20 meq PO DAILY tab.er.prt Cephalexin [Keflex] 500 mg PO Q8HR #30 cap Continue Furosemide [Lasix] 60 mg PO HS metFORMIN HCL [Glucophage] 500 mg PO DAILY Fenofibrate,Micronized [Fenofibrate] 134 mg PO HS Ergocalciferol [Vitamin D2 (DRISDOL)] 50,000 unit PO WE Meclizine [Antivert] 25 mg PO TID PRN PRN Reason: Vertigo glipiZIDE [Glucotrol] 2.5 mg PO DAILY PRN PRN Reason: Blood Sugar - High,>175 Diltiazem HCl [Diltiazem 24Hr ER] 120 mg PO HS FLUoxetine HCL [PROzac] 40 mg PO DAILY Ferrous Sulfate [Iron (65 MG Elemental)] 325 mg PO DAILY ARIPiprazole [Abilify] 2 mg PO DAILY Acetaminophen [Tylenol Extra Strength] 500 - 1,000 mg PO Q6H PRN PRN Reason: Pain ALPRAZolam [Xanax] 0.5 mg PO Q12H PRN #6 tab PRN Reason: Anxiety Discontinued Warfarin Sodium [C[facility]madin] [facility] Discharge Medication List Ergocalciferol [Vitamin D2 (DRISDOL)] 50,000 unit PO WE 02/28/14 [History] Fenofibrate,Micronized [Fenofibrate] 134 mg PO HS 02/28/14 [History] Furosemide [Lasix] 60 mg PO HS 02/28/14 [History] metFORMIN HCL [Glucophage] 500 mg PO DAILY 02/28/14 [History] Meclizine [Antivert] 25 mg PO TID PRN 01/05/15 [History] glipiZIDE [Glucotrol] 2.5 mg PO DAILY PRN 06/30/16 [History] Diltiazem HCl [Diltiazem 24Hr ER] 120 mg PO HS 01/27/17 [History] FLUoxetine HCL [PROzac] 40 mg PO DAILY 07/10/17 [History] ARIPiprazole [Abilify] 2 mg PO DAILY 01/19/18 [History] Acetaminophen [Tylenol Extra Strength] 500 - 1,000 mg PO Q6H PRN 01/19/18 [History] Ferrous Sulfate [Iron (65 MG Elemental)] 325 mg PO DAILY 01/19/18 [History] Cephalexin [Keflex] 500 mg PO Q8HR #30 cap 08/16/18 [Rx] Potassium Chloride ER [K-Dur 20] 20 meq PO DAILY tab.er.prt 08/16/18 [Rx] Warfarin Sodium [Coumadin] 2.5 mg PO DAILY #30 tablet 08/16/18 [Rx] ALPRAZolam [Xanax] 0.5 mg PO Q12H PRN #6 tab 08/17/18 [Rx] Follow up Appointment(s)/Referral(s): [facility], [NON-STAFF] - Brandie Hinton MD [Primary Care Provider] - 1 Week Ambulatory/Diagnostic Orders: Prothrombin Time INR [LAB.AMB] Time Frame: 3 Days, Location: None Selected Activity/Diet/Wound Care/Special Instructions: [place] [facility] Diet: cardiac, diabetic Activity: as tolerated Discharge Disposition: TRANSFER TO SNF/ECF
[2018-08-17 11:48] LABS: Glucose,Whole Blood 141 mg/dL (75-99)
[2018-08-17 12:51] VITALS: RESP 16
[2018-08-17] MEDS ORDERED: WARFARIN 5 MG TAB PO ONE (18:00)
--- NOTE | 2018-08-17 22:11 | P.PN ---
Subjective Progress Note Date: 08/17/18 83-year-old male who presents emergency center with at least a 2 week history of progressive weakness increasing malaise and bouts of diarrhea. The patient did have hypokalemia that is now being improved. Also some dehydration that has been treated. Patient is to feel poorly and has some mild confusion. He felt Dr. Adame in the wound healing Center for his chronic tissue calcification and chronic ulcerations. Interim the patient feels very poorly. With his declining status will likely go to rehab at the time of his discharge. He currently denies fevers or chills appetites poor but denies nausea or emesis. 08/17/2018 Patient is feeling better today. Looking forward to his transition to rehab to try to improve his strength and to improve how is feeling overall. As noted does have some MSSA in the urine and the legs are without acute changes. Objective - Vital Signs Vital signs: Vital Signs Temp 97.5 F L 08/17/18 06:01 Pulse 68 08/17/18 06:01 Resp 16 08/17/18 12:15 BP 135/75 08/17/18 06:01 Pulse Ox 97 08/17/18 06:01 Intake & Output 08/17/18 08/17/18 08/18/18 06:59 18:59 06:59 Intake Total 320 Output Total 400 Balance -80 Intake: Oral 320 Output: Urine 400 Other: Voiding Method Urinal Urinal # Voids 4 - Exam 83-year-old male comfortable confusion HEENT: Anicteric conjunctiva are pink and moist nasal mucosa grossly intact without significant lesions, there is no thrush. Neck: The neck is supple without significant lymphadenopathy or thyromegaly. Lungs: Good bilateral air entry without significant crackles or wheezing. There is no significant bronchial sounds. There is no egophony or dullness. Heart: Regular rate and rhythm with an audible S1-S2, no S3 no S4. There is no significant murmur click or rub, PMI was nondisplaced. Abdomen: Positive bowel sounds soft and nontender without palpable masses or organomegaly. There was no guarding or rebound. Extremities: The upper extremities that acute lesions. The bilateral lower extremities have evidence of the extensive tissue calcifications is resulted in the multiple extensive ulcerations and chronic skin changes. Not very tender at this time. No purulent discharge. Chronic erythema right much more than left Neuro: Patient is awake and alert and recognizes me today is much more cognizant - Labs CBC & Chem 7: 08/17/18 07:52 08/17/18 07:52 Labs: Abnormal Lab Results - Last 24 Hours (Table) 08/17/18 08/17/18 08/17/18 Range/Units 07:08 07:52 07:52 RBC 3.58 L (4.30-5.90) m/uL Hgb 11.3 L (13.0-17.5) gm/dL Hct 35.6 L (39.0-53.0) % PT 17.3 H (9.0-12.0) sec INR 1.7 H (<1.2) Carbon Dioxide (22-30) mmol/L Glucose (74-99) mg/dL POC Glucose (mg/dL) 119 H (75-99) mg/dL ALT (21-72) U/L 08/17/18 08/17/18 Range/Units 07:52 11:45 RBC (4.30-5.90) m/uL Hgb (13.0-17.5) gm/dL Hct (39.0-53.0) % PT (9.0-12.0) sec INR (<1.2) Carbon Dioxide 33 H (22-30) mmol/L Glucose 124 H (74-99) mg/dL POC Glucose (mg/dL) 141 H (75-99) mg/dL ALT 19 L (21-72) U/L Laboratory Results WBC 6.4 k/uL (3.8-10.6) 08/17/18 07:52 RBC 3.58 m/uL (4.30-5.90) L 08/17/18 07:52 Hgb 11.3 gm/dL (13.0-17.5) L 08/17/18 07:52 Hct 35.6 % (39.0-53.0) L 08/17/18 07:52 MCV 99.3 fL (80.0-100.0) 08/17/18 07:52 MCH 31.5 pg (25.0-35.0) 08/17/18 07:52 MCHC 31.7 g/dL (31.0-37.0) 08/17/18 07:52 RDW 13.8 % (11.5-15.5) 08/17/18 07:52 Plt Count 293 k/uL (150-450) 08/17/18 07:52 Neutrophils % 59 % 08/17/18 07:52 Lymphocytes % 27 % 08/17/18 07:52 Monocytes % 5 % 08/17/18 07:52 Eosinophils % 6 % 08/17/18 07:52 Basophils % 0 % 08/17/18 07:52 Neutrophils # 3.8 k/uL (1.3-7.7) 08/17/18 07:52 Lymphocytes # 1.8 k/uL (1.0-4.8) 08/17/18 07:52 Monocytes # 0.3 k/uL (0-1.0) 08/17/18 07:52 Eosinophils # 0.4 k/uL (0-0.7) 08/17/18 07:52 Basophils # 0.0 k/uL (0-0.2) 08/17/18 07:52 PT 17.3 sec (9.0-12.0) H 08/17/18 07:52 INR 1.7 (<1.2) H 08/17/18 07:52 Sodium 141 mmol/L (137-145) 08/17/18 07:52 Potassium 4.0 mmol/L (3.5-5.1) 08/17/18 07:52 Chloride 103 mmol/L (98-107) 08/17/18 07:52 Carbon Dioxide 33 mmol/L (22-30) H 08/17/18 07:52 Anion Gap 5 mmol/L 08/17/18 07:52 BUN 18 mg/dL (9-20) 08/17/18 07:52 Creatinine 0.79 mg/dL (0.66-1.25) 08/17/18 07:52 Est GFR (CKD-EPI)AfAm >90 (>60 ml/min/1.73 sqM) 08/17/18 07:52 Est GFR (CKD-EPI)NonAf 85 (>60 ml/min/1.73 sqM) 08/17/18 07:52 Glucose 124 mg/dL (74-99) H 08/17/18 07:52 POC Glucose (mg/dL) 141 mg/dL (75-99) H 08/17/18 11:45 POC Glu [employer] ID Estephanie Carrington 08/17/18 11:45 Plasma Lactic Acid Carlos Eduardo 1.5 mmol/L (0.7-2.0) 08/13/18 20:08 Calcium 9.1 mg/dL (8.4-10.2) 08/17/18 07:52 Magnesium 1.8 mg/dL (1.6-2.3) 08/16/18 08:00 Total Bilirubin 0.5 mg/dL (0.2-1.3) 08/17/18 07:52 Conjugated Bilirubin 0.0 mg/dL (0.0-0.3) 08/13/18 20:08 Unconjugated Bilirubin 0.3 mg/dL (0.0-1.1) 08/13/18 20:08 Delta Bilirubin 0.2 mg/dL (0.0-0.2) 08/13/18 20:08 AST 20 U/L (17-59) 08/17/18 07:52 ALT 19 U/L (21-72) L 08/17/18 07:52 Alkaline Phosphatase 96 U/L (38-126) 08/17/18 07:52 Troponin I 0.019 ng/mL (0.000-0.034) 08/13/18 20:08 NT-Pro-B Natriuret Pep 1380 pg/mL 08/13/18 20:08 Total Protein 6.6 g/dL (6.3-8.2) 08/17/18 07:52 Albumin 3.5 g/dL (3.5-5.0) 08/17/18 07:52 Lipase 63 U/L (23-300) 08/13/18 20:08 Urine Color Yellow 08/13/18 01:24 Urine Appearance Cloudy (Clear) 08/13/18 01:24 Urine pH 6.5 (5.0-8.0) 08/13/18 01:24 Ur Specific [place] >1.050 (1.001-1.035) H 08/13/18 01:24 Urine Protein 1+ (Negative) H 08/13/18 01:24 Urine Glucose (UA) Negative (Negative) 08/13/18 01:24 Urine Ketones Negative (Negative) 08/13/18 01:24 Urine Blood Small (Negative) H 08/13/18 01:24 Urine Nitrite Positive (Negative) 08/13/18 01:24 Urine Bilirubin Negative (Negative) 08/13/18 01:24 Urine Urobilinogen <2.0 mg/dL (<2.0) 08/13/18 01:24 Ur Leukocyte Esterase Large (Negative) H 08/13/18 01:24 Urine RBC 58 /hpf (0-5) H 08/13/18 01:24 Urine WBC >182 /hpf (0-5) H 08/13/18 01:24 Ur Squamous Epith Cells 1 /hpf (0-4) 08/13/18 01:24 Urine Bacteria Moderate /hpf (None) H 08/13/18 01:24 Hyaline Casts 39 /lpf (0-2) H 08/13/18 01:24 Urine Mucus Rare /hpf (None) H 08/13/18 01:24 Microbiology 08/13/18 01:24 Urine,Voided Urine Culture - Final Staphylococcus aureus Assessment and Plan (1) Cellulitis of right anterior lower leg Narrative/Plan: 83-year-old male that has chronic skin calcification with chronic ulceration and skin changes. Has had some decline in his status over the last period of time is more confused which were week having greater difficulties with day-to-day activities. Has developed some increasing erythema to the right leg. Antibiotic therapy with Ancef has been started. Local wound care will be with therahoney to bilateral lower extremities covering with some nonstick ABDs and rolled gauze to keep into place. This can be changed daily. Urine culture has so quite was negative staph and would not need any further intervention. Blood cultures are negative so far mentation is poor and likely related to the underlying metabolic changes. 08/17/2018 patient has had improvement of his status. However is still profoundly weak. Will be going to rehab to receive therapy to improve his strength and hopefully to regain some independent status. Intermedic therapy will be with Keflex 500 mg every 8 hours to complete a course of therapy for his staph aureus urinary tract infection and cellulitis to the limb. Local wound care with the honey dressing she'll be continued and changed Tuesday. Status: Acute Code(s): L03.115 - CELLULITIS OF RIGHT LOWER LIMB SNOMED Code(s): 718123378
== END 2018-08-17 15:02 | DRG 603 ==
LOC: EC 19:02 → 1SOBS 23:08 → UNDOADMIN 08-14 → 4MS4W 08-14 20:27 → OBSVTOIN 08-15 16:38 → 3NMEDONC 08-16 18:08
PROVIDERS: ADMIT Internal Medicine; ATTEND Internal Medicine
DX: L03.115 Cellulitis of right lower limb (principal); I48.1 Persistent atrial fibrillation; L97.919 Non-pressure chronic ulcer of unspecified part of right lower leg with unspecified severity; N39.0 Urinary tract infection, site not specified; E11.22 Type 2 diabetes mellitus with diabetic chronic kidney disease; E86.0 Dehydration; E83.42 Hypomagnesemia; N18.3 Chronic kidney disease, stage 3 (moderate); I12.9 Hypertensive chronic kidney disease with stage 1 through stage 4 chronic kidney disease, or unspecified chronic kidney disease; F41.9 Anxiety disorder, unspecified; F32.9 Major depressive disorder, single episode, unspecified; E87.6 Hypokalemia; R79.1 Abnormal coagulation profile; K52.9 Noninfective gastroenteritis and colitis, unspecified; H35.30 Unspecified macular degeneration; H40.9 Unspecified glaucoma; M48.54XD Collapsed vertebra, not elsewhere classified, thoracic region, subsequent encounter for fracture with routine healing; T45.515A Adverse effect of anticoagulants, initial encounter; Z79.84 Long term (current) use of oral hypoglycemic drugs; Z79.899 Other long term (current) drug therapy; Z79.01 Long term (current) use of anticoagulants; Z90.5 Acquired absence of kidney; Z85.528 Personal history of other malignant neoplasm of kidney; Z89.429 Acquired absence of other toe(s), unspecified side; Z98.42 Cataract extraction status, left eye; Z98.41 Cataract extraction status, right eye; Z87.891 Personal history of nicotine dependence; Z99.3 Dependence on wheelchair; Z91.81 History of falling; Z90.49 Acquired absence of other specified parts of digestive tract; Z88.5 Allergy status to narcotic agent; Z83.3 Family history of diabetes mellitus; Z82.49 Family history of ischemic heart disease and other diseases of the circulatory system; Z80.9 Family history of malignant neoplasm, unspecified
CPT/HCPCS: 36415; 71045; 74177; 80048; 80053; 80076; 81001; 83605; 83690; 83735; 83880; 84132; 84484; 85025; 85610; 87077; 87086; 87186; 93005; 96360; 96361; 99285

== ENCOUNTER → 2018-10-06 | Outpatient (CLI) | payer MEDICARE ==
[2018-10-06 13:41] LABS: Basophils % (A) 1 %; Eosinophils # (A) 0.1 k/uL (0-0.7); Eosinophils % (A) 2 %; HCT 38.7 % (39.0-53.0); HGB 11.9 gm/dL (13.0-17.5); Lymphocytes # (A) 1.1 k/uL (1.0-4.8); Lymphocytes % (A) 20 %; MCH 30.7 pg (25.0-35.0); MCHC 30.8 g/dL (31.0-37.0); MCV 99.6 fL (80.0-100.0); Mean Platelet Volume 8.4; Monocytes # (A) 0.2 k/uL (0-1.0); Monocytes % (A) 3 %; Neutrophils # (A) 4.3 k/uL (1.3-7.7); Neutrophils % (A) 74 %; Platelet Count 295 k/uL (150-450); RBC 3.89 m/uL (4.30-5.90); RDW 12.7 % (11.5-15.5); WBC 5.8 k/uL (3.8-10.6)
[2018-10-06 14:49] LABS: Erythrocyte Sedimentation Rate 50 mm/hr (0-15)
[2018-10-06 18:08] LABS: African American GFR (CKD) 54.2 (60.0-200.0); Albumin 4.1 g/dL (3.80-4.90); Albumin/Globulin Ratio 1.28 (1.60-3.17); Anion Gap 11.2 mmol/L (4.00-12.00); BUN/Creat Ratio 27.14 Ratio (12.00-20.00); Calcium 9.5 mg/dL (8.7-10.3); Carbon Dioxide 24.8 mmol/L (21.6-31.8); Globulin 3.2 g/dL (1.6-3.3); Total Bilirubin 0.3 mg/dL (0.3-1.2); Total Protein 7.3 g/dL (6.2-8.2)
== END | disposition home or self-care (01) ==
LOC: LABWHC1 13:10
PROVIDERS: ATTEND Family Medicine
DX: I87.2 Venous insufficiency (chronic) (peripheral) (principal); E83.59 Other disorders of calcium metabolism; E11.8 Type 2 diabetes mellitus with unspecified complications; I83.019 Varicose veins of right lower extremity with ulcer of unspecified site; L87.0 Keratosis follicularis et parafollicularis in cutem penetrans
CPT/HCPCS: 36415; 80053; 84134; 85025; 85652

== ENCOUNTER → 2018-10-10 | Outpatient (CLI) | payer MEDICARE ==
[2018-10-10 16:57] LABS: LDL Cholesterol,Calculated 57.4 mg/dL (0.0-131.0); VLDL Calculation 17.6 mg/dL (5.00-40.00)
== END | disposition home or self-care (01) ==
LOC: LABWHC1 12:00
PROVIDERS: ATTEND Internal Medicine Interventional Cardiology
DX: E78.2 Mixed hyperlipidemia (principal)
CPT/HCPCS: 36415; 80061; 84450; 84460

== ENCOUNTER → 2019-01-22 | Outpatient (CLI) | payer MEDICARE ==
[2019-01-22 17:24] LABS: Basophils % (A) 1 %; Eosinophils # (A) 0.2 k/uL (0-0.7); Eosinophils % (A) 3 %; HCT 34.6 % (39.0-53.0); HGB 11.4 gm/dL (13.0-17.5); Lymphocytes % (A) 28 %; MCH 31.5 pg (25.0-35.0); MCV 95.4 fL (80.0-100.0); Mean Platelet Volume 7.3; Monocytes # (A) 0.3 k/uL (0-1.0); Monocytes % (A) 4 %; Neutrophils # (A) 4.7 k/uL (1.3-7.7); Neutrophils % (A) 64 %; Platelet Count 350 k/uL (150-450); RBC 3.62 m/uL (4.30-5.90); RDW 12.9 % (11.5-15.5); WBC 7.3 k/uL (3.8-10.6)
[2019-01-22 17:32] LABS: Albumin 4.1 g/dL (3.5-5.0); Calcium 9.5 mg/dL (8.4-10.2); Magnesium 2.1 mg/dL (1.6-2.3); Phosphorus 3.7 mg/dL (2.5-4.5); Potassium 3.8 mmol/L (3.5-5.1); Total Bilirubin 0.3 mg/dL (0.2-1.3); Total Protein 7.7 g/dL (6.3-8.2); Uric Acid 4.9 mg/dL (3.5-8.5)
[2019-01-23 01:38] LABS: Iron Saturation 11.49 (15.00-50.00)
[2019-01-23 01:46] LABS: Ferritin 243.5 ng/mL (22.0-322.0); Vitamin D 25 Hydroxy 27.9 ng/mL (30.0-100.0)
--- NOTE | 2019-01-23 17:05 | US ---
EXAMINATION TYPE: US kidneys/renal and bladder DATE OF EXAM: 01/22/2019 COMPARISON: US/ CT ultrasound 01/27/2018, CT 08/13/2018 CLINICAL HISTORY: C64.1 Malignant neoplasm of right kidney, except r. H/O renal CA right kidney EXAM MEASUREMENTS: Right Kidney: 9.3 x 4.2 x 4.5 cm Left Kidney: 10.2 x 5.2 x 5.1 cm Elderly pt with very large body habitus, arrieta not ambulate well, difficult exam Right Kidney: Cortical thinning, limited views show no abnormality Left Kidney: Limited views show no abnormality Bladder: Unable to visualize, pt did not prep for exam IMPRESSION: 1. No suspicious solid masses bilateral kidneys. 2. No suspicious changes to suggest recurrent right renal carcinoma.
== END | disposition home or self-care (01) ==
LOC: RADUSWWP 15:42
PROVIDERS: ATTEND Urology
DX: C64.1 Malignant neoplasm of right kidney, except renal pelvis (principal); D64.9 Anemia, unspecified; M83.9 Adult osteomalacia, unspecified; N25.81 Secondary hyperparathyroidism of renal origin; N18.3 Chronic kidney disease, stage 3 (moderate); M10.9 Gout, unspecified; N39.0 Urinary tract infection, site not specified
CPT/HCPCS: 36415; 76770; 80053; 82306; 82728; 83540; 83550; 83735; 83970; 84100; 84153; 84550; 85025

== ENCOUNTER 2020-03-24 15:09 | Emergency (ER) | payer MEDICARE ==
[2020-03-24 15:14] VITALS: RESP 18; TEMP 98
--- NOTE | 2020-03-24 15:44 | ED ---
General Adult HPI - General Chief complaint: Recheck/Abnormal Lab/Rx Stated complaint: Abn Labs Time Seen by Provider: 03/24/20 15:10 Source: patient, RN notes reviewed, old records reviewed Mode of arrival: wheelchair Limitations: no limitations - History of Present Illness Initial comments: This is an 84-year-old male who presents emergency Department complaining of having an INR that about 8. Patient states had no bleeding he has not felt weak he denies any dark black bloody stools. Patient denies any shortness of breath or heart palpitations. Patient states he's had trouble lately getting his Coumadin levels under control. Patient was advised by his home nurse to come to the emergency department today. - Related Data Home Medications Medication Instructions Recorded Confirmed Ergocalciferol [Vitamin D2 50,000 unit PO WE 02/28/14 08/13/18 (DRISDOL)] Fenofibrate,Micronized 134 mg PO HS 02/28/14 08/13/18 [Fenofibrate] Furosemide [Lasix] 60 mg PO HS 02/28/14 08/13/18 metFORMIN HCL [Glucophage] 500 mg PO DAILY 02/28/14 08/13/18 Meclizine [Antivert] 25 mg PO TID PRN 01/05/15 08/13/18 glipiZIDE [Glucotrol] 2.5 mg PO DAILY PRN 06/30/16 08/13/18 Diltiazem HCl [Diltiazem 24Hr ER] 120 mg PO HS 01/27/17 08/13/18 FLUoxetine HCL [PROzac] 40 mg PO DAILY 07/10/17 08/13/18 ARIPiprazole [Abilify] 2 mg PO DAILY 01/19/18 08/13/18 Acetaminophen [Tylenol Extra 500 - 1,000 mg PO Q6H PRN 01/19/18 08/13/18 Strength] Ferrous Sulfate [Iron (65 MG 325 mg PO DAILY 01/19/18 08/13/18 Elemental)] Previous Rx's Medication Instructions Recorded Cephalexin [Keflex] 500 mg PO Q8HR #30 cap 08/16/18 Potassium Chloride ER [K-Dur 20] 20 meq PO DAILY tab.er.prt 08/16/18 ALPRAZolam [Xanax] 0.5 mg PO Q12H PRN #6 tab 08/17/18 Warfarin Sodium [Coumadin] 3 mg PO DAILY #30 tab 08/17/18 Allergies Allergy/AdvReac Type Severity Reaction Status Date / Time oxycodone [Oxycodone] AdvReac Hallucinati Verified 08/13/18 23:16 ons Review of Systems ROS Statement: Those systems with pertinent positive or pertinent negative responses have been documented in the HPI. ROS Other: All systems not noted in ROS Statement are negative. Past Medical History Past Medical History: Atrial Fibrillation, Cancer, Diabetes Mellitus, Eye Disorder, Hypertension, Renal Disease, Skin Disorder, Vascular Disorder Additional Past Medical History / Comment(s): BLE VENOUS ULCERS; MPH WNS PATIENT; HAS CALCINOSIS CUTIS of BLE; KYRLE'S DISEASE. RT KIDNEY CA 2014. MAC DEGENERATION; CURRENT EYE INFECTION. HX VERTIGO, MENIERES. STAGE 3 RENAL DISEASE. MULT WOUNDS BETWEEN KNEES/ANKLES VASU; HAS HC. VERTIGO. 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 Amputated RT Great toe & 2ND toe. MULT WOUND DEBRIDEMENTS. PARTIAL RT Nephrectomy. 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 amputated toe lt great toe and next toe, rt nephrectomy, vasu eye surgery to drain fluid from eyes r/t glaucoma, Past Anesthesia/Blood Transfusion Reactions: Family History of Problems w/ Anesthesia, Motion Sickness Additional Past Anesthesia/Blood Transfusion Reaction / Comment(s): FATHER HALLUCINATED W/ ANESTHESIA. Past Psychological History: Anxiety, Depression Past Alcohol Use History: None Reported Past Drug Use History: None Reported - Past Family History Sister(s) Family Medical History: Cancer, Diabetes Mellitus Mother Family Medical History: Myocardial Infarction ([place]), Renal Disease General Exam - General Exam Comments Initial Comments: GENERAL: Patient is well-developed and well-nourished. Patient is nontoxic and well- hydrated and is in no acute distress. ENT: Neck has full range of motion without eliciting any pain. EYES: The sclera were anicteric and conjunctiva were pink and moist. Extraocular movements were intact and pupils were equal round and reactive to light. Eyelids were unremarkable. PULMONARY: Unlabored respirations. Good breath sounds bilaterally. No audible rales rhonchi or wheezing was noted. CARDIOVASCULAR: There is a regular rate and rhythm without any murmurs gallops or rubs. ABDOMEN: Soft and nontender with normal bowel sounds. SKIN: Skin is clear with no lesions or rashes and otherwise unremarkable. NEUROLOGIC: Patient is alert and oriented x3. Cranial nerves II through XII are grossly intact. Motor and sensory are also intact. Normal speech, volume and content. Symmetrical smile. MUSCULOSKELETAL: Normal extremities with adequate strength and full range of motion. LYMPHATICS: No significant lymphadenopathy is noted PSYCHIATRIC: Normal psychiatric evaluation. Limitations: no limitations Course Vital Signs 03/24/20 15:10 Temperature 98.0 F Pulse Rate 70 Respiratory 18 Rate Blood Pressure 136/72 O2 Sat by Pulse 99 Oximetry Medical Decision Making - Medical Decision Making Patient received vitamin K by mouth for of Dr. Hinton was in agreement with this. Patient will follow-up with Dr. Hinotn - Lab Data Result diagrams: 03/24/20 15:46 Lab Results 03/24/20 03/24/20 Range/Units 15:46 15:46 WBC 5.6 (3.8-10.6) k/uL RBC 3.68 L (4.30-5.90) m/uL Hgb 11.4 L (13.0-17.5) gm/dL Hct 36.0 L (39.0-53.0) % MCV 98.0 (80.0-100.0) fL MCH 31.0 (25.0-35.0) pg MCHC 31.6 (31.0-37.0) g/dL RDW 13.6 (11.5-15.5) % Plt Count 241 (150-450) k/uL MPV 8.9 Neutrophils % 76 % Lymphocytes % 16 % Monocytes % 3 % Eosinophils % 3 % Basophils % 0 % Neutrophils # 4.3 (1.3-7.7) k/uL Lymphocytes # 0.9 L (1.0-4.8) k/uL Monocytes # 0.2 (0-1.0) k/uL Eosinophils # 0.2 (0-0.7) k/uL Basophils # 0.0 (0-0.2) k/uL PT >130.0 H (9.0-12.0) sec INR >10.0 H* (<1.2) Disposition Clinical Impression: Coagulopathy Disposition: HOME SELF-CARE Condition: Good Instructions (If sedation given, give patient instructions): Warfarin (By mouth) Additional Instructions: Patient needs to follow up with primary medical care doctor to get a repeat PT/INR. Patient returns emergency department if there is any bleeding black stools lightheadedness shortness of breath palpitations or chest pain. Is patient prescribed a controlled substance at d/c from ED?: No Referrals: Brandie Hinton MD [Primary Care Provider] - 1-2 days Time of Disposition: 16:43
[2020-03-24 15:53] LABS: Basophils % (A) 0 %; Eosinophils # (A) 0.2 k/uL (0-0.7); Eosinophils % (A) 3 %; HGB 11.4 gm/dL (13.0-17.5); Lymphocytes # (A) 0.9 k/uL (1.0-4.8); Lymphocytes % (A) 16 %; MCHC 31.6 g/dL (31.0-37.0); Mean Platelet Volume 8.9; Monocytes # (A) 0.2 k/uL (0-1.0); Monocytes % (A) 3 %; Neutrophils # (A) 4.3 k/uL (1.3-7.7); Neutrophils % (A) 76 %; Platelet Count 241 k/uL (150-450); RBC 3.68 m/uL (4.30-5.90); RDW 13.6 % (11.5-15.5); WBC 5.6 k/uL (3.8-10.6)
[2020-03-24 16:09] LABS: Prothrombin Time >130.0 sec (9.0-12.0)
[2020-03-24 16:11] LABS: INR >10.0 (<1.2)
[2020-03-24] MEDS ORDERED: PHYTONADIONE ORAL 5 MG/5 ML ORAL.SYRG PO STA (16:41)
[2020-03-24 16:57] VITALS: BP 139/60; PULSE 55
== END 2020-03-24 17:08 | disposition home or self-care (01) ==
LOC: EC 15:09
DX: D68.9 Coagulation defect, unspecified (principal); I12.9 Hypertensive chronic kidney disease with stage 1 through stage 4 chronic kidney disease, or unspecified chronic kidney disease; E11.22 Type 2 diabetes mellitus with diabetic chronic kidney disease; N18.30 Chronic kidney disease, stage 3 unspecified; I48.91 Unspecified atrial fibrillation; F41.9 Anxiety disorder, unspecified; F32.9 Major depressive disorder, single episode, unspecified; Z79.84 Long term (current) use of oral hypoglycemic drugs; Z79.899 Other long term (current) drug therapy; Z88.5 Allergy status to narcotic agent; Z85.528 Personal history of other malignant neoplasm of kidney
CPT/HCPCS: 36415; 85025; 85610; 99283

== ENCOUNTER → 2020-07-04 | Outpatient (CLI) | payer MEDICARE ==
--- NOTE | 2020-07-04 14:25 | XR ---
EXAMINATION TYPE: XR abdomen 1V DATE OF EXAM: 07/04/2020 2:05 PM CLINICAL HISTORY: Diarrhea. TECHNIQUE: Single upright KUB image of the abdomen is obtained. COMPARISON: CT abdomen and pelvis August 13, 2018. FINDINGS: Scattered gas is seen in non-distended small and large bowel loops. Underlying scoliotic cu rvature with multilevel spurring in the spine. Severe compression fracture T12 level seen better on r ecent CT. Old displaced fracture left proximal femur redemonstrated. Sclerotic right femoral head cou ld reflect avascular necrosis, but other etiology is not excluded. Lung bases are not included. IMPRESSION: Overall nonobstructive bowel gas pattern.
[2020-07-04 19:38] LABS: Basophils # (A) 0.02 X 10*3/uL (0.00-0.10); Basophils % (A) 0.4 %; Eosinophils # (A) 0.14 X 10*3/uL (0.04-0.35); Eosinophils % (A) 2.8 %; HGB 10.1 g/dL (13.0-17.0); Lymphocytes # (A) 1.07 X 10*3/uL (0.90-5.00); Lymphocytes % (A) 21.7 %; MCH 32.3 pg (27.0-32.0); MCHC 31.6 g/dL (32.0-37.0); MCV 102.2 fL (80.0-97.0); Mean Platelet Volume 12.1 fL (9.5-12.2); Monocytes # (A) 0.26 X 10*3/uL (0.20-1.00); Monocytes % (A) 5.3 %; Neutrophils # (A) 3.42 X 10*3/uL (1.80-7.70); Neutrophils % (A) 69.6 %; Platelet Count 265 X 10*3/uL (140-440); RBC 3.13 X 10*6/uL (4.40-5.60); RDW 13.7 % (11.5-14.5); WBC 4.92 X 10*3/uL (4.50-10.00)
[2020-07-04 20:10] LABS: Erythrocyte Sedimentation Rate 60 mm/Hr (0-20)
[2020-07-05 01:55] LABS: Ferritin 153.7 ng/mL (22.0-322.0)
[2020-07-05 02:09] LABS: % Iron Saturation 18.26 (15.00-50.00); ALT 16 U/L (10-49); AST 28 U/L (14-35); African American GFR (CKD) 72.1 (60.0-200.0); Alkaline Phosphatase 44 U/L (41-126); BUN/Creat Ratio 27.27 Ratio (12.00-20.00); Calcium 9.4 mg/dL (8.7-10.3); Carbon Dioxide 21.5 mmol/L (21.6-31.8); Chloride 110 mmol/L (96-109); Globulin 2.5 g/dL (1.6-3.3); Glucose 108 mg/dL (70-110); Iron 61 ug/dL (65-175); Non-African American GFR(CKD) 62.2 (60.0-200.0); Potassium 4.3 mmol/L (3.5-5.5); Sodium 142 mmol/L (135-145); Total Bilirubin 0.3 mg/dL (0.3-1.2); Total Iron Binding Capacity 334 ug/dL (228-460); Total Protein 6.5 g/dL (6.2-8.2)
[2020-07-05 02:10] LABS: C Reactive Protein <0.4 mg/dL (0.0-0.8)
== END | disposition home or self-care (01) ==
LOC: LABWHC1 13:33
PROVIDERS: ATTEND Internal Medicine
DX: R19.4 Change in bowel habit (principal)
CPT/HCPCS: 36415; 74018; 80053; 82656; 82728; 83540; 83550; 83993; 84439; 84443; 85025; 85652; 86140; 87045; 87046; 87328; 87329

== ENCOUNTER 2020-07-22 14:38 | Observation (INO) | payer MEDICARE ==
--- NOTE | 2020-07-22 18:00 | ED ---
General Adult HPI - General Chief complaint: Recheck/Abnormal Lab/Rx Stated complaint: Sent by pcp/BP Time Seen by Provider: 07/22/20 17:30 Source: patient, family, RN notes reviewed Mode of arrival: wheelchair Limitations: no limitations - History of Present Illness Initial comments: Patient is a pleasant 84-year-old male presenting to the emergency Department with concerns for low heart rate. Low heart rate was checked twice by visiting nurse. Patient does have history of similar problems previously associated with atrophic ablation. Patient states he has been having some increased fatigue and exertional dyspnea for the past few months. No chest pain. Patient is on several medications for heart rate controlled blood pressure. - Related Data Home Medications Medication Instructions Recorded Confirmed Ergocalciferol [Vitamin D2 50,000 unit PO WE 02/28/14 07/22/20 (DRISDOL)] Fenofibrate,Micronized 134 mg PO HS 02/28/14 07/22/20 [Fenofibrate] Furosemide [Lasix] 60 mg PO HS 02/28/14 07/22/20 metFORMIN HCL [Glucophage] 500 mg PO DAILY 02/28/14 07/22/20 Meclizine [Antivert] 25 mg PO TID PRN 01/05/15 07/22/20 Diltiazem HCl [Diltiazem 24Hr ER] 120 mg PO DAILY 01/27/17 07/22/20 FLUoxetine HCL [PROzac] 40 mg PO DAILY 07/10/17 07/22/20 ARIPiprazole [Abilify] 2 mg PO DAILY 01/19/18 07/22/20 Acetaminophen [Tylenol Extra 500 - 1,000 mg PO Q6H PRN 01/19/18 07/22/20 Strength] Ferrous Sulfate [Iron (65 MG 325 mg PO DAILY 01/19/18 07/22/20 Elemental)] Dakins 0.25% Solut 1 applic TOPICAL TUTH 07/22/20 07/22/20 Donepezil HCl [Aricept] 5 mg PO DAILY 07/22/20 07/22/20 L.acidoph,Paracasei, B.lactis 1 cap PO DAILY 07/22/20 07/22/20 [Probiotic] Loperamide HCl [Imodium A-D] 2 mg PO QID PRN 07/22/20 07/22/20 Potassium Chloride ER [K-Dur 10] 10 meq PO DAILY 07/22/20 07/22/20 Tamsulosin HCl [Flomax] 0.4 mg PO DAILY 07/22/20 07/22/20 Warfarin Sodium 2.5 mg PO DAILY 07/22/20 07/22/20 glipiZIDE [Glucotrol] 5 mg PO DAILY 07/22/20 07/22/20 Allergies Allergy/AdvReac Type Severity Reaction Status Date / Time oxycodone [Oxycodone] AdvReac Hallucinati Verified 07/22/20 17:36 ons Review of Systems ROS Statement: Those systems with pertinent positive or pertinent negative responses have been documented in the HPI. ROS Other: All systems not noted in ROS Statement are negative. Constitutional: Denies: fever Eyes: Denies: eye pain ENT: Denies: ear pain Respiratory: Reports: as per HPI Cardiovascular: Denies: chest pain Endocrine: Reports: fatigue Gastrointestinal: Denies: vomiting Genitourinary: Denies: dysuria Musculoskeletal: Denies: back pain Skin: Denies: rash Neurological: Denies: headache Past Medical History Past Medical History: Atrial Fibrillation, Cancer, Diabetes Mellitus, Eye Disorder, Hypertension, Renal Disease, Skin Disorder, Vascular Disorder Additional Past Medical History / Comment(s): BLE VENOUS ULCERS; MPH WNS PATIENT; HAS CALCINOSIS CUTIS of BLE; KYRLE'S DISEASE. RT KIDNEY CA 2014. MAC DEGENERATION; CURRENT EYE INFECTION. HX VERTIGO, MENIERES. STAGE 3 RENAL DISEASE. MULT WOUNDS BETWEEN KNEES/ANKLES VASU; HAS HC. VERTIGO. 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 Amputated RT Great toe & 2ND toe. MULT WOUND DEBRIDEMENTS. PARTIAL RT Nephrectomy. 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 amputated toe lt great toe and next toe, rt nephrectomy, vasu eye surgery to drain fluid from eyes r/t glaucoma, Past Anesthesia/Blood Transfusion Reactions: Family History of Problems w/ Anesthesia, Motion Sickness Additional Past Anesthesia/Blood Transfusion Reaction / Comment(s): FATHER HALLUCINATED W/ ANESTHESIA. Past Psychological History: Anxiety, Depression Smoking Status: Former smoker Past Alcohol Use History: None Reported Past Drug Use History: None Reported - Past Family History Sister(s) Family Medical History: Cancer, Diabetes Mellitus Mother Family Medical History: Myocardial Infarction ([place]), Renal Disease General Exam Limitations: no limitations General appearance: alert, in no apparent distress Head exam: Present: normocephalic Eye exam: Present: normal appearance Neck exam: Present: normal inspection Respiratory exam: Present: normal lung sounds bilaterally Cardiovascular Exam: Present: bradycardia, irregular rhythm GI/Abdominal exam: Absent: tenderness Extremities exam: Present: other (Braces on bilateral leg) Back exam: Present: normal inspection Neurological exam: Present: alert Psychiatric exam: Present: normal affect, normal mood Skin exam: Present: normal color Course Vital Signs 07/22/20 07/22/20 07/22/20 17:29 18:00 19:00 Temperature 98.1 F Pulse Rate 49 L 43 L 46 L Pulse Rate [ Air Pollution Analyst ] Respiratory 20 16 16 Rate Blood Pressure 119/77 127/62 O2 Sat by Pulse 100 99 98 Oximetry 07/22/20 19:20 Temperature Pulse Rate Pulse Rate [ 44 L Air Pollution Analyst ] Respiratory Rate Blood Pressure O2 Sat by Pulse Oximetry EKG Findings - EKG Comments: EKG Findings:: Irregular narrow complex rhythm with a rate of 48. Concern for atrial fibrillation. QRS 94. QT 482. QTC 439. Normal axis. Q waves V1 and V2. No acute ST change. Medical Decision Making - Medical Decision Making Patient reevaluated and resting comfortably in bed. Heart rate varies between 40 and 60. Patient and family updated on results and plan. Case was discussed in detail with Dr. Hinton, who will admit his patient, agrees with holding diltiazem and does request cardiology consult. - Lab Data Result diagrams: 07/22/20 19:05 07/22/20 19:05 Lab Results 07/22/20 07/22/20 07/22/20 Range/Units 17:58 19:05 19:05 WBC 5.9 (3.8-10.6) k/uL RBC 3.29 L (4.30-5.90) m/uL Hgb 11.1 L (13.0-17.5) gm/dL Hct 32.3 L (39.0-53.0) % MCV 98.2 (80.0-100.0) fL MCH 33.7 (25.0-35.0) pg MCHC 34.3 (31.0-37.0) g/dL RDW 12.6 (11.5-15.5) % Plt Count 260 (150-450) k/uL MPV 8.9 Neutrophils % 70 % Lymphocytes % 19 % Monocytes % 4 % Eosinophils % 4 % Basophils % 0 % Neutrophils # 4.1 (1.3-7.7) k/uL Lymphocytes # 1.1 (1.0-4.8) k/uL Monocytes # 0.3 (0-1.0) k/uL Eosinophils # 0.2 (0-0.7) k/uL Basophils # 0.0 (0-0.2) k/uL PT 22.7 H (9.0-12.0) sec INR 2.3 H (<1.2) APTT 33.7 H (22.0-30.0) sec Sodium (137-145) mmol/L Potassium (3.5-5.1) mmol/L Chloride (98-107) mmol/L Carbon Dioxide (22-30) mmol/L Anion Gap mmol/L BUN (9-20) mg/dL Creatinine (0.66-1.25) mg/dL Est GFR (CKD-EPI)AfAm (>60 ml/min/1.73 sqM) Est GFR (CKD-EPI)NonAf (>60 ml/min/1.73 sqM) Glucose (74-99) mg/dL Calcium (8.4-10.2) mg/dL Magnesium (1.6-2.3) mg/dL Total Bilirubin (0.2-1.3) mg/dL AST (17-59) U/L ALT (4-49) U/L Alkaline Phosphatase (38-126) U/L Troponin I (0.000-0.034) ng/mL NT-Pro-B Natriuret Pep 1470 pg/mL Total Protein (6.3-8.2) g/dL Albumin (3.5-5.0) g/dL TSH (0.465-4.680) mIU/L Free T4 (0.78-2.19) ng/dL Free T3 pg/mL (2.8-5.3) pg/ml 07/22/20 07/22/20 Range/Units 19:05 19:05 WBC (3.8-10.6) k/uL RBC (4.30-5.90) m/uL Hgb (13.0-17.5) gm/dL Hct (39.0-53.0) % MCV (80.0-100.0) fL MCH (25.0-35.0) pg MCHC (31.0-37.0) g/dL RDW (11.5-15.5) % Plt Count (150-450) k/uL MPV Neutrophils % % Lymphocytes % % Monocytes % % Eosinophils % % Basophils % % Neutrophils # (1.3-7.7) k/uL Lymphocytes # (1.0-4.8) k/uL Monocytes # (0-1.0) k/uL Eosinophils # (0-0.7) k/uL Basophils # (0-0.2) k/uL PT (9.0-12.0) sec INR (<1.2) APTT (22.0-30.0) sec Sodium 138 (137-145) mmol/L Potassium 4.5 (3.5-5.1) mmol/L Chloride 104 (98-107) mmol/L Carbon Dioxide 23 (22-30) mmol/L Anion Gap 11 mmol/L BUN 41 H (9-20) mg/dL Creatinine 1.13 (0.66-1.25) mg/dL Est GFR (CKD-EPI)AfAm 70 (>60 ml/min/1.73 sqM) Est GFR (CKD-EPI)NonAf 61 (>60 ml/min/1.73 sqM) Glucose 134 H (74-99) mg/dL Calcium 9.2 (8.4-10.2) mg/dL Magnesium 1.9 (1.6-2.3) mg/dL Total Bilirubin 0.7 (0.2-1.3) mg/dL AST 37 (17-59) U/L ALT 13 (4-49) U/L Alkaline Phosphatase 42 (38-126) U/L Troponin I <0.012 (0.000-0.034) ng/mL NT-Pro-B Natriuret Pep pg/mL Total Protein 7.5 (6.3-8.2) g/dL Albumin 4.0 (3.5-5.0) g/dL TSH 1.390 (0.465-4.680) mIU/L Free T4 1.67 (0.78-2.19) ng/dL Free T3 pg/mL 3.5 (2.8-5.3) pg/ml - Radiology Data Radiology results: image reviewed (Chest x-ray does show slight increased lung markings) Disposition Clinical Impression: Bradycardia Disposition: ADMITTED IP TO THIS HOSP Is patient prescribed a controlled substance at d/c from ED?: No Referrals: Brandie Hinton MD [Primary Care Provider] - 1-2 days Decision Time: 20:29
--- NOTE | 2020-07-22 18:54 | XR ---
EXAMINATION TYPE: XR chest 1V portable DATE OF EXAM: 07/22/2020 COMPARISON: 08/13/2018 HISTORY: Weakness TECHNIQUE: Single view FINDINGS: There is no heart failure nor confluent pneumonic infiltrate. There is slight increased anni g markings in the right lower lobe. Costophrenic angles are clear. There are chest leads. IMPRESSION: Slight increased lung markings right lower lobe compared to old exam. No pulmonary consol idation or heart failure.
[2020-07-22 19:41] LABS: Basophils % (A) 0 %; Eosinophils # (A) 0.2 k/uL (0-0.7); Eosinophils % (A) 4 %; HCT 32.3 % (39.0-53.0); HGB 11.1 gm/dL (13.0-17.5); Lymphocytes # (A) 1.1 k/uL (1.0-4.8); Lymphocytes % (A) 19 %; MCH 33.7 pg (25.0-35.0); MCHC 34.3 g/dL (31.0-37.0); MCV 98.2 fL (80.0-100.0); Mean Platelet Volume 8.9; Monocytes # (A) 0.3 k/uL (0-1.0); Monocytes % (A) 4 %; Neutrophils # (A) 4.1 k/uL (1.3-7.7); Neutrophils % (A) 70 %; Platelet Count 260 k/uL (150-450); RBC 3.29 m/uL (4.30-5.90); RDW 12.6 % (11.5-15.5); WBC 5.9 k/uL (3.8-10.6)
[2020-07-22 19:51] LABS: INR 2.3 (<1.2); Partial Thromboplastin Time 33.7 sec (22.0-30.0); Prothrombin Time 22.7 sec (9.0-12.0)
[2020-07-22 19:54] LABS: Calcium 9.2 mg/dL (8.4-10.2); Magnesium 1.9 mg/dL (1.6-2.3); Potassium 4.5 mmol/L (3.5-5.1); Total Bilirubin 0.7 mg/dL (0.2-1.3); Total Protein 7.5 g/dL (6.3-8.2)
[2020-07-22 20:09] LABS: T4, Free (Free Thyroxine) 1.67 ng/dL (0.78-2.19)
[2020-07-22] MEDS ORDERED: NALOXONE 0.4 MG/ML 1 ML VIAL IV PRN (20:30)
[2020-07-23] MEDS: SODIUM CHLORIDE 0.9% 1,000 ML IV SCH ×2 (00:17→22:20)
[2020-07-23 07:22] LABS: Glucose,Whole Blood 99 mg/dL (75-99)
[2020-07-23] MEDS ORDERED: LOPERAMIDE 2 MG CAP PO PRN (09:20)
[2020-07-23] MEDS ORDERED: MECLIZINE 25 MG TAB PO PRN (09:20)
[2020-07-23] MEDS ORDERED: ERGOCALCIFEROL 1,250 MCG (50,000 IU) CAPSULE PO SCH (09:30)
[2020-07-23 09:48] LABS: Basophils % (A) 0 %; Eosinophils # (A) 0.3 k/uL (0-0.7); Eosinophils % (A) 5 %; HCT 33.2 % (39.0-53.0); HGB 11.2 gm/dL (13.0-17.5); Lymphocytes # (A) 1.3 k/uL (1.0-4.8); Lymphocytes % (A) 24 %; MCH 33.2 pg (25.0-35.0); MCHC 33.6 g/dL (31.0-37.0); MCV 98.8 fL (80.0-100.0); Mean Platelet Volume 8.6; Monocytes # (A) 0.3 k/uL (0-1.0); Monocytes % (A) 5 %; Neutrophils # (A) 3.6 k/uL (1.3-7.7); Neutrophils % (A) 65 %; Platelet Count 246 k/uL (150-450); RBC 3.36 m/uL (4.30-5.90); RDW 12.5 % (11.5-15.5); WBC 5.5 k/uL (3.8-10.6)
[2020-07-23 10:05] LABS: INR 2.5 (<1.2); Prothrombin Time 23.8 sec (9.0-12.0)
[2020-07-23 10:07] LABS: ALT 13 U/L (4-49); AST 29 U/L (17-59); African American GFR (CKD) 76 (>60 ml/min/1.73 sqM); Albumin 3.8 g/dL (3.5-5.0); Albumin/Globulin Ratio 1.2; Alkaline Phosphatase 44 U/L (38-126); Anion Gap 9 mmol/L; Blood Urea Nitrogen 33 mg/dL (9-20); Calcium 9.6 mg/dL (8.4-10.2); Carbon Dioxide 27 mmol/L (22-30); Chloride 105 mmol/L (98-107); Globulin 3.3 g/dL; Glucose 153 mg/dL (74-99); Non-African American GFR(CKD) 66 (>60 ml/min/1.73 sqM); Potassium 3.8 mmol/L (3.5-5.1); Sodium 141 mmol/L (137-145); Total Bilirubin 0.5 mg/dL (0.2-1.3); Total Protein 7.1 g/dL (6.3-8.2)
--- NOTE | 2020-07-23 10:08 | P.HPIM ---
History of Present Illness H&P Date: 07/23/20 Chief Complaint: Bradycardia This is an 84-year-old male patient who presented to the ER with concerns of low heart rate. Patient had visiting nurse at home that checked and noted low pulse. According to ER record patient has had this issue before due to completion for his known atrial fibrillation. Patient reports that he has been fatigued with activity and increased shortness of breath. Patient has a past medical history of atrial fibrillation, diabetes mellitus, eye disorder, hypertension, renal disease, vascular disorder and cholecystectomy. EKG completed in ER showing ventricular rate of 48 undetermined rhythm. Chest x-ray completed showing slight increased lung markings right lower lobe compared to old exam no pulmonary consolidation or heart failure. She is currently maintained on Cardizem at home which is currently held. Cardiology service is consulted. Troponin negative. At this time patient is resting comfortably in bed. Patient denies any chest pain or shortness of breath. Patient denies nausea vomiting or diarrhea. Patient denies any urinary burning or frequency Review of Systems Please refer to HPI otherwise unremarkable Past Medical History Past Medical History: Atrial Fibrillation, Cancer, Diabetes Mellitus, Eye Disorder, Hypertension, Renal Disease, Skin Disorder, Vascular Disorder Additional Past Medical History / Comment(s): BLE VENOUS ULCERS; MPH WNS PATIENT; HAS CALCINOSIS CUTIS of BLE; KYRLE'S DISEASE. RT KIDNEY CA 2014. MAC DEGENERATION; CURRENT EYE INFECTION. HX VERTIGO, MENIERES. STAGE 3 RENAL DISEASE. MULT WOUNDS BETWEEN KNEES/ANKLES ROGER; HAS HC. VERTIGO. 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 Amputated RT Great toe & 2ND toe. MULT WOUND DEBRIDEMENTS. PARTIAL RT Nephrectomy. Roger eye surgery, drain fluid from eyes r/t glaucoma/FLOATERS. amputated toe lt great toe and next toe, rt nephrectomy, roger eye surgery to drain fluid from eyes r/t glaucoma, Past Anesthesia/Blood Transfusion Reactions: Family History of Problems w/ Anes thesia, Motion Sickness Additional Past Anesthesia/Blood Transfusion Reaction / Comment(s): FATHER HALLUCINATED W/ ANESTHESIA. Past Psychological History: Anxiety, Depression Additional Psychological History / Comment(s): . Retired. experience. No international travel. No animal exposures Smoking Status: Former smoker Past Alcohol Use History: None Reported Additional Past Alcohol Use History / Comment(s): Smoked 30 years, <1ppd, quit 1978 Past Drug Use History: None Reported - Past Family History Sister(s) Family Medical History: Cancer, Diabetes Mellitus Mother Family Medical History: Myocardial Infarction ([place]), Renal Disease Medications and Allergies Home Medications Medication Instructions Recorded Confirmed Type Ergocalciferol [Vitamin D2 50,000 unit PO WE 02/28/14 07/22/20 History (DRISDOL)] Fenofibrate,Micronized 134 mg PO HS 02/28/14 07/22/20 History [Fenofibrate] Furosemide [Lasix] 60 mg PO HS 02/28/14 07/22/20 History metFORMIN HCL [Glucophage] 500 mg PO DAILY 02/28/14 07/22/20 History Meclizine [Antivert] 25 mg PO TID PRN 01/05/15 07/22/20 History Diltiazem HCl [Diltiazem 24Hr ER] 120 mg PO DAILY 01/27/17 07/22/20 History FLUoxetine HCL [PROzac] 40 mg PO DAILY 07/10/17 07/22/20 History ARIPiprazole [Abilify] 2 mg PO DAILY 01/19/18 07/22/20 History Acetaminophen [Tylenol Extra 500 - 1,000 mg PO Q6H PRN 01/19/18 07/22/20 History Strength] Ferrous Sulfate [Iron (65 MG 325 mg PO DAILY 01/19/18 07/22/20 History Elemental)] Dakins 0.25% Solut 1 applic TOPICAL TUTH 07/22/20 07/22/20 History Donepezil HCl [Aricept] 5 mg PO DAILY 07/22/20 07/22/20 History L.acidoph,Paracasei, B.lactis 1 cap PO DAILY 07/22/20 07/22/20 History [Probiotic] Loperamide HCl [Imodium A-D] 2 mg PO QID PRN 07/22/20 07/22/20 History Potassium Chloride ER [K-Dur 10] 10 meq PO DAILY 07/22/20 07/22/20 History Tamsulosin HCl [Flomax] 0.4 mg PO DAILY 07/22/20 07/22/20 History Warfarin Sodium 2.5 mg PO DAILY 07/22/20 07/22/20 History glipiZIDE [Glucotrol] 5 mg PO DAILY 07/22/20 07/22/20 History Allergies Allergy/AdvReac Type Severity Reaction Status Date / Time oxycodone [Oxycodone] AdvReac Hallucinati Verified 07/22/20 17:36 ons Physical Exam Vitals: Vital Signs Temp Pulse Pulse Pulse Resp BP BP 07/23/20 07:00 97.8 F 55 L 18 162/78 07/23/20 02:00 97.7 F 48 L 16 153/69 07/22/20 23:11 97.6 F 79 18 147/74 07/22/20 22:25 52 L 16 142/59 07/22/20 19:20 44 L 07/22/20 19:00 46 L 16 07/22/20 18:00 43 L 16 127/62 07/22/20 17:29 98.1 F 49 L 20 119/77 Pulse Ox 07/23/20 07:00 98 07/23/20 02:00 98 07/22/20 23:11 98 07/22/20 22:25 95 07/22/20 19:20 07/22/20 19:00 98 07/22/20 18:00 99 07/22/20 17:29 100 Intake and Output 07/22/20 07/23/20 07/23/20 22:59 06:59 14:59 Output Total 320 300 Balance -320 -300 Output: Urine 320 300 Other: Voiding Method Urinal Diaper # Voids 2 Weight 89.811 kg 89.811 kg Head normocephalic Neck supple Lungs clear to auscultation bilaterally no wheezing or crackles Heart irregular heart rate, bradycardic Abdomen is soft nontender nondistended positive bowel sounds no hepatosplenomegaly Extremities no edema Neuro alert and orientated to 3 Results CBC & Chem 7: 07/23/20 09:28 07/22/20 19:05 Labs: Abnormal Lab Results - Last 24 Hours (Table) 07/22/20 07/22/20 07/22/20 Range/Units 19:05 19:05 19:05 RBC 3.29 L (4.30-5.90) m/uL Hgb 11.1 L (13.0-17.5) gm/dL Hct 32.3 L (39.0-53.0) % PT 22.7 H (9.0-12.0) sec INR 2.3 H (<1.2) APTT 33.7 H (22.0-30.0) sec BUN 41 H (9-20) mg/dL Glucose 134 H (74-99) mg/dL 07/23/20 Range/Units 09:28 RBC 3.36 L (4.30-5.90) m/uL Hgb 11.2 L (13.0-17.5) gm/dL Hct 33.2 L (39.0-53.0) % PT (9.0-12.0) sec INR (<1.2) APTT (22.0-30.0) sec BUN (9-20) mg/dL Glucose (74-99) mg/dL Thrombosis Risk Factor Assmnt - Choose All That Apply Each Risk Factor Represents 3 Points: Age 75 years or older Thrombosis Risk Factor Assessment Total Risk Factor Score: 3 Thrombosis Risk Factor Assessment Level: Moderate Risk Assessment and Plan Assessment: 1. Bradycardia. Cardizem currently on hold. Cardiology service is consulted 2. History of chronic persistent atrial fibrillation. Patient maintained on Coumadin 3. Diabetes mellitus type 2. Metformin on hold sliding scale insulin ordered 4. History of renal carcinoma status post right nephrectomy 5. Essential hypertension 6. History of depression 7. History of chronic venous ulcers DVT prophylaxis Coumadin. GI prophylaxis Protonix Cardiology services consulted Time with Patient: Greater than 30
[2020-07-23 11:47] LABS: Glucose,Whole Blood 119 mg/dL (75-99)
--- NOTE | 2020-07-23 12:09 | P.CRDCN ---
History of Present Illness History of present illness: HISTORY OF PRESENTING ILLNESS This is a pleasant 84-year-old male past medical history significant for permanent atrial fibrillation (on coumadin), hypertension, hyperlipidemia, peripheral vascular disease, type 2 diabetes. He follows in the office with Dr. Richard. We have been asked to see in consultation for bradycardia. Patient states he had a visiting nurse come to the house and checked his blood pressure and heart rate. He was told his heart rate low and was brought to the emergency department. He cannot remember what the heart rate was but thinks it was in the 40s. His only complaint lately is that he has had increased confusion, especially in the morning. He states he was told by his that he will get up before 2:00am think it is time to get up and start making breakfast. He did not know his heart rate was low. He denies symptoms of lightheadedness, dizziness, syncope, palpitations, chest pain or shortness of breath. He denies history of [place], Stroke, Diabetes. EKG reveals atrial fibrillation with HR 40s, prior EKG atrial fibrillation HR 60s. Laboratory data reviewed, troponin negative 1, sodium 141, potassium 3.8, creatinine 1.06, BUN 33, TSH within normal limits, BNP 1470 magnesium 1.9, WBC 5.5, hemoglobin 11.2, platelets 246, INR 2.5 Vital signs blood pressure 162/78, heart rate 55, afebrile, maintaining oxygen saturation on room air. DIAGNOSTICS Echocardiogram 01/2019-left ventricular systolic function 50%, mild concentric hypertrophy, LA severely dilated, RV is mildly dilated, RA is moderately dilated, mild to moderate MR, trace AR, mild TR PASP= 38mmHg Telemetry tracings indicate atrial fibrillation with HR 50s, HR low 47. Chest xray slight increase in lung markings in the right lower lobe compared to old exam. No pulmonary consolidation or heart failure noted... Current cardiac medications include warfarin 2.5 mg daily, potassium chloride 10 mEq daily, Cardizem 100 1020 mg daily, Lasix 60 mg nightly. REVIEW OF SYSTEMS At the time of my exam: CONSTITUTIONAL: Denies fever or chills. CARDIOVASCULAR: Denies chest pain, shortness of breath, orthopnea, PND or palpitations. RESPIRATORY: Denies cough. GASTROINTESTINAL: Denies abdominal pain, diarrhea, constipation, nausea or vomiting. MUSCULOSKELETAL: Denies myalgias. NEUROLOGIC: Denies numbness, tingling, headacbe or weakness. ENDOCRINE: Denies fatigue, weight change, polydipsia or polyurina. GENITOURINARY: Denies burning, hematuria or urgency with micturation. HEMATOLOGIC: Denies history of anemia or bleeding. PHYSICAL EXAMINATION CONSTITUTIONAL: No apparent distress. HEENT: Head is normocephalic. Pupils are equal, round. Sclerae anicteric. Mucous membranes of the mouth are moist. No JVD. No carotid bruit. CHEST EXAMINATION: Lungs are clear to auscultation. No chest wall tenderness is noted on palpation or with deep breathing. HEART EXAMINATION: Irregular rate and rhythm. S1, S2 heard. No gallops or rub. ABDOMEN: Soft, nontender. Positive bowel sounds. EXTREMITIES: 2+ peripheral pulses, no lower extremity edema. Bilateral leg wounds wrapped in gauze and tape NEUROLOGIC EXAMINATION: Patient is awake, alert and oriented x3. ASSESSMENT Persistent atrial fibrillation on coumadin Sick sinus syndrome Hypertension Hyperlipidemia Peripheral Vascular Disease T2 Diabetes PLAN -Will discontinue Diltiazem -Will obtain 2D echo and doppler study to assess cardiac structure and function -Continue other home cardiac medications Thank you kindly for this consultation Nurse Practitioner note has been reviewed, I agree with a documented findings and plan of care. Patient was seen and examined. Past Medical History Past Medical History: Atrial Fibrillation, Cancer, Diabetes Mellitus, Eye Disorder, Hypertension, Renal Disease, Skin Disorder, Vascular Disorder Additional Past Medical History / Comment(s): BLE VENOUS ULCERS; MPH WNS PATIENT; HAS CALCINOSIS CUTIS of BLE; KYRLE'S DISEASE. RT KIDNEY CA 2014. MAC DEGENERATION; CURRENT EYE INFECTION. HX VERTIGO, MENIERES. STAGE 3 RENAL DISEASE. MULT WOUNDS BETWEEN KNEES/ANKLES VASU; HAS HC. VERTIGO. 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 Amputated RT Great toe & 2ND toe. MULT WOUND DEBRIDEMENTS. PARTIAL RT Nephrectomy. 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 amputated toe lt great toe and next toe, rt nephrectomy, vasu eye surgery to drain fluid from eyes r/t glaucoma, Past Anesthesia/Blood Transfusion Reactions: Family History of Problems w/ Anesthesia, Motion Sickness Additional Past Anesthesia/Blood Transfusion Reaction / Comment(s): FATHER HALLUCINATED W/ ANESTHESIA. Past Psychological History: Anxiety, Depression Additional Psychological History / Comment(s): . Retired. experience. No international travel. No animal exposures Smoking Status: Former smoker Past Alcohol Use History: None Reported Additional Past Alcohol Use History / Comment(s): Smoked 30 years, <1ppd, quit 1978 Past Drug Use History: None Reported - Past Family History Sister(s) Family Medical History: Cancer, Diabetes Mellitus Mother Family Medical History: Myocardial Infarction ([place]), Renal Disease Medications and Allergies Home Medications Medication Instructions Recorded Confirmed Type Ergocalciferol [Vitamin D2 50,000 unit PO WE 02/28/14 07/22/20 History (DRISDOL)] Fenofibrate,Micronized 134 mg PO HS 02/28/14 07/22/20 History [Fenofibrate] Furosemide [Lasix] 60 mg PO HS 02/28/14 07/22/20 History metFORMIN HCL [Glucophage] 500 mg PO DAILY 02/28/14 07/22/20 History Meclizine [Antivert] 25 mg PO TID PRN 01/05/15 07/22/20 History FLUoxetine HCL [PROzac] 40 mg PO DAILY 07/10/17 07/22/20 History ARIPiprazole [Abilify] 2 mg PO DAILY 01/19/18 07/22/20 History Acetaminophen [Tylenol Extra 500 - 1,000 mg PO Q6H PRN 01/19/18 07/22/20 History Strength] Ferrous Sulfate [Iron (65 MG 325 mg PO DAILY 01/19/18 07/22/20 History Elemental)] Dakins 0.25% Solut 1 applic TOPICAL TUTH 07/22/20 07/22/20 History Donepezil HCl [Aricept] 5 mg PO DAILY 07/22/20 07/22/20 History L.acidoph,Paracasei, B.lactis 1 cap PO DAILY 07/22/20 07/22/20 History [Probiotic] Loperamide HCl [Imodium A-D] 2 mg PO QID PRN 07/22/20 07/22/20 History Potassium Chloride ER [K-Dur 10] 10 meq PO DAILY 07/22/20 07/22/20 History Tamsulosin HCl [Flomax] 0.4 mg PO DAILY 07/22/20 07/22/20 History Warfarin Sodium 2.5 mg PO DAILY 07/22/20 07/22/20 History glipiZIDE [Glucotrol] 5 mg PO DAILY 07/22/20 07/22/20 History Allergies Allergy/AdvReac Type Severity Reaction Status Date / Time oxycodone [Oxycodone] AdvReac Hallucinati Verified 07/22/20 17:36 ons Physical Exam Vitals: Vital Signs Temp Pulse Pulse Pulse Resp BP BP 07/23/20 02:00 97.7 F 48 L 16 153/69 07/22/20 23:11 97.6 F 79 18 147/74 07/22/20 22:25 52 L 16 142/59 07/22/20 19:20 44 L 07/22/20 19:00 46 L 16 07/22/20 18:00 43 L 16 127/62 07/22/20 17:29 98.1 F 49 L 20 119/77 Pulse Ox 07/23/20 02:00 98 07/22/20 23:11 98 07/22/20 22:25 95 07/22/20 19:20 07/22/20 19:00 98 07/22/20 18:00 99 07/22/20 17:29 100 Intake and Output 07/22/20 07/23/20 07/23/20 22:59 06:59 14:59 Output Total 320 Balance -320 Output: Urine 320 Other: Voiding Method Urinal Diaper # Voids 2 Weight 89.811 kg 89.811 kg Results 07/23/20 09:28 07/23/20 09:28 Cardiac Enzymes 07/22/20 07/22/20 Range/Units 19:05 19:05 AST 37 (17-59) U/L Troponin I <0.012 (0.000-0.034) ng/mL Coagulation 07/22/20 Range/Units 19:05 PT 22.7 H (9.0-12.0) sec APTT 33.7 H (22.0-30.0) sec CBC 07/22/20 Range/Units 19:05 WBC 5.9 (3.8-10.6) k/uL RBC 3.29 L (4.30-5.90) m/uL Hgb 11.1 L (13.0-17.5) gm/dL Hct 32.3 L (39.0-53.0) % Plt Count 260 (150-450) k/uL Comprehensive Metabolic Panel 07/22/20 Range/Units 19:05 Sodium 138 (137-145) mmol/L Potassium 4.5 (3.5-5.1) mmol/L Chloride 104 (98-107) mmol/L Carbon Dioxide 23 (22-30) mmol/L BUN 41 H (9-20) mg/dL Creatinine 1.13 (0.66-1.25) mg/dL Glucose 134 H (74-99) mg/dL Calcium 9.2 (8.4-10.2) mg/dL AST 37 (17-59) U/L ALT 13 (4-49) U/L Alkaline Phosphatase 42 (38-126) U/L Total Protein 7.5 (6.3-8.2) g/dL Albumin 4.0 (3.5-5.0) g/dL Current Medications Generic Name Dose Route Start Last Admin Trade Name Freq PRN Reason Stop Dose Admin Sodium Chloride 1,000 mls @ 20 mls/hr 07/22/20 20:30 07/23/20 00:17 Saline 0.9% IV Not Given .Q24H QUOC Naloxone HCl 0.2 mg 07/22/20 20:30 Naloxone 0.4 Mg/Ml 1 Ml Vial IV Q2M PRN Opioid Reversal Intake and Output 07/22/20 07/23/20 07/23/20 22:59 06:59 14:59 Output Total 320 Balance -320 Output: Urine 320 Other: Voiding Method Urinal Diaper # Voids 2 Weight 89.811 kg 89.811 kg 07/22/20 19:05 07/22/20 19:05
[2020-07-23] MEDS: FLUoxetine HCL 20 MG CAP PO SCH (12:32)
[2020-07-23] MEDS: DONEPEZIL 5 MG TAB PO SCH (12:32)
[2020-07-23] MEDS: INSULIN ASPART (NovoLOG) 100 UNIT/ML VIAL SQ SCH ×3 (12:32→22:23)
[2020-07-23 12:34] LABS: Glucose,Whole Blood 121 mg/dL (75-99)
[2020-07-23 16:43] LABS: Glucose,Whole Blood 168 mg/dL (75-99)
[2020-07-23 20:36] LABS: Glucose,Whole Blood 186 mg/dL (75-99)
[2020-07-23] MEDS: FUROSEMIDE 20 MG TAB PO SCH (22:19)
[2020-07-23 22:20] LABS: Glucose,Whole Blood 189 mg/dL (75-99)
[2020-07-23] MEDS: FENOFIBRATE 160 MG TAB PO SCH (22:20)
[2020-07-24 08:18] LABS: Glucose,Whole Blood 110 mg/dL (75-99)
[2020-07-24] MEDS: INSULIN ASPART (NovoLOG) 100 UNIT/ML VIAL SQ SCH ×4 (08:38→21:14)
[2020-07-24] MEDS: PANTOPRAZOLE 40 MG TABLET PO SCH (08:45)
[2020-07-24] MEDS: LACTOBACILLUS ACIDOPH & BULGAR 1 EACH PACKET PO SCH (08:45)
[2020-07-24] MEDS: TAMSULOSIN 0.4 MG CAP.ER.24H PO SCH (08:45)
[2020-07-24] MEDS: FLUoxetine HCL 20 MG CAP PO SCH (08:45)
[2020-07-24] MEDS: FERROUS SULFATE 325 MG TAB PO SCH (08:45)
[2020-07-24] MEDS: DONEPEZIL 5 MG TAB PO SCH (08:46)
[2020-07-24] MEDS: glipiZIDE 5 MG TAB PO SCH (08:46)
[2020-07-24] MEDS: ARIPiprazole 2 MG TAB PO SCH (08:46)
[2020-07-24] MEDS: POTASSIUM CHLORIDE ER 10 MEQ TAB.ER.PRT PO SCH (08:54)
[2020-07-24] MEDS ORDERED: SODIUM HYPOCHLORITE 0.25% 480 ML BOT MISCELLANE SCH (09:00)
--- NOTE | 2020-07-24 09:49 | ECHOF ---
Referral Reason:bradycardia MEASUREMENTS -------- HEIGHT: 152.4 cm WEIGHT: 89.8 kg BP: RVIDd: 2.9 cm (< 3.3) IVSd: 1.2 cm (0.6 - 1.1) LVIDd: 5.1 cm (3.9 - 5.3) LVPWd: 1.8 cm (0.6 - 1.1) IVSs: 1.8 cm LVIDs: 3.8 cm LVPWs: 1.8 cm LA Diam: 5.8 cm (2.7 - 3.8) LAESV Index (A-L): 53.13 ml/m Ao Diam: 3.4 cm (2.0 - 3.7) MV EXCURSION: 19.784 mm (> 18.000) MV EF SLOPE: 129 mm/s (70 - 150) EPSS: 0.7 cm AV maxP.50 mmHg AV meanP.97 mmHg RAP: 5.00 mmHg RVSP: 27.27 mmHg FINDINGS -------- Atrial fibrillation. This was a technically good study. The left ventricular size is normal. There is borderline concentric left ventricular hypertrophy. Overall left ventricular systolic function is normal with, an EF between 55 - 60 %. The right ventricle is normal in size. LA is severely dilated >40 ml/m2 The right atrial size is normal. There is mild aortic regurgitation. There is mild aortic stenosis present. Peak/mean gradient acr oss the Aortic Valve is 30.50mmHg / 11.97mmHg. [id number] mitral regurgitation is present. Mild tricuspid regurgitation present. Right ventricular systolic pressure is normal at < 35 mmHg. Trace/mild (physiologic) pulmonic regurgitation. The aortic root size is normal. There is no pericardial effusion. CONCLUSIONS -------- 1. Atrial fibrillation. 2. The left ventricular size is normal. 3. There is borderline concentric left ventricular hypertrophy. 4. Overall left ventricular systolic function is normal with, an EF between 55 - 60 %. 5. The right ventricle is normal in size. 6. LA is severely dilated >40 ml/m2 7. The right atrial size is normal. 8. There is mild aortic regurgitation. 9. There is mild aortic stenosis present. 10. Peak/mean gradient across the Aortic Valve is 30.50mmHg / 11.97mmHg. 11. [id number] mitral regurgitation is present. 12. Mild tricuspid regurgitation present. 13. Trace/mild (physiologic) pulmonic regurgitation. 14. The aortic root size is normal. 15. There is no pericardial effusion. ROLLER: Nicolette High RDCS
[2020-07-24 11:01] LABS: INR 2.13 (0.90-1.11); Prothrombin Time 22.1 sec (9.9-11.9)
[2020-07-24 12:09] LABS: Glucose,Whole Blood 84 mg/dL (75-99)
--- NOTE | 2020-07-24 13:30 | P.PN ---
Subjective This is a pleasant 84-year-old male past medical history significant for permanent atrial fibrillation (on coumadin), hypertension, hyperlipidemia, peripheral vascular disease, type 2 diabetes. He follows in the office with Dr. Richard. We have been asked to see in consultation for bradycardia. Patient states he had a visiting nurse come to the house and checked his blood pressure and heart rate. He was told his heart rate low and was brought to the emergency department. He cannot remember what the heart rate was but thinks it was in the 40s. His only complaint lately is that he has had increased confusion, especially in the morning. He states he was told by his that he will get up before 2:00am think it is time to get up and start making breakfast. He did not know his heart rate was low. He denies symptoms of lightheadedness, dizziness, syncope, palpitations, chest pain or shortness of breath. He denies history of [place], Stroke, Diabetes. EKG reveals atrial fibrillation with HR 40s, prior EKG atrial fibrillation HR 60s. Laboratory data reviewed, troponin negative 1, sodium 141, potassium 3.8, creatinine 1.06, BUN 33, TSH within normal limits, BNP 1470 magnesium 1.9, WBC 5.5, hemoglobin 11.2, platelets 246, INR 2.5 Vital signs blood pressure 162/78, heart rate 55, afebrile, maintaining oxygen saturation on room air. Echocardiogram 01/2019-left ventricular systolic function 50%, mild concentric hypertrophy, LA severely dilated, RV is mildly dilated, RA is moderately dilated, mild to moderate MR, trace AR, mild TR PASP= 38mmHg Telemetry tracings indicate atrial fibrillation with HR 50s, HR low 47. Chest xray slight increase in lung markings in the right lower lobe compared to old exam. No pulmonary consolidation or heart failure noted... Current home cardiac medications include warfarin 2.5 mg daily, potassium chloride 10 mEq daily, Cardizem 100 1020 mg daily, Lasix 60 mg nightly. 07/24/2020: Patient seen and examined at bedside. BP 153/55 HR 60s, afebrile, maintaining oxygen saturations on room air. Telemetry tracings indicate atrial fibrillation with HR 40s-50s. Less than 3 second pause noted on telemetry. Patient's heart rate increases to 120s when standing, when sitting down HR in the 80s. Patient currently being maintained on warfarin 2.5 mg daily, potassium chloride 10 mEq daily, Lasix 60 mg nightly. INR 2.13. Echocardiogram left ventricular systolic function is normal with EF between 55- 60%, LA severely dilated, mild AR, mild Aortic stenosis with mean gradient 11.97mmHg, mild to moderate MR, mild TR PHYSICAL EXAMINATION CONSTITUTIONAL: No apparent distress. HEENT: No JVD. No carotid bruit. CHEST EXAMINATION: Lungs are clear to auscultation. No chest wall tenderness is noted on palpation or with deep breathing. HEART EXAMINATION: Irregular rate and rhythm. S1, S2 heard. No gallops or rub. ABDOMEN: Soft, nontender. Positive bowel sounds. EXTREMITIES: no lower extremity edema. Bilateral leg wounds wrapped in gauze and tape NEUROLOGIC EXAMINATION: Patient is awake, alert and oriented x3. ASSESSMENT Persistent atrial fibrillation on coumadin Sick sinus syndrome Hypertension Hyperlipidemia Peripheral Vascular Disease T2 Diabetes PLAN -Will continue to hold Diltiazem -Continue other home cardiac medications -Patient is stable for discharge from cardiology perspective. Patient should follow up in the office with Dr. Richard Thank you kindly for this consultation Nurse Practitioner note has been reviewed, I agree with a documented findings and plan of care. Patient was seen and examined. Objective - Vital Signs Vital signs: Vital Signs Temp 98.4 F 07/24/20 07:00 Pulse 60 07/24/20 07:00 Resp 16 07/24/20 08:00 BP 153/55 07/24/20 07:00 Pulse Ox 97 07/24/20 07:00 Intake & Output 07/23/20 07/24/20 07/24/20 18:59 06:59 18:59 Intake Total 118 200 Output Total 600 300 200 Balance -482 -300 0 Intake: Oral 118 200 Output: Urine 600 300 200 Other: Voiding Method Urinal Urinal Urinal Diaper Diaper Diaper Incontinent Incontinent Incontinent # Voids 1 1 # Bowel Movements 1 - Labs CBC & Chem 7: 07/23/20 09:28 07/23/20 09:28 Labs: Abnormal Lab Results - Last 24 Hours (Table) 07/23/20 07/23/20 07/23/20 Range/Units 16:41 20:35 22:19 PT (9.9-11.9) sec INR (0.90-1.11) POC Glucose (mg/dL) 168 H 186 H 189 H (75-99) mg/dL 07/24/20 07/24/20 Range/Units 07:16 08:16 PT 22.1 H (9.9-11.9) sec INR 2.13 H (0.90-1.11) POC Glucose (mg/dL) 110 H (75-99) mg/dL
[2020-07-24] MEDS: ACETAMINOPHEN TAB 500 MG TAB PO PRN ×2 (14:04→23:54)
[2020-07-24 17:11] LABS: Glucose,Whole Blood 79 mg/dL (75-99)
[2020-07-24] MEDS ORDERED: WARFARIN 2.5 MG TAB PO SCH (18:00)
[2020-07-24] MEDS ORDERED: WARFARIN 3 MG TAB PO ONE (18:00)
--- NOTE | 2020-07-24 20:12 | P.PN ---
Subjective Progress Note Date: 07/24/20 This is an 84-year-old male patient who presented to the ER with concerns of low heart rate. Patient had visiting nurse at home that checked and noted low pulse. According to ER record patient has had this issue before due to completion for his known atrial fibrillation. Patient reports that he has been fatigued with activity and increased shortness of breath. Patient has a past medical history of atrial fibrillation, diabetes mellitus, eye disorder, hypertension, renal disease, vascular disorder and cholecystectomy. EKG completed in ER showing ventricular rate of 48 undetermined rhythm. Chest x-ray completed showing slight increased lung markings right lower lobe compared to old exam no pulmonary consolidation or heart failure. She is currently maintained on Cardizem at home which is currently held. Cardiology service is consulted. Troponin negative. At this time patient is resting comfortably in bed. Patient denies any chest pain or shortness of breath. Patient denies nausea vomiting or diarrhea. Patient denies any urinary burning or frequency On 07/24/2020 patient was seen and examined on the telemetry floor he is alert and oriented 3 in no apparent distress he is feeling better less fatigue and less tired and less nauseous or trait is up to 55, Cardizem was discontinued on admission, record dizziness no chest pain no shortness of breath no cough no nausea or vomiting no abdominal pain no diarrhea and no urinary symptoms Objective - Vital Signs Vital signs: Vital Signs Temp 98.0 F 07/24/20 02:00 Pulse 62 07/24/20 02:00 Resp 16 07/24/20 02:00 BP 149/83 07/24/20 02:00 Pulse Ox 98 07/24/20 02:00 Intake & Output 07/23/20 07/24/20 07/24/20 18:59 06:59 18:59 Intake Total 118 Output Total 600 300 Balance -482 -300 Intake: Oral 118 Output: Urine 600 300 Other: Voiding Method Urinal Urinal Diaper Diaper Incontinent Incontinent # Voids 1 1 # Bowel Movements 1 - Exam Head normocephalic Neck supple Lungs clear to auscultation bilaterally no wheezing or crackles Heart irregular heart rate, bradycardic Abdomen is soft nontender nondistended positive bowel sounds no hepato splenomegaly Extremities no edema Neuro alert and orientated to 3 - Labs CBC & Chem 7: 07/23/20 09:28 07/23/20 09:28 Labs: Abnormal Lab Results - Last 24 Hours (Table) 07/23/20 07/23/20 07/23/20 Range/Units 09:28 09:28 09:28 RBC 3.36 L (4.30-5.90) m/uL Hgb 11.2 L (13.0-17.5) gm/dL Hct 33.2 L (39.0-53.0) % PT 23.8 H (9.0-12.0) sec INR 2.5 H (<1.2) BUN 33 H (9-20) mg/dL Glucose 153 H (74-99) mg/dL POC Glucose (mg/dL) (75-99) mg/dL 07/23/20 07/23/20 07/23/20 Range/Units 11:46 12:32 16:41 RBC (4.30-5.90) m/uL Hgb (13.0-17.5) gm/dL Hct (39.0-53.0) % PT (9.0-12.0) sec INR (<1.2) BUN (9-20) mg/dL Glucose (74-99) mg/dL POC Glucose (mg/dL) 119 H 121 H 168 H (75-99) mg/dL 07/23/20 07/23/20 Range/Units 20:35 22:19 RBC (4.30-5.90) m/uL Hgb (13.0-17.5) gm/dL Hct (39.0-53.0) % PT (9.0-12.0) sec INR (<1.2) BUN (9-20) mg/dL Glucose (74-99) mg/dL POC Glucose (mg/dL) 186 H 189 H (75-99) mg/dL Assessment and Plan Assessment: 1. Bradycardia. Cardizem currently on hold. Cardiology service is consulted 2. History of chronic persistent atrial fibrillation. Patient maintained on Coumadin 3. Diabetes mellitus type 2. Metformin on hold sliding scale insulin ordered 4. History of renal carcinoma status post right nephrectomy 5. Essential hypertension 6. History of depression 7. History of chronic venous ulcers DVT prophylaxis Coumadin. GI prophylaxis Protonix Cardiology services consulted Patient is improving however he states he is not ready to go home yet Will continue to monitor still tomorrow possible discharge to home tomorrow
[2020-07-24] MEDS: FUROSEMIDE 20 MG TAB PO SCH (21:00)
[2020-07-24 21:01] LABS: Glucose,Whole Blood 111 mg/dL (75-99)
[2020-07-24] MEDS: SODIUM CHLORIDE 0.9% 1,000 ML IV SCH (21:44)
[2020-07-24] MEDS: FENOFIBRATE 160 MG TAB PO SCH (21:44)
[2020-07-25 01:00] VITALS: TEMP 98
[2020-07-25 07:09] LABS: Glucose,Whole Blood 102 mg/dL (75-99)
[2020-07-25] MEDS: INSULIN ASPART (NovoLOG) 100 UNIT/ML VIAL SQ SCH ×2 (08:05→12:33)
[2020-07-25 08:29] VITALS: PULSE 60; RESP 16
[2020-07-25] MEDS: PANTOPRAZOLE 40 MG TABLET PO SCH (09:40)
[2020-07-25] MEDS: ARIPiprazole 2 MG TAB PO SCH (09:40)
[2020-07-25] MEDS: FERROUS SULFATE 325 MG TAB PO SCH (09:40)
[2020-07-25] MEDS: TAMSULOSIN 0.4 MG CAP.ER.24H PO SCH (09:40)
[2020-07-25] MEDS: POTASSIUM CHLORIDE ER 10 MEQ TAB.ER.PRT PO SCH (09:40)
[2020-07-25] MEDS: DONEPEZIL 5 MG TAB PO SCH (09:40)
[2020-07-25] MEDS: glipiZIDE 5 MG TAB PO SCH (09:40)
[2020-07-25] MEDS: FLUoxetine HCL 20 MG CAP PO SCH (09:40)
[2020-07-25] MEDS: LACTOBACILLUS ACIDOPH & BULGAR 1 EACH PACKET PO SCH (09:41)
[2020-07-25 09:47] LABS: INR 1.53 (0.90-1.11); Prothrombin Time 16.2 sec (9.9-11.9)
[2020-07-25 10:03] LABS: Basophils % (A) 0 %; Eosinophils # (A) 0.3 k/uL (0-0.7); Eosinophils % (A) 5 %; HCT 33.5 % (39.0-53.0); HGB 11.3 gm/dL (13.0-17.5); Lymphocytes # (A) 1.1 k/uL (1.0-4.8); Lymphocytes % (A) 19 %; MCH 33.3 pg (25.0-35.0); MCHC 33.8 g/dL (31.0-37.0); MCV 98.5 fL (80.0-100.0); Mean Platelet Volume 8.7; Monocytes # (A) 0.3 k/uL (0-1.0); Monocytes % (A) 4 %; Neutrophils # (A) 4.2 k/uL (1.3-7.7); Neutrophils % (A) 71 %; Platelet Count 273 k/uL (150-450); RDW 12.4 % (11.5-15.5); WBC 5.9 k/uL (3.8-10.6)
[2020-07-25 10:12] LABS: ALT 13 U/L (4-49); AST 30 U/L (17-59); African American GFR (CKD) 57 (>60 ml/min/1.73 sqM); Albumin 3.7 g/dL (3.5-5.0); Albumin/Globulin Ratio 1.2; Alkaline Phosphatase 43 U/L (38-126); Anion Gap 9 mmol/L; Blood Urea Nitrogen 37 mg/dL (9-20); Calcium 9.3 mg/dL (8.4-10.2); Carbon Dioxide 29 mmol/L (22-30); Chloride 101 mmol/L (98-107); Globulin 3.2 g/dL; Glucose 137 mg/dL (74-99); Non-African American GFR(CKD) 49 (>60 ml/min/1.73 sqM); Potassium 3.7 mmol/L (3.5-5.1); Sodium 139 mmol/L (137-145); Total Bilirubin 0.5 mg/dL (0.2-1.3); Total Protein 6.9 g/dL (6.3-8.2)
--- NOTE | 2020-07-25 11:14 | P.DS ---
Providers Date of admission: 07/22/20 20:36 Expected date of discharge: 07/25/20 Attending physician: Brandie Hinton Consults: 07/22/20 20:30 Consult Physician Urgent Consulting Provider: Ever Richard Consult Reason/Comments: bradycardia Do you want consulting provider notified?: Yes Primary care physician: Brandie [facility] [place] [facility] Course: Discharge diagnosis 1. Bradycardia. Cardizem currently on hold. Cardiology service is consulted. Cleared by cardiology services Cardizem DC'd 2. History of chronic persistent atrial fibrillation. Patient maintained on Coumadin 3. Diabetes mellitus type 2. Metformin on hold sliding scale insulin ordered 4. History of renal carcinoma status post right nephrectomy 5. Essential hypertension. Norvasc added 6. History of depression 7. History of chronic venous ulcers Hospital course This is an 84-year-old male patient who presented to the ER with concerns of low heart rate. Patient had visiting nurse at home that checked and noted low pulse. According to ER record patient has had this issue before due to completion for his known atrial fibrillation. Patient reports that he has been fatigued with activity and increased shortness of breath. Patient has a past medical history of atrial fibrillation, diabetes mellitus, eye disorder, hypertension, renal disease, vascular disorder and cholecystectomy. EKG completed in ER showing ventricular rate of 48 undetermined rhythm. Chest x-ray completed showing slight increased lung markings right lower lobe compared to old exam no pulmonary consolidation or heart failure. She is currently maintained on Cardizem at home which is currently held. Cardiology service is consulted. Troponin negative. At this time patient is resting comfortably in bed. Patient denies any chest pain or shortness of breath. Patient denies nausea vomiting or diarrhea. Patient denies any urinary burning or frequency On 07/24/2020 patient was seen and examined on the telemetry floor he is alert and oriented 3 in no apparent distress he is feeling better less fatigue and less tired and less nauseous or trait is up to 55, Cardizem was discontinued on admission, record dizziness no chest pain no shortness of breath no cough no nausea or vomiting no abdominal pain no diarrhea and no urinary symptoms On 07/25/2020 patient is alert and oriented 3. Heart rate has improved to 60s. Discussed case with cardiology nurse practitioner patient having elevated blood pressure recommend adding Norvasc to medication regime 5 mg daily. Cardizem discontinued. Patient denies chest pain or shortness breath. Patient denies nausea vomiting or diarrhea. Patient denies any urinary burning or frequency Patient Condition at Discharge: Stable Plan - Discharge Summary New Discharge Prescriptions: New amLODIPine [Norvasc] 5 mg PO DAILY 30 Days #30 tab Continue Furosemide [Lasix] 60 mg PO HS metFORMIN HCL [Glucophage] 500 mg PO DAILY Fenofibrate,Micronized [Fenofibrate] 134 mg PO HS Ergocalciferol [Vitamin D2 (DRISDOL)] 50,000 unit PO WE Meclizine [Antivert] 25 mg PO TID PRN PRN Reason: Vertigo FLUoxetine HCL [PROzac] 40 mg PO DAILY Ferrous Sulfate [Iron (65 MG Elemental)] 325 mg PO DAILY ARIPiprazole [Abilify] 2 mg PO DAILY Acetaminophen [Tylenol Extra Strength] 500 - 1,000 mg PO Q6H PRN PRN Reason: Pain L.acidoph,Paracasei, B.lactis [Probiotic] 1 cap PO DAILY Tamsulosin HCl [Flomax] 0.4 mg PO DAILY Dakins 0.25% Solut 1 applic TOPICAL TUTH Warfarin Sodium 2.5 mg PO DAILY glipiZIDE [Glucotrol] 5 mg PO DAILY Potassium Chloride ER [K-Dur 10] 10 meq PO DAILY Donepezil HCl [Aricept] 5 mg PO DAILY Loperamide HCl [Imodium A-D] 2 mg PO QID PRN PRN Reason: Diarrhea Discontinued Diltiazem HCl [Diltiazem 24Hr ER] 120 mg PO DAILY Discharge Medication List Ergocalciferol [Vitamin D2 (DRISDOL)] 50,000 unit PO WE 02/28/14 [History] Fenofibrate,Micronized [Fenofibrate] 134 mg PO HS 02/28/14 [History] Furosemide [Lasix] 60 mg PO HS 02/28/14 [History] metFORMIN HCL [Glucophage] 500 mg PO DAILY 02/28/14 [History] Meclizine [Antivert] 25 mg PO TID PRN 01/05/15 [History] FLUoxetine HCL [PROzac] 40 mg PO DAILY 07/10/17 [History] ARIPiprazole [Abilify] 2 mg PO DAILY 01/19/18 [History] Acetaminophen [Tylenol Extra Strength] 500 - 1,000 mg PO Q6H PRN 01/19/18 [History] Ferrous Sulfate [Iron (65 MG Elemental)] 325 mg PO DAILY 01/19/18 [History] Dakins 0.25% Solut 1 applic TOPICAL TUTH 07/22/20 [History] Donepezil HCl [Aricept] 5 mg PO DAILY 07/22/20 [History] L.acidoph,Paracasei, B.lactis [Probiotic] 1 cap PO DAILY 07/22/20 [History] Loperamide HCl [Imodium A-D] 2 mg PO QID PRN 07/22/20 [History] Potassium Chloride ER [K-Dur 10] 10 meq PO DAILY 07/22/20 [History] Tamsulosin HCl [Flomax] 0.4 mg PO DAILY 07/22/20 [History] Warfarin Sodium 2.5 mg PO DAILY 07/22/20 [History] glipiZIDE [Glucotrol] 5 mg PO DAILY 07/22/20 [History] amLODIPine [Norvasc] 5 mg PO DAILY 30 Days #30 tab 07/25/20 [Rx] Follow up Appointment(s)/Referral(s): Ever Richard MD [STAFF PHYSICIAN] - 2 Weeks Brandie Hinton MD [Primary Care Provider] - 1-2 days Activity/Diet/Wound Care/Special Instructions: Activity as tolerated Diet heart healthy Discharge Disposition: HOME SELF-CARE
[2020-07-25] MEDS ORDERED: amLODIPine 5 MG TAB PO SCH (11:15)
[2020-07-25 11:43] LABS: Glucose,Whole Blood 117 mg/dL (75-99)
[2020-07-25 12:22] VITALS: BP 128/72
[2020-07-25] MEDS ORDERED: WARFARIN 2 MG TAB PO ONE (18:00)
== END 2020-07-25 14:35 | disposition home or self-care (01) ==
LOC: EC 14:38 → 6NMEDSUR 20:36
PROVIDERS: ADMIT Internal Medicine; ATTEND Internal Medicine
DX: I49.5 Sick sinus syndrome (principal); I48.21 Permanent atrial fibrillation; E11.51 Type 2 diabetes mellitus with diabetic peripheral angiopathy without gangrene; I10 Essential (primary) hypertension; L94.2 Calcinosis cutis; H81.09 Meniere's disease, unspecified ear; L98.499 Non-pressure chronic ulcer of skin of other sites with unspecified severity; L87.0 Keratosis follicularis et parafollicularis in cutem penetrans; H35.30 Unspecified macular degeneration; E78.5 Hyperlipidemia, unspecified; R32 Unspecified urinary incontinence; F32.9 Major depressive disorder, single episode, unspecified; F41.9 Anxiety disorder, unspecified; Z79.899 Other long term (current) drug therapy; Z79.84 Long term (current) use of oral hypoglycemic drugs; Z79.01 Long term (current) use of anticoagulants; Z88.5 Allergy status to narcotic agent; Z87.891 Personal history of nicotine dependence; Z85.528 Personal history of other malignant neoplasm of kidney; Z89.411 Acquired absence of right great toe; Z89.421 Acquired absence of other right toe(s); Z90.49 Acquired absence of other specified parts of digestive tract; Z90.5 Acquired absence of kidney; Z84.89 Family history of other specified conditions; Z83.3 Family history of diabetes mellitus; Z82.49 Family history of ischemic heart disease and other diseases of the circulatory system; Z80.9 Family history of malignant neoplasm, unspecified; Z84.1 Family history of disorders of kidney and ureter
CPT/HCPCS: 93005 ×2; 99284; 36415; 94760; 93306; 84439; 84481; 83880; 80053 ×3; 84443 ×2; 83735; 84484; 85025 ×3; 85610 ×4; 85730; 87635; 71045; G0378 ×4

== ENCOUNTER → 2020-08-28 | Outpatient (CLI) | payer MEDICARE ==
--- NOTE | 2020-08-28 15:36 | US ---
EXAMINATION TYPE: US kidneys/renal and bladder DATE OF EXAM: 08/28/2020 COMPARISON: Higher ultrasound January 22, 2019 CLINICAL HISTORY: N18.2CKD stage 2. EXAM MEASUREMENTS: Right Kidney: 9.7 x 4.3 x 4.3 cm Left Kidney: 10.8 x 4.5 x 4.2 cm Technically difficult due to body habitus. Right Kidney: limited views, wnl as seen Left Kidney: limited views, wnl as seen Bladder: wnl There is no evidence for hydronephrosis at this point in time. No nephrolithiasis is seen. No ronny s are identified on images saved. The urinary bladder is not greatly distended. Bilateral ureteral jets are not seen. IMPRESSION: Suboptimal study but No hydronephrosis is evident bilaterally.
== END | disposition home or self-care (01) ==
LOC: RADUSWWP 13:41
PROVIDERS: ATTEND Internal Medicine Nephrology
DX: N18.2 Chronic kidney disease, stage 2 (mild) (principal)
CPT/HCPCS: 76770

== ENCOUNTER → 2020-09-24 | Outpatient (CLI) | payer MEDICARE ==
[2020-09-24 19:55] LABS: Basophils # (A) 0.02 X 10*3/uL (0.00-0.10); Basophils % (A) 0.4 %; Eosinophils # (A) 0.14 X 10*3/uL (0.04-0.35); Eosinophils % (A) 2.6 %; HCT 30.3 % (39.6-50.0); HGB 9.3 g/dL (13.0-17.0); Lymphocytes # (A) 1.05 X 10*3/uL (0.90-5.00); Lymphocytes % (A) 19.5 %; MCH 32.1 pg (27.0-32.0); MCHC 30.7 g/dL (32.0-37.0); MCV 104.5 fL (80.0-97.0); Mean Platelet Volume 11.3 fL (9.5-12.2); Monocytes % (A) 7.4 %; Neutrophils # (A) 3.77 X 10*3/uL (1.80-7.70); Neutrophils % (A) 69.9 %; Platelet Count 267 X 10*3/uL (140-440); RDW 13.7 % (11.5-14.5); WBC 5.39 X 10*3/uL (4.50-10.00)
[2020-09-25 16:11] LABS: Magnesium 1.8 mg/dL (1.5-2.4)
[2020-09-25 16:12] LABS: % Iron Saturation 16.19 (15.00-50.00); African American GFR (CKD) 64.4 (60.0-200.0); Anion Gap 10.8 mmol/L (4.00-12.00); BUN/Creat Ratio 32.5 Ratio (12.00-20.00); Calcium 9.4 mg/dL (8.7-10.3); Carbon Dioxide 22.2 mmol/L (21.6-31.8); Non-African American GFR(CKD) 55.6 (60.0-200.0); Phosphorus 3.2 mg/dL (2.4-5.1); Potassium 4.2 mmol/L (3.5-5.5); Uric Acid 5.8 mg/dL (3.7-8.7)
[2020-09-25 16:18] LABS: Ferritin 136.6 ng/mL (22.0-322.0)
== END | disposition home or self-care (01) ==
LOC: LABWHC1 11:20
PROVIDERS: ATTEND Nurse Practitioner Family
DX: N18.2 Chronic kidney disease, stage 2 (mild) (principal); D64.9 Anemia, unspecified; E55.9 Vitamin D deficiency, unspecified; N25.81 Secondary hyperparathyroidism of renal origin; M10.9 Gout, unspecified; N39.0 Urinary tract infection, site not specified
CPT/HCPCS: 36415; 80048; 82306; 82728; 83540; 83550; 83735; 83970; 84100; 84550; 85025

== ENCOUNTER 2021-02-05 12:10 | Emergency (ER) | payer MEDICARE ==
[2021-02-05 13:05] VITALS: RESP 18
[2021-02-05] MEDS ORDERED: SODIUM CHLORIDE 0.9% 1,000 ML IV STA (13:21)
--- NOTE | 2021-02-05 13:42 | ED ---
General Adult HPI - General Source: patient, family Mode of arrival: wheelchair Limitations: no limitations <Perez Garcia Damian - Last Filed: 02/05/21 15:06> <Dottie Knutson Bettina - Last Filed: 02/05/21 16:04> - General Chief complaint: Abdominal Pain Stated complaint: sent from [facility] Time Seen by Provider: 02/05/21 13:20 - History of Present Illness Initial comments: Dictation was produced using [employer] dictation software. please excuse any grammatical, word or spelling errors. Chief Complaint: 85-year-old male presents emergency department for urinary symptoms and weakness History of Present Illness: Patient is an 85-year-old male presents to the emergency department for worsening weakness. Patient was at his monthly 1 clinic appointment. He had his wound evaluated and dressings changed. He told the wound care people that he's been weak. Patient has been weak since Tuesday. He has been having urinary symptoms. Patient denies any pain complaints. He states that it mcnally slightly when he goes to urinate. Denies any flank pain. No abdominal pain or chest pain. No shortness of breath. He has been having some chills but no other constitutional symptoms. The ROS documented in this emergency department record has been reviewed and confirmed by me. Those systems with pertinent positive or negative responses have been documented in the HPI. All other systems are other negative and/or noncontributory. PHYSICAL EXAM: General Impression: Alert and oriented x3, not in acute distress HEENT: Normocephalic atraumatic, extra-ocular movements intact, pupils equal and reactive to light bilaterally, mucous membranes moist. Cardiovascular: Heart regular rate and rhythm Chest: Able to complete full sentences, no retractions, no tachypnea Abdomen: abdomen soft, non-tender, non-distended, no organomegaly Musculoskeletal: Pulses present and equal in all extremities, no peripheral edema Motor: no focal deficits noted Neurological: CN II-XII grossly intact, no focal motor or sensory deficits noted Skin: Intact with no visualized rashes Psych: Normal affect and mood : No scrotal abnormalities, no urethral discharge, no rash to the perineum or induration ED course: 85-year-old male presents to emergency department for generalized weakness and urinary symptoms. Vital Signs upon arrival shows findings within acceptable limits. EKG shows A. fib with bradycardia. Patient has history of A. fib and takes and a coagulation medications. EKG interpretation: Ventricular rate to 43, A. fib, QRS 12, QTC 425. No [place] prolongation, no QTC prolongation, no ST or T-wave changes noted. Overall, this EKG is unremarkable Available labs shows CBC within acceptable limits. Negative lactic acidosis. Urinalysis is negative for UTI. Patient is sent out [facility]. [facility] - Related Data Home Medications Medication Instructions Recorded Confirmed Ergocalciferol [Vitamin D2 50,000 unit PO WE 02/28/14 02/05/21 (DRISDOL)] Fenofibrate,Micronized 134 mg PO HS 02/28/14 02/05/21 [Fenofibrate] Furosemide [Lasix] 60 mg PO HS 02/28/14 02/05/21 metFORMIN HCL [Glucophage] 500 mg PO DAILY 02/28/14 02/05/21 Meclizine [Antivert] 25 mg PO TID PRN 01/05/15 02/05/21 FLUoxetine HCL [PROzac] 40 mg PO DAILY 07/10/17 02/05/21 ARIPiprazole [Abilify] 2 mg PO DAILY 01/19/18 02/05/21 Acetaminophen [Tylenol Extra 500 - 1,000 mg PO Q6H PRN 01/19/18 02/05/21 Strength] Ferrous Sulfate [Iron (65 MG 325 mg PO DAILY 01/19/18 02/05/21 Elemental)] Donepezil HCl [Aricept] 5 mg PO DAILY 07/22/20 02/05/21 Potassium Chloride ER [K-Dur 10] 10 meq PO DAILY 07/22/20 02/05/21 Tamsulosin HCl [Flomax] 0.4 mg PO DAILY 07/22/20 02/05/21 Warfarin Sodium 2.5 mg PO DAILY 07/22/20 02/05/21 glipiZIDE [Glucotrol] 5 mg PO DAILY 07/22/20 02/05/21 HYDROcodone/APAP 5-325MG [[place]idan 1 tab PO Q12H PRN 02/05/21 02/05/21 5-325] Wiqwjohz-Plxjaauob-Yeoozuum 1 drops BOTH EYES BID 02/05/21 02/05/21 [Maxitrol Ophth Susp] Previous Rx's Medication Instructions Recorded amLODIPine [Norvasc] 5 mg PO DAILY 30 Days #30 tab 07/25/20 Allergies Allergy/AdvReac Type Severity Reaction Status Date / Time oxycodone [Oxycodone] AdvReac Hallucinati Verified 02/05/21 13:05 ons Review of Systems ROS Other: All systems not noted in ROS Statement are negative. <Perez Garcia - Last Filed: 02/05/21 15:06> ROS Other: All systems not noted in ROS Statement are negative. <Dottie Knutson - Last Filed: 02/05/21 16:04> ROS Statement: Those systems with pertinent positive or pertinent negative responses have been documented in the HPI. Past Medical History Past Medical History: Atrial Fibrillation, Cancer, Diabetes Mellitus, Eye Disorder, Hypertension, Renal Disease, Skin Disorder, Vascular Disorder Additional Past Medical History / Comment(s): BLE VENOUS ULCERS; MPH WNS PATIENT; HAS CALCINOSIS CUTIS of BLE; KYRLE'S DISEASE. RT KIDNEY CA 2014. MAC DEGENERATION; CURRENT EYE INFECTION. HX VERTIGO, MENIERES. STAGE 3 RENAL DISEASE. MULT WOUNDS BETWEEN KNEES/ANKLES VASU; HAS HC. VERTIGO. 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 Amputated RT Great toe & 2ND toe. MULT WOUND DEBRIDEMENTS. PARTIAL RT Nephrectomy. 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 amputated toe lt great toe and next toe, rt nephrectomy, vasu eye surgery to drain fluid from eyes r/t glaucoma, Past Anesthesia/Blood Transfusion Reactions: Family History of Problems w/ Anesthesia, Motion Sickness Additional Past Anesthesia/Blood Transfusion Reaction / Comment(s): FATHER HALLUCINATED W/ ANESTHESIA. Past Psychological History: Anxiety, Depression Smoking Status: Former smoker - Past Family History Sister(s) Family Medical History: Cancer, Diabetes Mellitus Mother Family Medical History: Myocardial Infarction ([place]), Renal Disease <Perez Garcia - Last Filed: 02/05/21 15:06> General Exam Limitations: no limitations <Perez Garcia - Last Filed: 02/05/21 15:06> Course Vital Signs 02/05/21 12:59 Temperature 97.1 F L Pulse Rate 57 L Respiratory 18 Rate Blood Pressure 105/54 O2 Sat by Pulse 95 Oximetry Medical Decision Making - Lab Data Result diagrams: 02/05/21 14:15 <Perez Garcia - Last Filed: 02/05/21 15:06> - Lab Data Result diagrams: 02/05/21 14:15 02/05/21 14:15 <JeremiahrachelDottie A - Last Filed: 02/05/21 16:04> - Lab Data Lab Results 02/05/21 02/05/21 02/05/21 Range/Units 14:12 14:15 14:15 WBC 4.6 (3.8-10.6) k/uL RBC 3.44 L (4.30-5.90) m/uL Hgb 11.5 L (13.0-17.5) gm/dL Hct 34.5 L (39.0-53.0) % MCV 100.2 H (80.0-100.0) fL MCH 33.4 (25.0-35.0) pg MCHC 33.3 (31.0-37.0) g/dL RDW 13.3 (11.5-15.5) % Plt Count 194 (150-450) k/uL MPV 9.5 Neutrophils % 69 % Lymphocytes % 17 % Monocytes % 7 % Eosinophils % 5 % Basophils % 0 % Neutrophils # 3.2 (1.3-7.7) k/uL Lymphocytes # 0.8 L (1.0-4.8) k/uL Monocytes # 0.3 (0-1.0) k/uL Eosinophils # 0.2 (0-0.7) k/uL Basophils # 0.0 (0-0.2) k/uL Sodium 136 L (137-145) mmol/L Potassium 3.3 L (3.5-5.1) mmol/L Chloride 100 (98-107) mmol/L Carbon Dioxide 24 (22-30) mmol/L Anion Gap 12 mmol/L BUN 27 H (9-20) mg/dL Creatinine 1.00 (0.66-1.25) mg/dL Est GFR (CKD-EPI)AfAm 80 (>60 ml/min/1.73 sqM) Est GFR (CKD-EPI)NonAf 69 (>60 ml/min/1.73 sqM) Glucose 143 H (74-99) mg/dL Plasma Lactic Acid Carlos Eduardo (0.7-2.0) mmol/L Calcium 9.1 (8.4-10.2) mg/dL Magnesium 1.9 (1.6-2.3) mg/dL Urine Color Urine Appearance (Clear) Urine pH (5.0-8.0) Ur Specific Faith (1.001-1.035) Urine Protein (Negative) Urine Glucose (UA) (Negative) Urine Ketones (Negative) Urine Blood (Negative) Urine Nitrite (Negative) Urine Bilirubin (Negative) Urine Urobilinogen (<2.0) mg/dL Ur Leukocyte Esterase (Negative) Urine RBC (0-5) /hpf Urine WBC (0-5) /hpf Ur Squamous Epith Cells (0-4) /hpf Urine Bacteria (None) /hpf Urine Mucus (None) /hpf Influenza Type A (PCR) Not Detected (Not Detectd) Influenza Type B (PCR) Not Detected (Not Detectd) RSV (PCR) Not Detected (Not Detectd) SARS-CoV-2 (PCR) Detected A (Not Detectd) 02/05/21 02/05/21 Range/Units 14:15 Unknown WBC (3.8-10.6) k/uL RBC (4.30-5.90) m/uL Hgb (13.0-17.5) gm/dL Hct (39.0-53.0) % MCV (80.0-100.0) fL MCH (25.0-35.0) pg MCHC (31.0-37.0) g/dL RDW (11.5-15.5) % Plt Count (150-450) k/uL MPV Neutrophils % % Lymphocytes % % Monocytes % % Eosinophils % % Basophils % % Neutrophils # (1.3-7.7) k/uL Lymphocytes # (1.0-4.8) k/uL Monocytes # (0-1.0) k/uL Eosinophils # (0-0.7) k/uL Basophils # (0-0.2) k/uL Sodium (137-145) mmol/L Potassium (3.5-5.1) mmol/L Chloride (98-107) mmol/L Carbon Dioxide (22-30) mmol/L Anion Gap mmol/L BUN (9-20) mg/dL Creatinine (0.66-1.25) mg/dL Est GFR (CKD-EPI)AfAm (>60 ml/min/1.73 sqM) Est GFR (CKD-EPI)NonAf (>60 ml/min/1.73 sqM) Glucose (74-99) mg/dL Plasma Lactic Acid Carlos Eduardo 0.7 (0.7-2.0) mmol/L Calcium (8.4-10.2) mg/dL Magnesium (1.6-2.3) mg/dL Urine Color Yellow Urine Appearance Clear (Clear) Urine pH 5.5 (5.0-8.0) Ur Specific Faith 1.016 (1.001-1.035) Urine Protein Trace H (Negative) Urine Glucose (UA) Negative (Negative) Urine Ketones Negative (Negative) Urine Blood Small H (Negative) Urine Nitrite Negative (Negative) Urine Bilirubin Negative (Negative) Urine Urobilinogen <2.0 (<2.0) mg/dL Ur Leukocyte Esterase Negative (Negative) Urine RBC 7 H (0-5) /hpf Urine WBC <1 (0-5) /hpf Ur Squamous Epith Cells 1 (0-4) /hpf Urine Bacteria Rare H (None) /hpf Urine Mucus Rare H (None) /hpf Influenza Type A (PCR) (Not Detectd) Influenza Type B (PCR) (Not Detectd) RSV (PCR) (Not Detectd) SARS-CoV-2 (PCR) (Not Detectd) Disposition <Perez Garcia - Last Filed: 02/05/21 15:06> Is patient prescribed a controlled substance at d/c from ED?: No Time of Disposition: 16:04 <Dottie Knutson - Last Filed: 02/05/21 16:04> Clinical Impression: COVID-19 Disposition: HOME SELF-CARE Condition: Stable Instructions (If sedation given, give patient instructions): Coronavirus Disease 2019 (COVID-19) Additional Instructions: You received antibody infusion today. Please follow up with your doctor. Return to the ED for any new or worsening symptoms. Referrals: Brandie Hinton MD [Primary Care Provider] - 1-2 days
[2021-02-05 14:28] LABS: Basophils % (A) 0 %; Eosinophils # (A) 0.2 k/uL (0-0.7); Eosinophils % (A) 5 %; HCT 34.5 % (39.0-53.0); HGB 11.5 gm/dL (13.0-17.5); Lymphocytes # (A) 0.8 k/uL (1.0-4.8); Lymphocytes % (A) 17 %; MCH 33.4 pg (25.0-35.0); MCHC 33.3 g/dL (31.0-37.0); MCV 100.2 fL (80.0-100.0); Mean Platelet Volume 9.5; Monocytes # (A) 0.3 k/uL (0-1.0); Monocytes % (A) 7 %; Neutrophils # (A) 3.2 k/uL (1.3-7.7); Neutrophils % (A) 69 %; Platelet Count 194 k/uL (150-450); RBC 3.44 m/uL (4.30-5.90); RDW 13.3 % (11.5-15.5); WBC 4.6 k/uL (3.8-10.6)
[2021-02-05 14:41] LABS: Appearance,Urine Clear (Clear); Bacteria,Urine Rare /hpf; Bilirubin,Urine Negative (Negative); Blood,Urine Small (Negative); Color,Urine Yellow; Glucose,Urine (UA) Negative (Negative); Ketones,Urine Negative (Negative); Leukocyte Esterase,Urine Negative (Negative); Mucus,Urine Rare /hpf; Nitrite,Urine Negative (Negative); PH, Urine 5.5 (5.0-8.0); Protein,Urine Trace (Negative); RBC,Urine 7 /hpf (0-5); Specific Gravity,Urine 1.016 (1.001-1.035); Squamous Epithelial Cell,Urine 1 /hpf (0-4); Urobilinogen,Urine <2.0 mg/dL (<2.0); WBC,Urine <1 /hpf (0-5)
[2021-02-05 15:24] LABS: Calcium 9.1 mg/dL (8.4-10.2); Magnesium 1.9 mg/dL (1.6-2.3); Potassium 3.3 mmol/L (3.5-5.1)
[2021-02-05] MEDS ORDERED: POTASSIUM CHLORIDE ER 20 MEQ TAB.ER PO STA (15:35)
[2021-02-05] MEDS ORDERED: SODIUM CHLORIDE 0.9% 50 ML IVPB ONE (15:45)
[2021-02-05] MEDS ORDERED: CASIRIVIMAB (REGN10933) (EUA) 600 MG, IMDEVIMAB (REGN10987) (EUA) 600 MG in SODIUM CHLO... IVPB ONE (16:15)
[2021-02-05 18:02] VITALS: BP 125/84; PULSE 82; TEMP 98
== END 2021-02-05 18:04 | disposition home or self-care (01) ==
LOC: EC 12:10
DX: U07.1 COVID-19 (principal); I48.91 Unspecified atrial fibrillation; E11.9 Type 2 diabetes mellitus without complications; I10 Essential (primary) hypertension; F41.9 Anxiety disorder, unspecified; F32.9 Major depressive disorder, single episode, unspecified; Z88.5 Allergy status to narcotic agent; Z90.49 Acquired absence of other specified parts of digestive tract; Z87.891 Personal history of nicotine dependence; Z79.84 Long term (current) use of oral hypoglycemic drugs; Z79.01 Long term (current) use of anticoagulants
CPT/HCPCS: 36415; 80048; 81001; 83605; 83735; 85025; 87636; 93005; 96361; 99285

== ENCOUNTER → 2021-05-07 | Outpatient (CLI) | payer MEDICARE ==
[2021-05-07 20:41] LABS: HCT 34.3 % (39.6-50.0); HGB 10.6 g/dL (13.0-17.0); MCH 32.8 pg (27.0-32.0); MCHC 30.9 g/dL (32.0-37.0); MCV 106.2 fL (80.0-97.0); Mean Platelet Volume 12.1 fL (9.5-12.2); Platelet Count 274 X 10*3/uL (140-440); RBC 3.23 X 10*6/uL (4.40-5.60); RDW 13.8 % (11.5-14.5)
[2021-05-07 20:55] LABS: % Iron Saturation 20.52 (15.00-50.00); African American GFR (CKD) 56.4 (60.0-200.0); Anion Gap 14.4 mmol/L (10.00-18.00); BUN/Creat Ratio 23.96 Ratio (12.00-20.00); Blood Urea Nitrogen 32.1 mg/dL (9.0-27.0); Calcium 9.3 mg/dL (8.7-10.3); Magnesium 2.2 mg/dL (1.5-2.4); Non-African American GFR(CKD) 48.6 (60.0-200.0); Phosphorus 3.3 mg/dL (2.4-5.1); Potassium 3.9 mmol/L (3.5-5.5); Uric Acid 6.6 mg/dL (3.7-8.7)
[2021-05-07 21:20] LABS: Basophils # (A) 0.02 X 10*3/uL (0.00-0.10); Basophils % (A) 0.3 %; Eosinophils # (A) 0.14 X 10*3/uL (0.04-0.35); Eosinophils % (A) 2.4 %; Lymphocytes # (A) 0.85 X 10*3/uL (0.90-5.00); Lymphocytes % (A) 14.4 %; Monocytes # (A) 0.33 X 10*3/uL (0.20-1.00); Monocytes % (A) 5.6 %; Neutrophils # (A) 4.54 X 10*3/uL (1.80-7.70)
== END | disposition home or self-care (01) ==
LOC: LABWHC1 11:37
PROVIDERS: ATTEND Internal Medicine Nephrology
DX: E55.9 Vitamin D deficiency, unspecified (principal); D63.8 Anemia in other chronic diseases classified elsewhere; M10.9 Gout, unspecified; N25.81 Secondary hyperparathyroidism of renal origin; N39.0 Urinary tract infection, site not specified; N18.31 Chronic kidney disease, stage 3a; R80.9 Proteinuria, unspecified
CPT/HCPCS: 36415; 80048; 82040; 82306; 82728; 83540; 83550; 83735; 83970; 84100; 84550; 85025

== ENCOUNTER → 2021-06-15 | Outpatient (CLI) | payer MEDICARE ==
--- NOTE | 2021-06-16 01:32 | MR ---
EXAMINATION TYPE: MR brain wo con DATE OF EXAM: 06/15/2021 COMPARISON: 01/22/2018 HISTORY: No prior, CVA, dementia Multiplanar multiecho imaging of the brain without contrast. FINDINGS: There is cerebral cortical atrophy. Diffusion images show no evidence of an acute infarct. Ventricles have fairly normal size. There is no mass effect nor midline shift. There is no sign of intracranial hemorrhage. There is mild thinning of the corpus callosum. There is some mild increased signal in th e periventricular white matter measuring up to 5 mm in thickness. There are small foci of increased s ignal measuring up to 3 mm at the delgado-white matter junction both cerebral hemispheres. The brainstem is intact. There is no evidence of a sellar mass. There is no evidence of orbital mass. There is fluid level and mucosal thickening in the left maxillary sinus. IMPRESSION: White matter signal changes around the lateral ventricles with cerebral atrophy are probably age rela chato. This has progressed compared to old exam. There are scattered white matter high signal small foci at the delgado-white matter junction both cerebr al hemispheres likely related to microvascular ischemia and very slightly increased compared to the o ld exam. No evidence of cortical infarct.
== END | disposition home or self-care (01) ==
LOC: RADMRIMAIN 12:40
PROVIDERS: ATTEND Psychiatry & Neurology Neurology
DX: G31.89 Other specified degenerative diseases of nervous system (principal)
CPT/HCPCS: 70551

== ENCOUNTER → 2021-08-20 | Outpatient (CLI) | payer MEDICARE ==
--- NOTE | 2021-08-20 17:17 | XR ---
PROCEDURE: XR Hip Complete RT - 2V DATE AND TIME: 08/20/2021 4:55 PM CLINICAL INDICATION: RT HIP PAIN TECHNIQUE: AP and frog-leg lateral views were obtained. COMPARISON: None FINDINGS: There is no fracture or malalignment. There are no focal skeletal findings. There is modera te joint space narrowing with subchondral sclerosis, consistent with degenerative joint changes. The soft tissues are negative for acute findings, but atherosclerotic arterial calcifications noted. IMPRESSION: No acute process.
--- NOTE | 2021-08-21 06:31 | US ---
EXAMINATION TYPE: US kidneys/renal and bladder DATE OF EXAM: 08/20/2021 COMPARISON: CT abdomen and pelvis August 13, 2018. Prior renal ultrasound August 28, 2020 CLINICAL HISTORY: R10.9 RT FLANK PAIN. right flank pain EXAM MEASUREMENTS: Right Kidney: 7.0 x 4.0 x 3.8 cm Left Kidney: 10.6 x 4.9 x 4.1 cm technical limitations due to patient's body habitus, and exam performed with patient sitting in whe elchair Right Kidney: portions obscured, no evidence of hydronephrosis Left Kidney: no evidence of hydronephrosis Bladder: appears wnl Bilateral Jets seen: no Exam suboptimal secondary to patient's large body habitus. Cortical thinning right kidney with dimini shed size from prior studies. No hydronephrosis is seen in either kidney. Satisfactory distention of bladder. Bilateral distal ureter jets are not seen. IMPRESSION: Suboptimal study. No hydronephrosis seen bilaterally. Source of right flank pain not iden tified but there is now significant interval volume loss in the right kidney versus the most recent u ltrasound and CT. Consider further workup.
== END | disposition home or self-care (01) ==
LOC: RADUSWWP 16:20
PROVIDERS: ATTEND Internal Medicine
DX: R10.9 Unspecified abdominal pain (principal); M25.551 Pain in right hip
CPT/HCPCS: 73502; 76770

== ENCOUNTER → 2021-11-05 | Outpatient (CLI) | payer MEDICARE ==
[2021-11-05 18:26] LABS: Basophils # (A) 0.03 X 10*3/uL (0.00-0.10); Basophils % (A) 0.5 %; Eosinophils # (A) 0.16 X 10*3/uL (0.04-0.35); Eosinophils % (A) 2.8 %; HCT 35.4 % (39.6-50.0); HGB 10.9 g/dL (13.0-17.0); Immature Grans, Automated 0.3 %; Lymphocytes # (A) 0.96 X 10*3/uL (0.90-5.00); Lymphocytes % (A) 16.8 %; MCH 31.8 pg (27.0-32.0); MCHC 30.8 g/dL (32.0-37.0); MCV 103.2 fL (80.0-97.0); Mean Platelet Volume 11.7 fL (9.5-12.2); Monocytes # (A) 0.27 X 10*3/uL (0.20-1.00); Monocytes % (A) 4.7 %; NRBC Per 100 WBC 0 /100 WBCS (0.0-0.0); Neutrophils # (A) 4.28 X 10*3/uL (1.80-7.70); Neutrophils % (A) 74.9 %; Platelet Count 269 X 10*3/uL (140-440); RBC 3.43 X 10*6/uL (4.40-5.60); RDW 13.1 % (11.5-14.5); WBC 5.72 X 10*3/uL (4.50-10.00)
[2021-11-05 18:35] LABS: % Iron Saturation 23.02 (15.00-50.00); African American GFR (CKD) 71.1 (60.0-200.0); Anion Gap 12.1 mmol/L (10.00-18.00); BUN/Creat Ratio 29.55 Ratio (12.00-20.00); Blood Urea Nitrogen 32.5 mg/dL (9.0-27.0); Calcium 9.1 mg/dL (8.7-10.3); Carbon Dioxide 23.9 mmol/L (20.0-27.5); Magnesium 2.3 mg/dL (1.5-2.4); Non-African American GFR(CKD) 61.3 (60.0-200.0); Phosphorus 3.3 mg/dL (2.4-5.1); Potassium 4.1 mmol/L (3.5-5.5)
[2021-11-05 19:01] LABS: Albumin 3.9 g/dL (3.8-4.9)
== END | disposition home or self-care (01) ==
LOC: LABWHC1 12:17
PROVIDERS: ATTEND Nurse Practitioner Family
DX: E55.9 Vitamin D deficiency, unspecified (principal); D63.8 Anemia in other chronic diseases classified elsewhere; M10.9 Gout, unspecified; N39.0 Urinary tract infection, site not specified; N18.31 Chronic kidney disease, stage 3a; N25.81 Secondary hyperparathyroidism of renal origin; R80.9 Proteinuria, unspecified
CPT/HCPCS: 36415; 80048; 82040; 82306; 82728; 83540; 83550; 83735; 83970; 84100; 84550; 85025

== ENCOUNTER 2022-01-21 18:45 | Emergency (ER) | payer MEDICARE ==
[2022-01-21 18:57] VITALS: RESP 18; TEMP 98.2
[2022-01-21 19:35] LABS: Basophils % (A) 0 %; Eosinophils # (A) 0.2 k/uL (0-0.7); Eosinophils % (A) 3 %; HGB 12.2 gm/dL (13.0-17.5); Lymphocytes % (A) 17 %; MCH 32.6 pg (25.0-35.0); MCV 101.7 fL (80.0-100.0); Mean Platelet Volume 9.2; Monocytes # (A) 0.3 k/uL (0-1.0); Monocytes % (A) 5 %; Neutrophils # (A) 4.5 k/uL (1.3-7.7); Neutrophils % (A) 75 %; Platelet Count 242 k/uL (150-450); RBC 3.74 m/uL (4.30-5.90); RDW 12.3 % (11.5-15.5)
[2022-01-21 19:48] LABS: Albumin 4.1 g/dL (3.5-5.0); Calcium 9.4 mg/dL (8.4-10.2); Magnesium 1.9 mg/dL (1.6-2.3); Potassium 4.1 mmol/L (3.5-5.1); Total Bilirubin 0.3 mg/dL (0.2-1.3); Total Protein 7.2 g/dL (6.3-8.2)
[2022-01-21 19:55] LABS: INR 1.1 (<1.2)
--- NOTE | 2022-01-21 20:57 | XR ---
EXAMINATION: XR chest 2V DATE AND TIME: 01/21/2022 8:09 PM CLINICAL INDICATION: Chest Pain TECHNIQUE: Departmental protocol COMPARISON: 07/22/2020 FINDINGS: The lungs are clear. The pleural spaces are negative. The cardiac silhouette is not enlarged. The remainder of the mediastinal silhouette is unremarkable. The skeletal structures and soft tissues are negative for acute findings. IMPRESSION: NO ACUTE PROCESS.
--- NOTE | 2022-01-21 21:26 | ED ---
General Adult HPI - General Chief complaint: Chest Pain Stated complaint: chest pain Time Seen by Provider: 01/21/22 20:43 Source: patient, RN notes reviewed, old records reviewed Mode of arrival: ambulatory Limitations: no limitations - History of Present Illness Initial comments: Patient is an 86-year-old male who presents emergency Department complaining of intermittent chest pain for the last 2 weeks. States it is substernal. Describes it as a sharp sensation that comes and goes within a minute. Denies any history of cardiac stents or heart attack. Does have a history of atrial fibrillation on blood thinners. Denies any shortness of breath with these episodes. Denies any diaphoresis or lightheadedness with these episodes. Denies any nausea or vomiting with these episodes. Has no other acute complaints at this time. Currently is asymptomatic. Is uncertain what is causing his pains and wanted to be evaluated. He has not sought medical care previously for this. States last time he felt this pain was while he was in the waiting room over an hour prior to me evaluating. States these occur multiple times a day. No known palliative or provocative factors. States he believes they are palpable, as many pushes on his chest and they're there, it seems to make it hurt less. - Related Data Home Medications Medication Instructions Recorded Confirmed Ergocalciferol [Vitamin D2 50,000 unit PO WE 02/28/14 02/05/21 (DRISDOL)] Fenofibrate,Micronized 134 mg PO HS 02/28/14 02/05/21 [Fenofibrate] Furosemide [Lasix] 60 mg PO HS 02/28/14 02/05/21 metFORMIN HCL [Glucophage] 500 mg PO DAILY 02/28/14 02/05/21 Meclizine [Antivert] 25 mg PO TID PRN 01/05/15 02/05/21 FLUoxetine HCL [PROzac] 40 mg PO DAILY 07/10/17 02/05/21 ARIPiprazole [Abilify] 2 mg PO DAILY 01/19/18 02/05/21 Acetaminophen [Tylenol Extra 500 - 1,000 mg PO Q6H PRN 01/19/18 02/05/21 Strength] Ferrous Sulfate [Iron (65 MG 325 mg PO DAILY 01/19/18 02/05/21 Elemental)] Donepezil HCl [Aricept] 5 mg PO DAILY 07/22/20 02/05/21 Potassium Chloride ER [K-Dur 10] 10 meq PO DAILY 07/22/20 02/05/21 Tamsulosin HCl [Flomax] 0.4 mg PO DAILY 07/22/20 02/05/21 Warfarin Sodium 2.5 mg PO DAILY 07/22/20 02/05/21 glipiZIDE [Glucotrol] 5 mg PO DAILY 07/22/20 02/05/21 HYDROcodone/APAP 5-325MG [[place] 1 tab PO Q12H PRN 02/05/21 02/05/21 5-325] Nnjbbnsn-Dwmtnicyg-Xiubqoue 1 drops BOTH EYES BID 02/05/21 02/05/21 [Maxitrol Ophth Susp] Previous Rx's Medication Instructions Recorded amLODIPine [Norvasc] 5 mg PO DAILY 30 Days #30 tab 07/25/20 Allergies Allergy/AdvReac Type Severity Reaction Status Date / Time oxycodone [Oxycodone] AdvReac Hallucinati Verified 02/05/21 13:05 ons Review of Systems ROS Statement: Those systems with pertinent positive or pertinent negative responses have been documented in the HPI. Review of Systems: CONST: Denies fever EYES: Denies blurry vision ENT: Denies nasal congestion C/V: Endorses resolved chest pain RESP: Denies shortness of breath GI: Denies abdominal pain : Denies dysuria SKIN: Denies rash. MSK: Denies joint pain. NEURO: Denies headache ROS Other: All systems not noted in ROS Statement are negative. Past Medical History Past Medical History: Atrial Fibrillation, Cancer, Diabetes Mellitus, Eye Disorder, Hypertension, Renal Disease, Skin Disorder, Vascular Disorder Additional Past Medical History / Comment(s): BLE VENOUS ULCERS; MPH WNS PATIENT; HAS CALCINOSIS CUTIS of BLE; KYRLE'S DISEASE. RT KIDNEY CA 2014. MAC DEGENERATION; CURRENT EYE INFECTION. HX VERTIGO, MENIERES. STAGE 3 RENAL DISEASE. MULT WOUNDS BETWEEN KNEES/ANKLES VASU; HAS HC. VERTIGO. 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 Amputated RT Great toe & 2ND toe. MULT WOUND DEBRIDEMENTS. PARTIAL RT Nephrectomy. 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 amputated toe lt great toe and next toe, rt nephrectomy, vasu eye surgery to drain fluid from eyes r/t glaucoma, Past Anesthesia/Blood Transfusion Reactions: Family History of Problems w/ Anesthesia, Motion Sickness Additional Past Anesthesia/Blood Transfusion Reaction / Comment(s): FATHER HALLUCINATED W/ ANESTHESIA. Past Psychological History: Anxiety, Depression Smoking Status: Former smoker Past Alcohol Use History: None Reported Past Drug Use History: None Reported - Past Family History Sister(s) Family Medical History: Cancer, Diabetes Mellitus Mother Family Medical History: Myocardial Infarction ([place]), Renal Disease General Exam Limitations: no limitations Course Vital Signs 01/21/22 01/21/22 01/21/22 18:53 20:36 21:33 Temperature 98.2 F Pulse Rate 58 L 63 52 L Respiratory 18 18 18 Rate Blood Pressure 129/76 150/88 143/95 O2 Sat by Pulse 99 99 100 Oximetry Medical Decision Making - Medical Decision Making Based on the patient's presentation and physical exam, I am concerned for cardiopulmonary etiology for the patient's current pain. Cannot rule out muscular skeletal cause. It seems atypical in nature. Vital signs are within normal limits. Workup was obtained while the patient remained in triage. I evaluated patient after he presented in agreement. Workup was remarkable for a chronic macrocytic anemia with a hemoglobin of 12.2 which is stable. Troponin is undetectable. Remainder of the labs are unremarkable. Chest x-ray shows no acute cardio pulmonary process. EKG shows no acute ischemic process. Patient is currently asymptomatic. We discussed at length his negative workup, as well as multiple days of symptoms with this negative workup. He is resting comfortably. Patient's heart score is low at 3. I believe it is safe to be discharged home at this time. Joint decision making was made, as I did offer if the patient desires observation telemetry admission which she refuses at this time. He would like to go home. I do believe this is reasonable. Strict return precautions were discussed. Patient will follow-up with his PCP in the next 1-3 days. Chest pain is likely chest wall pain. Patient has remained asymptomatic since I began evaluating him. Cardiac workup is unremarkable. Vitals remained within normal limits. I instructed the patient to follow up with their PCP in the next 1-3 days. I explained that the patient should return to the emergency department if they experience any worsening symptoms. Strict return precautions were discussed with the patient. The patient expressed understanding of these instructions. I answered all questions that the patient had. The patient was discharged home in good condition with their prescriptions and follow up information. - Lab Data Result diagrams: 01/21/22 19:20 01/21/22 19:20 Lab Results 01/21/22 01/21/22 01/21/22 Range/Units 19:20 19:20 19:20 WBC 6.0 (3.8-10.6) k/uL RBC 3.74 L (4.30-5.90) m/uL Hgb 12.2 L (13.0-17.5) gm/dL Hct 38.0 L (39.0-53.0) % MCV 101.7 H (80.0-100.0) fL MCH 32.6 (25.0-35.0) pg MCHC 32.0 (31.0-37.0) g/dL RDW 12.3 (11.5-15.5) % Plt Count 242 (150-450) k/uL MPV 9.2 Neutrophils % 75 % Lymphocytes % 17 % Monocytes % 5 % Eosinophils % 3 % Basophils % 0 % Neutrophils # 4.5 (1.3-7.7) k/uL Lymphocytes # 1.0 (1.0-4.8) k/uL Monocytes # 0.3 (0-1.0) k/uL Eosinophils # 0.2 (0-0.7) k/uL Basophils # 0.0 (0-0.2) k/uL PT 12.0 (9.0-12.0) sec INR 1.1 (<1.2) APTT 27.0 (22.0-30.0) sec Sodium 138 (137-145) mmol/L Potassium 4.1 (3.5-5.1) mmol/L Chloride 100 (98-107) mmol/L Carbon Dioxide 25 (22-30) mmol/L Anion Gap 13 mmol/L BUN 29 H (9-20) mg/dL Creatinine 1.21 (0.66-1.25) mg/dL Est GFR (CKD-EPI)AfAm 63 (>60 ml/min/1.73 sqM) Est GFR (CKD-EPI)NonAf 55 (>60 ml/min/1.73 sqM) Glucose 167 H (74-99) mg/dL Calcium 9.4 (8.4-10.2) mg/dL Magnesium 1.9 (1.6-2.3) mg/dL Total Bilirubin 0.3 (0.2-1.3) mg/dL AST 28 (17-59) U/L ALT 13 (4-49) U/L Alkaline Phosphatase 53 (38-126) U/L Troponin I (0.000-0.034) ng/mL Total Protein 7.2 (6.3-8.2) g/dL Albumin 4.1 (3.5-5.0) g/dL 01/21/22 Range/Units 19:20 WBC (3.8-10.6) k/uL RBC (4.30-5.90) m/uL Hgb (13.0-17.5) gm/dL Hct (39.0-53.0) % MCV (80.0-100.0) fL MCH (25.0-35.0) pg MCHC (31.0-37.0) g/dL RDW (11.5-15.5) % Plt Count (150-450) k/uL MPV Neutrophils % % Lymphocytes % % Monocytes % % Eosinophils % % Basophils % % Neutrophils # (1.3-7.7) k/uL Lymphocytes # (1.0-4.8) k/uL Monocytes # (0-1.0) k/uL Eosinophils # (0-0.7) k/uL Basophils # (0-0.2) k/uL PT (9.0-12.0) sec INR (<1.2) APTT (22.0-30.0) sec Sodium (137-145) mmol/L Potassium (3.5-5.1) mmol/L Chloride (98-107) mmol/L Carbon Dioxide (22-30) mmol/L Anion Gap mmol/L BUN (9-20) mg/dL Creatinine (0.66-1.25) mg/dL Est GFR (CKD-EPI)AfAm (>60 ml/min/1.73 sqM) Est GFR (CKD-EPI)NonAf (>60 ml/min/1.73 sqM) Glucose (74-99) mg/dL Calcium (8.4-10.2) mg/dL Magnesium (1.6-2.3) mg/dL Total Bilirubin (0.2-1.3) mg/dL AST (17-59) U/L ALT (4-49) U/L Alkaline Phosphatase (38-126) U/L Troponin I <0.012 (0.000-0.034) ng/mL Total Protein (6.3-8.2) g/dL Albumin (3.5-5.0) g/dL - EKG Data -: EKG Interpreted by Me EKG Comments: 12-lead Electrocardiogram Interpretation Note EKG was reviewed and interpreted by myself. 12-lead ECG performed at 1910 is interpreted by me as revealing atrial fibrillation at a rate of 68 beats per minute. [place] is normal. QRS durations 100 ms, QTc is 435 ms.. There were no ST or T wave abnormalities to suggest myocardial ischemia or injury. R wave progression across the precordium was satisfactory. By my interpretation this EKG is non-diagnostic for acute ischemia. EKG is similar from prior EKG from June 2020 and March 2021. Disposition Clinical Impression: Atypical chest pain Disposition: HOME SELF-CARE Condition: Good Instructions (If sedation given, give patient instructions): Chest Pain (ED) Is patient prescribed a controlled substance at d/c from ED?: No Referrals: Brandie Hinton MD [Primary Care Provider] - 1-2 days Time of Disposition: 21:26
[2022-01-21 21:34] VITALS: BP 143/95; PULSE 52
== END 2022-01-21 21:35 | disposition home or self-care (01) ==
LOC: EC 18:45
DX: R07.89 Other chest pain (principal); Z88.5 Allergy status to narcotic agent; Z79.84 Long term (current) use of oral hypoglycemic drugs; Z79.899 Other long term (current) drug therapy
CPT/HCPCS: 36415; 71046; 80053; 83735; 84484; 85025; 85610; 85730; 93005; 99285